=== PATIENT | female | born 1950 | race Caucasian/White ===

== ENCOUNTER 2016-12-25 18:24 | Inpatient (IN) | payer MEDICARE, OTHER ==
[2016-12-25 19:22] LABS: Basophils % (A) 0 %; Eosinophils # (A) 0.2 k/uL (0-0.7); Eosinophils % (A) 2 %; HCT 39.7 % (34.0-46.0); HGB 13.2 gm/dL (11.4-16.0); Luc # (Auto) 0.17; Luc % (Auto) 2; Lymphocytes # (A) 2.6 k/uL (1.0-4.8); Lymphocytes % (A) 25 %; MCH 29.5 pg (25.0-35.0); MCHC 33.2 g/dL (31.0-37.0); MCV 88.8 fL (80.0-100.0); Mean Platelet Volume 7.9; Monocytes # (A) 0.5 k/uL (0-1.0); Monocytes % (A) 5 %; Neutrophils # (A) 6.8 k/uL (1.3-7.7); Neutrophils % (A) 66 %; RBC 4.47 m/uL (3.80-5.40); RDW 15.4 % (11.5-15.5); WBC 10.4 k/uL (3.8-10.6); WBC (Perox) 10.04
--- NOTE | 2016-12-25 19:25 | ED ---
General Adult HPI - General Source: patient, EMS, RN notes reviewed Mode of arrival: EMS Limitations: no limitations <Chelo Mcmillan - Last Filed: 12/25/16 20:02> <Barry Galvan - Last Filed: 12/25/16 22:29> - General Chief complaint: Recheck/Abnormal Lab/Rx Stated complaint: Tremors Time Seen by Provider: 12/25/16 18:28 - History of Present Illness Initial comments: Patient is 66-year-old female presents to the emergency room for evaluation of tremors. Patient states she's been having tremors for the past 4 days. Patient states that today she began feeling very nauseous with headache with general malaise. Patient states she called EMS. Patient denies any recent changes in medications. Patient is on a number of psychiatric medications. Patient denies any changes in dosage of psychiatric medications. Patient denies chest pain or shortness of breath. Patient states he is having mild upper epigastric pain from nausea. Patient was given Zofran in EMS and states that that did help relieve her symptoms. Patient does state she ate today. Patient denies history of diabetes. Patient denies thyroid disorders. Patient denies recent changes in diet. Patient denies fevers or chills. Patient denies weakness or unilateral weakness. Patient denies alcohol use. Patient denies illicit drug use. (Chelo Mcmillan) - Related Data Home Medications Medication Instructions Recorded Confirmed Albuterol Inhaler [Ventolin Hfa 2 puff INHALATION RT-Q6H PRN 12/25/16 12/25/16 Inhaler] Ergocalciferol [Vitamin D2] 50,000 unit PO Q7D 12/25/16 12/25/16 FLUoxetine HCL [PROzac] 20 mg PO DAILY 12/25/16 12/25/16 Hydrochlorothiazide [Hydrodiuril] 25 mg PO DAILY 12/25/16 12/25/16 Ibuprofen [Motrin] 600 mg PO BID PRN 12/25/16 12/25/16 Lisinopril [Zestril] 10 mg PO DAILY 12/25/16 12/25/16 Loperamide [Imodium] 2 mg PO DAILY 12/25/16 12/25/16 Mirtazapine [Remeron] 30 mg PO HS 12/25/16 12/25/16 Pregabalin [Lyrica] 100 mg PO TID 12/25/16 12/25/16 Venlafaxine HCl [Effexor] 37.5 mg PO DAILY 12/25/16 12/25/16 glipiZIDE [Glucotrol] 5 mg PO AC-BID 12/25/16 12/25/16 traZODone HCL [Desyrel] 100 mg PO DAILY 12/25/16 12/25/16 Allergies Allergy/AdvReac Type Severity Reaction Status Date / Time ketorolac [From Toradol] Allergy Unknown Verified 12/25/16 18:46 Penicillins Allergy Unknown Verified 12/25/16 18:46 Review of Systems ROS Other: All systems not noted in ROS Statement are negative. <Chelo Mcmillan - Last Filed: 12/25/16 20:02> ROS Other: All systems not noted in ROS Statement are negative. <Barry Galvan - Last Filed: 12/25/16 22:29> ROS Statement: Those systems with pertinent positive or pertinent negative responses have been documented in the HPI. Past Medical History Past Medical History: No Reported History Additional Past Medical History / Comment(s): anxiety, migraine History of Any Multi-Drug Resistant Organisms: None Reported Past Surgical History: Appendectomy, Cholecystectomy, Hysterectomy Past Psychological History: Anxiety, Depression Smoking Status: Current every day smoker Past Alcohol Use History: None Reported Past Drug Use History: None Reported <Chelo Mcmillan - Last Filed: 12/25/16 20:02> General Exam Limitations: no limitations General appearance: alert, in no apparent distress Head exam: Present: atraumatic, normocephalic, normal inspection Eye exam: Present: normal appearance, PERRL, EOMI Pupils: Present: normal accommodation ENT exam: Present: normal exam Neck exam: Present: normal inspection Respiratory exam: Present: normal lung sounds bilaterally. Absent: respiratory distress Cardiovascular Exam: Present: regular rate, normal rhythm, normal heart sounds GI/Abdominal exam: Present: soft, tenderness (Upper midepigastric), normal bowel sounds. Absent: distended, guarding, rebound, rigid Extremities exam: Present: normal inspection Back exam: Present: normal inspection Neurological exam: Present: alert, oriented X3, CN II-XII intact Expanded Patient oriented to: Present: person, place, time Speech: Present: fluid speech Cranial nerves: EOM's Intact: Normal Sensory exam: Upper Extremity Light Touch: Normal, Lower Extremity Light Touch: Normal Motor strength exam: RUE: 5, LUE: 5, RLE: 5, LLE: 5 Eye Response: (4) open spontaneously Motor Response: (6) obeys commands Verbal Response: (5) oriented Psychiatric exam: Present: normal affect, normal mood Skin exam: Present: warm, dry, intact, normal color. Absent: rash <Chelo Mcmillan - Last Filed: 12/25/16 20:02> <Barry Galvan - Last Filed: 12/25/16 22:29> - General Exam Comments Initial Comments: Sitting in exam room, no acute distress. (Chelo Mcmillan) Medical Decision Making - Lab Data Result diagrams: 12/25/16 19:10 <Chelo Mcmillan - Last Filed: 12/25/16 20:02> - Lab Data Result diagrams: 12/25/16 19:10 12/25/16 19:10 <Barry Galvan - Last Filed: 12/25/16 22:29> - Medical Decision Making Case discussed and passed on to Dr. Galvan at 8 PM. (Chelo Mcmillan) Medical decision-making. The patient is here because she's having tremors. On emergency room started complaining of epigastric pain and vomited several times. Her amylase is mildly elevated at 146. Her lipase is normal. Other labs include a white count of 10 hemoglobin 13 hematocrit 39 with a potassium 3.5. Patient denies having had previous kidney problems but a BUN is 42 creatinine 2.2 with a GFR of only 22. Glucose is 70. TSH within normal limits. Alcohol less than 0.01 Patient has moved to the area only recently. No old history available. Urine shows 27 whites 1 red. Clumps of white cells. The patient denies having known any past history of chronic kidney disease. We did discuss mild pancreatitis. Also urinary tract infection. The patient's tremor seemed to have stopped. Not having tremors at this time. Patient be admitted to hospital treatment of urinary tract infection for reevaluation is needed for chronic kidney disease and mild pancreatitis. Case discussed with nurse practitioner Manuel. Patient be admitted to Dr. Leija (Barry Galvan) - Lab Data Lab Results 12/25/16 12/25/16 12/25/16 Range/Units 19:10 19:10 20:51 WBC 10.4 (3.8-10.6) k/uL RBC 4.47 (3.80-5.40) m/uL Hgb 13.2 (11.4-16.0) gm/dL Hct 39.7 (34.0-46.0) % MCV 88.8 (80.0-100.0) fL MCH 29.5 (25.0-35.0) pg MCHC 33.2 (31.0-37.0) g/dL RDW 15.4 (11.5-15.5) % Plt Count 247 (150-450) k/uL Neutrophils % 66 % Lymphocytes % 25 % Monocytes % 5 % Eosinophils % 2 % Basophils % 0 % Neutrophils # 6.8 (1.3-7.7) k/uL Lymphocytes # 2.6 (1.0-4.8) k/uL Monocytes # 0.5 (0-1.0) k/uL Eosinophils # 0.2 (0-0.7) k/uL Basophils # 0.0 (0-0.2) k/uL Sodium 139 (137-145) mmol/L Potassium 3.5 (3.5-5.1) mmol/L Chloride 98 (98-107) mmol/L Carbon Dioxide 26 (22-30) mmol/L Anion Gap 15 mmol/L BUN 42 H (7-17) mg/dL Creatinine 2.21 H (0.52-1.04) mg/dL Est GFR (MDRD) Af Amer 27 (>60 ml/min/1.73 sqM) Est GFR (MDRD) Non-Af 22 (>60 ml/min/1.73 sqM) Glucose 70 L (74-99) mg/dL POC Glucose (mg/dL) (75-99) mg/dL POC Glu Trophy Assembler ID Calcium 8.9 (8.4-10.2) mg/dL Total Bilirubin 0.3 (0.2-1.3) mg/dL AST 40 H (14-36) U/L ALT 34 (9-52) U/L Alkaline Phosphatase 65 (38-126) U/L Total Protein 7.9 (6.3-8.2) g/dL Albumin 4.2 (3.5-5.0) g/dL Amylase 146 H (30-110) U/L Lipase 165 (23-300) U/L TSH 0.908 (0.465-4.680) mIU/L Urine Color Yellow Urine Appearance Cloudy H (Clear) Urine pH 5.5 (5.0-8.0) Ur Specific Webster 1.011 (1.001-1.035) Urine Protein Trace H (Negative) Urine Glucose (UA) Negative (Negative) Urine Ketones Negative (Negative) Urine Blood Negative (Negative) Urine Nitrite Negative (Negative) Urine Bilirubin Negative (Negative) Urine Urobilinogen <2.0 (<2.0) mg/dL Ur Leukocyte Esterase Negative (Negative) Urine RBC 1 (0-5) /hpf Urine WBC 27 H (0-5) /hpf Urine WBC Clumps Few H (None) /hpf Ur Squamous Epith Cells 3 (0-4) /hpf Urine Bacteria Many H (None) /hpf Urine Mucus Occasional H (None) /hpf Urine Opiates Screen Not Detected (NotDetected) Ur Oxycodone Screen Not Detected (NotDetected) Urine Methadone Screen Not Detected (NotDetected) Ur Propoxyphene Screen Not Detected (NotDetected) Ur Barbiturates Screen Not Detected (NotDetected) U Tricyclic Antidepress Not Detected (NotDetected) Ur Phencyclidine Scrn Not Detected (NotDetected) Ur Amphetamines Screen Not Detected (NotDetected) U Methamphetamines Scrn Not Detected (NotDetected) U Benzodiazepines Scrn Not Detected (NotDetected) Urine Cocaine Screen Not Detected (NotDetected) U Marijuana (THC) Screen Not Detected (NotDetected) Serum Alcohol <10 mg/dL 12/25/16 Range/Units 20:55 WBC (3.8-10.6) k/uL RBC (3.80-5.40) m/uL Hgb (11.4-16.0) gm/dL Hct (34.0-46.0) % MCV (80.0-100.0) fL MCH (25.0-35.0) pg MCHC (31.0-37.0) g/dL RDW (11.5-15.5) % Plt Count (150-450) k/uL Neutrophils % % Lymphocytes % % Monocytes % % Eosinophils % % Basophils % % Neutrophils # (1.3-7.7) k/uL Lymphocytes # (1.0-4.8) k/uL Monocytes # (0-1.0) k/uL Eosinophils # (0-0.7) k/uL Basophils # (0-0.2) k/uL Sodium (137-145) mmol/L Potassium (3.5-5.1) mmol/L Chloride (98-107) mmol/L Carbon Dioxide (22-30) mmol/L Anion Gap mmol/L BUN (7-17) mg/dL Creatinine (0.52-1.04) mg/dL Est GFR (MDRD) Af Amer (>60 ml/min/1.73 sqM) Est GFR (MDRD) Non-Af (>60 ml/min/1.73 sqM) Glucose (74-99) mg/dL POC Glucose (mg/dL) 110 H (75-99) mg/dL POC Glu Trophy Assembler ID Jeaneth Perrin Calcium (8.4-10.2) mg/dL Total Bilirubin (0.2-1.3) mg/dL AST (14-36) U/L ALT (9-52) U/L Alkaline Phosphatase (38-126) U/L Total Protein (6.3-8.2) g/dL Albumin (3.5-5.0) g/dL Amylase (30-110) U/L Lipase (23-300) U/L TSH (0.465-4.680) mIU/L Urine Color Urine Appearance (Clear) Urine pH (5.0-8.0) Ur Specific Webster (1.001-1.035) Urine Protein (Negative) Urine Glucose (UA) (Negative) Urine Ketones (Negative) Urine Blood (Negative) Urine Nitrite (Negative) Urine Bilirubin (Negative) Urine Urobilinogen (<2.0) mg/dL Ur Leukocyte Esterase (Negative) Urine RBC (0-5) /hpf Urine WBC (0-5) /hpf Urine WBC Clumps (None) /hpf Ur Squamous Epith Cells (0-4) /hpf Urine Bacteria (None) /hpf Urine Mucus (None) /hpf Urine Opiates Screen (NotDetected) Ur Oxycodone Screen (NotDetected) Urine Methadone Screen (NotDetected) Ur Propoxyphene Screen (NotDetected) Ur Barbiturates Screen (NotDetected) U Tricyclic Antidepress (NotDetected) Ur Phencyclidine Scrn (NotDetected) Ur Amphetamines Screen (NotDetected) U Methamphetamines Scrn (NotDetected) U Benzodiazepines Scrn (NotDetected) Urine Cocaine Screen (NotDetected) U Marijuana (THC) Screen (NotDetected) Serum Alcohol mg/dL Disposition <Chelo Mcmillan - Last Filed: 12/25/16 20:02> <Barry Galvan - Last Filed: 12/25/16 22:29> Clinical Impression: Occasional tremors, Urinary tract infection, Subacute pancreatitis, Chronic kidney disease Disposition: ADMITTED IP TO THIS HOSP Condition: Fair Referrals: Nonstaff,Physician [Primary Care Provider] - 1-2 days
[2016-12-25 19:33] LABS: ALT 34 U/L (9-52); AST 40 U/L (14-36); Alcohol <10 mg/dL; Alkaline Phosphatase 65 U/L (38-126); Amylase 146 U/L (30-110); Anion Gap 15 mmol/L; Blood Urea Nitrogen 42 mg/dL (7-17); Calcium 8.9 mg/dL (8.4-10.2); Carbon Dioxide 26 mmol/L (22-30); Chloride 98 mmol/L (98-107); Glucose 70 mg/dL (74-99); Non-African American GFR(MDRD) 22 (>60 ml/min/1.73 sqM); Potassium 3.5 mmol/L (3.5-5.1); Sodium 139 mmol/L (137-145); Total Bilirubin 0.3 mg/dL (0.2-1.3); Total Protein 7.9 g/dL (6.3-8.2)
[2016-12-25 20:57] LABS: Glucose,Whole Blood 110 mg/dL (75-99)
[2016-12-25 21:08] LABS: Appearance,Urine Cloudy (Clear); Bacteria,Urine Many /hpf; Bilirubin,Urine Negative (Negative); Glucose,Urine (UA) Negative (Negative); Ketones,Urine Negative (Negative); Leukocyte Esterase,Urine Negative (Negative); Mucus,Urine Occasional /hpf; Nitrite,Urine Negative (Negative); PH, Urine 5.5 (5.0-8.0); Particle Count 5382; Protein,Urine Trace (Negative); RBC,Urine 1 /hpf (0-5); Specific Gravity,Urine 1.011 (1.001-1.035); Squamous Epithelial Cell,Urine 3 /hpf (0-4); UA Billing (MACRO vs. MICRO) MICRO; Urobilinogen,Urine <2.0 mg/dL (<2.0); WBC,Urine 27 /hpf (0-5)
[2016-12-25] MEDS ORDERED: ONDANSETRON 4 MG/2 ML VIAL IVP STA (21:26)
[2016-12-25] MEDS ORDERED: ONDANSETRON 4 MG/2 ML VIAL IVP PRN (22:29)
[2016-12-25] MEDS ORDERED: NALOXONE 0.4 MG/ML 1 ML VIAL IV PRN (22:29)
[2016-12-25] MEDS ORDERED: ALBUTEROL NEBULIZED 2.5 MG/3 ML INHALATION PRN (22:34)
[2016-12-25] MEDS ORDERED: PROMETHAZINE INJ 6.25 MG in SODIUM CHLORIDE 0.9% 50 ML IVPB PRN (22:38)
[2016-12-25] MEDS: HYDROmorphone 1 MG/ML 1 ML SYRINGE IV PRN (23:25)
[2016-12-25] MEDS: SODIUM CHLORIDE 0.9% 1,000 ML IV SCH (23:26)
[2016-12-25 23:58] VITALS: BMI 22.8
[2016-12-26] MEDS: HYDROmorphone 1 MG/ML 1 ML SYRINGE IV PRN ×4 (01:51→14:33)
[2016-12-26 07:16] LABS: Basophils % (A) 0 %; CH 29.7; CHCM 32.9; Eosinophils # (A) 0.2 k/uL (0-0.7); Eosinophils % (A) 2 %; HCT 44.1 % (34.0-46.0); HDW 2.67; Luc # (Auto) 0.14; Luc % (Auto) 2; Lymphocytes # (A) 3.2 k/uL (1.0-4.8); Lymphocytes % (A) 34 %; MCH 28.9 pg (25.0-35.0); MCHC 31.7 g/dL (31.0-37.0); Mean Platelet Volume 7.3; Monocytes # (A) 0.4 k/uL (0-1.0); Monocytes % (A) 4 %; Neutrophils # (A) 5.6 k/uL (1.3-7.7); Neutrophils % (A) 59 %; RBC 4.85 m/uL (3.80-5.40); RDW 15.4 % (11.5-15.5); WBC 9.5 k/uL (3.8-10.6); WBC (Perox) 9.24
[2016-12-26 07:35] LABS: Calcium 9.2 mg/dL (8.4-10.2); Potassium 3.9 mmol/L (3.5-5.1); Total Bilirubin 0.4 mg/dL (0.2-1.3); Total Protein 8.3 g/dL (6.3-8.2)
[2016-12-26] MEDS: FLUoxetine HCL 20 MG CAP PO SCH (07:56)
[2016-12-26] MEDS: PANTOPRAZOLE 40 MG/10 ML VIAL IV SCH (07:57)
[2016-12-26] MEDS: PREGABALIN 100 MG CAP PO SCH ×2 (08:06→15:10)
[2016-12-26] MEDS ORDERED: LISINOPRIL 10 MG TAB PO SCH (09:00)
[2016-12-26] MEDS ORDERED: VENLAFAXINE HCL 37.5 MG TAB PO SCH (09:00)
[2016-12-26] MEDS ORDERED: traZODone HCL 100 MG TAB PO SCH (09:00)
[2016-12-26] MEDS ORDERED: HYDROCHLOROTHIAZIDE 25 MG TAB PO SCH (09:00)
[2016-12-26] MEDS ORDERED: LEVOFLOXACIN 500MG-D5W PMX 500 MG in DEXTROSE/WATER 1 100ML.BAG IVPB SCH (09:00)
[2016-12-26] MEDS ORDERED: ERGOCALCIFEROL 50,000 UNIT CAP PO SCH (09:00)
[2016-12-26] MEDS: glipiZIDE 5 MG TAB PO SCH ×2 (12:34→15:25)
--- NOTE | 2016-12-26 18:08 | P.HPIM ---
History of Present Illness H&P Date: 12/26/16 Chief Complaint: Tremors This is a 66-year-old female comes in to the hospital with complaints of lower extremity tremors over the last few days. Patient states that she has not been able to walk with stability due to tremors. Patient states that her oral intake has been slightly diminished however states that she has been drinking as much water as possible. Initially patient was seen in the emergency room was noted to have a creatinine of 2.21. Patient was given IV fluids. At the time of my evaluation patient states that she does not take any of the medications that were noted in her home meds. Patient's only medication is Prozac and Remeron. I did discuss if patient continues to take it patient is unsure. Patient denies that she is a diabetic Patient was noted to have multiple blood pressures around low 90s systolic Patient's kidney function improved with IV fluids for creatinine 1.28 this morning Patient denies having any fevers chills headache chest pain difficulty breathing diarrhea urinary urgency or frequency Patient does complain of mild epigastric pain however denies any associated hematemesis. At this time patient denies having any nausea as well We'll also noted to have elevated lipase. Medications were reviewed and discontinued appropriately Previous 14 point review of systems was done nonpertinent then all as mentioned above Physical examPhysical exam Gen. appearance oriented 3 in no distress Neck is supple no JVD Lungs good air entry clear to auscultation no rhonchi or wheezing Heart S1-S2 heard regular rate and rhythm no murmurs appreciated Abdomen is soft nontender no organomegaly bowel sounds are intact Neurologically cranial nerves II-12 grossly intact no focal motor or sensory deficits noted Skin no abnormalities appreciated Assessment and plan #1 acute kidney injury likely prerenal #2 lower extremity movement disorder this is likely due to use of Remeron with kidney dysfunction patient's symptoms of artery improved #3 history of depression #4 abdominal pain unclear etiology patient does not have pancreatitis Plan Continue IV fluids Orthostatics to be done Repeat labs in a.m. Encourage ambulation If renal function improves patient can thereafter be considered for discharge after a safety evaluation Past Medical History Past Medical History: GERD/Reflux, Seizure Disorder, Syncope Additional Past Medical History / Comment(s): anxiety, migraine, last seizure 5 years ago History of Any Multi-Drug Resistant Organisms: None Reported Past Surgical History: Appendectomy, Cholecystectomy, Hysterectomy Additional Past Surgical History / Comment(s): Py. cyst removal Past Anesthesia/Blood Transfusion Reactions: No Reported Reaction Past Psychological History: Anxiety, Depression Smoking Status: Current every day smoker Past Alcohol Use History: None Reported Past Drug Use History: None Reported - Past Family History Mother Family Medical History: Cancer Medications and Allergies Home Medications Medication Instructions Recorded Confirmed Type Albuterol Inhaler [Ventolin Hfa 2 puff INHALATION RT-Q6H PRN 12/25/16 12/25/16 History Inhaler] Ergocalciferol [Vitamin D2] 50,000 unit PO Q7D 12/25/16 12/25/16 History FLUoxetine HCL [PROzac] 20 mg PO DAILY 12/25/16 12/25/16 History Ibuprofen [Motrin] 600 mg PO BID PRN 12/25/16 12/25/16 History Loperamide [Imodium] 2 mg PO DAILY 12/25/16 12/25/16 History Mirtazapine [Remeron] 30 mg PO HS 12/25/16 12/25/16 History Pregabalin [Lyrica] 100 mg PO TID 12/25/16 12/25/16 History Venlafaxine HCl [Effexor] 37.5 mg PO DAILY 12/25/16 12/25/16 History traZODone HCL [Desyrel] 100 mg PO DAILY 12/25/16 12/25/16 History Allergies Allergy/AdvReac Type Severity Reaction Status Date / Time ketorolac [From Toradol] Allergy Unknown Verified 12/25/16 18:46 Penicillins Allergy Unknown Verified 12/25/16 18:46 Physical Exam Vitals: Vital Signs Temp Pulse Pulse Resp BP BP BP 12/26/16 16:00 74 16 12/26/16 15:41 118/96 12/26/16 15:40 12/26/16 12:34 74 99/63 12/26/16 08:00 79 16 12/26/16 07:00 97.7 F 79 16 132/86 12/26/16 00:50 18 12/26/16 00:46 97.9 F 79 16 110/71 12/25/16 22:58 98.2 F 74 18 130/84 12/25/16 22:55 97.5 F L 73 18 129/76 12/25/16 22:11 80 18 115/72 12/25/16 20:51 79 18 120/79 12/25/16 18:27 98.4 F 91 20 132/71 BP BP BP Pulse Ox 12/26/16 16:00 12/26/16 15:41 118/69 146/78 12/26/16 15:40 117/72 12/26/16 12:34 12/26/16 08:00 12/26/16 07:00 95 12/26/16 00:50 12/26/16 00:46 95 12/25/16 22:58 96 12/25/16 22:55 94 L 12/25/16 22:11 93 L 12/25/16 20:51 94 L 12/25/16 18:27 99 Intake and Output 12/26/16 12/26/16 12/26/16 06:59 14:59 22:59 Intake Total 1075 Balance 1075 Intake: Intake, IV Titration 750 Amount Sodium Chloride 0.9% 1, 750 000 ml @ 100 mls/hr IV . Q10H [facility] Rx#:[id number] Oral 325 Other: Voiding Method Bedside Commode Bedside Commode # Voids 2 3 Weight 68.039 kg 68.039 kg Patient Weight 12/27/16 06:59 Weight 68.039 kg Results CBC & Chem 7: 12/26/16 06:50 12/26/16 06:50 Labs: Abnormal Lab Results - Last 24 Hours (Table) 12/25/16 12/25/16 12/25/16 Range/Units 19:10 20:51 20:55 BUN 42 H (7-17) mg/dL Creatinine 2.21 H (0.52-1.04) mg/dL Glucose 70 L (74-99) mg/dL POC Glucose (mg/dL) 110 H (75-99) mg/dL AST 40 H (14-36) U/L Total Protein (6.3-8.2) g/dL Amylase 146 H (30-110) U/L Lipase (23-300) U/L Urine Appearance Cloudy H (Clear) Urine Protein Trace H (Negative) Urine WBC 27 H (0-5) /hpf Urine WBC Clumps Few H (None) /hpf Urine Bacteria Many H (None) /hpf Urine Mucus Occasional H (None) /hpf 12/26/16 Range/Units 06:50 BUN 30 H (7-17) mg/dL Creatinine 1.28 H (0.52-1.04) mg/dL Glucose 106 H (74-99) mg/dL POC Glucose (mg/dL) (75-99) mg/dL AST (14-36) U/L Total Protein 8.3 H (6.3-8.2) g/dL Amylase 160 H (30-110) U/L Lipase 833 H (23-300) U/L Urine Appearance (Clear) Urine Protein (Negative) Urine WBC (0-5) /hpf Urine WBC Clumps (None) /hpf Urine Bacteria (None) /hpf Urine Mucus (None) /hpf Thrombosis Risk Factor Assmnt - Choose All That Apply Other Risk Factors: Yes Each Risk Factor Represents 2 Points: Age 61-74 years Thrombosis Risk Factor Assessment Total Risk Factor Score: 2 Thrombosis Risk Factor Assessment Level: Low Risk
[2016-12-26] MEDS: HYDROcodone/APAP 5-325MG 1 EACH TAB PO PRN (19:36)
[2016-12-26] MEDS: DIAZEPAM 5 MG TAB PO PRN (20:03)
[2016-12-26] MEDS: SODIUM CHLORIDE 0.9% 1,000 ML IV SCH ×2 (20:05→20:07)
[2016-12-26] MEDS ORDERED: MIRTAZAPINE 15 MG TAB PO SCH (21:00)
[2016-12-26] MEDS ORDERED: HYDROmorphone 1 MG/ML 1 ML SYRINGE IVP PRN (22:20)
[2016-12-26] MEDS: HYDROmorphone 1 MG/ML 1 ML SYRINGE IVP PRN (23:15)
[2016-12-27] MEDS: DIAZEPAM 5 MG TAB PO PRN ×2 (01:56→11:24)
[2016-12-27] MEDS: HYDROmorphone 1 MG/ML 1 ML SYRINGE IVP PRN ×3 (03:27→12:14)
[2016-12-27] MEDS: SODIUM CHLORIDE 0.9% 1,000 ML IV SCH ×2 (05:26→12:15)
[2016-12-27] MEDS: HYDROcodone/APAP 5-325MG 1 EACH TAB PO PRN ×2 (05:47→11:23)
[2016-12-27] MEDS ORDERED: ONDANSETRON 4 MG/2 ML VIAL IVP PRN (06:29)
[2016-12-27 06:31] LABS: Basophils # (A) 0.1 k/uL (0-0.2); Basophils % (A) 1 %; CH 29.5; Eosinophils # (A) 0.2 k/uL (0-0.7); Eosinophils % (A) 3 %; HCT 36.5 % (34.0-46.0); HGB 11.5 gm/dL (11.4-16.0); Luc % (Auto) 2; Lymphocytes # (A) 2.9 k/uL (1.0-4.8); Lymphocytes % (A) 43 %; MCH 29.3 pg (25.0-35.0); MCHC 31.5 g/dL (31.0-37.0); MCV 92.8 fL (80.0-100.0); Mean Platelet Volume 7.5; Monocytes # (A) 0.3 k/uL (0-1.0); Monocytes % (A) 4 %; Neutrophils # (A) 3.3 k/uL (1.3-7.7); Neutrophils % (A) 48 %; RBC 3.94 m/uL (3.80-5.40); RDW 15.1 % (11.5-15.5); WBC 6.8 k/uL (3.8-10.6)
[2016-12-27 06:45] LABS: ALT 25 U/L (9-52); AST 22 U/L (14-36); Alkaline Phosphatase 51 U/L (38-126); Anion Gap 7 mmol/L; Blood Urea Nitrogen 12 mg/dL (7-17); Calcium 8.5 mg/dL (8.4-10.2); Carbon Dioxide 28 mmol/L (22-30); Chloride 101 mmol/L (98-107); Glucose 102 mg/dL (74-99); Non-African American GFR(MDRD) >60 (>60 ml/min/1.73 sqM); Potassium 4.3 mmol/L (3.5-5.1); Sodium 136 mmol/L (137-145); Total Bilirubin 0.3 mg/dL (0.2-1.3); Total Protein 6.5 g/dL (6.3-8.2)
[2016-12-27 07:09] VITALS: BP 124/83; PULSE 66; RESP 16; TEMP 97.6
[2016-12-27] MEDS: PANTOPRAZOLE 40 MG/10 ML VIAL IV SCH (07:43)
[2016-12-27] MEDS: FLUoxetine HCL 20 MG CAP PO SCH (07:44)
[2016-12-27] MEDS ORDERED: LEVOFLOXACIN 250MG-D5W PMX 250 MG in DEXTROSE/WATER 1 50ML.BAG IVPB SCH (09:00)
[2016-12-27 09:07] LABS: Amylase 52 U/L (30-110)
--- NOTE | 2016-12-27 14:58 | P.DS ---
Providers Date of admission: 12/25/16 22:30 Attending physician: Phu Leija MD Primary care physician: Physician Nonstaff Hospital Course: patient came in with complaints of what she describes as tumors and upon her upon further history what appears like patient has some except for total side effects from trazodone which will be discontinued. Patient also had renal dysfunction which was believed secondary to prerenal azotemia improved kidney function to normal with IV fluids and patient will be discharged and ibuprofen will be discontinued trazodone will be discontinued and patient will followed primary care physician as an outpatient. Patient apparently doesn't takeRemeron at home. PHYSICAL EXAMINATION: GENERAL: The patient is alert and oriented x3, not in any acute distress. Well developed, well nourished. HEENT: Pupils are round and equally reacting to light. EOMI. No scleral icterus. No conjunctival pallor. Normocephalic, atraumatic. No pharyngeal erythema. No thyromegaly. CARDIOVASCULAR: S1 and S2 present. No murmurs, rubs, or gallops. PULMONARY: Chest is clear to auscultation, no wheezing or crackles. ABDOMEN: Soft, nontender, nondistended, normoactive bowel sounds. No palpable organomegaly. MUSCULOSKELETAL: No joint swelling or deformity. EXTREMITIES: No cyanosis, clubbing, or pedal edema. NEUROLOGICAL: Gross neurological examination did not reveal any focal deficits. SKIN: No rashes. #1 acute kidney injury likely prerenal #2 lower extremity movement disorder this is likely due to use of Remeron with kidney dysfunction patient's symptoms of artery improved #3 history of depression #4 asymptomatic bacteriuria which doesn't warrant any antibiotics. Patient Condition at Discharge: Fair Plan - Discharge Summary New Discharge Prescriptions: Discontinued traZODone HCL [Desyrel] 100 mg PO DAILY Mirtazapine [Remeron] 30 mg PO HS Ibuprofen [Motrin] 600 mg PO BID PRN PRN Reason: Pain No Action Loperamide [Imodium] 2 mg PO DAILY Pregabalin [Lyrica] 100 mg PO TID FLUoxetine HCL [PROzac] 20 mg PO DAILY Venlafaxine HCl [Effexor] 37.5 mg PO DAILY Ergocalciferol [Vitamin D2] 50,000 unit PO Q7D Albuterol Inhaler [Ventolin Hfa Inhaler] 2 puff INHALATION RT-Q6H PRN PRN Reason: Shortness Of Breath Discharge Medication List Albuterol Inhaler [Ventolin Hfa Inhaler] 2 puff INHALATION RT-Q6H PRN 12/25/16 [ History] Ergocalciferol [Vitamin D2] 50,000 unit PO Q7D 12/25/16 [History] FLUoxetine HCL [PROzac] 20 mg PO DAILY 12/25/16 [History] Loperamide [Imodium] 2 mg PO DAILY 12/25/16 [History] Pregabalin [Lyrica] 100 mg PO TID 12/25/16 [History] Venlafaxine HCl [Effexor] 37.5 mg PO DAILY 12/25/16 [History] Follow up Appointment(s)/Referral(s): Nonstaff,Physician [Primary Care Provider] - 1-2 days Patient Instructions/Handouts: Pancreatitis (DC), Acute Abdominal Pain (DC) Discharge Disposition: HOME SELF-CARE
[2016-12-28] MEDS ORDERED: PANTOPRAZOLE 40 MG TABLET PO SCH (07:30)
== END 2016-12-27 15:49 | disposition home or self-care (01) | DRG 683 ==
LOC: EC 18:24 → 3SUR 22:30
PROVIDERS: ADMIT Internal Medicine; ATTEND Internal Medicine
DX: N17.9 Acute kidney failure, unspecified (principal); N39.0 Urinary tract infection, site not specified; T43.025A Adverse effect of tetracyclic antidepressants, initial encounter; F32.9 Major depressive disorder, single episode, unspecified; R10.9 Unspecified abdominal pain; K21.9 Gastro-esophageal reflux disease without esophagitis; G40.909 Epilepsy, unspecified, not intractable, without status epilepticus; F41.9 Anxiety disorder, unspecified; G43.909 Migraine, unspecified, not intractable, without status migrainosus; G25.1 Drug-induced tremor; F17.200 Nicotine dependence, unspecified, uncomplicated; N18.9 Chronic kidney disease, unspecified; Z90.49 Acquired absence of other specified parts of digestive tract; Z90.89 Acquired absence of other organs; Z90.710 Acquired absence of both cervix and uterus; Z79.899 Other long term (current) drug therapy; Z80.9 Family history of malignant neoplasm, unspecified; Z79.1 Long term (current) use of non-steroidal anti-inflammatories (NSAID); Z79.51 Long term (current) use of inhaled steroids; Z88.0 Allergy status to penicillin; Z88.8 Allergy status to other drugs, medicaments and biological substances
CPT/HCPCS: 36415; 80053; 80306; 80320; 81001; 82150; 83690; 84443; 85025; 96374; 99285

== ENCOUNTER 2017-01-19 19:36 | Observation (INO) | payer MEDICARE ==
[2017-01-19] MEDS ORDERED: MORPHINE SULFATE 4 MG/ML SYRINGE IV STA (20:02)
[2017-01-19] MEDS ORDERED: KETOROLAC 30 MG/ML 1 ML VIAL IVP STA (20:02)
--- NOTE | 2017-01-19 20:11 | ED ---
General Adult HPI - General Chief complaint: Chest Pain Stated complaint: Chest pain Time Seen by Provider: 01/19/17 19:45 Source: patient, EMS, RN notes reviewed Mode of arrival: EMS Limitations: no limitations - History of Present Illness Initial comments: 66-year-old female with history of migraine headache presents for evaluation of chest pain and headache. Patient called EMS with left-sided chest pain radiating to the left shoulder. This began at rest. Patient states he was associated with some mild shortness of breath. No nausea. No diaphoresis. Patient was dull in nature. Patient states she had a stress test several years ago and believes this was normal. She has no known history of CAD. No history of hypertension or diabetes according to the patient. She is a smoker. No significant family history of coronary artery disease. Patient was given aspirin and nitroglycerin by EMS. Pain improved from 8 out of 10-2 out of 10 with nitroglycerin. At the time of my evaluation patient has minimal persistent chest pain. She is complaining of a headache which is typical of her normal headaches. - Related Data Home Medications Medication Instructions Recorded Confirmed Butalb/Acetaminophen/Caffeine 1 tab PO Q4H PRN 01/19/17 01/19/17 [Fioricet 50-325-40] Cholecalciferol [Vitamin D3] 1,000 unit PO DAILY 01/19/17 01/19/17 FLUoxetine HCL [PROzac] 40 mg PO DAILY 01/19/17 01/19/17 Gabapentin [Neurontin] 100 mg PO DAILY 01/19/17 01/19/17 Hydrocodone/Acetaminophen [[place] 1 tab PO BID PRN 01/19/17 01/19/17 10-325] Multivitamins, Thera [Multivitamin 1 tab PO DAILY 01/19/17 01/19/17 (formulary)] clonazePAM [KlonoPIN] 1 mg PO TID 01/19/17 01/19/17 traZODone HCL 150 mg PO HS 01/19/17 01/19/17 Allergies Allergy/AdvReac Type Severity Reaction Status Date / Time Penicillins Allergy Rash/Hives Verified 01/19/17 20:30 ketorolac [From Toradol] AdvReac Rapid Verified 01/19/17 20:30 Heart Rate Review of Systems ROS Statement: Those systems with pertinent positive or pertinent negative responses have been documented in the HPI. ROS Other: All systems not noted in ROS Statement are negative. Past Medical History Past Medical History: GERD/Reflux, Seizure Disorder, Syncope Additional Past Medical History / Comment(s): anxiety, migraine, last seizure 5 years ago History of Any Multi-Drug Resistant Organisms: None Reported Past Surgical History: Appendectomy, Cholecystectomy, Hysterectomy Additional Past Surgical History / Comment(s): Py. cyst removal Past Anesthesia/Blood Transfusion Reactions: No Reported Reaction Past Psychological History: Anxiety, Depression Smoking Status: Current every day smoker Past Alcohol Use History: Occasional Past Drug Use History: None Reported - Past Family History Mother Family Medical History: Cancer General Exam Limitations: no limitations General appearance: alert, in no apparent distress Head exam: Present: atraumatic, normocephalic Eye exam: Present: normal appearance, PERRL ENT exam: Present: normal exam Neck exam: Present: normal inspection. Absent: tenderness Respiratory exam: Present: normal lung sounds bilaterally, respiratory distress Cardiovascular Exam: Present: regular rate, normal rhythm GI/Abdominal exam: Present: soft. Absent: distended, tenderness Extremities exam: Present: normal inspection, full ROM, normal capillary refill. Absent: pedal edema Neurological exam: Present: alert, oriented X3 Psychiatric exam: Present: normal affect, normal mood Skin exam: Present: warm, dry. Absent: cyanosis, diaphoretic Course Vital Signs 01/19/17 01/19/17 01/19/17 19:53 20:23 21:04 Temperature 99.1 F Pulse Rate 81 68 72 Respiratory 18 18 18 Rate Blood Pressure 127/74 125/79 117/70 O2 Sat by Pulse 98 97 97 Oximetry 01/19/17 22:13 Temperature Pulse Rate 64 Respiratory 18 Rate Blood Pressure 116/73 O2 Sat by Pulse 97 Oximetry EKG Findings - EKG Comments: EKG Findings:: EKG shows normal sinus rhythm, ventricular rate 74, TX interval 170, QRS duration 90, there is RSR pattern suggestive of right ventricular conduction delay, T-wave inversion in V2, V3 and V4, no ST segment elevation or depression Medical Decision Making - Medical Decision Making 66 yo female with no known history of CAD presents with chest pain radiating to her left shoulder. Patient's pain began at rest. EKG does show ventricular conduction delay and T-wave inversion in the precordium. Patient's chest pain was relieved by nitroglycerin given by EMS. She had some intermittent chest pain while in the emergency department. She started on a heparin drip for unstable angina. Laboratory studies are negative including normal troponin. Chest x-ray shows no acute process. - Lab Data Result diagrams: 01/19/17 19:51 01/19/17 19:51 Lab Results 01/19/17 01/19/17 01/19/17 Range/Units 19:51 19:51 19:51 WBC 7.9 (3.8-10.6) k/uL RBC 3.91 (3.80-5.40) m/uL Hgb 11.8 (11.4-16.0) gm/dL Hct 35.9 (34.0-46.0) % MCV 91.8 (80.0-100.0) fL MCH 30.3 (25.0-35.0) pg MCHC 33.0 (31.0-37.0) g/dL RDW 14.9 (11.5-15.5) % Plt Count 176 (150-450) k/uL Neutrophils % 49 % Lymphocytes % 38 % Monocytes % 6 % Eosinophils % 4 % Basophils % 1 % Neutrophils # 3.9 (1.3-7.7) k/uL Lymphocytes # 3.0 (1.0-4.8) k/uL Monocytes # 0.5 (0-1.0) k/uL Eosinophils # 0.3 (0-0.7) k/uL Basophils # 0.0 (0-0.2) k/uL PT (9.0-12.0) sec INR (<1.2) APTT (22.0-30.0) sec Sodium 136 L (137-145) mmol/L Potassium 4.4 (3.5-5.1) mmol/L Chloride 98 (98-107) mmol/L Carbon Dioxide 27 (22-30) mmol/L Anion Gap 11 mmol/L BUN 15 (7-17) mg/dL Creatinine 0.70 (0.52-1.04) mg/dL Est GFR (MDRD) Af Amer >60 (>60 ml/min/1.73 sqM) Est GFR (MDRD) Non-Af >60 (>60 ml/min/1.73 sqM) Glucose 147 H (74-99) mg/dL Calcium 9.3 (8.4-10.2) mg/dL Magnesium 1.8 (1.6-2.3) mg/dL Total Bilirubin 0.5 (0.2-1.3) mg/dL AST 85 H (14-36) U/L ALT 68 H (9-52) U/L Alkaline Phosphatase 82 (38-126) U/L Total Creatine Kinase 30 (30-135) U/L CK-MB (CK-2) <0.2 (0.0-2.4) ng/mL CK-MB (CK-2) Rel Index Troponin I <0.012 (0.000-0.034) ng/mL NT-Pro-B Natriuret Pep pg/mL Total Protein 6.8 (6.3-8.2) g/dL Albumin 3.7 (3.5-5.0) g/dL Lipase 262 (23-300) U/L Stool Occult Blood (Negative) 01/19/17 01/19/17 01/19/17 Range/Units 19:51 19:51 21:57 WBC (3.8-10.6) k/uL RBC (3.80-5.40) m/uL Hgb (11.4-16.0) gm/dL Hct (34.0-46.0) % MCV (80.0-100.0) fL MCH (25.0-35.0) pg MCHC (31.0-37.0) g/dL RDW (11.5-15.5) % Plt Count (150-450) k/uL Neutrophils % % Lymphocytes % % Monocytes % % Eosinophils % % Basophils % % Neutrophils # (1.3-7.7) k/uL Lymphocytes # (1.0-4.8) k/uL Monocytes # (0-1.0) k/uL Eosinophils # (0-0.7) k/uL Basophils # (0-0.2) k/uL PT 9.9 (9.0-12.0) sec INR 1.0 (<1.2) APTT 24.0 (22.0-30.0) sec Sodium (137-145) mmol/L Potassium (3.5-5.1) mmol/L Chloride (98-107) mmol/L Carbon Dioxide (22-30) mmol/L Anion Gap mmol/L BUN (7-17) mg/dL Creatinine (0.52-1.04) mg/dL Est GFR (MDRD) Af Amer (>60 ml/min/1.73 sqM) Est GFR (MDRD) Non-Af (>60 ml/min/1.73 sqM) Glucose (74-99) mg/dL Calcium (8.4-10.2) mg/dL Magnesium (1.6-2.3) mg/dL Total Bilirubin (0.2-1.3) mg/dL AST (14-36) U/L ALT (9-52) U/L Alkaline Phosphatase (38-126) U/L Total Creatine Kinase (30-135) U/L CK-MB (CK-2) (0.0-2.4) ng/mL CK-MB (CK-2) Rel Index Troponin I (0.000-0.034) ng/mL NT-Pro-B Natriuret Pep 82 pg/mL Total Protein (6.3-8.2) g/dL Albumin (3.5-5.0) g/dL Lipase (23-300) U/L Stool Occult Blood Negative (Negative) Critical Care Time Critical Care Time: Yes Total Critical Care Time: 35 Disposition Clinical Impression: Unstable angina pectoris Disposition: ADMITTED IP TO THIS [facility] Condition: Good Referrals: Kasi Yoder MD [Primary Care Provider] - 1-2 days Decision to Admit Reason: Admit from EC Decision Date: 01/19/17 Decision Time: 22:42
[2017-01-19 20:32] LABS: Basophils % (A) 1 %; CH 29.2; Eosinophils # (A) 0.3 k/uL (0-0.7); Eosinophils % (A) 4 %; HCT 35.9 % (34.0-46.0); HDW 2.48; HGB 11.8 gm/dL (11.4-16.0); Luc # (Auto) 0.21; Luc % (Auto) 3; Lymphocytes % (A) 38 %; MCH 30.3 pg (25.0-35.0); MCV 91.8 fL (80.0-100.0); Mean Platelet Volume 8.1; Monocytes # (A) 0.5 k/uL (0-1.0); Monocytes % (A) 6 %; Neutrophils # (A) 3.9 k/uL (1.3-7.7); Neutrophils % (A) 49 %; RBC 3.91 m/uL (3.80-5.40); RDW 14.9 % (11.5-15.5); WBC 7.9 k/uL (3.8-10.6); WBC (Perox) 8.16
--- NOTE | 2017-01-19 20:37 | XR ---
EXAMINATION TYPE: XR chest 2V DATE OF EXAM: 01/19/2017 COMPARISON: 04/03/2012 HISTORY: Shortness of breath TECHNIQUE: Frontal and lateral views of the chest are obtained. FINDINGS: Scattered senescent parenchymal changes noted. Hyperinflation compatible with COPD. No evidence for infiltrate. No evidence for atelectasis. Heart size is stable. Mediastinal structures are stable and grossly unremarkable. No evidence for hilar prominence. Degenerative changes dorsal spine. IMPRESSION: 1. No evidence for acute pulmonary disease.
[2017-01-19 20:38] LABS: ALT 68 U/L (9-52); AST 85 U/L (14-36); Alkaline Phosphatase 82 U/L (38-126); Anion Gap 11 mmol/L; Blood Urea Nitrogen 15 mg/dL (7-17); Calcium 9.3 mg/dL (8.4-10.2); Carbon Dioxide 27 mmol/L (22-30); Chloride 98 mmol/L (98-107); Glucose 147 mg/dL (74-99); Magnesium 1.8 mg/dL (1.6-2.3); Non-African American GFR(MDRD) >60 (>60 ml/min/1.73 sqM); Prothrombin Time 9.9 sec (9.0-12.0); Sodium 136 mmol/L (137-145); Total Bilirubin 0.5 mg/dL (0.2-1.3); Total Protein 6.8 g/dL (6.3-8.2)
[2017-01-19 20:39] LABS: Potassium 4.4 mmol/L (3.5-5.1)
[2017-01-19 20:41] LABS: Creatine Kinase 30 U/L (30-135)
[2017-01-19 20:53] LABS: Creatine Kinase MB <0.2 ng/mL (0.0-2.4); Troponin I <0.012 ng/mL (0.000-0.034)
[2017-01-19] MEDS ORDERED: MORPHINE SULFATE 2 MG/ML SYRINGE IVP ONE (21:45)
[2017-01-19] MEDS ORDERED: ASPIRIN 81 MG PO STA (22:42)
[2017-01-19] MEDS ORDERED: NITROGLYCERIN SL TABS 0.4 MG TAB SUBLINGUAL PRN (22:42)
[2017-01-19] MEDS ORDERED: HEPARIN SODIUM,PORCINE 5,000 UNIT/ML 1 ML VIAL IV ONE (22:42)
[2017-01-19] MEDS ORDERED: HEPARIN SODIUM,PORCINE 5,000 UNIT/ML 1 ML VIAL IV PRN (22:42)
[2017-01-19] MEDS ORDERED: HEPARIN SODIUM,PORCINE/D5W PMX 25,000 UNIT in DEXTROSE/WATER 1 500ML.BAG IV SCH (22:45)
[2017-01-19] MEDS: SODIUM CHLORIDE 0.9% 1,000 ML IV SCH (22:56)
[2017-01-20 00:20] VITALS: RESP 16
[2017-01-20] MEDS: MORPHINE SULFATE 2 MG/ML SYRINGE IVP PRN ×3 (02:16→10:52)
[2017-01-20 02:56] LABS: Creatine Kinase 21 U/L (30-135)
[2017-01-20 03:05] LABS: Creatine Kinase MB <0.2 ng/mL (0.0-2.4); Troponin I <0.012 ng/mL (0.000-0.034)
[2017-01-20 08:42] LABS: Mean Platelet Volume 7.5
--- NOTE | 2017-01-20 08:50 | CONS ---
CONSULTATION Mrs. Freitas is a 66-year-old female with no prior documented history of coronary artery disease, history of chronic tobacco use, who presented with symptoms of chest discomfort. The discomfort occurred at rest, radiating to the left shoulder and arm, persisted for few hours, not associated with any other symptoms. She came into the emergency room and subsequently admitted. At the time of my evaluation, she is pain- free. She is usually active physically and denies any exertional chest discomfort. She has no dyspnea on exertion. No dizziness. No palpitation. No syncope. No PND, orthopnea, or peripheral edema. Her coronary risk factors are remarkable for a history of chronic tobacco use, about a half a pack a day. No hypertension. No diabetes. No hyperlipidemia. MEDICATION: Her medications at home include trazodone, [place], Fioricet, vitamin D, Klonopin, Neurontin, and Prozac. REVIEW OF SYSTEMS: RESPIRATORY SYSTEM: She has no recent wheezing. No cough. No history of documented obstructive lung disease. GI SYSTEM: No recent GI bleeding. She had a prior history of peptic ulcer disease, but no recent bleeding. SYSTEM: No dysuria or hematuria. NERVOUS SYSTEM: No stroke or seizure. SOCIAL HISTORY: She drinks alcohol on a rare basis. Drinks about 3 caffeinated beverages a day. PHYSICAL EXAMINATION: A 66-year-old female, alert, oriented, in no apparent distress. Blood pressure 115/50 with the heart rate in the 60s. HEAD: Normocephalic. EYES: Sclerae anicteric. NECK: Good upstroke. No bruit. No jugular venous distention. LUNGS: Clear to auscultation. HEART: Regular rate and rhythm. S1, S2. No S3, no S4. No murmur or rub. ABDOMEN: Soft, nontender. Positive bowel sounds. No organomegaly. EXTREMITIES: No edema. Intact distal pulses. LAB DATA: Lab data revealed BUN and creatinine 15 and 0.7. Potassium 4.4. Troponin less than 0.012. NT-proBNP of 82. Her AST and ALT are 85 and 68, which is higher than her last presentation. Hemoglobin of 11.8. Her lipase is 262. Her chest x-ray shows no evidence for acute infiltrate. Her EKG shows a sinus mechanism were RSR prime and minor nonspecific ST-T wave changes with no evolution. IMPRESSION: 1. Chest discomfort of unclear etiology. No evidence to suggest acute coronary syndrome. 2. Chronic tobacco use. 3. Abnormal liver function tests. RECOMMENDATION: From the cardiac standpoint, I will stop her heparin and increase her level of activity. I will proceed with stress echocardiogram to further assess her status and guide her treatment. I have encouraged her to stop smoking. Depending on her progress, further recommendation will be made. Thank you for this consult. We will follow with you. MMODL / IJN: [id number] /
[2017-01-20] MEDS ORDERED: ASPIRIN 325 MG TAB PO SCH (09:00)
[2017-01-20] MEDS ORDERED: HYDROcodone/APAP 10-325MG 1 EACH TAB PO PRN (09:02)
[2017-01-20] MEDS ORDERED: BUTALB/APAP/CAFF 50-325-40MG TAB PO PRN (09:02)
[2017-01-20 09:10] LABS: Cholesterol 156 mg/dL (<200); HDL Cholesterol 56 mg/dL (40-60)
[2017-01-20 09:13] LABS: Creatine Kinase <20 U/L (30-135)
[2017-01-20] MEDS ORDERED: GABAPENTIN 100 MG CAP PO SCH (09:15)
[2017-01-20] MEDS ORDERED: CHOLECALCIFEROL 1,000 UNIT TAB PO SCH (09:15)
[2017-01-20] MEDS ORDERED: FLUoxetine HCL 20 MG CAP PO SCH (09:15)
[2017-01-20] MEDS ORDERED: clonazePAM 1 MG TAB PO SCH (09:15)
[2017-01-20 09:25] LABS: Creatine Kinase MB <0.2 ng/mL (0.0-2.4); Troponin I <0.012 ng/mL (0.000-0.034)
[2017-01-20] MEDS ORDERED: DOBUTamine DRIP for NUC MED 500 MG in DEXTROSE/WATER 1 250ML.BAG IV ONE (09:43)
--- NOTE | 2017-01-20 10:43 | ECHOF ---
Referral Reason:cp MEASUREMENTS -------- HEIGHT: 172.7 cm WEIGHT: 72.6 kg BP: IVSd: 1.1 cm (0.6 - 1.1) LVIDd: 4.6 cm (3.9 - 5.3) LVPWd: 1.0 cm (0.6 - 1.1) IVSs: 1.9 cm LVIDs: 2.6 cm LVPWs: 2.1 cm Ao Diam: 3.8 cm (2.0 - 3.7) AV Cusp: 2.4 cm (1.5 - 2.6) LA Diam: 2.7 cm (2.7 - 3.8) MV EXCURSION: 14.056 mm (> 18.000) MV EF SLOPE: 72 mm/s (70 - 150) EPSS: 1.2 cm MV E Dung: 0.55 m/s MV DecT: 275 ms MV A Dung: 0.64 m/s MV E/A Ratio: 0.86 AR PHT: 242 ms RAP: 5.00 mmHg RVSP: 32.56 mmHg FINDINGS -------- Sinus rhythm. This was a technically difficult study with suboptimal views. The left ventricular size is normal. Left ventricular wall thickness is normal. Overall left ventricular systolic function is normal with, an EF between 55 - 60 %. The right ventricle is normal in size. The left atrium is normal in size. The right atrium is normal in size. 1.5mg of Definity was utilized for enhancement of images The aortic valve is trileaflet, and appears structurally normal. No aortic stenosis or regurgitation. The mitral valve leaflets are mildly thickened. Mild mitral regurgitation is present. Mild tricuspid regurgitation present. The right ventricular systolic pressure, as measured by Doppler, is 32.56mmHg. Pulmonic valve appears structurally normal. The aortic root is mildy dilated. The pericardium is normal. CONCLUSIONS -------- 1. Sinus rhythm. 2. The aortic valve is trileaflet, and appears structurally normal. No aortic stenosis or regurgitation. 3. The mitral valve leaflets are mildly thickened. 4. Mild mitral regurgitation is present. 5. Mild tricuspid regurgitation present. 6. The right ventricular systolic pressure, as measured by Doppler, is 32.56mmHg. 7. Pulmonic valve appears structurally normal. 8. The aortic root is mildy dilated. 9. The pericardium is normal. 10. This was a technically difficult study with suboptimal views. 11. The left ventricular size is normal. 12. Left ventricular wall thickness is normal. 13. Overall left ventricular systolic function is normal with, an EF between 55 - 60 %. 14. The right ventricle is normal in size. 15. The left atrium is normal in size. 16. The right atrium is normal in size. 17. 1.5mg of Definity was utilized for enhancement of images CELL LEAD: Alexus Olmedo RDCS
[2017-01-20] MEDS: SODIUM CHLORIDE 0.9% 1,000 ML IV SCH (10:47)
--- NOTE | 2017-01-20 11:26 | ECHOS ---
STRESS ECHOCARDIOGRAM DATE OF SERVICE: 01/20/2017. DOBUTAMINE STRESS ECHOCARDIOGRAM: INDICATIONS: Chest pain. MEDICATIONS:: BASELINE HEART RATE: 66 BASELINE BLOOD PRESSURE: 149/87 MAXIMUM HEART RATE: 145 MAXIMUM BLOOD PRESSURE: 196/87 85% MPHR: 131 100% MPHR: 154 METS: MAXIMUM STAGE REACHED: TOTAL EXERCISE TIME: Baseline EKG shows sinus rhythm, normal axis, normal intervals. The patient was given intravenous dobutamine over a period of 8 minutes as per protocol. Did not have chest pain. Attained 94% of predicted maximum heart rate without chest pain. PVCs and PACs are noted during dobutamine infusion. Baseline echo shows normal left ventricular size, wall motion and systolic function. Post dobutamine, there is normal hyperdynamic response of all segments of myocardium noted. CONCLUSIONS: 1. Negative stress test by EKG criteria. 2. Negative dobutamine echo. MMJOYCEL / IJN: [id number] /
[2017-01-20 11:33] VITALS: BP 112/59; PULSE 70; TEMP 97.2
--- NOTE | 2017-01-20 11:39 | US ---
EXAMINATION TYPE: US abdomen complete DATE OF EXAM: 01/20/2017 COMPARISON: CT 04/05/2012 CLINICAL HISTORY: lft elevation. Patient states no pain, no nausea. Difficult/limited exam due to pat ient body habitus and overlying bowel gas EXAM MEASUREMENTS: Liver Length: 19.3 cm Gallbladder Wall: Surgically absent CBD: 0.5 cm Spleen: 11.0 cm Right Kidney: 12.0 x 4.7 x 5.4 cm Left Kidney: 11.6 x 5.5 x 5.1 cm Pancreas: Obscured by bowel gas Liver: Limited visualization. Visualized portions are enlarged and heterogenous Gallbladder: Surgically absent Evidence for sonographic Delgado's sign: No CBD: wnl as visualized, distal portion is obscured by bowel gas Spleen: wnl Right Kidney: No hydronephrosis. Cystic area visualized lower pole measuring 2.5 x 1.6 x 2.7 cm Left Kidney: No hydronephrosis. Cystic area visualized upper pole measuring 0.7 x 0.7 x 0.8 cm Upper IVC: wnl Abd Aorta: wnl as visualized, limited visualization due to overlying bowel gas There is no ascites. Kidneys show normal cortical medullary differentiation. Probable simple cysts as sociated with the kidneys, consider follow-up. IMPRESSION: Findings may be due to hepatic steatosis, there is hepatomegaly. Exam is limited. Additio nal findings above. Follow-up suggested.
[2017-01-20] MEDS ORDERED: MULTIVITAMINS, THERA 1 EACH TAB PO SCH (12:00)
[2017-01-20] MEDS ORDERED: traZODone HCL 50 MG TAB PO SCH (21:00)
--- NOTE | 2017-02-09 19:17 | HP ---
HISTORY AND PHYSICAL CHIEF COMPLAINT: 66-year-old, with migraine headaches and chest pain, headaches. PRESENT ILLNESS: A 66-year-old, white female came in the hospital with left-sided chest pain with injury to left shoulder and some mild shortness of breath. Dull in nature. Negative history of heart disease or hypertension or diabetes. She is a smoker. She is obese. She is complaining of a headache. MEDICATIONS: Home medicines are: Fioricet, vitamin D, Prozac, Neurontin, [place], multivitamins, Klonopin and trazodone. ALLERGIES: PENICILLIN AND TORADOL. REVIEW OF SYSTEMS: Fourteen point review of systems negative except for mentioned in HPI. PAST MEDICAL HISTORY: GERD, seizures, syncope, anxiety, migraine, history if seizures. PAST SURGICAL HISTORY: Surgeries: Appendectomy, cholecystectomy, hysterectomy and cyst removal. PSYCH HISTORY: Anxiety and depression. SOCIAL HISTORY: Current everyday smoker. Occasional alcohol. No drugs. FAMILY HISTORY: Mother with cancer. PHYSICAL EXAM: Vital signs stable. Afebrile. No acute distress. CARDIOVASCULAR: S1, S2. LUNGS: Soft. Endocrine BMI is over 40. Psych: Fair mood and affect. NEUROLOGIC: Alert and oriented x3. SKIN: Warm, dry, intact. Temp 99.1, pulse is 70s to 80s. Respiratory rate 16 to 18, blood pressure is 117 to 127/70s, pulse 64, respiration 12-18, blood pressure 116/73, O2 97%. EKG sinus rhythm. ASSESSMENT AND PLAN: 1. Atypical chest pain radiating to the left shoulder. He is on heparin drip for unstable angina. Await for Cardiology consultation. Home medications will be continued. 2. Elevated liver enzymes secondary to probably fatty liver. 3. Unstable angina pectoris, await cardiology consultation to rule out myocardial infarction. Stress test will be done. 4. Abdominal ultrasound will be done for elevated liver enzymes. 5. Echo will be done. MMODL / IJN: [id number] /
== END 2017-01-20 17:01 | disposition home or self-care (01) ==
LOC: EC 19:36 → 6SEL 22:42
PROVIDERS: ADMIT Family Medicine; ATTEND Family Medicine
DX: R07.89 Other chest pain (principal); G43.909 Migraine, unspecified, not intractable, without status migrainosus; R06.02 Shortness of breath; F17.200 Nicotine dependence, unspecified, uncomplicated; K21.9 Gastro-esophageal reflux disease without esophagitis; F41.9 Anxiety disorder, unspecified; G40.909 Epilepsy, unspecified, not intractable, without status epilepticus; R94.5 Abnormal results of liver function studies; I20.0 Unstable angina; E66.9 Obesity, unspecified; Z87.11 Personal history of peptic ulcer disease; Z79.899 Other long term (current) drug therapy; Z88.5 Allergy status to narcotic agent; Z88.0 Allergy status to penicillin; Z68.29 Body mass index [BMI] 29.0-29.9, adult
CPT/HCPCS: 96376 ×2; 96366; 96365; 96375; 99291; 36415; 93005; 93017; 83880; 80061; 80053; 82550 ×2; 82553 ×2; 83690; 83735; 84484 ×2; 85025; 85049; 85610; 85730 ×2; 82272; 71020; 76700; G0378 ×2; C8928; C8929; J1250; J2270 ×3; J1644 ×3; Q9957; 93306; 93350

== ENCOUNTER 2017-01-21 12:13 | Emergency (ER) | payer MEDICARE ==
[2017-01-21 12:39] VITALS: RESP 18; TEMP 98.3
[2017-01-21] MEDS ORDERED: SODIUM CHLORIDE 0.9% 500 ML IV STA (12:46)
[2017-01-21] MEDS ORDERED: ACETAMINOPHEN TAB 500 MG TAB PO STA (12:47)
--- NOTE | 2017-01-21 12:50 | ED ---
General Adult HPI - General Chief complaint: Weakness Stated complaint: altered Time Seen by Provider: 01/21/17 12:20 Source: patient, RN notes reviewed Mode of arrival: EMS Limitations: altered mental status - History of Present Illness Initial comments: This is a 66-year-old female who comes into the emergency department because her guardian stated that she was weak and left the hospital AMA yesterday. Patient was in the emergency department stay admitted for dehydration and she left AMA from the floor even though she has a guardian was not supposed to leave. Guardian follows all today and sent to the emergency department. She initially had no complaints whatsoever but stated that her guardian wanted to be seen because she left AMA and she believed her to be weaker. Patient did state after lying in his bed for a while she has a little lower back pain. Patient doesn't recall falling recently or having any injury. Patient denies chest pain palpitations difficulty breathing or shortness of breath per patient denies headache patient denies numbness weakness. Patient denies any recent fever chills or cough. Patient denies abdominal pain patient denies nausea vomiting or diarrhea. Patient states she has a little bit of lower back pain if she moves she can feel it. Patient states she's not been taken anything for it is been ongoing for this long as she has been in his bed. - Related Data Home Medications Medication Instructions Recorded Confirmed Butalb/Acetaminophen/Caffeine 1 tab PO Q4H PRN 01/19/17 01/21/17 [Fioricet 50-325-40] Cholecalciferol [Vitamin D3] 1,000 unit PO DAILY 01/19/17 01/21/17 FLUoxetine HCL [PROzac] 40 mg PO DAILY 01/19/17 01/21/17 Gabapentin [Neurontin] 100 mg PO DAILY 01/19/17 01/21/17 Hydrocodone/Acetaminophen [[place] 1 tab PO BID PRN 01/19/17 01/21/17 10-325] Multivitamins, Thera [Multivitamin 1 tab PO DAILY 01/19/17 01/21/17 (formulary)] clonazePAM [KlonoPIN] 1 mg PO TID 01/19/17 01/21/17 traZODone HCL 150 mg PO HS 01/19/17 01/21/17 Allergies Allergy/AdvReac Type Severity Reaction Status Date / Time Penicillins Allergy Rash/Hives Verified 01/21/17 12:51 ketorolac [From Toradol] AdvReac Rapid Verified 01/21/17 12:51 Heart Rate Review of Systems ROS Statement: Those systems with pertinent positive or pertinent negative responses have been documented in the HPI. ROS Other: All systems not noted in ROS Statement are negative. Past Medical History Past Medical History: GERD/Reflux, Seizure Disorder, Syncope Additional Past Medical History / Comment(s): anxiety, migraine, last seizure 5 years ago History of Any Multi-Drug Resistant Organisms: None Reported Past Surgical History: Appendectomy, Cholecystectomy, Hysterectomy Additional Past Surgical History / Comment(s): Py. cyst removal Past Anesthesia/Blood Transfusion Reactions: Previous Problems w/ Anesthesia Additional Past Anesthesia/Blood Transfusion Reaction / Comment(s): Patient stated that she is unsure what it is called but that when she gets anesthesia she "feels like she is dying." Past Psychological History: Anxiety, Depression Past Alcohol Use History: None Reported - Past Family History Mother Family Medical History: Cancer General Exam - General Exam Comments Initial Comments: GENERAL: Patient is well-developed and well-nourished. Patient is nontoxic and well- hydrated and is in no acute distress. ENT: Neck is soft and supple. No significant lymphadenopathy is noted. Oropharynx is clear. Moist mucous membranes. Neck has full range of motion without eliciting any pain. EYES: The sclera were anicteric and conjunctiva were pink and moist. Extraocular movements were intact and pupils were equal round and reactive to light. Eyelids were unremarkable. PULMONARY: Unlabored respirations. Good breath sounds bilaterally. No audible rales rhonchi or wheezing was noted. CARDIOVASCULAR: There is a regular rate and rhythm without any murmurs gallops or rubs. ABDOMEN: Soft and nontender with normal bowel sounds. No palpable organomegaly was noted. There is no palpable pulsatile mass. SKIN: Skin is clear with no lesions or rashes and otherwise unremarkable. NEUROLOGIC: Patient is alert and oriented 2. Cranial nerves II through XII are grossly intact. Motor and sensory are also intact. Normal speech, volume and content. Symmetrical smile. MUSCULOSKELETAL: Normal extremities with adequate strength and full range of motion. No lower extremity swelling or edema. No calf tenderness. Very mild tenderness to the lower back on palpation LYMPHATICS: No significant lymphadenopathy is noted PSYCHIATRIC: Normal psychiatric evaluation. Limitations: altered mental status Course Vital Signs 01/21/17 01/21/17 01/21/17 12:18 14:01 15:00 Temperature 98.3 F Pulse Rate 87 70 87 Respiratory 18 18 18 Rate Blood Pressure 127/86 147/70 110/78 O2 Sat by Pulse 94 L 98 93 L Oximetry Medical Decision Making - Medical Decision Making Patient's EKG shows a normal sinus rhythm at 70 bpm IA interval 266 dresses 88 QT interval 420 QTC is 478. Patient's EKG shows T-wave inversions in V1 and V2 and V3 however when compared to an old EKG these are not new findings. X-ray of the chest shows no acute abnormality. Lumbar spine x-ray shows no acute abnormality. Patient was able to get out of bed and to the bathroom on 2 different occasions without problem. - Lab Data Result diagrams: 01/21/17 13:25 01/21/17 13:25 Lab Results 01/21/17 01/21/17 01/21/17 Range/Units 13:25 13:25 13:25 WBC 6.2 (3.8-10.6) k/uL RBC 4.18 (3.80-5.40) m/uL Hgb 12.2 (11.4-16.0) gm/dL Hct 38.0 (34.0-46.0) % MCV 91.0 (80.0-100.0) fL MCH 29.3 (25.0-35.0) pg MCHC 32.2 (31.0-37.0) g/dL RDW 15.1 (11.5-15.5) % Plt Count 189 (150-450) k/uL Neutrophils % 55 % Lymphocytes % 31 % Monocytes % 6 % Eosinophils % 5 % Basophils % 1 % Neutrophils # 3.4 (1.3-7.7) k/uL Lymphocytes # 1.9 (1.0-4.8) k/uL Monocytes # 0.4 (0-1.0) k/uL Eosinophils # 0.3 (0-0.7) k/uL Basophils # 0.0 (0-0.2) k/uL Sodium 139 (137-145) mmol/L Potassium 4.3 (3.5-5.1) mmol/L Chloride 102 (98-107) mmol/L Carbon Dioxide 26 (22-30) mmol/L Anion Gap 11 mmol/L BUN 11 (7-17) mg/dL Creatinine 0.60 (0.52-1.04) mg/dL Est GFR (MDRD) Af Amer >60 (>60 ml/min/1.73 sqM) Est GFR (MDRD) Non-Af >60 (>60 ml/min/1.73 sqM) Glucose 127 H (74-99) mg/dL Calcium 9.5 (8.4-10.2) mg/dL Total Bilirubin 0.5 (0.2-1.3) mg/dL AST 63 H (14-36) U/L ALT 76 H (9-52) U/L Alkaline Phosphatase 83 (38-126) U/L Total Creatine Kinase 24 L (30-135) U/L CK-MB (CK-2) <0.2 (0.0-2.4) ng/mL CK-MB (CK-2) Rel Index Troponin I <0.012 (0.000-0.034) ng/mL Total Protein 7.1 (6.3-8.2) g/dL Albumin 4.1 (3.5-5.0) g/dL Urine Color Urine Appearance (Clear) Urine pH (5.0-8.0) Ur Specific [place] (1.001-1.035) Urine Protein (Negative) Urine Glucose (UA) (Negative) Urine Ketones (Negative) Urine Blood (Negative) Urine Nitrite (Negative) Urine Bilirubin (Negative) Urine Urobilinogen (<2.0) mg/dL Ur Leukocyte Esterase (Negative) 01/21/17 Range/Units 13:58 WBC (3.8-10.6) k/uL RBC (3.80-5.40) m/uL Hgb (11.4-16.0) gm/dL Hct (34.0-46.0) % MCV (80.0-100.0) fL MCH (25.0-35.0) pg MCHC (31.0-37.0) g/dL RDW (11.5-15.5) % Plt Count (150-450) k/uL Neutrophils % % Lymphocytes % % Monocytes % % Eosinophils % % Basophils % % Neutrophils # (1.3-7.7) k/uL Lymphocytes # (1.0-4.8) k/uL Monocytes # (0-1.0) k/uL Eosinophils # (0-0.7) k/uL Basophils # (0-0.2) k/uL Sodium (137-145) mmol/L Potassium (3.5-5.1) mmol/L Chloride (98-107) mmol/L Carbon Dioxide (22-30) mmol/L Anion Gap mmol/L BUN (7-17) mg/dL Creatinine (0.52-1.04) mg/dL Est GFR (MDRD) Af Amer (>60 ml/min/1.73 sqM) Est GFR (MDRD) Non-Af (>60 ml/min/1.73 sqM) Glucose (74-99) mg/dL Calcium (8.4-10.2) mg/dL Total Bilirubin (0.2-1.3) mg/dL AST (14-36) U/L ALT (9-52) U/L Alkaline Phosphatase (38-126) U/L Total Creatine Kinase (30-135) U/L CK-MB (CK-2) (0.0-2.4) ng/mL CK-MB (CK-2) Rel Index Troponin I (0.000-0.034) ng/mL Total Protein (6.3-8.2) g/dL Albumin (3.5-5.0) g/dL Urine Color Yellow Urine Appearance Clear (Clear) Urine pH 5.5 (5.0-8.0) Ur Specific [place] 1.007 (1.001-1.035) Urine Protein Negative (Negative) Urine Glucose (UA) Negative (Negative) Urine Ketones Negative (Negative) Urine Blood Negative (Negative) Urine Nitrite Negative (Negative) Urine Bilirubin Negative (Negative) Urine Urobilinogen <2.0 (<2.0) mg/dL Ur Leukocyte Esterase Negative (Negative) Disposition Clinical Impression: Lower back pain Disposition: HOME SELF-CARE Condition: Good Instructions: Acute Low Back Pain (ED) Additional Instructions: Patient should take Tylenol for the back pain if she is unable take Motrin. Referrals: Kasi Yoder MD [Primary Care Provider] - 1-2 days Time of Disposition: 15:40
[2017-01-21 13:33] LABS: Basophils % (A) 1 %; CH 28.9; CHCM 31.9; Eosinophils # (A) 0.3 k/uL (0-0.7); Eosinophils % (A) 5 %; HDW 2.54; HGB 12.2 gm/dL (11.4-16.0); Luc % (Auto) 3; Lymphocytes # (A) 1.9 k/uL (1.0-4.8); Lymphocytes % (A) 31 %; MCH 29.3 pg (25.0-35.0); MCHC 32.2 g/dL (31.0-37.0); Mean Platelet Volume 7.1; Monocytes # (A) 0.4 k/uL (0-1.0); Monocytes % (A) 6 %; Neutrophils # (A) 3.4 k/uL (1.3-7.7); Neutrophils % (A) 55 %; RBC 4.18 m/uL (3.80-5.40); RDW 15.1 % (11.5-15.5); WBC 6.2 k/uL (3.8-10.6)
--- NOTE | 2017-01-21 13:51 | XR ---
EXAMINATION TYPE: XR chest 2V DATE OF EXAM: 01/21/2017 COMPARISON: January 19, 2017 HISTORY: Shortness of breath TECHNIQUE: Frontal and lateral views of the chest are obtained. FINDINGS: Scattered senescent parenchymal changes noted. Hyperinflation compatible with COPD. No evidence for infiltrate. No evidence for atelectasis. Heart size is stable. Mediastinal structures are stable and grossly unremarkable. No evidence for hilar prominence. Degenerative changes dorsal spine. IMPRESSION: 1. No evidence for acute pulmonary disease.
--- NOTE | 2017-01-21 13:53 | XR ---
EXAMINATION TYPE: XR lumbosacral spine min 4V DATE OF EXAM: 01/21/2017 CLINICAL HISTORY: pain COMPARISON: NONE TECHNIQUE: Frontal, lateral, and oblique images of the lumbar spine are obtained. FINDINGS: Moderate to severe multilevel degenerative disc disease greatest at L3-4. Ventral and dorsa l spondylosis at this level. Facet joint arthropathy. No evidence for compression fracture or spondyl olisthesis. Atheromatous and ectatic change of the abdominal aorta. No definitive aneurysm. IMPRESSION: No acute fracture or dislocation is seen in the lumbar spine.ICD 10 NO FRACTURE, INITIAL EVALUATION
[2017-01-21 13:54] LABS: Creatine Kinase 24 U/L (30-135)
[2017-01-21 14:04] LABS: Creatine Kinase MB <0.2 ng/mL (0.0-2.4)
[2017-01-21 14:13] LABS: Appearance,Urine Clear (Clear); Bilirubin,Urine Negative (Negative); Glucose,Urine (UA) Negative (Negative); Ketones,Urine Negative (Negative); Leukocyte Esterase,Urine Negative (Negative); Nitrite,Urine Negative (Negative); PH, Urine 5.5 (5.0-8.0); Protein,Urine Negative (Negative); Specific Gravity,Urine 1.007 (1.001-1.035); UA Billing (MACRO vs. MICRO) CHEM; Urobilinogen,Urine <2.0 mg/dL (<2.0)
[2017-01-21 14:47] LABS: Troponin I <0.012 ng/mL (0.000-0.034)
[2017-01-21 15:04] LABS: ALT 76 U/L (9-52); AST 63 U/L (14-36); Alkaline Phosphatase 83 U/L (38-126); Anion Gap 11 mmol/L; Blood Urea Nitrogen 11 mg/dL (7-17); Calcium 9.5 mg/dL (8.4-10.2); Carbon Dioxide 26 mmol/L (22-30); Chloride 102 mmol/L (98-107); Glucose 127 mg/dL (74-99); Non-African American GFR(MDRD) >60 (>60 ml/min/1.73 sqM); Potassium 4.3 mmol/L (3.5-5.1); Sodium 139 mmol/L (137-145); Total Bilirubin 0.5 mg/dL (0.2-1.3); Total Protein 7.1 g/dL (6.3-8.2)
[2017-01-21 15:17] VITALS: BP 110/78; PULSE 87
== END 2017-01-21 16:12 | disposition home or self-care (01) ==
LOC: EC 12:13 → EEVIPCON 12:13 → EC 16:12
DX: M54.5 Low back pain (principal); R53.1 Weakness; K21.9 Gastro-esophageal reflux disease without esophagitis; G40.909 Epilepsy, unspecified, not intractable, without status epilepticus; F41.9 Anxiety disorder, unspecified; F32.9 Major depressive disorder, single episode, unspecified; Z79.899 Other long term (current) drug therapy; Z88.0 Allergy status to penicillin; Z88.6 Allergy status to analgesic agent
CPT/HCPCS: 36415; 71020; 72110; 80053; 81003; 82550; 82553; 84484; 85025; 93005; 96360; 96361; 99285

== ENCOUNTER 2017-02-04 15:43 | Emergency (ER) | payer MEDICARE ==
[2017-02-04] MEDS ORDERED: MORPHINE SULFATE 10 MG/ML SYRINGE IV STA (16:12)
[2017-02-04] MEDS ORDERED: RX INFO: IV CONTRAST WAS GIVEN 1 EACH MISC MISCELLANE PRN (16:12)
[2017-02-04] MEDS ORDERED: PANTOPRAZOLE 40 MG/10 ML VIAL IVP STA (16:12)
[2017-02-04] MEDS ORDERED: ONDANSETRON 4 MG/2 ML VIAL IVP STA (16:12)
[2017-02-04] MEDS ORDERED: SODIUM CHLORIDE 0.9% 1,000 ML IV STA ×2 (16:12)
[2017-02-04 16:26] LABS: Basophils # (A) 0.1 k/uL (0-0.2); Basophils % (A) 0 %; CH 30.4; CHCM 33.8; Eosinophils # (A) 0.1 k/uL (0-0.7); Eosinophils % (A) 1 %; HCT 38.9 % (34.0-46.0); HDW 2.72; HGB 12.1 gm/dL (11.4-16.0); Luc # (Auto) 0.23; Luc % (Auto) 2; Lymphocytes # (A) 3.8 k/uL (1.0-4.8); Lymphocytes % (A) 31 %; MCH 28.2 pg (25.0-35.0); MCHC 31.1 g/dL (31.0-37.0); MCV 90.4 fL (80.0-100.0); Mean Platelet Volume 7.5; Monocytes # (A) 0.8 k/uL (0-1.0); Monocytes % (A) 7 %; Neutrophils # (A) 7.1 k/uL (1.3-7.7); Neutrophils % (A) 58 %; RDW 15.9 % (11.5-15.5); WBC 12.1 k/uL (3.8-10.6); WBC (Perox) 11.41
[2017-02-04 16:38] LABS: Calcium 9.6 mg/dL (8.4-10.2); INR 1.1 (<1.2); Magnesium 1.3 mg/dL (1.6-2.3); Partial Thromboplastin Time 22.8 sec (22.0-30.0); Phosphorous 3.4 mg/dL (2.5-4.5); Potassium 4.2 mmol/L (3.5-5.1); Prothrombin Time 11.2 sec (9.0-12.0); Total Bilirubin 0.6 mg/dL (0.2-1.3); Total Protein 7.5 g/dL (6.3-8.2)
--- NOTE | 2017-02-04 16:49 | ED ---
General Adult HPI - General Chief complaint: Nausea/Vomiting/Diarrhea Stated complaint: vomiting Time Seen by Provider: 02/04/17 16:07 Source: patient, EMS, RN notes reviewed, old records reviewed Mode of arrival: EMS - History of Present Illness Initial comments: This is a 66-year-old female to the ER for evaluation of nausea vomiting abdominal pain. Persistent nausea vomiting and diarrhea. Patient states she ate pizza tonight have been having problems ever since she has history of reflux , appendectomy, [place], hysterectomy. No modifying factors for symptoms at home. No fevers. - Related Data Home Medications Medication Instructions Recorded Confirmed Butalb/Acetaminophen/Caffeine 1 tab PO Q4H PRN 01/19/17 02/04/17 [Fioricet 50-325-40] Cholecalciferol [Vitamin D3] 1,000 unit PO DAILY 01/19/17 02/04/17 FLUoxetine HCL [PROzac] 40 mg PO DAILY 01/19/17 02/04/17 Gabapentin [Neurontin] 100 mg PO DAILY 01/19/17 02/04/17 Hydrocodone/Acetaminophen [[place] 1 tab PO BID PRN 01/19/17 02/04/17 10-325] Multivitamins, Thera [Multivitamin 1 tab PO DAILY 01/19/17 02/04/17 (formulary)] clonazePAM [KlonoPIN] 1 mg PO TID 01/19/17 02/04/17 traZODone HCL 150 mg PO HS 01/19/17 02/04/17 Allergies Allergy/AdvReac Type Severity Reaction Status Date / Time Penicillins Allergy Rash/Hives Verified 02/04/17 16:22 ketorolac [From Toradol] AdvReac Rapid Verified 02/04/17 16:22 Heart Rate Review of Systems ROS Statement: Those systems with pertinent positive or pertinent negative responses have been documented in the HPI. ROS Other: All systems not noted in ROS Statement are negative. Past Medical History Past Medical History: GERD/Reflux, Seizure Disorder, Syncope Additional Past Medical History / Comment(s): anxiety, migraine, last seizure 5 years ago History of Any Multi-Drug Resistant Organisms: None Reported Past Surgical History: Appendectomy, Cholecystectomy, Hysterectomy Additional Past Surgical History / Comment(s): Py. cyst removal Past Anesthesia/Blood Transfusion Reactions: Previous Problems w/ Anesthesia Additional Past Anesthesia/Blood Transfusion Reaction / Comment(s): Patient stated that she is unsure what it is called but that when she gets anesthesia she "feels like she is dying." Past Psychological History: Anxiety, Depression Smoking Status: Current every day smoker Past Alcohol Use History: Occasional Past Drug Use History: None Reported - Past Family History Mother Family Medical History: Cancer General Exam General appearance: alert, in no apparent distress Head exam: Present: atraumatic, normocephalic, normal inspection Eye exam: Present: normal appearance, PERRL, EOMI. Absent: scleral icterus, conjunctival injection, periorbital swelling ENT exam: Present: normal exam, mucous membranes moist Neck exam: Present: normal inspection. Absent: tenderness, meningismus, lymphadenopathy Respiratory exam: Present: normal lung sounds bilaterally. Absent: respiratory distress, wheezes, rales, rhonchi, stridor Cardiovascular Exam: Present: regular rate, normal rhythm, normal heart sounds. Absent: systolic murmur, diastolic murmur, rubs, gallop, clicks GI/Abdominal exam: Present: soft, normal bowel sounds. Absent: distended, tenderness, guarding, rebound, rigid Extremities exam: Present: normal inspection, full ROM, normal capillary refill. Absent: tenderness, pedal edema, joint swelling, calf tenderness Back exam: Present: normal inspection Neurological exam: Present: alert, oriented X3, CN II-XII intact Psychiatric exam: Present: normal affect, normal mood Skin exam: Present: warm, dry, intact, normal color. Absent: rash Course Vital Signs 02/04/17 02/04/17 02/04/17 15:52 16:29 18:05 Temperature 99.9 F H Pulse Rate 110 H 103 H 98 Respiratory 18 16 16 Rate Blood Pressure 133/72 106/67 93/59 O2 Sat by Pulse 95 95 95 Oximetry 02/04/17 18:25 Temperature Pulse Rate 92 Respiratory 18 Rate Blood Pressure 114/60 O2 Sat by Pulse 97 Oximetry - Reevaluation(s) Reevaluation #1: 02/04/17 18:19 At this point patient symptoms are much improved EKG Findings - EKG Comments: EKG Findings:: EKG shows sinus tachycardia rate of [place], [place] 158, QRS 80, QTC 484 Medical Decision Making - Medical Decision Making 66-year-old here for evaluation nausea vomiting. No other specific symptoms. This time symptoms are resolved level is normal CT is negative. Patient will be discharged home - Lab Data Result diagrams: 02/04/17 16:00 02/04/17 16:00 Lab Results 02/04/17 02/04/17 02/04/17 Range/Units 16:00 16:00 16:00 WBC 12.1 H (3.8-10.6) k/uL RBC 4.30 (3.80-5.40) m/uL Hgb 12.1 (11.4-16.0) gm/dL Hct 38.9 (34.0-46.0) % MCV 90.4 (80.0-100.0) fL MCH 28.2 (25.0-35.0) pg MCHC 31.1 (31.0-37.0) g/dL RDW 15.9 H (11.5-15.5) % Plt Count 272 (150-450) k/uL Neutrophils % 58 % Lymphocytes % 31 % Monocytes % 7 % Eosinophils % 1 % Basophils % 0 % Neutrophils # 7.1 (1.3-7.7) k/uL Lymphocytes # 3.8 (1.0-4.8) k/uL Monocytes # 0.8 (0-1.0) k/uL Eosinophils # 0.1 (0-0.7) k/uL Basophils # 0.1 (0-0.2) k/uL PT (9.0-12.0) sec INR (<1.2) APTT (22.0-30.0) sec Sodium 139 (137-145) mmol/L Potassium 4.2 (3.5-5.1) mmol/L Chloride 104 (98-107) mmol/L Carbon Dioxide 22 (22-30) mmol/L Anion Gap 13 mmol/L BUN 43 H (7-17) mg/dL Creatinine 1.28 H (0.52-1.04) mg/dL Est GFR (MDRD) Af Amer 51 (>60 ml/min/1.73 sqM) Est GFR (MDRD) Non-Af 42 (>60 ml/min/1.73 sqM) Glucose 136 H (74-99) mg/dL Plasma Lactic Acid Bal[place] (0.7-2.0) mmol/L Calcium 9.6 (8.4-10.2) mg/dL Phosphorus 3.4 (2.5-4.5) mg/dL Magnesium 1.3 L (1.6-2.3) mg/dL Total Bilirubin 0.6 (0.2-1.3) mg/dL AST 25 (14-36) U/L ALT 40 (9-52) U/L Alkaline Phosphatase 65 (38-126) U/L Total Creatine Kinase 27 L (30-135) U/L CK-MB (CK-2) <0.2 (0.0-2.4) ng/mL CK-MB (CK-2) Rel Index Troponin I <0.012 (0.000-0.034) ng/mL Total Protein 7.5 (6.3-8.2) g/dL Albumin 4.1 (3.5-5.0) g/dL Urine Color Urine Appearance (Clear) Urine pH (5.0-8.0) Ur Specific [place] (1.001-1.035) Urine Protein (Negative) Urine Glucose (UA) (Negative) Urine Ketones (Negative) Urine Blood (Negative) Urine Nitrite (Negative) Urine Bilirubin (Negative) Urine Urobilinogen (<2.0) mg/dL Ur Leukocyte Esterase (Negative) Urine WBC (0-5) /hpf Ur Squamous Epith Cells (0-4) /hpf Amorphous Sediment (None) /hpf Urine Bacteria (None) /hpf Hyaline Casts (0-2) /lpf WBC Casts (0) /lpf Urine Mucus (None) /hpf Blood Type Blood Type Recheck Antibody Screen Spec Expiration Date 02/04/17 02/04/17 02/04/17 Range/Units 16:00 16:00 16:00 WBC (3.8-10.6) k/uL RBC (3.80-5.40) m/uL Hgb (11.4-16.0) gm/dL Hct (34.0-46.0) % MCV (80.0-100.0) fL MCH (25.0-35.0) pg MCHC (31.0-37.0) g/dL RDW (11.5-15.5) % Plt Count (150-450) k/uL Neutrophils % % Lymphocytes % % Monocytes % % Eosinophils % % Basophils % % Neutrophils # (1.3-7.7) k/uL Lymphocytes # (1.0-4.8) k/uL Monocytes # (0-1.0) k/uL Eosinophils # (0-0.7) k/uL Basophils # (0-0.2) k/uL PT 11.2 (9.0-12.0) sec INR 1.1 (<1.2) APTT 22.8 (22.0-30.0) sec Sodium (137-145) mmol/L Potassium (3.5-5.1) mmol/L Chloride (98-107) mmol/L Carbon Dioxide (22-30) mmol/L Anion Gap mmol/L BUN (7-17) mg/dL Creatinine (0.52-1.04) mg/dL Est GFR (MDRD) Af Amer (>60 ml/min/1.73 sqM) Est GFR (MDRD) Non-Af (>60 ml/min/1.73 sqM) Glucose (74-99) mg/dL Plasma Lactic Acid [place] 1.7 (0.7-2.0) mmol/L Calcium (8.4-10.2) mg/dL Phosphorus (2.5-4.5) mg/dL Magnesium (1.6-2.3) mg/dL Total Bilirubin (0.2-1.3) mg/dL AST (14-36) U/L ALT (9-52) U/L Alkaline Phosphatase (38-126) U/L Total Creatine Kinase (30-135) U/L CK-MB (CK-2) (0.0-2.4) ng/mL CK-MB (CK-2) Rel Index Troponin I (0.000-0.034) ng/mL Total Protein (6.3-8.2) g/dL Albumin (3.5-5.0) g/dL Urine Color Urine Appearance (Clear) Urine pH (5.0-8.0) Ur Specific [place] (1.001-1.035) Urine Protein (Negative) Urine Glucose (UA) (Negative) Urine Ketones (Negative) Urine Blood (Negative) Urine Nitrite (Negative) Urine Bilirubin (Negative) Urine Urobilinogen (<2.0) mg/dL Ur Leukocyte Esterase (Negative) Urine WBC (0-5) /hpf Ur Squamous Epith Cells (0-4) /hpf Amorphous Sediment (None) /hpf Urine Bacteria (None) /hpf Hyaline Casts (0-2) /lpf WBC Casts (0) /lpf Urine Mucus (None) /hpf Blood Type A Positive Blood Type Recheck CABO Indicated Antibody Screen NEGATIVE Spec Expiration Date 02/07/2017 - 229902/04/17 Range/Units 17:06 WBC (3.8-10.6) k/uL RBC (3.80-5.40) m/uL Hgb (11.4-16.0) gm/dL Hct (34.0-46.0) % MCV (80.0-100.0) fL MCH (25.0-35.0) pg MCHC (31.0-37.0) g/dL RDW (11.5-15.5) % Plt Count (150-450) k/uL Neutrophils % % Lymphocytes % % Monocytes % % Eosinophils % % Basophils % % Neutrophils # (1.3-7.7) k/uL Lymphocytes # (1.0-4.8) k/uL Monocytes # (0-1.0) k/uL Eosinophils # (0-0.7) k/uL Basophils # (0-0.2) k/uL PT (9.0-12.0) sec INR (<1.2) APTT (22.0-30.0) sec Sodium (137-145) mmol/L Potassium (3.5-5.1) mmol/L Chloride (98-107) mmol/L Carbon Dioxide (22-30) mmol/L Anion Gap mmol/L BUN (7-17) mg/dL Creatinine (0.52-1.04) mg/dL Est GFR (MDRD) Af Amer (>60 ml/min/1.73 sqM) Est GFR (MDRD) Non-Af (>60 ml/min/1.73 sqM) Glucose (74-99) mg/dL Plasma Lactic Acid [place] (0.7-2.0) mmol/L Calcium (8.4-10.2) mg/dL Phosphorus (2.5-4.5) mg/dL Magnesium (1.6-2.3) mg/dL Total Bilirubin (0.2-1.3) mg/dL AST (14-36) U/L ALT (9-52) U/L Alkaline Phosphatase (38-126) U/L Total Creatine Kinase (30-135) U/L CK-MB (CK-2) (0.0-2.4) ng/mL CK-MB (CK-2) Rel Index Troponin I (0.000-0.034) ng/mL Total Protein (6.3-8.2) g/dL Albumin (3.5-5.0) g/dL Urine Color Yellow Urine Appearance Cloudy H (Clear) Urine pH 5.5 (5.0-8.0) Ur Specific [place] 1.013 (1.001-1.035) Urine Protein Trace H (Negative) Urine Glucose (UA) Negative (Negative) Urine Ketones Negative (Negative) Urine Blood Moderate H (Negative) Urine Nitrite Negative (Negative) Urine Bilirubin Negative (Negative) Urine Urobilinogen <2.0 (<2.0) mg/dL Ur Leukocyte Esterase Trace H (Negative) Urine WBC 17 H (0-5) /hpf Ur Squamous Epith Cells 10 H (0-4) /hpf Amorphous Sediment Occasional H (None) /hpf Urine Bacteria Few H (None) /hpf Hyaline Casts 19 H (0-2) /lpf WBC Casts 21 (0) /lpf Urine Mucus Rare H (None) /hpf Blood Type Blood Type Recheck Antibody Screen Spec Expiration Date - Radiology Data Radiology results: report reviewed (CT abdomen and pelvis is negative for acute disease), image reviewed Disposition Clinical Impression: Nausea & vomiting, Abdominal pain Disposition: HOME SELF-CARE Condition: Good Instructions: Acute Nausea and Vomiting (ED), Acute Diarrhea (ED) Referrals: Kasi Yoder MD [Primary Care Provider] - 1-2 days
[2017-02-04 16:52] LABS: Creatine Kinase 27 U/L (30-135)
[2017-02-04 17:03] LABS: Creatine Kinase MB <0.2 ng/mL (0.0-2.4); Troponin I <0.012 ng/mL (0.000-0.034)
[2017-02-04 17:25] LABS: Amorphous Sediment,Urine Occasional /hpf; Appearance,Urine Cloudy (Clear); Bacteria,Urine Few /hpf; Bilirubin,Urine Negative (Negative); Glucose,Urine (UA) Negative (Negative); Ketones,Urine Negative (Negative); Leukocyte Esterase,Urine Trace (Negative); Mucus,Urine Rare /hpf; Nitrite,Urine Negative (Negative); PH, Urine 5.5 (5.0-8.0); Particle Count 5404; Protein,Urine Trace (Negative); Specific Gravity,Urine 1.013 (1.001-1.035); Squamous Epithelial Cell,Urine 10 /hpf (0-4); UA Billing (MACRO vs. MICRO) MICRO; Urobilinogen,Urine <2.0 mg/dL (<2.0); WBC,Urine 17 /hpf (0-5)
--- NOTE | 2017-02-04 18:45 | CT ---
EXAMINATION TYPE: CT abdomen pelvis wo con DATE OF EXAM: 02/04/2017 COMPARISON: 04/05/2012 HISTORY: Abdominal pain with vomiting and blood in stool CT DLP: 1161 mGycm Automated exposure control for dose reduction was used. TECHNIQUE: Helical acquisition of images was performed from the lung bases through the pelvis. FINDINGS: Lung bases are clear. There is no pleural effusion. Heart size is normal. There is air in the anterior biliary tree. Cholecystectomy is noted. There is no focal liver defect. Spleen and pancreas appear normal. Bile ducts are not dilated. There is no adrenal mass. Kidneys have normal size and contour. There is no hydronephrosis. Ureters a re not dilated. There is no retroperitoneal adenopathy. Abdominal aorta is atheromatous. There are multiple diverticula in the sigmoid colon and descending colon. There are other diverticula in the remainder of the colon. I see no intestinal wall thickening. There is no sign of bowel obstruction. Bladder distends smoothly . Appendix appears normal. Abdominal aorta is atheromatous. IMPRESSION: NUMEROUS COLONIC DIVERTICULA. NO EVIDENCE OF DIVERTICULITIS. NORMAL APPENDIX. ATHEROSCLEROTIC VASCULA R DISEASE. THERE IS NEW AIR IN THE ANTERIOR BILIARY TREE COMPARED TO OLD EXAM AND CONSISTENT WITH INC OMPETENT BILE SPHINCTER.
[2017-02-04] MEDS ORDERED: HYDROmorphone 0.5 MG/0.5 ML SYRINGE IVP STA (19:13)
[2017-02-04 19:19] VITALS: BP 111/64; PULSE 78; RESP 16; TEMP 97
== END 2017-02-04 19:59 | disposition home or self-care (01) ==
LOC: EC 15:43
DX: R11.2 Nausea with vomiting, unspecified (principal); R10.9 Unspecified abdominal pain; R19.7 Diarrhea, unspecified; G40.909 Epilepsy, unspecified, not intractable, without status epilepticus; F32.9 Major depressive disorder, single episode, unspecified; F41.9 Anxiety disorder, unspecified; F17.200 Nicotine dependence, unspecified, uncomplicated; Z79.899 Other long term (current) drug therapy; Z88.0 Allergy status to penicillin; Z88.6 Allergy status to analgesic agent; Z90.49 Acquired absence of other specified parts of digestive tract
CPT/HCPCS: 99285 ×2; 96374 ×2; 96375 ×4; 96361 ×4; 36415; 93005; 86900; 86901; 80053; 82550; 82553; 83605; 83735; 84100; 84484; 85025; 85610; 85730; 86850; 81001; 87086; 74176; J2270; J2405; C9113; J1170

== ENCOUNTER 2017-02-05 21:31 | Emergency (ER) | payer MEDICARE ==
[2017-02-05 22:00] VITALS: RESP 18
[2017-02-05] MEDS ORDERED: SODIUM CHLORIDE 0.9% 1,000 ML IV STA (22:03)
[2017-02-05] MEDS ORDERED: DICYCLOMINE 10 MG/ML 2 ML AMP IM STA (22:06)
--- NOTE | 2017-02-05 22:13 | ED ---
Abdominal Pain HPI - General Chief Complaint: Abdominal Pain Stated Complaint: abd pain Time Seen by Provider: 02/05/17 21:50 Source: patient, EMS Mode of arrival: EMS Limitations: no limitations - History of Present Illness Initial Comments: This patient is a 66-year-old woman who presents with right sided abdominal pain and right lower back pain. She states that the pain started yesterday at around 4 AM, while she was trying sleep. The patient was seen here yesterday for this same pain, and states that she had testing, including computed tomography scan. The patient states that she was given some pain medication which did help, but then the pains recurred this evening. The patient states that she has also had about 3. Soft bowel movements that she is calling diarrhea. She has not seen any blood or tarry material. Denies fever or chills. No chest pain, dyspnea or cough. MD Complaint: abdominal pain Onset/Timin -: days(s) Location: RLQ, R flank Radiation: none Migration to: no migration Severity: moderate Quality: cramping Consistency: constant Improves With: nothing Worsens With: nothing Associated Symptoms: diarrhea - Related Data Home Medications Medication Instructions Recorded Confirmed [place]alb/Acetaminophen/Caffeine 1 tab PO Q4H PRN 01/19/17 02/04/17 [Fioricet 50-325-40] Cholecalciferol [Vitamin D3] 1,000 unit PO DAILY 01/19/17 02/04/17 FLUoxetine HCL [PROzac] 40 mg PO DAILY 01/19/17 02/04/17 Gabapentin [Neurontin] 100 mg PO DAILY 01/19/17 02/04/17 Hydrocodone/Acetaminophen [[place] 1 tab PO BID PRN 01/19/17 02/04/17 10-325] Multivitamins, Thera [Multivitamin 1 tab PO DAILY 01/19/17 02/04/17 (formulary)] clonazePAM [KlonoPIN] 1 mg PO TID 01/19/17 02/04/17 traZODone HCL 150 mg PO HS 01/19/17 02/04/17 Previous Rx's Medication Instructions Recorded HYDROcodone/APAP 5-325MG [[place] 1 tab PO Q6HR PRN #30 tab 02/04/17 5-325] Ondansetron Odt [Zofran ODT] 4 mg PO Q8HR PRN #30 tab 02/04/17 Allergies Allergy/AdvReac Type Severity Reaction Status Date / Time Penicillins Allergy Rash/Hives Verified 02/05/17 21:56 ketorolac [From Toradol] AdvReac Rapid Verified 02/05/17 21:56 Heart Rate Review of Systems ROS Statement: Those systems with pertinent positive or pertinent negative responses have been documented in the HPI. ROS Other: All systems not noted in ROS Statement are negative. Constitutional: Denies: fever, chills, weakness Respiratory: Denies: cough, dyspnea Cardiovascular: Denies: chest pain, palpitations Gastrointestinal: Reports: as per HPI, abdominal pain, diarrhea. Denies: nausea , vomiting, melena, hematochezia Genitourinary: Denies: dysuria, frequency, hematuria Musculoskeletal: Denies: back pain Skin: Denies: rash Neurological: Denies: headache Past Medical History Past Medical History: GERD/Reflux, Seizure Disorder, Syncope Additional Past Medical History / Comment(s): anxiety, migraine, last seizure 5 years ago History of Any Multi-Drug Resistant Organisms: None Reported Past Surgical History: Appendectomy, Cholecystectomy, Hysterectomy Additional Past Surgical History / Comment(s): Py. cyst removal Past Anesthesia/Blood Transfusion Reactions: Previous Problems w/ Anesthesia Additional Past Anesthesia/Blood Transfusion Reaction / Comment(s): Patient stated that she is unsure what it is called but that when she gets anesthesia she "feels like she is dying." Past Psychological History: Anxiety, Depression Smoking Status: Current every day smoker Past Alcohol Use History: Occasional Past Drug Use History: None Reported - Past Family History Mother Family Medical History: Cancer General Exam Limitations: no limitations General appearance: alert, in no apparent distress Head exam: Present: atraumatic, normocephalic Eye exam: Present: normal appearance. Absent: scleral icterus, conjunctival injection ENT exam: Present: normal oropharynx Neck exam: Present: normal inspection Respiratory exam: Present: normal lung sounds bilaterally. Absent: respiratory distress, wheezes, rales, rhonchi, stridor Cardiovascular Exam: Present: regular rate, normal rhythm, normal heart sounds. Absent: systolic murmur, diastolic murmur, rubs, gallop GI/Abdominal exam: Present: soft, tenderness (There is mild diffuse tenderness without rebound or guarding), normal bowel sounds. Absent: distended, guarding , rebound, rigid, mass, pulsatile mass, hernia Extremities exam: Present: normal inspection, normal capillary refill. Absent: pedal edema, calf tenderness Back exam: Present: normal inspection. Absent: CVA tenderness (R), CVA tenderness (L) Neurological exam: Present: alert Skin exam: Present: warm, dry, intact, normal color. Absent: rash Course Vital Signs 02/05/17 21:46 Temperature 98 F Pulse Rate 98 Respiratory 18 Rate Blood Pressure 114/62 O2 Sat by Pulse 96 Oximetry Medical Decision Making - Lab Data Result diagrams: 02/05/17 23:00 02/05/17 23:00 Lab Results 02/05/17 02/05/17 02/05/17 Range/Units 23:00 23:00 23:12 WBC 8.4 (3.8-10.6) k/uL RBC 3.51 L (3.80-5.40) m/uL Hgb 10.2 L (11.4-16.0) gm/dL Hct 31.2 L (34.0-46.0) % MCV 89.0 (80.0-100.0) fL MCH 29.1 (25.0-35.0) pg MCHC 32.7 (31.0-37.0) g/dL RDW 15.0 (11.5-15.5) % Plt Count 231 (150-450) k/uL Neutrophils % 39 % Lymphocytes % 49 % Monocytes % 5 % Eosinophils % 5 % Basophils % 1 % Neutrophils # 3.3 (1.3-7.7) k/uL Lymphocytes # 4.1 (1.0-4.8) k/uL Monocytes # 0.4 (0-1.0) k/uL Eosinophils # 0.4 (0-0.7) k/uL Basophils # 0.0 (0-0.2) k/uL Sodium 142 (137-145) mmol/L Potassium 4.2 (3.5-5.1) mmol/L Chloride 108 H (98-107) mmol/L Carbon Dioxide 23 (22-30) mmol/L Anion Gap 11 mmol/L BUN 60 H (7-17) mg/dL Creatinine 1.30 H (0.52-1.04) mg/dL Est GFR (MDRD) Af Amer 50 (>60 ml/min/1.73 sqM) Est GFR (MDRD) Non-Af 41 (>60 ml/min/1.73 sqM) Glucose 118 H (74-99) mg/dL Calcium 9.6 (8.4-10.2) mg/dL Total Bilirubin 0.6 (0.2-1.3) mg/dL AST 24 (14-36) U/L ALT 36 (9-52) U/L Alkaline Phosphatase 69 (38-126) U/L Total Protein 7.1 (6.3-8.2) g/dL Albumin 3.8 (3.5-5.0) g/dL Amylase 64 (30-110) U/L Lipase 153 (23-300) U/L Urine Color Light Yellow Urine Appearance Clear (Clear) Urine pH 5.0 (5.0-8.0) Ur Specific [place] 1.010 (1.001-1.035) Urine Protein Negative (Negative) Urine Glucose (UA) Negative (Negative) Urine Ketones Negative (Negative) Urine Blood Small H (Negative) Urine Nitrite Negative (Negative) Urine Bilirubin Negative (Negative) Urine Urobilinogen <2.0 (<2.0) mg/dL Ur Leukocyte Esterase Negative (Negative) Urine RBC <1 (0-5) /hpf Urine WBC 3 (0-5) /hpf Urine WBC Clumps Rare H (None) /hpf Ur Squamous Epith Cells 6 H (0-4) /hpf Amorphous Sediment Rare H (None) /hpf Urine Bacteria Occasional H (None) /hpf Hyaline Casts 3 H (0-2) /lpf Urine Mucus Rare H (None) /hpf Disposition Clinical Impression: Abdominal pain Disposition: HOME SELF-CARE Condition: Fair Instructions: Abdominal Pain (ED) Referrals: Kasi Yoder MD [Primary Care Provider] - 1-2 days
[2017-02-05 23:18] LABS: Basophils % (A) 1 %; CH 28.9; CHCM 32.6; Eosinophils # (A) 0.4 k/uL (0-0.7); Eosinophils % (A) 5 %; HCT 31.2 % (34.0-46.0); HDW 2.72; HGB 10.2 gm/dL (11.4-16.0); Luc # (Auto) 0.15; Luc % (Auto) 2; Lymphocytes # (A) 4.1 k/uL (1.0-4.8); Lymphocytes % (A) 49 %; MCH 29.1 pg (25.0-35.0); MCHC 32.7 g/dL (31.0-37.0); Monocytes # (A) 0.4 k/uL (0-1.0); Monocytes % (A) 5 %; Neutrophils # (A) 3.3 k/uL (1.3-7.7); Neutrophils % (A) 39 %; RBC 3.51 m/uL (3.80-5.40); WBC 8.4 k/uL (3.8-10.6); WBC (Perox) 8.14
[2017-02-05 23:24] LABS: Calcium 9.6 mg/dL (8.4-10.2); Potassium 4.2 mmol/L (3.5-5.1); Total Bilirubin 0.6 mg/dL (0.2-1.3); Total Protein 7.1 g/dL (6.3-8.2)
[2017-02-05] MEDS ORDERED: HYDROcodone/APAP 5-325MG 1 EACH TAB PO STA (23:26)
[2017-02-05 23:44] LABS: Amorphous Sediment,Urine Rare /hpf; Appearance,Urine Clear (Clear); Bacteria,Urine Occasional /hpf; Bilirubin,Urine Negative (Negative); Glucose,Urine (UA) Negative (Negative); Ketones,Urine Negative (Negative); Leukocyte Esterase,Urine Negative (Negative); Mucus,Urine Rare /hpf; Nitrite,Urine Negative (Negative); Particle Count 1618; Protein,Urine Negative (Negative); RBC,Urine <1 /hpf (0-5); Squamous Epithelial Cell,Urine 6 /hpf (0-4); UA Billing (MACRO vs. MICRO) MICRO; Urobilinogen,Urine <2.0 mg/dL (<2.0); WBC,Urine 3 /hpf (0-5)
[2017-02-06 01:56] VITALS: BP 104/55; PULSE 87; TEMP 97.4
== END 2017-02-06 01:59 | disposition home or self-care (01) ==
LOC: EC 21:31
DX: R10.31 Right lower quadrant pain (principal); M54.5 Low back pain; R19.7 Diarrhea, unspecified; G40.909 Epilepsy, unspecified, not intractable, without status epilepticus; G43.909 Migraine, unspecified, not intractable, without status migrainosus; F41.9 Anxiety disorder, unspecified; F32.9 Major depressive disorder, single episode, unspecified; F17.200 Nicotine dependence, unspecified, uncomplicated; Z90.89 Acquired absence of other organs; Z90.710 Acquired absence of both cervix and uterus; Z79.899 Other long term (current) drug therapy; Z88.0 Allergy status to penicillin; Z88.6 Allergy status to analgesic agent
CPT/HCPCS: 99284 ×2; 96360 ×2; 96361 ×3; 96372 ×2; 36415; 80053; 82150; 83690; 85025; 81001; J0500

== ENCOUNTER 2017-02-27 18:47 | Inpatient (IN) | payer MEDICARE ==
[2017-02-27] MEDS ORDERED: IPRATROPIUM-ALBUTEROL 3 ML NEB INHALATION STA (19:33)
[2017-02-27] MEDS ORDERED: HYDROcodone/APAP 10-325MG 1 EACH TAB PO ONE (19:33)
--- NOTE | 2017-02-27 19:33 | ED ---
SOB HPI - General Chief Complaint: Shortness of Breath Stated Complaint: Diff Breathing Time Seen by Provider: 02/27/17 19:05 Source: patient Mode of arrival: EMS Limitations: no limitations - History of Present Illness Initial Comments: 66-year-old female patient with past medical history significant for migraine headaches, COPD, and recent pneumonia presents to the emergency department today for evaluation of shortness of breath and fatigue for the last 2 days. Patient states that she was recently inpatient and treated for pneumonia. Patient states that her symptoms had improved and she was discharged home. Patient states that 2 days ago she developed increase in shortness of breath both at rest and with activity. She states that she has been very tired, sleeping more, and has had intermittent dizziness as well. She states that she does have an intermittent cough with green sputum production. She states she does have inhalers to use at home however has only had to use it 1 time today. She states that she is having generalized chest pain she describes as chest pressure. Patient is also complaining of some left shoulder pain however states that this is been present for one month and does increase with movement. She denies any nausea or vomiting with this. Denies any sweats. She states that she did have a temperature of 103 orally yesterday at home. She denies any fever today however states that she did take [place] at home for pain control. Patient denies any recent rash, abdominal pain, nausea, vomiting, diarrhea, constipation, back pain, numbness, tingling, weakness, hematuria, dysuria, urinary urgency, urinary frequency, headache, visual changes, or any other complaints. - Related Data Home Medications Medication Instructions Recorded Confirmed Cholecalciferol [Vitamin D3] 1,000 unit PO DAILY 01/19/17 02/27/17 Hydrocodone/Acetaminophen [[place] 1 tab PO BID PRN 01/19/17 02/27/17 10-325] Multivitamins, Thera [Multivitamin 1 tab PO DAILY 01/19/17 02/27/17 (formulary)] Albuterol Inhaler [Ventolin Hfa 1 - 2 puff INHALATION RT-Q6H PRN 02/27/17 Inhaler] Budesonide-Formot 160-4.5 Mcg 2 puff INHALATION RT-BID 02/27/17 02/27/17 [Symbicort 160-4.5 Mcg Inhaler] Tiotropium [place] [Spiriva] 1 cap INHALATION RT-DAILY 02/27/17 02/27/17 predniSONE See Taper PO DAILY 02/27/17 02/27/17 Previous Rx's Medication Instructions Recorded Cefuroxime Axetil [Ceftin] 500 mg PO BID #14 tab 02/20/17 FLUoxetine HCL [PROzac] 40 mg PO DAILY #20 capsule 02/20/17 Gabapentin [Neurontin] 100 mg PO DAILY #30 cap 02/20/17 Ondansetron Odt [Zofran ODT] 4 mg PO Q8HR PRN #30 tab 02/20/17 QUEtiapine [SEROquel] 25 mg PO HS #30 tab 02/20/17 clonazePAM [KlonoPIN] 0.5 mg PO TID PRN #20 tablet 02/20/17 Allergies Allergy/AdvReac Type Severity Reaction Status Date / Time Penicillins Allergy Rash/Hives Verified 02/27/17 19:00 ketorolac [From Toradol] AdvReac Rapid Verified 02/27/17 19:00 Heart Rate Review of Systems ROS Statement: Those systems with pertinent positive or pertinent negative responses have been documented in the HPI. ROS Other: All systems not noted in ROS Statement are negative. Past Medical History Past Medical History: COPD, GERD/Reflux, Seizure Disorder, Syncope Additional Past Medical History / Comment(s): Migraines, last seizure 5 years ago thought d/t ativan withdrawal, gastric ulcer, IBS, incontinent of urine/ stool. History of Any Multi-Drug Resistant Organisms: None Reported Past Surgical History: Appendectomy, Cholecystectomy, Hysterectomy, Tonsillectomy Additional Past Surgical History / Comment(s): Pilonidal cyst removal, EGD/ colonoscopy. Past Anesthesia/Blood Transfusion Reactions: Previous Problems w/ Anesthesia Additional Past Anesthesia/Blood Transfusion Reaction / Comment(s): Problem with past anesthesia with her muscles-last surgery anesthesia went good. Past Psychological History: Anxiety, Depression Smoking Status: Current every day smoker Past Alcohol Use History: None Reported Past Drug Use History: None Reported - Past Family History Mother Family Medical History: Cancer Additional Family Medical History / Comment(s): Mother of breast/ovarian cancer at the age of 71yrs. Father Family Medical History: Musculoskeletal Disorder, Neurologic Disorder Additional Family Medical History / Comment(s): Father of Kamla Gehrig's disease at the age of 53 yrs. General Exam Limitations: no limitations General appearance: alert, in no apparent distress, other (This is a well- developed, well-nourished adult female patient in no acute distress. Vital signs upon presentation were temperature 100.0 oral, pulse 107, respirations 16 , blood pressure 153/93, pulse ox 97% on room air.) Eye exam: Present: normal appearance, PERRL, EOMI. Absent: scleral icterus, conjunctival injection, periorbital swelling ENT exam: Present: normal exam, normal oropharynx, mucous membranes moist, TM's normal bilaterally Neck exam: Present: normal inspection. Absent: tenderness, meningismus, lymphadenopathy Respiratory exam: Present: normal lung sounds bilaterally, wheezes (Scattered expiratory wheezing), decreased breath sounds. Absent: respiratory distress, rales, rhonchi, stridor Cardiovascular Exam: Present: normal rhythm, tachycardia, normal heart sounds. Absent: systolic murmur, diastolic murmur, rubs, gallop, clicks GI/Abdominal exam: Present: soft, normal bowel sounds. Absent: distended, tenderness, guarding, rebound, rigid Extremities exam: Present: normal inspection, full ROM, normal capillary refill. Absent: tenderness, pedal edema, joint swelling, calf tenderness Back exam: Present: normal inspection Neurological exam: Present: alert, oriented X3, CN II-XII intact Psychiatric exam: Present: normal affect, normal mood Skin exam: Present: warm, dry, intact, normal color. Absent: rash Course Vital Signs 02/27/17 02/27/17 02/27/17 18:50 19:13 19:29 Temperature 99.3 F 100 F H Pulse Rate 107 H Respiratory 16 20 Rate Blood Pressure 153/93 O2 Sat by Pulse 97 Oximetry 02/27/17 02/27/17 02/27/17 19:31 20:00 20:11 Temperature Pulse Rate 104 H 96 94 Respiratory 20 Rate Blood Pressure 152/70 O2 Sat by Pulse 94 L Oximetry 02/27/17 21:12 Temperature Pulse Rate 98 Respiratory 17 Rate Blood Pressure 153/70 O2 Sat by Pulse 96 Oximetry Medical Decision Making - Medical Decision Making 66 year-old female patient presented to the emergency department today for complaints of chest pressure, redness of breath, cough, and fever for the last 2 days. Patient was recently admitted and treated for tracheal bronchitis. Physical examination did reveal scattered expiratory wheezing with decreased breath sounds bilaterally. Labs were reviewed and did show a hemoglobin of 10.1 which is improved from previous, d-dimer of 1.46, potassium 2.8, magnesium 1.5, and an elevated lactic acid of 2.4. CT of the chest showed no pulmonary embolism however did show some solid-appearing densities with differentials including neoplasm or infectious etiology. Chest x-ray showed minimal residual peripheral lung markings. My attending Dr. Thomas did see and evaluate the patient. He did speak to Dr. Kasi Yoder who accepts patient has an patient. We will place patient on breathing treatments, Solu-Medrol, and IV antibiotics for hospital-acquired pneumonia. We also replaced her potassium, magnesium, and administered IV fluids for elevated lactic acid. - Lab Data Result diagrams: 02/27/17 19:20 02/27/17 19:20 Lab Results 02/27/17 02/27/17 02/27/17 Range/Units 17:40 19:20 19:20 WBC 7.1 (3.8-10.6) k/uL RBC 3.57 L (3.80-5.40) m/uL Hgb 10.1 L (11.4-16.0) gm/dL Hct 32.3 L (34.0-46.0) % MCV 90.4 (80.0-100.0) fL MCH 28.2 (25.0-35.0) pg MCHC 31.3 (31.0-37.0) g/dL RDW 16.8 H (11.5-15.5) % Plt Count 300 (150-450) k/uL Neutrophils % 47 % Lymphocytes % 41 % Monocytes % 7 % Eosinophils % 2 % Basophils % 1 % Neutrophils # 3.3 (1.3-7.7) k/uL Lymphocytes # 2.9 (1.0-4.8) k/uL Monocytes # 0.5 (0-1.0) k/uL Eosinophils # 0.2 (0-0.7) k/uL Basophils # 0.0 (0-0.2) k/uL Hypochromasia Moderate Poikilocytosis Slight Anisocytosis Slight PT (9.0-12.0) sec INR (<1.2) APTT (22.0-30.0) sec D-Dimer (<0.60) mg/L FEU Sodium (137-145) mmol/L Potassium (3.5-5.1) mmol/L Chloride (98-107) mmol/L Carbon Dioxide (22-30) mmol/L Anion Gap mmol/L BUN (7-17) mg/dL Creatinine (0.52-1.04) mg/dL Est GFR (MDRD) Af Amer (>60 ml/min/1.73 sqM) Est GFR (MDRD) Non-Af (>60 ml/min/1.73 sqM) Glucose (74-99) mg/dL Plasma Lactic Acid [place] 2.4 H* (0.7-2.0) mmol/L Calcium (8.4-10.2) mg/dL Magnesium (1.6-2.3) mg/dL Total Bilirubin (0.2-1.3) mg/dL AST (14-36) U/L ALT (9-52) U/L Alkaline Phosphatase (38-126) U/L Total Creatine Kinase 24 L (30-135) U/L CK-MB (CK-2) <0.2 (0.0-2.4) ng/mL CK-MB (CK-2) Rel Index Troponin I <0.012 (0.000-0.034) ng/mL NT-Pro-B Natriuret Pep pg/mL Total Protein (6.3-8.2) g/dL Albumin (3.5-5.0) g/dL Urine Color Urine Appearance (Clear) Urine pH (5.0-8.0) Ur Specific [place] (1.001-1.035) Urine Protein (Negative) Urine Glucose (UA) (Negative) Urine Ketones (Negative) Urine Blood (Negative) Urine Nitrite (Negative) Urine Bilirubin (Negative) Urine Urobilinogen (<2.0) mg/dL Ur Leukocyte Esterase (Negative) 02/27/17 02/27/17 02/27/17 Range/Units 19:20 19:20 19:20 WBC (3.8-10.6) k/uL RBC (3.80-5.40) m/uL Hgb (11.4-16.0) gm/dL Hct (34.0-46.0) % MCV (80.0-100.0) fL MCH (25.0-35.0) pg MCHC (31.0-37.0) g/dL RDW (11.5-15.5) % Plt Count (150-450) k/uL Neutrophils % % Lymphocytes % % Monocytes % % Eosinophils % % Basophils % % Neutrophils # (1.3-7.7) k/uL Lymphocytes # (1.0-4.8) k/uL Monocytes # (0-1.0) k/uL Eosinophils # (0-0.7) k/uL Basophils # (0-0.2) k/uL Hypochromasia Poikilocytosis Anisocytosis PT 10.4 (9.0-12.0) sec INR 1.0 (<1.2) APTT 23.8 (22.0-30.0) sec D-Dimer 1.46 H (<0.60) mg/L FEU Sodium 139 (137-145) mmol/L Potassium 2.8 L* (3.5-5.1) mmol/L Chloride 95 L (98-107) mmol/L Carbon Dioxide 33 H (22-30) mmol/L Anion Gap 11 mmol/L BUN 22 H (7-17) mg/dL Creatinine 0.81 (0.52-1.04) mg/dL Est GFR (MDRD) Af Amer >60 (>60 ml/min/1.73 sqM) Est GFR (MDRD) Non-Af >60 (>60 ml/min/1.73 sqM) Glucose 235 H (74-99) mg/dL Plasma Lactic Acid [place] (0.7-2.0) mmol/L Calcium 9.8 (8.4-10.2) mg/dL Magnesium (1.6-2.3) mg/dL Total Bilirubin 0.3 (0.2-1.3) mg/dL AST 21 (14-36) U/L ALT 25 (9-52) U/L Alkaline Phosphatase 73 (38-126) U/L Total Creatine Kinase (30-135) U/L CK-MB (CK-2) (0.0-2.4) ng/mL CK-MB (CK-2) Rel Index Troponin I (0.000-0.034) ng/mL NT-Pro-B Natriuret Pep 163 pg/mL Total Protein 6.9 (6.3-8.2) g/dL Albumin 3.5 (3.5-5.0) g/dL Urine Color Urine Appearance (Clear) Urine pH (5.0-8.0) Ur Specific [place] (1.001-1.035) Urine Protein (Negative) Urine Glucose (UA) (Negative) Urine Ketones (Negative) Urine Blood (Negative) Urine Nitrite (Negative) Urine Bilirubin (Negative) Urine Urobilinogen (<2.0) mg/dL Ur Leukocyte Esterase (Negative) 02/27/17 02/27/17 Range/Units 19:20 21:48 WBC (3.8-10.6) k/uL RBC (3.80-5.40) m/uL Hgb (11.4-16.0) gm/dL Hct (34.0-46.0) % MCV (80.0-100.0) fL MCH (25.0-35.0) pg MCHC (31.0-37.0) g/dL RDW (11.5-15.5) % Plt Count (150-450) k/uL Neutrophils % % Lymphocytes % % Monocytes % % Eosinophils % % Basophils % % Neutrophils # (1.3-7.7) k/uL Lymphocytes # (1.0-4.8) k/uL Monocytes # (0-1.0) k/uL Eosinophils # (0-0.7) k/uL Basophils # (0-0.2) k/uL Hypochromasia Poikilocytosis Anisocytosis PT (9.0-12.0) sec INR (<1.2) APTT (22.0-30.0) sec D-Dimer (<0.60) mg/L FEU Sodium (137-145) mmol/L Potassium (3.5-5.1) mmol/L Chloride (98-107) mmol/L Carbon Dioxide (22-30) mmol/L Anion Gap mmol/L BUN (7-17) mg/dL Creatinine (0.52-1.04) mg/dL Est GFR (MDRD) Af Amer (>60 ml/min/1.73 sqM) Est GFR (MDRD) Non-Af (>60 ml/min/1.73 sqM) Glucose (74-99) mg/dL Plasma Lactic Acid [place] (0.7-2.0) mmol/L Calcium (8.4-10.2) mg/dL Magnesium 1.5 L (1.6-2.3) mg/dL Total Bilirubin (0.2-1.3) mg/dL AST (14-36) U/L ALT (9-52) U/L Alkaline Phosphatase (38-126) U/L Total Creatine Kinase (30-135) U/L CK-MB (CK-2) (0.0-2.4) ng/mL CK-MB (CK-2) Rel Index Troponin I (0.000-0.034) ng/mL NT-Pro-B Natriuret Pep pg/mL Total Protein (6.3-8.2) g/dL Albumin (3.5-5.0) g/dL Urine Color Yellow Urine Appearance Clear (Clear) Urine pH 6.0 (5.0-8.0) Ur Specific [place] 1.025 (1.001-1.035) Urine Protein Trace H (Negative) Urine Glucose (UA) Negative (Negative) Urine Ketones Negative (Negative) Urine Blood Negative (Negative) Urine Nitrite Negative (Negative) Urine Bilirubin Negative (Negative) Urine Urobilinogen <2.0 (<2.0) mg/dL Ur Leukocyte Esterase Negative (Negative) 02/27/17 22:18 EKG obtained at 1857 shows sinus tachycardia with nonspecific ST and T-wave abnormalities, as well as a prolonged QT interval. Ventricular rate is 103, IA interval 170, QRS duration 90, QT 400, QTc 524. Compared to EKG from 2016 changes appear stable. - Radiology Data Radiology results: report reviewed, image reviewed Review x-ray of the chest shows a heart size is normal, pulmonary vasculature is normal, there appears to be some faint persistent peripheral infiltrate-type appearance of the right lung. Some chronic lung markings could be considered. Additional chronic lung markings are likely present. Previous right lower lobe infiltrate is resolved. Impression by Dr. Jordan shows minimal residual peripheral lung markings versus chronic lung markings right midlung. CTA of the chest was obtained, report reviewed in its entirety, impression by Dr. Jordan shows couple of intraparenchymal solid-appearing densities as discussed above. Additional peripheral areas of pneumonitis and increased density are present which are nonspecific. Clinical consideration for neoplasm , infectious etiology should be performed. Recommend follow-up is recommended. , No acute pulmonary embolism. Disposition Clinical Impression: Hospital-acquired pneumonia, Acute exacerbation of chronic obstructive pulmonary disease (COPD) Disposition: ADMITTED IP TO THIS [facility] Condition: Serious Referrals: Kasi Yoder MD [Primary Care Provider] - 1-2 days Decision to Admit Reason: Admit from EC Decision Date: 02/27/17 Decision Time: 22:17
[2017-02-27 19:41] LABS: Anisocytosis Slight; Basophils % (A) 1 %; CH 28.5; CHCM 31.8; Eosinophils # (A) 0.2 k/uL (0-0.7); Eosinophils % (A) 2 %; HCT 32.3 % (34.0-46.0); HDW 3.41; HGB 10.1 gm/dL (11.4-16.0); Hypochromasia Moderate; Luc # (Auto) 0.15; Luc % (Auto) 2; Lymphocytes # (A) 2.9 k/uL (1.0-4.8); Lymphocytes % (A) 41 %; MCH 28.2 pg (25.0-35.0); MCHC 31.3 g/dL (31.0-37.0); MCV 90.4 fL (80.0-100.0); Mean Platelet Volume 7.6; Monocytes # (A) 0.5 k/uL (0-1.0); Monocytes % (A) 7 %; Neutrophils # (A) 3.3 k/uL (1.3-7.7); Neutrophils % (A) 47 %; Poikilocytosis Slight; RBC 3.57 m/uL (3.80-5.40); RDW 16.8 % (11.5-15.5); WBC 7.1 k/uL (3.8-10.6)
[2017-02-27 19:53] LABS: ALT 25 U/L (9-52); AST 21 U/L (14-36); Alkaline Phosphatase 73 U/L (38-126); Anion Gap 11 mmol/L; Blood Urea Nitrogen 22 mg/dL (7-17); Calcium 9.8 mg/dL (8.4-10.2); Carbon Dioxide 33 mmol/L (22-30); Chloride 95 mmol/L (98-107); Glucose 235 mg/dL (74-99); Non-African American GFR(MDRD) >60 (>60 ml/min/1.73 sqM); Sodium 139 mmol/L (137-145); Total Bilirubin 0.3 mg/dL (0.2-1.3); Total Protein 6.9 g/dL (6.3-8.2)
[2017-02-27 19:59] LABS: Potassium 2.8 mmol/L (3.5-5.1)
[2017-02-27 20:05] LABS: Creatine Kinase 24 U/L (30-135)
[2017-02-27 20:08] LABS: Partial Thromboplastin Time 23.8 sec (22.0-30.0); Prothrombin Time 10.4 sec (9.0-12.0)
[2017-02-27 20:17] LABS: Creatine Kinase MB <0.2 ng/mL (0.0-2.4); Troponin I <0.012 ng/mL (0.000-0.034)
[2017-02-27] MEDS ORDERED: RX INFO: IV CONTRAST WAS GIVEN 1 EACH MISC MISCELLANE PRN (20:20)
[2017-02-27] MEDS ORDERED: POTASSIUM CHLORIDE ER 20 MEQ TAB.ER PO STA (20:45)
[2017-02-27] MEDS ORDERED: SODIUM CHLORIDE 0.9% 1,000 ML IV STA (20:46)
--- NOTE | 2017-02-27 20:53 | XR ---
EXAMINATION TYPE: XR chest 2V DATE OF EXAM: 02/27/2017 COMPARISON: 02/18/2017 INDICATION: Difficulty breathing TECHNIQUE: Frontal and lateral views of the chest are obtained. FINDINGS: The heart size is normal. The pulmonary vasculature is normal. There appears to be some faint persistent peripheral infiltrate type appearance to the right lung. So me chronic lung markings could be considered. Additional chronic lung markings are likely present. Pr evious right lower lobe infiltrate is resolved. IMPRESSION: 1. Minimal residual peripheral lung markings versus chronic lung markings right midlung
--- NOTE | 2017-02-27 21:27 | CT ---
CT CHEST FOR PULMONARY EMBOLISM. EXAMINATION TYPE: CT angio chest DATE OF EXAM: 02/27/2017 INDICATION: Left sided chest and shoulder pain with shortness of breath. CT DLP: 450.9 mGycm, Automated exposure control for dose reduction was used. CONTRAST: Patient injected with 100 mL of Omnipaque 350. COMPARISON: NONE TECHNIQUE: CT of the chest is performed on a spiral scan at 2 mm thick sections. Study is performed with intravenous contrast timed for evaluation for pulmonary embolism. This will limit additional po rtions of the evaluation. 3-D MIP images reconstructed by the technologist are reviewed on the compu ter in the coronal and sagittal planes. FINDINGS: No persistent filling defects are evident to suggest an acute pulmonary embolism. No mediastinal or hilar adenopathy enlarged by CT criteria is evident. Few scattered small shotty ly mph nodes are present. The ascending aorta diameter at the level of the main pulmonary artery is 3.6 cm. The main pulmonary artery diameter at the bifurcation is 2.8 cm. There is a 1.6 cm irregular densities just superior to the aortic arch. Neoplasm is not excluded. Ser ies 4 image 28. Has a 1.4 x 0.5 cm density in the posterior right upper lobe. This appears more linea r on the lung windows. Series 4 image 46. There are small peripheral pleural-based densities along th e right midlung. Series 4 image 59. Some additional areas within the right middle lobe periphery slig htly more inferior. A larger area of thickening is along the right middle lobe lateral periphery with a depth of 0.9 cm. Image 94 sequence 4. On lung windows are additional areas of pneumonitis identified example images include series 5 image 76 medial superior segment right lower lobe and posterior left lower lobe. Neoplasm is not excluded. Limited CT sections are obtained through the upper abdomen. Air is within the left biliary tree. Uppe r abdomen is otherwise unremarkable. IMPRESSIONS: 1. Couple of intraparenchymal solid appearing densities discussed above. Additional peripheral areas of pneumonitis and increased density are present which are nonspecific. Clinical consideration for ne oplasm, infectious etiologies should be performed. Workup and follow-up is recommended. 2. No acute pulmonary embolism.
[2017-02-27 21:58] LABS: Appearance,Urine Clear (Clear); Bilirubin,Urine Negative (Negative); Glucose,Urine (UA) Negative (Negative); Ketones,Urine Negative (Negative); Leukocyte Esterase,Urine Negative (Negative); Nitrite,Urine Negative (Negative); Protein,Urine Trace (Negative); Specific Gravity,Urine 1.025 (1.001-1.035); UA Billing (MACRO vs. MICRO) CHEM; Urobilinogen,Urine <2.0 mg/dL (<2.0)
[2017-02-27] MEDS: POTASSIUM CHLORIDE 10 MEQ, LIDOCAINE 2% INJ 10 MG in SODIUM CHLORIDE 0.9% 100 ML IVPB SCH ×2 (22:05→23:07)
[2017-02-27] MEDS ORDERED: NALOXONE 0.4 MG/ML 1 ML VIAL IV PRN (22:05)
[2017-02-27] MEDS ORDERED: IPRATROPIUM-ALBUTEROL 3 ML NEB INHALATION PRN (22:06)
[2017-02-27] MEDS ORDERED: VANCOMYCIN IV PER PHARMACY 1 EACH MISC MISCELLANE PRN (22:07)
[2017-02-27] MEDS ORDERED: methylPREDNISolone SOD SUCCI 125 MG/2 ML VIAL IV STA (22:07)
[2017-02-27] MEDS ORDERED: SODIUM CHLORIDE 0.9% 1,000 ML IV SCH (22:15)
[2017-02-27] MEDS ORDERED: LEVOFLOXACIN 500MG-D5W PMX 500 MG in DEXTROSE/WATER 1 100ML.BAG IVPB STA (22:16)
[2017-02-27] MEDS ORDERED: MAGNESIUM SULFATE-D5W PMX 1 GM in DEXTROSE/WATER 1 100ML.BAG IVPB STA (22:25)
[2017-02-27] MEDS: HYDROmorphone 1 MG/ML 1 ML SYRINGE IVP PRN (22:59)
[2017-02-27] MEDS: IPRATROPIUM-ALBUTEROL 3 ML NEB INHALATION SCH (23:39)
[2017-02-28] MEDS: VANCOMYCIN 1,250 MG in SODIUM CHLORIDE 0.9% 250 ML IVPB SCH ×2 (00:56→11:04)
[2017-02-28] MEDS ORDERED: HYDROcodone/APAP 10-325MG 1 EACH TAB PO PRN (01:05)
[2017-02-28] MEDS ORDERED: ONDANSETRON ODT 4 MG TAB PO PRN (01:05)
[2017-02-28] MEDS ORDERED: QUEtiapine 25 MG TAB PO SCH (01:24)
[2017-02-28] MEDS: clonazePAM 1 MG TAB PO PRN ×2 (02:01→06:34)
[2017-02-28] MEDS: HYDROmorphone 1 MG/ML 1 ML SYRINGE IVP PRN ×3 (02:02→10:47)
[2017-02-28] MEDS: methylPREDNISolone SOD SUCCI 125 MG/2 ML VIAL IV SCH ×2 (02:34→06:36)
[2017-02-28] MEDS: POTASSIUM CHLORIDE 10 MEQ, LIDOCAINE 2% INJ 10 MG in SODIUM CHLORIDE 0.9% 100 ML IVPB SCH ×2 (03:03→04:40)
[2017-02-28] MEDS: IPRATROPIUM-ALBUTEROL 3 ML NEB INHALATION SCH ×3 (03:43→11:22)
[2017-02-28 07:16] LABS: Glucose,Whole Blood 449 mg/dL (75-99)
[2017-02-28] MEDS: INSULIN ASPART 100 UNIT/ML 1 ML 10 ML VIAL SQ SCH ×2 (07:49→12:36)
[2017-02-28] MEDS ORDERED: NON-FORMULARY DRUG (Tiotropium Bromide [Spiriva] 1 CAP) INHALATION SCH (08:00)
[2017-02-28 08:21] LABS: Anisocytosis Slight; Basophils % (A) 0 %; CH 27.5; CHCM 29.2; Eosinophils % (A) 0 %; HCT 33.8 % (34.0-46.0); HDW 3.36; HGB 10.2 gm/dL (11.4-16.0); Hypochromasia Marked; Luc # (Auto) 0.04; Luc % (Auto) 1; Lymphocytes # (A) 0.6 k/uL (1.0-4.8); Lymphocytes % (A) 12 %; MCH 28.8 pg (25.0-35.0); MCHC 30.3 g/dL (31.0-37.0); Mean Platelet Volume 7.9; Monocytes # (A) 0.1 k/uL (0-1.0); Monocytes % (A) 2 %; Neutrophils # (A) 4.7 k/uL (1.3-7.7); Neutrophils % (A) 86 %; RBC 3.56 m/uL (3.80-5.40); RDW 17.2 % (11.5-15.5); WBC 5.5 k/uL (3.8-10.6); WBC (Perox) 5.79
[2017-02-28 08:25] LABS: Anion Gap 18 mmol/L; Blood Urea Nitrogen 17 mg/dL (7-17); Calcium 9.1 mg/dL (8.4-10.2); Carbon Dioxide 22 mmol/L (22-30); Chloride 100 mmol/L (98-107); Magnesium 1.6 mg/dL (1.6-2.3); Non-African American GFR(MDRD) >60 (>60 ml/min/1.73 sqM); Potassium 3.9 mmol/L (3.5-5.1); Sodium 140 mmol/L (137-145)
[2017-02-28 08:36] LABS: Glucose 518 mg/dL (74-99)
[2017-02-28] MEDS ORDERED: FLUoxetine HCL 20 MG CAP PO SCH (09:00)
[2017-02-28] MEDS ORDERED: MULTIVITAMINS, THERA 1 EACH TAB PO SCH (09:00)
[2017-02-28] MEDS ORDERED: CHOLECALCIFEROL 1,000 UNIT TAB PO SCH (09:00)
[2017-02-28] MEDS ORDERED: GABAPENTIN 100 MG CAP PO SCH (09:00)
[2017-02-28] MEDS ORDERED: methylPREDNISolone SOD SUCCI 125 MG/2 ML VIAL IV SCH (12:00)
[2017-02-28 12:22] LABS: Glucose,Whole Blood 406 mg/dL (75-99)
--- NOTE | 2017-02-28 12:54 | P.CNPUL ---
History of Present Illness Consult date: 02/28/17 Reason for consult: dyspnea, cough, COPD, hypoxemia, pneumonia, lung mass, abnormal CXR/CT Chief complaint: Shortness of breath and cough doing on off and on for a week to 10 days History of present illness: 66-year-old female patient with past medical history significant for migraine headaches, COPD, and recent pneumonia presents to the emergency department for evaluation of shortness of breath and fatigue for the last 1 week to 10 days. Patient states that she was recently inpatient and treated for pneumonia. Patient states that her symptoms had improved and she was discharged home. Patient did not fill her home medications and start developing, progressive increase Patient states that 2 days ago she developed increase in shortness of breath both at rest and with activity. She states that she has been very tired , sleeping more, and has had intermittent dizziness as well. She states that she does have an intermittent cough with green sputum production. She states she does have inhalers to use at home. She states that she is having generalized chest pain she describes as chest pressure. Patient is also complaining of some left shoulder pain however states that this is been present for one month and does increase with movement. She denies any nausea or vomiting with this. Denies any sweats. She states that she did have a temperature of 103 orally at home. She denies any fever today however states that she did take Lucan at home for pain control. Patient denies any recent rash , abdominal pain, nausea, vomiting, diarrhea, constipation, back pain, numbness , tingling, weakness, hematuria, dysuria, urinary urgency, urinary frequency, headache, visual changes, or any other complaints. She underwent a CAT scan of the chest noted to have densities with a differential diagnoses of nodular lesion versus neoplastic process versus pneumonia was asked to evaluate this patient further, patient expresses that she has significantly improved in terms of respirator standpoint would like to go home Review of Systems All systems: negative Past Medical History Past Medical History: COPD, GERD/Reflux, Seizure Disorder, Syncope Additional Past Medical History / Comment(s): Migraines, last seizure 5 years ago thought d/t ativan withdrawal, gastric ulcer, IBS, incontinent of urine/ stool. History of Any Multi-Drug Resistant Organisms: None Reported Past Surgical History: Appendectomy, Cholecystectomy, Hysterectomy, Tonsillectomy Additional Past Surgical History / Comment(s): Pilonidal cyst removal, EGD/ colonoscopy. Past Anesthesia/Blood Transfusion Reactions: Previous Problems w/ Anesthesia Additional Past Anesthesia/Blood Transfusion Reaction / Comment(s): Problem with past anesthesia with her muscles-last surgery anesthesia went good. Past Psychological History: Anxiety, Depression Additional Psychological History / Comment(s): Pt states her anxiety and depression are stable at this time. Pt states she has had a legal guardian in the past but is her own guardian at this time. Her son, Yeison is helpful to her. Smoking Status: Current every day smoker Past Alcohol Use History: None Reported Additional Past Alcohol Use History / Comment(s): Pt states she started smoking in 1965. Past Drug Use History: None Reported - Past Family History Mother Family Medical History: Cancer Additional Family Medical History / Comment(s): Mother of breast/ovarian cancer at the age of 71yrs. Father Family Medical History: Musculoskeletal Disorder, Neurologic Disorder Additional Family Medical History / Comment(s): Father of Kamla Gehrig's disease at the age of 53 yrs. Medications and Allergies Home Medications Medication Instructions Recorded Confirmed Type Cholecalciferol [Vitamin D3] 1,000 unit PO DAILY 01/19/17 02/27/17 History Hydrocodone/Acetaminophen [Lucan 1 tab PO BID PRN 01/19/17 02/27/17 History 10-325] Multivitamins, Thera [Multivitamin 1 tab PO DAILY 01/19/17 02/27/17 History (formulary)] Cefuroxime Axetil [Ceftin] 500 mg PO BID #14 tab 02/20/17 02/27/17 Rx FLUoxetine HCL [PROzac] 40 mg PO DAILY #20 capsule 02/20/17 02/27/17 Rx Gabapentin [Neurontin] 100 mg PO DAILY #30 cap 02/20/17 02/27/17 Rx Ondansetron Odt [Zofran ODT] 4 mg PO Q8HR PRN #30 tab 02/20/17 02/27/17 Rx QUEtiapine [SEROquel] 25 mg PO HS #30 tab 02/20/17 02/27/17 Rx clonazePAM [KlonoPIN] 0.5 mg PO TID PRN #20 tablet 02/20/17 02/27/17 Rx Albuterol Inhaler [Ventolin Hfa 1 - 2 puff INHALATION RT-Q6H PRN 02/27/17 History Inhaler] Budesonide-Formot 160-4.5 Mcg 2 puff INHALATION RT-BID 02/27/17 02/27/17 History [Symbicort 160-4.5 Mcg Inhaler] Tiotropium [place] [Spiriva] 1 cap INHALATION RT-DAILY 02/27/17 02/27/17 History predniSONE See Taper PO DAILY 02/27/17 02/27/17 History Allergies Allergy/AdvReac Type Severity Reaction Status Date / Time Penicillins Allergy Rash/Hives Verified 02/27/17 19:00 ketorolac [From Toradol] AdvReac Rapid Verified 02/27/17 19:00 Heart Rate Physical Exam Vitals: Vital Signs Temp Pulse Pulse Resp BP BP Pulse Ox 02/28/17 07:55 94 L 02/28/17 07:00 94 L 02/28/17 06:50 97.4 F L 99 20 126/78 90 L 02/28/17 03:53 88 02/28/17 03:43 80 02/27/17 23:50 84 02/27/17 23:39 82 97 02/27/17 23:30 98.1 F 89 18 145/86 92 L 02/27/17 22:53 97.6 F 85 16 153/96 96 02/27/17 21:12 98 17 153/70 96 02/27/17 20:11 94 02/27/17 20:00 96 02/27/17 19:31 104 H 20 152/70 94 L 02/27/17 19:29 20 02/27/17 19:13 100 F H 02/27/17 18:50 99.3 F 107 H 16 153/93 97 Intake and Output 02/27/17 02/28/17 02/28/17 22:59 06:59 14:59 Other: Voiding Method Toilet # Voids 3 3 # Bowel Movements 0 Weight 71.668 kg 91 kg - Constitutional General appearance: average body habitus, disheveled, no acute distress, obese - EENT Eyes: EOMI, PERRLA, normal appearance ENT: hearing grossly normal, normal oropharynx Ears: bilateral: normal - Neck Neck: normal ROM Carotids: bilateral: upstroke normal, bruit absent, negative: upstroke delayed, upstroke diminished, upstroke bounding Thyroid: bilateral: normal size - Respiratory Respiratory: bilateral: diminished, negative: dullness, rales, rhonchi, wheezing , prolonged expiration, prolonged inspiration - Cardiovascular Rhythm: regular Heart sounds: normal: S1, S2 - Gastrointestinal General gastrointestinal: normal bowel sounds - Neurologic Neurologic: CNII-XII intact - Musculoskeletal Musculoskeletal: gait normal, strength equal bilaterally - Psychiatric Psychiatric: A&O x's 3, appropriate affect, intact judgment & insight Results - Laboratory Findings CBC and BMP: 02/28/17 07:45 02/28/17 07:45 PT/INR, D-dimer PT 10.4 sec (9.0-12.0) 02/27/17 19:20 INR 1.0 (<1.2) 02/27/17 19:20 D-Dimer 1.46 mg/L FEU (<0.60) H 02/27/17 19:20 Abnormal lab findings: Abnormal Labs 02/27/17 02/27/17 02/27/17 17:40 19:20 19:20 RBC 3.57 L Hgb 10.1 L Hct 32.3 L MCHC RDW 16.8 H Lymphocytes # D-Dimer Potassium Chloride Carbon Dioxide BUN Glucose POC Glucose (mg/dL) Plasma Lactic Acid Baldo 2.4 H* Magnesium Total Creatine Kinase 24 L Urine Protein 02/27/17 02/27/17 02/27/17 19:20 19:20 19:20 RBC Hgb Hct MCHC RDW Lymphocytes # D-Dimer 1.46 H Potassium 2.8 L* Chloride 95 L Carbon Dioxide 33 H BUN 22 H Glucose 235 H POC Glucose (mg/dL) Plasma Lactic Acid Baldo Magnesium 1.5 L Total Creatine Kinase Urine Protein 02/27/17 02/28/17 02/28/17 21:48 06:44 07:45 RBC 3.56 L Hgb 10.2 L Hct 33.8 L MCHC 30.3 L RDW 17.2 H Lymphocytes # 0.6 L D-Dimer Potassium Chloride Carbon Dioxide BUN Glucose POC Glucose (mg/dL) 449 H Plasma Lactic Acid Baldo Magnesium Total Creatine Kinase Urine Protein Trace H 02/28/17 02/28/17 07:45 12:16 RBC Hgb Hct MCHC RDW Lymphocytes # D-Dimer Potassium Chloride Carbon Dioxide BUN Glucose 518 H* POC Glucose (mg/dL) 406 H Plasma Lactic Acid Baldo Magnesium Total Creatine Kinase Urine Protein - Diagnostic Findings Chest x-ray: report reviewed, image reviewed CT scan - chest: report reviewed, image reviewed (1.6 cm irregular density superior to the aortic arch, her 1.4 by half centimeter density right upper lobe posteriorly, pleural-based density in right midlung field lower lobe infiltrates were seen along with left lower lobe) Assessment and Plan Assessment: Bilateral basal pneumonia suspect mixed bacterial and/or or gram-negative Acute COPD exacerbation Bilateral lung nodules Severe degree of baseline COPD emphysema Urine chronic hypoxic respirator failure related to above Would recommend continuation of antibiotics breathing treatment and steroids patient does have a updraft machine along with breathing medicine would recommend oral antibiotics and oral prednisone as a tapering Petrin as prescribed previously would recommend follow-up in outpatient setting will repeat the CAT scan in May consider PET scan continued to manifest abnormalities as noted above. As always be appreciated involving us in care of patient follow this patient with you Time with Patient: Greater than 30
[2017-02-28 14:45] VITALS: BP 142/85; PULSE 93; RESP 18; TEMP 97.9
[2017-02-28] MEDS ORDERED: LEVOFLOXACIN 500MG-D5W PMX 500 MG in DEXTROSE/WATER 1 100ML.BAG IVPB SCH (22:00)
--- NOTE | 2017-02-28 22:21 | HP ---
HISTORY AND PHYSICAL CHIEF COMPLAINT: A 66-year-old white female with past medical history, history of migraines, COPD, recent pneumonia, came to the ER for shortness of breath and fatigue. She was recently inpatient and treated for pneumonia. She was discharged home. Two days later she got extremely short of breath. She came back to increased lethargy, chest pressure, and admitted for recurrent pneumonia. HOME MEDICINES: Is vitamin D3, [place], multivitamin, Symbicort, Spiriva, prednisone. ALLERGIES: Negative. REVIEW OF SYMPTOMS: 14-point review of systems negative except for mentioned in HPI. PAST MEDICAL HISTORY: She has IBS, gastric ulcer, seizure disorder, migraine, COPD, GERD, syncope, anxiety, depression, pilonidal cyst removal, hysterectomy, tonsillectomy, cholecystectomy, appendectomy. FAMILY HISTORY: Mother with breast, ovarian cancer. Father Kamla Gehrig's disease. PHYSICAL EXAM: Blood pressure 150s over 90s, respiratory 16-20, pulse is 100 to 110, temp 100 degrees Fahrenheit. CARDIOVASCULAR: S1, S2. LUNGS: Scattered wheeze x4. Hematology negative Homans. Psych fair mood and affect. Ophthalmological pupils equal, round, react to light and accommodation. NEUROLOGIC: Alert, orient x3. LABORATORY DATA: Hemoglobin is 10.1. ASSESSMENT: 1. Hospital acquired pneumonia. IV antibiotics will be started, IV Solu-Medrol and updraft treatments. 2. Hypomagnesemia will be treated with magnesium replacement. 3. Acute on chronic anemia. 4. Hypokalemia. Replace with IV potassium replacement. 5. CT of the chest shows some solid-appearing densities. Await for Pulmonary to see the patient and go over the CT scan prior to being discharged. MMODL / IJN: [id number] /
== END 2017-02-28 15:22 | disposition home or self-care (01) | DRG 194 ==
LOC: EC 18:47 → 4MS4W 22:04
PROVIDERS: ADMIT Family Medicine; ATTEND Family Medicine
DX: J18.9 Pneumonia, unspecified organism (principal); J44.0 Chronic obstructive pulmonary disease with (acute) lower respiratory infection; J96.11 Chronic respiratory failure with hypoxia; E83.42 Hypomagnesemia; J44.1 Chronic obstructive pulmonary disease with (acute) exacerbation; G40.909 Epilepsy, unspecified, not intractable, without status epilepticus; F17.200 Nicotine dependence, unspecified, uncomplicated; E87.6 Hypokalemia; D64.9 Anemia, unspecified; K21.9 Gastro-esophageal reflux disease without esophagitis; K58.9 Irritable bowel syndrome, unspecified; Y95 Nosocomial condition; Z79.51 Long term (current) use of inhaled steroids; Z79.899 Other long term (current) drug therapy; Z80.41 Family history of malignant neoplasm of ovary; Z87.01 Personal history of pneumonia (recurrent); Z87.11 Personal history of peptic ulcer disease; Z88.0 Allergy status to penicillin
CPT/HCPCS: 36415; 71020; 71275; 80048; 80053; 81003; 82550; 82553; 83036; 83605; 83735; 83880; 84484; 85025; 85379; 85610; 85730; 87040; 87077; 87086; 87186; 93005; 94640; 94760; 96361; 96365; 96368; 96375; 99285

== ENCOUNTER 2017-03-05 15:38 | Emergency (ER) | payer MEDICARE ==
[2017-03-05 15:49] VITALS: TEMP 98.4
--- NOTE | 2017-03-05 16:07 | ED ---
General Adult HPI - General Chief complaint: Back Pain/Injury Stated complaint: Pneumonia Symptoms Time Seen by Provider: 03/05/17 15:47 Source: patient, EMS, RN notes reviewed Mode of arrival: EMS Limitations: no limitations - History of Present Illness Initial comments: 66-year-old female presents emergency Department with chief complaint of shortness of breath, back pain. Patient states that she has a history of COPD, migraine headaches and recent admissions for pneumonia. Patient states that she does normally use inhalers at home. Patient states that she was discharged on antibiotics for recent admission for pneumonia states that she feels that she 's getting worse again. Patient states that she is a daily smoker but states that she was recently stopped. Patient denies any fever states that she's had chills. Patient denies any anterior chest pain. She states she has some pain around her rib regions. Patient had recent CTA of her chest which showed no evidence of pulmonary embolism. Patient states that she was diagnosed with bilateral pneumonia. Patient also states that she has some low back pain. Patient states the pain is worse with movement and better at rest. Patient additionally does have some back pain which she takes Elizabeth for. Patient denies any nausea, vomiting diarrhea constipation. - Related Data Home Medications Medication Instructions Recorded Confirmed Cholecalciferol [Vitamin D3] 1,000 unit PO DAILY 01/19/17 03/05/17 Multivitamins, Thera [Multivitamin 1 tab PO DAILY 01/19/17 03/05/17 (formulary)] Albuterol Inhaler [Ventolin Hfa 1 - 2 puff INHALATION RT-Q6H PRN 02/27/17 Inhaler] Budesonide-Formot 160-4.5 Mcg 2 puff INHALATION RT-BID 02/27/17 03/05/17 [Symbicort 160-4.5 Mcg Inhaler] Tiotropium [place] [Spiriva] 1 cap INHALATION RT-DAILY 02/27/17 03/05/17 Previous Rx's Medication Instructions Recorded FLUoxetine HCL [PROzac] 40 mg PO DAILY #20 capsule 02/20/17 Gabapentin [Neurontin] 100 mg PO DAILY #30 cap 02/20/17 Ondansetron Odt [Zofran ODT] 4 mg PO Q8HR PRN #30 tab 02/20/17 QUEtiapine [SEROquel] 25 mg PO HS #30 tab 02/20/17 clonazePAM [KlonoPIN] 0.5 mg PO TID PRN #20 tablet 02/20/17 Cefuroxime Axetil [Ceftin] 500 mg PO BID #6 tab 02/28/17 predniSONE 50 mg PO DAILY #5 tab 03/05/17 Allergies Allergy/AdvReac Type Severity Reaction Status Date / Time Penicillins Allergy Rash/Hives Verified 03/05/17 16:00 ketorolac [From Toradol] AdvReac Rapid Verified 03/05/17 16:00 Heart Rate Review of Systems ROS Statement: Those systems with pertinent positive or pertinent negative responses have been documented in the HPI. ROS Other: All systems not noted in ROS Statement are negative. Past Medical History Past Medical History: COPD, GERD/Reflux, Seizure Disorder, Syncope Additional Past Medical History / Comment(s): Migraines, last seizure 5 years ago thought d/t ativan withdrawal, gastric ulcer, IBS, incontinent of urine/ stool. History of Any Multi-Drug Resistant Organisms: VRE Date of last positivie culture/infection: 02/27/17 MDRO Source:: URINE Past Surgical History: Appendectomy, Cholecystectomy, Hysterectomy, Tonsillectomy Additional Past Surgical History / Comment(s): Pilonidal cyst removal, EGD/ colonoscopy. Past Anesthesia/Blood Transfusion Reactions: Previous Problems w/ Anesthesia Additional Past Anesthesia/Blood Transfusion Reaction / Comment(s): Problem with past anesthesia with her muscles-last surgery anesthesia went good. Past Psychological History: Anxiety, Depression Smoking Status: Current every day smoker Past Alcohol Use History: None Reported Past Drug Use History: None Reported - Past Family History Mother Family Medical History: Cancer Additional Family Medical History / Comment(s): Mother of breast/ovarian cancer at the age of 71yrs. Father Family Medical History: Musculoskeletal Disorder, Neurologic Disorder Additional Family Medical History / Comment(s): Father of Kamla Gehrig's disease at the age of 53 yrs. General Exam Limitations: no limitations General appearance: alert, in no apparent distress Head exam: Present: atraumatic, normocephalic, normal inspection Eye exam: Present: normal appearance, PERRL, EOMI. Absent: scleral icterus, conjunctival injection, periorbital swelling ENT exam: Present: normal exam, normal oropharynx, mucous membranes moist, TM's normal bilaterally, normal external ear exam Neck exam: Present: normal inspection. Absent: tenderness, meningismus, lymphadenopathy Respiratory exam: Present: wheezes (faint). Absent: normal lung sounds bilaterally, respiratory distress, rales, rhonchi, stridor Cardiovascular Exam: Present: regular rate, normal rhythm, normal heart sounds. Absent: systolic murmur, diastolic murmur, rubs, gallop, clicks Back exam: Present: full ROM, tenderness (Lumbar region), paraspinal tenderness. Absent: CVA tenderness (R), CVA tenderness (L), vertebral tenderness Neurological exam: Present: alert, oriented X3, CN II-XII intact Skin exam: Present: warm, dry, intact, normal color. Absent: rash Course Vital Signs 03/05/17 15:40 Temperature 98.4 F Pulse Rate 72 Respiratory 20 Rate Blood Pressure 145/75 EKG Findings - EKG Comments: EKG Findings:: EKG performed at 16:01 sinus rhythm with occasional PVC rate of 93 IN interval 158 QRS 90 QT/QTC 376/467 Medical Decision Making - Medical Decision Making 66-year-old female presented for recheck of pneumonia. Patient's lab work does not reveal any evidence of leukocytosis. Patient is mild hyperglycemia. Patient potassium is mildly elevated this most likely related to her decreased oral intake. Patient has no signs of infection at this time. Patient vitals have been stable with a mild low pulse ox with this is standard for patient. She states that she occasionally does need some oxygen. Patient denies any current chest pain. EKG is unchanged from prior. Patient has reproducible low back pain consistent with muscular injury. Case discussed with Dr. Thomas - Lab Data Result diagrams: 03/05/17 16:00 03/05/17 16:00 Lab Results 03/05/17 03/05/17 03/05/17 Range/Units 16:00 16:00 16:00 WBC 7.5 (3.8-10.6) k/uL RBC 3.82 (3.80-5.40) m/uL Hgb 11.0 L (11.4-16.0) gm/dL Hct 34.1 (34.0-46.0) % MCV 89.4 D (80.0-100.0) fL MCH 28.8 (25.0-35.0) pg MCHC 32.2 (31.0-37.0) g/dL RDW 17.3 H (11.5-15.5) % Plt Count 307 (150-450) k/uL Neutrophils % 61 % Lymphocytes % 31 % Monocytes % 4 % Eosinophils % 3 % Basophils % 0 % Neutrophils # 4.5 (1.3-7.7) k/uL Lymphocytes # 2.3 (1.0-4.8) k/uL Monocytes # 0.3 (0-1.0) k/uL Eosinophils # 0.2 (0-0.7) k/uL Basophils # 0.0 (0-0.2) k/uL Hypochromasia Slight Poikilocytosis Slight Anisocytosis Slight PT (9.0-12.0) sec INR (<1.2) APTT (22.0-30.0) sec VBG pH (7.31-7.41) VBG pCO2 (37-51) mmHg VBG HCO3 (24-28) mmol/L Sodium 135 L (137-145) mmol/L Potassium 3.4 L (3.5-5.1) mmol/L Chloride 94 L (98-107) mmol/L Carbon Dioxide 30 (22-30) mmol/L Anion Gap 11 mmol/L BUN 17 (7-17) mg/dL Creatinine 0.70 (0.52-1.04) mg/dL Est GFR (MDRD) Af Amer >60 (>60 ml/min/1.73 sqM) Est GFR (MDRD) Non-Af >60 (>60 ml/min/1.73 sqM) Glucose 244 H (74-99) mg/dL Plasma Lactic Acid Baldo (0.7-2.0) mmol/L Calcium 9.3 (8.4-10.2) mg/dL Magnesium 1.6 (1.6-2.3) mg/dL Total Bilirubin 0.6 (0.2-1.3) mg/dL AST 40 H (14-36) U/L ALT 42 (9-52) U/L Alkaline Phosphatase 67 (38-126) U/L Total Creatine Kinase 20 L (30-135) U/L CK-MB (CK-2) <0.2 (0.0-2.4) ng/mL CK-MB (CK-2) Rel Index Troponin I <0.012 (0.000-0.034) ng/mL NT-Pro-B Natriuret Pep pg/mL Total Protein 6.9 (6.3-8.2) g/dL Albumin 3.7 (3.5-5.0) g/dL Urine Color Urine Appearance (Clear) Urine pH (5.0-8.0) Ur Specific [place] (1.001-1.035) Urine Protein (Negative) Urine Glucose (UA) (Negative) Urine Ketones (Negative) Urine Blood (Negative) Urine Nitrite (Negative) Urine Bilirubin (Negative) Urine Urobilinogen (<2.0) mg/dL Ur Leukocyte Esterase (Negative) Urine RBC (0-5) /hpf Urine WBC (0-5) /hpf Ur Squamous Epith Cells (0-4) /hpf Amorphous Sediment (None) /hpf Urine Bacteria (None) /hpf Urine Mucus (None) /hpf 03/05/17 03/05/17 03/05/17 Range/Units 16:00 16:00 16:00 WBC (3.8-10.6) k/uL RBC (3.80-5.40) m/uL Hgb (11.4-16.0) gm/dL Hct (34.0-46.0) % MCV (80.0-100.0) fL MCH (25.0-35.0) pg MCHC (31.0-37.0) g/dL RDW (11.5-15.5) % Plt Count (150-450) k/uL Neutrophils % % Lymphocytes % % Monocytes % % Eosinophils % % Basophils % % Neutrophils # (1.3-7.7) k/uL Lymphocytes # (1.0-4.8) k/uL Monocytes # (0-1.0) k/uL Eosinophils # (0-0.7) k/uL Basophils # (0-0.2) k/uL Hypochromasia Poikilocytosis Anisocytosis PT 10.5 (9.0-12.0) sec INR 1.0 (<1.2) APTT 22.2 (22.0-30.0) sec VBG pH (7.31-7.41) VBG pCO2 (37-51) mmHg VBG HCO3 (24-28) mmol/L Sodium (137-145) mmol/L Potassium (3.5-5.1) mmol/L Chloride (98-107) mmol/L Carbon Dioxide (22-30) mmol/L Anion Gap mmol/L BUN (7-17) mg/dL Creatinine (0.52-1.04) mg/dL Est GFR (MDRD) Af Amer (>60 ml/min/1.73 sqM) Est GFR (MDRD) Non-Af (>60 ml/min/1.73 sqM) Glucose (74-99) mg/dL Plasma Lactic Acid Baldo 2.5 H* (0.7-2.0) mmol/L Calcium (8.4-10.2) mg/dL Magnesium (1.6-2.3) mg/dL Total Bilirubin (0.2-1.3) mg/dL AST (14-36) U/L ALT (9-52) U/L Alkaline Phosphatase (38-126) U/L Total Creatine Kinase (30-135) U/L CK-MB (CK-2) (0.0-2.4) ng/mL CK-MB (CK-2) Rel Index Troponin I (0.000-0.034) ng/mL NT-Pro-B Natriuret Pep 290 pg/mL Total Protein (6.3-8.2) g/dL Albumin (3.5-5.0) g/dL Urine Color Urine Appearance (Clear) Urine pH (5.0-8.0) Ur Specific [place] (1.001-1.035) Urine Protein (Negative) Urine Glucose (UA) (Negative) Urine Ketones (Negative) Urine Blood (Negative) Urine Nitrite (Negative) Urine Bilirubin (Negative) Urine Urobilinogen (<2.0) mg/dL Ur Leukocyte Esterase (Negative) Urine RBC (0-5) /hpf Urine WBC (0-5) /hpf Ur Squamous Epith Cells (0-4) /hpf Amorphous Sediment (None) /hpf Urine Bacteria (None) /hpf Urine Mucus (None) /hpf 03/05/17 03/05/17 Range/Units 16:00 16:50 WBC (3.8-10.6) k/uL RBC (3.80-5.40) m/uL Hgb (11.4-16.0) gm/dL Hct (34.0-46.0) % MCV (80.0-100.0) fL MCH (25.0-35.0) pg MCHC (31.0-37.0) g/dL RDW (11.5-15.5) % Plt Count (150-450) k/uL Neutrophils % % Lymphocytes % % Monocytes % % Eosinophils % % Basophils % % Neutrophils # (1.3-7.7) k/uL Lymphocytes # (1.0-4.8) k/uL Monocytes # (0-1.0) k/uL Eosinophils # (0-0.7) k/uL Basophils # (0-0.2) k/uL Hypochromasia Poikilocytosis Anisocytosis PT (9.0-12.0) sec INR (<1.2) APTT (22.0-30.0) sec VBG pH 7.52 H (7.31-7.41) VBG pCO2 39 (37-51) mmHg VBG HCO3 32 H (24-28) mmol/L Sodium (137-145) mmol/L Potassium (3.5-5.1) mmol/L Chloride (98-107) mmol/L Carbon Dioxide (22-30) mmol/L Anion Gap mmol/L BUN (7-17) mg/dL Creatinine (0.52-1.04) mg/dL Est GFR (MDRD) Af Amer (>60 ml/min/1.73 sqM) Est GFR (MDRD) Non-Af (>60 ml/min/1.73 sqM) Glucose (74-99) mg/dL Plasma Lactic Acid [place] (0.7-2.0) mmol/L Calcium (8.4-10.2) mg/dL Magnesium (1.6-2.3) mg/dL Total Bilirubin (0.2-1.3) mg/dL AST (14-36) U/L ALT (9-52) U/L Alkaline Phosphatase (38-126) U/L Total Creatine Kinase (30-135) U/L CK-MB (CK-2) (0.0-2.4) ng/mL CK-MB (CK-2) Rel Index Troponin I (0.000-0.034) ng/mL NT-Pro-B Natriuret Pep pg/mL Total Protein (6.3-8.2) g/dL Albumin (3.5-5.0) g/dL Urine Color Yellow Urine Appearance Cloudy H (Clear) Urine pH 7.5 (5.0-8.0) Ur Specific [place] 1.010 (1.001-1.035) Urine Protein Negative (Negative) Urine Glucose (UA) Negative (Negative) Urine Ketones Negative (Negative) Urine Blood Negative (Negative) Urine Nitrite Negative (Negative) Urine Bilirubin Negative (Negative) Urine Urobilinogen <2.0 (<2.0) mg/dL Ur Leukocyte Esterase Negative (Negative) Urine RBC 2 (0-5) /hpf Urine WBC 3 (0-5) /hpf Ur Squamous Epith Cells 3 (0-4) /hpf Amorphous Sediment Rare H (None) /hpf Urine Bacteria Occasional H (None) /hpf Urine Mucus Rare H (None) /hpf Disposition Clinical Impression: COPD (chronic obstructive pulmonary disease), Mechanical back pain, Mild dehydration Disposition: HOME SELF-CARE Condition: Stable Instructions: COPD (Chronic Obstructive Pulmonary Disease) (ED) Additional Instructions: Please return to the Emergency Department if symptoms worsen or any other concerns. Prescriptions: predniSONE 50 mg PO DAILY #5 tab Referrals: Kasi Yoder MD [Primary Care Provider] - 1-2 days Time of Disposition: 17:30
[2017-03-05 16:17] LABS: Anisocytosis Slight; Basophils % (A) 0 %; CH 29.4; CHCM 33.1; Eosinophils # (A) 0.2 k/uL (0-0.7); Eosinophils % (A) 3 %; HCT 34.1 % (34.0-46.0); HDW 3.45; Hypochromasia Slight; Luc # (Auto) 0.11; Luc % (Auto) 1; Lymphocytes # (A) 2.3 k/uL (1.0-4.8); Lymphocytes % (A) 31 %; MCH 28.8 pg (25.0-35.0); MCHC 32.2 g/dL (31.0-37.0); Mean Platelet Volume 6.8; Monocytes # (A) 0.3 k/uL (0-1.0); Monocytes % (A) 4 %; Neutrophils # (A) 4.5 k/uL (1.3-7.7); Neutrophils % (A) 61 %; Poikilocytosis Slight; RBC 3.82 m/uL (3.80-5.40); RDW 17.3 % (11.5-15.5); VBG PH 7.52 (7.31-7.41); WBC 7.5 k/uL (3.8-10.6); WBC (Perox) 7.85
[2017-03-05 16:22] LABS: MCV 89.4 fL (80.0-100.0)
[2017-03-05 16:29] LABS: ALT 42 U/L (9-52); AST 40 U/L (14-36); Alkaline Phosphatase 67 U/L (38-126); Anion Gap 11 mmol/L; Blood Urea Nitrogen 17 mg/dL (7-17); Calcium 9.3 mg/dL (8.4-10.2); Carbon Dioxide 30 mmol/L (22-30); Chloride 94 mmol/L (98-107); Glucose 244 mg/dL (74-99); Magnesium 1.6 mg/dL (1.6-2.3); Non-African American GFR(MDRD) >60 (>60 ml/min/1.73 sqM); Potassium 3.4 mmol/L (3.5-5.1); Sodium 135 mmol/L (137-145); Total Bilirubin 0.6 mg/dL (0.2-1.3); Total Protein 6.9 g/dL (6.3-8.2)
[2017-03-05 16:37] LABS: Creatine Kinase 20 U/L (30-135)
--- NOTE | 2017-03-05 16:39 | XR ---
EXAMINATION TYPE: XR chest 2V DATE OF EXAM: 03/05/2017 COMPARISON: 02/27/2017 HISTORY: Difficulty breathing, recent pneumonia, cough and congestion. TECHNIQUE: Frontal and lateral views of the chest are obtained. FINDINGS: There is no focal air space opacity, pleural effusion, or pneumothorax seen. Chronic inte rstitial prominence is unchanged from the prior exam of 02/27/2017. The cardiac silhouette size is wi thin normal limits. The osseous structures are intact. IMPRESSION: Chronic interstitial changes with no focal consolidation to suggest pneumonia. No acute cardiopulmonary process.
[2017-03-05 16:50] LABS: Creatine Kinase MB <0.2 ng/mL (0.0-2.4); Troponin I <0.012 ng/mL (0.000-0.034)
[2017-03-05 17:04] LABS: Amorphous Sediment,Urine Rare /hpf; Appearance,Urine Cloudy (Clear); Bacteria,Urine Occasional /hpf; Bilirubin,Urine Negative (Negative); Glucose,Urine (UA) Negative (Negative); Ketones,Urine Negative (Negative); Leukocyte Esterase,Urine Negative (Negative); Mucus,Urine Rare /hpf; Nitrite,Urine Negative (Negative); PH, Urine 7.5 (5.0-8.0); Particle Count 15480; Protein,Urine Negative (Negative); RBC,Urine 2 /hpf (0-5); Squamous Epithelial Cell,Urine 3 /hpf (0-4); UA Billing (MACRO vs. MICRO) MICRO; Urobilinogen,Urine <2.0 mg/dL (<2.0); WBC,Urine 3 /hpf (0-5)
[2017-03-05 17:10] LABS: Partial Thromboplastin Time 22.2 sec (22.0-30.0); Prothrombin Time 10.5 sec (9.0-12.0)
[2017-03-05] MEDS ORDERED: ONDANSETRON 4 MG/2 ML VIAL IVP STA (17:25)
[2017-03-05] MEDS ORDERED: MORPHINE SULFATE 2 MG/ML SYRINGE IVP ONE (17:25)
[2017-03-05] MEDS ORDERED: SODIUM CHLORIDE 0.9% 1,000 ML IV ONE (17:28)
[2017-03-05 17:41] VITALS: RESP 16
[2017-03-05 18:42] VITALS: BP 150/87; PULSE 85
== END 2017-03-05 19:05 | disposition home or self-care (01) ==
LOC: EC 15:38
DX: J44.9 Chronic obstructive pulmonary disease, unspecified (principal); E86.0 Dehydration; M54.5 Low back pain; R73.9 Hyperglycemia, unspecified; E87.5 Hyperkalemia; R68.83 Chills (without fever); F17.200 Nicotine dependence, unspecified, uncomplicated; Z79.899 Other long term (current) drug therapy; Z79.51 Long term (current) use of inhaled steroids; Z88.0 Allergy status to penicillin; Z88.6 Allergy status to analgesic agent
CPT/HCPCS: 36415; 93005; 83880; 80053; 82550; 82553; 82803; 83605; 83735; 84484; 85025; 85610; 85730; 81001; 71020; 99284; 96374; 96375; 96361; J2405; J2270

== ENCOUNTER 2017-03-11 15:06 | Emergency (ER) | payer MEDICARE ==
[2017-03-11 15:43] VITALS: RESP 18
[2017-03-11] MEDS ORDERED: LORazepam 1 MG TAB PO STA (15:49)
--- NOTE | 2017-03-11 15:55 | ED ---
General Adult HPI - General Chief complaint: Anxiety Stated complaint: Anxiety Time Seen by Provider: 03/11/17 15:44 Source: patient, EMS, RN notes reviewed, old records reviewed Mode of arrival: EMS Limitations: no limitations - History of Present Illness Initial comments: This is a 66-year-old female to the ER for evaluation. Patient essentially for evaluation regarding anxiety history of anxiety. Patient states that she had argument with attendant earlier today and she called EMS. This joint, control. Patient was rigid whenever conversation with the person and then he started trying to convince her that he wasn't incontinent. THe patient had a an anxiety attack after telling the patent he could not no longer stay on her property and the argument escalated from there and patient became severely anxious and currently having anxiety attack. Patient states she is shaking and very anxious - Related Data Home Medications Medication Instructions Recorded Confirmed Cholecalciferol [Vitamin D3] 1,000 unit PO DAILY 01/19/17 03/05/17 Multivitamins, Thera [Multivitamin 1 tab PO DAILY 01/19/17 03/05/17 (formulary)] Albuterol Inhaler [Ventolin Hfa 1 - 2 puff INHALATION RT-Q6H PRN 02/27/17 Inhaler] Budesonide-Formot 160-4.5 Mcg 2 puff INHALATION RT-BID 02/27/17 03/05/17 [Symbicort 160-4.5 Mcg Inhaler] Tiotropium [place] [Spiriva] 1 cap INHALATION RT-DAILY 02/27/17 03/05/17 Previous Rx's Medication Instructions Recorded FLUoxetine HCL [PROzac] 40 mg PO DAILY #20 capsule 02/20/17 Gabapentin [Neurontin] 100 mg PO DAILY #30 cap 02/20/17 Ondansetron Odt [Zofran ODT] 4 mg PO Q8HR PRN #30 tab 02/20/17 QUEtiapine [SEROquel] 25 mg PO HS #30 tab 02/20/17 clonazePAM [KlonoPIN] 0.5 mg PO TID PRN #20 tablet 02/20/17 Cefuroxime Axetil [Ceftin] 500 mg PO BID #6 tab 02/28/17 predniSONE 50 mg PO DAILY #5 tab 03/05/17 Allergies Allergy/AdvReac Type Severity Reaction Status Date / Time Penicillins Allergy Rash/Hives Verified 03/11/17 15:51 ketorolac [From Toradol] AdvReac Rapid Verified 03/11/17 15:51 Heart Rate Review of Systems ROS Statement: Those systems with pertinent positive or pertinent negative responses have been documented in the HPI. ROS Other: All systems not noted in ROS Statement are negative. Past Medical History Past Medical History: COPD, GERD/Reflux, Seizure Disorder, Syncope Additional Past Medical History / Comment(s): Migraines, last seizure 5 years ago thought d/t ativan withdrawal, gastric ulcer, IBS, incontinent of urine/ stool. History of Any Multi-Drug Resistant Organisms: VRE Date of last positivie culture/infection: 02/27/17 MDRO Source:: URINE Past Surgical History: Appendectomy, Cholecystectomy, Hysterectomy, Tonsillectomy Additional Past Surgical History / Comment(s): Pilonidal cyst removal, EGD/ colonoscopy. Past Anesthesia/Blood Transfusion Reactions: Previous Problems w/ Anesthesia Additional Past Anesthesia/Blood Transfusion Reaction / Comment(s): Problem with past anesthesia with her muscles-last surgery anesthesia went good. Past Psychological History: Anxiety, Depression Smoking Status: Current every day smoker Past Alcohol Use History: None Reported Past Drug Use History: None Reported - Past Family History Mother Family Medical History: Cancer Additional Family Medical History / Comment(s): Mother of breast/ovarian cancer at the age of 71yrs. Father Family Medical History: Musculoskeletal Disorder, Neurologic Disorder Additional Family Medical History / Comment(s): Father of Kamal Gehrig's disease at the age of 53 yrs. General Exam Limitations: no limitations General appearance: alert, in no apparent distress, anxious Head exam: Present: atraumatic, normocephalic, normal inspection Eye exam: Present: normal appearance, PERRL, EOMI. Absent: scleral icterus, conjunctival injection, periorbital swelling ENT exam: Present: normal exam, mucous membranes moist Neck exam: Present: normal inspection. Absent: tenderness, meningismus, lymphadenopathy Respiratory exam: Present: normal lung sounds bilaterally. Absent: respiratory distress, wheezes, rales, rhonchi, stridor Cardiovascular Exam: Present: regular rate, normal rhythm, normal heart sounds. Absent: systolic murmur, diastolic murmur, rubs, gallop, clicks GI/Abdominal exam: Present: soft, normal bowel sounds. Absent: distended, tenderness, guarding, rebound, rigid Extremities exam: Present: normal inspection, full ROM, normal capillary refill. Absent: tenderness, pedal edema, joint swelling, calf tenderness Back exam: Present: normal inspection Neurological exam: Present: alert, oriented X3, CN II-XII intact Psychiatric exam: Present: normal affect, normal mood Skin exam: Present: warm, dry, intact, normal color. Absent: rash Course Vital Signs 03/11/17 03/11/17 15:08 15:41 Temperature 98.0 F Pulse Rate 110 H 105 H Respiratory 20 18 Rate Blood Pressure 127/67 108/66 O2 Sat by Pulse 96 94 L Oximetry - Reevaluation(s) Reevaluation #1: 03/11/17 15:53 Patient's symptoms are much improved after anxiolysis Medical Decision Making - Medical Decision Making 66-year-old ER for evaluation regarding anxiety attack. Patient stressful event today with a current tenant of her property. Patient did of altercation was required to be severely anxious, patient's anxiety this I was improved she has no chest pain she can be discharged home Disposition Clinical Impression: Acute anxiety, Panic attack Disposition: HOME SELF-CARE Condition: Good Instructions: Generalized Anxiety Disorder (ED) Referrals: Kasi Yoder MD [Primary Care Provider] - 1-2 days
[2017-03-11 16:39] VITALS: BP 120/70; PULSE 96; TEMP 97.9
== END 2017-03-11 16:39 | disposition home or self-care (01) ==
LOC: EC 15:06
DX: F41.0 Panic disorder [episodic paroxysmal anxiety] (principal); J44.9 Chronic obstructive pulmonary disease, unspecified; F17.200 Nicotine dependence, unspecified, uncomplicated; Z79.51 Long term (current) use of inhaled steroids; Z79.899 Other long term (current) drug therapy; Z88.0 Allergy status to penicillin; Z88.6 Allergy status to analgesic agent
CPT/HCPCS: 99284

== ENCOUNTER 2017-04-13 20:24 | Emergency (ER) | payer MEDICARE ==
[2017-04-13] MEDS ORDERED: SODIUM CHLORIDE 0.9% 2,000 ML IV ONE (22:42)
[2017-04-13] MEDS ORDERED: ACETAMINOPHEN TAB 325 MG TAB PO STA (22:43)
[2017-04-13] MEDS ORDERED: IBUPROFEN 800 MG TAB PO STA (22:43)
[2017-04-13 23:13] LABS: Basophils % (A) 0 %; CH 29.7; CHCM 33.5; Eosinophils # (A) 0.2 k/uL (0-0.7); Eosinophils % (A) 2 %; HCT 36.6 % (34.0-46.0); HGB 12.1 gm/dL (11.4-16.0); Luc # (Auto) 0.12; Luc % (Auto) 1; Lymphocytes # (A) 1.8 k/uL (1.0-4.8); Lymphocytes % (A) 17 %; MCH 29.4 pg (25.0-35.0); MCV 89.1 fL (80.0-100.0); Monocytes # (A) 0.4 k/uL (0-1.0); Monocytes % (A) 4 %; Neutrophils # (A) 7.7 k/uL (1.3-7.7); Neutrophils % (A) 75 %; RDW 15.1 % (11.5-15.5); WBC 10.2 k/uL (3.8-10.6); WBC (Perox) 9.62
[2017-04-13 23:24] LABS: Anion Gap 12 mmol/L; Blood Urea Nitrogen 19 mg/dL (7-17); Calcium 10.4 mg/dL (8.4-10.2); Chloride 93 mmol/L (98-107); Glucose 182 mg/dL (74-99); Non-African American GFR(MDRD) >60 (>60 ml/min/1.73 sqM); Sodium 136 mmol/L (137-145)
[2017-04-13 23:45] LABS: Carbon Dioxide 31 mmol/L (22-30); Potassium 3.2 mmol/L (3.5-5.1)
--- NOTE | 2017-04-13 23:52 | XR ---
EXAM: XR Chest, 2 Views CLINICAL HISTORY: Reason: Pain TECHNIQUE: Frontal and lateral views of the chest. COMPARISON: 03/18/17 FINDINGS: Lungs: Unremarkable. No consolidation. Pleural space: Unremarkable. No pneumothorax. Heart: Unremarkable. No cardiomegaly. Mediastinum: Unremarkable. Bones/joints: Mild S-shaped curvature to the thoracic spine. Vasculature: Atherosclerosis of the aortic arch. Mild uncoiled configuration of the thoracic aorta. IMPRESSION: No acute radiographic findings.
[2017-04-13 23:57] VITALS: RESP 18
--- NOTE | 2017-04-14 00:18 | ED ---
Fever HPI - General Chief Complaint: Fever Stated Complaint: fever Time Seen by Provider: 04/13/17 22:20 Source: patient Mode of arrival: ambulatory Limitations: no limitations - History of Present Illness Initial Comments: Patient is a 66-year-old female who presents with a chief complaint of fever and body aches. This has been going on for 3 days however the fever started today. The patient says she has been taking [place] and Tylenol for body aches. She cannot identify any inciting incidences, she further denies any known sick contacts. There are no aggravating or alleviating factors. Timing is constant. On initial evaluation, patient is in no acute distress and appears well. - Related Data Home Medications Medication Instructions Recorded Confirmed Multivitamins, Thera [Multivitamin 1 tab PO DAILY 01/19/17 04/13/17 (formulary)] Albuterol Inhaler [Ventolin Hfa 1 - 2 puff INHALATION RT-Q6H PRN 02/27/17 Inhaler] Budesonide-Formot 160-4.5 Mcg 2 puff INHALATION RT-BID 02/27/17 04/13/17 [Symbicort 160-4.5 Mcg Inhaler] Tiotropium [place] [Spiriva] 1 cap INHALATION RT-DAILY 02/27/17 04/13/17 HYDROcodone/APAP 10-325MG [[place] 1 tab PO BID PRN 03/18/17 04/13/17 10-325] Furosemide [Lasix] 40 mg PO DAILY 03/24/17 04/13/17 Budesonide [Pulmicort] 0.5 mg INHALATION RT-BID 04/13/17 04/13/17 Ipratropium-Albuterol Nebulize 3 ml INHALATION RT-QID 04/13/17 04/13/17 [Duoneb 0.5 mg-3 mg/3 ml Soln] Previous Rx's Medication Instructions Recorded FLUoxetine HCL [PROzac] 40 mg PO DAILY #20 capsule 02/20/17 Gabapentin [Neurontin] 100 mg PO DAILY #30 cap 02/20/17 clonazePAM [KlonoPIN] 0.5 mg PO TID PRN #20 tablet 02/20/17 Azithromycin 250 mg PO DAILY #4 tab 04/14/17 Allergies Allergy/AdvReac Type Severity Reaction Status Date / Time Penicillins Allergy Rash/Hives Verified 04/13/17 22:39 ketorolac [From Toradol] AdvReac Rapid Verified 04/13/17 22:39 Heart Rate Review of Systems ROS Statement: Those systems with pertinent positive or pertinent negative responses have been documented in the HPI. ROS Other: All systems not noted in ROS Statement are negative. Constitutional: Reports: fever Eyes: Denies: vision change ENT: Reports: throat pain. Denies: ear pain Respiratory: Reports: cough. Denies: dyspnea Cardiovascular: Denies: chest pain Gastrointestinal: Denies: abdominal pain, nausea, vomiting Genitourinary: Denies: dysuria Musculoskeletal: Denies: back pain Skin: Denies: rash Neurological: Denies: headache Past Medical History Past Medical History: COPD, GERD/Reflux, Seizure Disorder, Syncope Additional Past Medical History / Comment(s): Migraines, last seizure 5 years ago thought d/t ativan withdrawal, gastric ulcer, IBS, incontinent of urine/ stool. History of Any Multi-Drug Resistant Organisms: VRE Date of last positivie culture/infection: 02/27/17 MDRO Source:: URINE Past Surgical History: Appendectomy, Cholecystectomy, Hysterectomy, Tonsillectomy Additional Past Surgical History / Comment(s): Pilonidal cyst removal, EGD/ colonoscopy. Past Anesthesia/Blood Transfusion Reactions: Previous Problems w/ Anesthesia Additional Past Anesthesia/Blood Transfusion Reaction / Comment(s): Problem with past anesthesia with her muscles-last surgery anesthesia went good. Past Psychological History: Anxiety, Depression Smoking Status: Current every day smoker Past Alcohol Use History: None Reported Past Drug Use History: None Reported - Past Family History Mother Family Medical History: Cancer Additional Family Medical History / Comment(s): Mother of breast/ovarian cancer at the age of 71yrs. Father Family Medical History: Musculoskeletal Disorder, Neurologic Disorder Additional Family Medical History / Comment(s): Father of Kamla Gehrig's disease at the age of 53 yrs. General Exam Limitations: no limitations General appearance: alert, in no apparent distress Head exam: Present: atraumatic, normocephalic Eye exam: Present: normal appearance ENT exam: Absent: TM's normal bilaterally (Patient has a middle ear effusion of the left year. Tympanic membrane is erythematous and slightly bulging) Respiratory exam: Present: normal lung sounds bilaterally Cardiovascular Exam: Present: regular rate, normal rhythm GI/Abdominal exam: Present: soft. Absent: distended, tenderness Rectal exam: Present: deferred Neurological exam: Present: alert, oriented X3 Psychiatric exam: Present: normal affect, normal mood Skin exam: Present: warm, dry, intact Course Vital Signs 04/13/17 04/13/17 20:44 23:56 Temperature 103.3 F H 99.4 F Pulse Rate 118 H 87 Respiratory 20 18 Rate Blood Pressure 129/78 111/62 O2 Sat by Pulse 92 L 93 L Oximetry Medical Decision Making - Medical Decision Making Patient presents with a chief complaint of fever and body aches. At this time she also complains of headache, and left earache and sore throat. On initial evaluation, patient is febrile and tachycardic. There is concern for sepsis at this time, patient was given 30 mL per KG fluid bolus, lactic acid and blood cultures were drawn. Vital sign abnormalities may be secondary to fever, patient was given Motrin and Tylenol. Initial examination is consistent with sinusitis and left otitis media. He will be reevaluated 12:15 AM Lab evaluation of this patient is unremarkable except for a mildly elevated lactic acid at 2.1. This will resolve with fluid bolus. On reevaluation, patient's vital signs have normalized, her heart rate is normal, she is afebrile. Patient states she is feeling better. At this time, patient is not likely in septic shock. Chest x-ray does not show any acute process. Influenza swabs are negative. I discussed these results with the patient, should decision making was used to determine that the patient will be discharged home with treatment for sinusitis and otitis media. She was instructed to follow-up with her primary care physician and to return to the emergency department if her symptoms worsen or change, further the patient was given explicit signs and symptoms that should prompt return visit to the emergency department. - Lab Data Result diagrams: 04/13/17 22:55 04/13/17 22:55 Lab Results 04/13/17 04/13/17 04/13/17 Range/Units 21:25 22:55 22:55 WBC 10.2 (3.8-10.6) k/uL RBC 4.10 (3.80-5.40) m/uL Hgb 12.1 (11.4-16.0) gm/dL Hct 36.6 (34.0-46.0) % MCV 89.1 (80.0-100.0) fL MCH 29.4 (25.0-35.0) pg MCHC 33.0 (31.0-37.0) g/dL RDW 15.1 (11.5-15.5) % Plt Count 248 (150-450) k/uL Neutrophils % 75 % Lymphocytes % 17 % Monocytes % 4 % Eosinophils % 2 % Basophils % 0 % Neutrophils # 7.7 (1.3-7.7) k/uL Lymphocytes # 1.8 (1.0-4.8) k/uL Monocytes # 0.4 (0-1.0) k/uL Eosinophils # 0.2 (0-0.7) k/uL Basophils # 0.0 (0-0.2) k/uL Sodium 136 L (137-145) mmol/L Potassium 3.2 L (3.5-5.1) mmol/L Chloride 93 L (98-107) mmol/L Carbon Dioxide 31 H (22-30) mmol/L Anion Gap 12 mmol/L BUN 19 H (7-17) mg/dL Creatinine 0.60 (0.52-1.04) mg/dL Est GFR (MDRD) Af Amer >60 (>60 ml/min/1.73 sqM) Est GFR (MDRD) Non-Af >60 (>60 ml/min/1.73 sqM) Glucose 182 H (74-99) mg/dL Plasma Lactic Acid Baldo (0.7-2.0) mmol/L Calcium 10.4 H (8.4-10.2) mg/dL Influenza Type A RNA Not Detected (Not Detectd) Influenza Type B (PCR) Not Detected (Not Detectd) 04/13/17 Range/Units 22:55 WBC (3.8-10.6) k/uL RBC (3.80-5.40) m/uL Hgb (11.4-16.0) gm/dL Hct (34.0-46.0) % MCV (80.0-100.0) fL MCH (25.0-35.0) pg MCHC (31.0-37.0) g/dL RDW (11.5-15.5) % Plt Count (150-450) k/uL Neutrophils % % Lymphocytes % % Monocytes % % Eosinophils % % Basophils % % Neutrophils # (1.3-7.7) k/uL Lymphocytes # (1.0-4.8) k/uL Monocytes # (0-1.0) k/uL Eosinophils # (0-0.7) k/uL Basophils # (0-0.2) k/uL Sodium (137-145) mmol/L Potassium (3.5-5.1) mmol/L Chloride (98-107) mmol/L Carbon Dioxide (22-30) mmol/L Anion Gap mmol/L BUN (7-17) mg/dL Creatinine (0.52-1.04) mg/dL Est GFR (MDRD) Af Amer (>60 ml/min/1.73 sqM) Est GFR (MDRD) Non-Af (>60 ml/min/1.73 sqM) Glucose (74-99) mg/dL Plasma Lactic Acid Baldo 2.1 H* (0.7-2.0) mmol/L Calcium (8.4-10.2) mg/dL Influenza Type A RNA (Not Detectd) Influenza Type B (PCR) (Not Detectd) Disposition Clinical Impression: Fever, Systemic inflammatory response syndrome (SIRS), Otitis media, Sinusitis Disposition: HOME SELF-CARE Condition: Good Instructions: Fever in Adults (ED) Prescriptions: Azithromycin 250 mg PO DAILY #4 tab Referrals: Kasi Yoder MD [Primary Care Provider] - 1-2 days
[2017-04-14] MEDS ORDERED: AZITHROMYCIN 500 MG TAB PO STA (00:27)
[2017-04-14 02:11] VITALS: BP 104/57; PULSE 86; TEMP 98.2
== END 2017-04-14 02:12 | disposition home or self-care (01) ==
LOC: EC 20:24
DX: R65.10 Systemic inflammatory response syndrome (SIRS) of non-infectious origin without acute organ dysfunction (principal); H66.92 Otitis media, unspecified, left ear; J32.9 Chronic sinusitis, unspecified; R74.0 Nonspecific elevation of levels of transaminase and lactic acid dehydrogenase [LDH]; J44.9 Chronic obstructive pulmonary disease, unspecified; F17.200 Nicotine dependence, unspecified, uncomplicated; Z88.0 Allergy status to penicillin; Z88.6 Allergy status to analgesic agent; Z79.51 Long term (current) use of inhaled steroids; Z79.899 Other long term (current) drug therapy
CPT/HCPCS: 36415; 71020; 80048; 83605; 85025; 87502; 96360; 96361; 99283

== ENCOUNTER 2017-04-14 12:45 | Inpatient (IN) | payer MEDICARE ==
[2017-04-14] MEDS ORDERED: IBUPROFEN 400 MG TAB PO STA (13:07)
[2017-04-14] MEDS ORDERED: ACETAMINOPHEN TAB 500 MG TAB PO STA (13:07)
--- NOTE | 2017-04-14 13:10 | ED ---
General Adult HPI - General Chief complaint: Fever Stated complaint: Cough Time Seen by Provider: 04/14/17 12:58 Source: patient, RN notes reviewed Mode of arrival: wheelchair Limitations: no limitations - History of Present Illness Initial comments: Patient is a pleasant 66-year-old female presenting to the emergency department with cough and fever and difficulty breathing. Patient has had upper respiratory symptoms for the past couple of days. Patient states fever and difficulty breathing started yesterday. Patient was seen emergency Department and diagnosed with ear infection and started on antibiotics. Patient did have influenza testing done yesterday. Patient does complain of fatigue and myalgias and drowsiness. - Related Data Home Medications Medication Instructions Recorded Confirmed Multivitamins, Thera [Multivitamin 1 tab PO DAILY 01/19/17 04/14/17 (formulary)] Albuterol Inhaler [Ventolin Hfa 1 - 2 puff INHALATION RT-Q6H PRN 02/27/17 Inhaler] Budesonide-Formot 160-4.5 Mcg 2 puff INHALATION RT-BID 02/27/17 04/14/17 [Symbicort 160-4.5 Mcg Inhaler] Tiotropium [place] [Spiriva] 1 cap INHALATION RT-DAILY 02/27/17 04/14/17 HYDROcodone/APAP 10-325MG [[place] 1 tab PO BID PRN 03/18/17 04/14/17 10-325] Furosemide [Lasix] 40 mg PO DAILY 03/24/17 04/14/17 Budesonide [Pulmicort] 0.5 mg INHALATION RT-BID 04/13/17 04/14/17 Ipratropium-Albuterol Nebulize 3 ml INHALATION RT-QID 04/13/17 04/14/17 [Duoneb 0.5 mg-3 mg/3 ml Soln] Previous Rx's Medication Instructions Recorded FLUoxetine HCL [PROzac] 40 mg PO DAILY #20 capsule 02/20/17 Gabapentin [Neurontin] 100 mg PO DAILY #30 cap 02/20/17 clonazePAM [KlonoPIN] 0.5 mg PO TID PRN #20 tablet 02/20/17 Azithromycin 250 mg PO DAILY #4 tab 04/14/17 Allergies Allergy/AdvReac Type Severity Reaction Status Date / Time Penicillins Allergy Rash/Hives Verified 04/14/17 13:39 ketorolac [From Toradol] AdvReac Rapid Verified 04/14/17 13:39 Heart Rate Review of Systems ROS Statement: Those systems with pertinent positive or pertinent negative responses have been documented in the HPI. ROS Other: All systems not noted in ROS Statement are negative. Constitutional: Reports: fever, chills, weakness Eyes: Denies: eye pain ENT: Denies: ear pain Respiratory: Reports: cough, dyspnea Cardiovascular: Denies: palpitations Endocrine: Reports: fatigue Gastrointestinal: Denies: abdominal pain Genitourinary: Denies: dysuria Musculoskeletal: Denies: back pain Skin: Denies: rash Neurological: Denies: confusion Past Medical History Past Medical History: COPD, GERD/Reflux, Seizure Disorder, Syncope Additional Past Medical History / Comment(s): Migraines, last seizure 5 years ago thought d/t ativan withdrawal, gastric ulcer, IBS, incontinent of urine/ stool. History of Any Multi-Drug Resistant Organisms: VRE Date of last positivie culture/infection: 02/27/17 MDRO Source:: URINE Past Surgical History: Appendectomy, Cholecystectomy, Hysterectomy, Tonsillectomy Additional Past Surgical History / Comment(s): Pilonidal cyst removal, EGD/ colonoscopy. Past Anesthesia/Blood Transfusion Reactions: Previous Problems w/ Anesthesia Additional Past Anesthesia/Blood Transfusion Reaction / Comment(s): Problem with past anesthesia with her muscles-last surgery anesthesia went good. Past Psychological History: Anxiety, Depression Smoking Status: Current every day smoker Past Alcohol Use History: None Reported Past Drug Use History: None Reported - Past Family History Mother Family Medical History: Cancer Additional Family Medical History / Comment(s): Mother of breast/ovarian cancer at the age of 71yrs. Father Family Medical History: Musculoskeletal Disorder, Neurologic Disorder Additional Family Medical History / Comment(s): Father of Kamla Gehrig's disease at the age of 53 yrs. General Exam Limitations: no limitations General appearance: alert, in no apparent distress Head exam: Present: atraumatic Eye exam: Present: normal appearance, PERRL ENT exam: Present: normal oropharynx, TM's normal bilaterally Neck exam: Present: normal inspection Respiratory exam: Present: wheezes, decreased breath sounds Cardiovascular Exam: Present: tachycardia GI/Abdominal exam: Present: soft. Absent: tenderness Extremities exam: Present: normal inspection. Absent: pedal edema, calf tenderness Neurological exam: Present: alert Psychiatric exam: Present: normal affect, normal mood Skin exam: Present: normal color Course Vital Signs 04/14/17 04/14/17 12:51 15:00 Temperature 103.3 F H Pulse Rate 118 H 93 Respiratory 22 16 Rate Blood Pressure 128/72 107/58 O2 Sat by Pulse 94 L 96 Oximetry - Reevaluation(s) Reevaluation #1: 04/14/17 15:36 Patient does meet severe sepsis criteria diagnosed at 1536 suspicion for pneumonia on chest x-ray and abnormal vital signs and white blood cell count of 10.8. Blood culture and lactic acid and antibiotics ordered. EKG Findings - EKG Comments: EKG Findings:: Sinus tachycardia 114. MN 164. QRS 90. QT 456. QTc 628. Normal axis. Normal QRS. Nonspecific ST-T/T. Motion artifact is present. Medical Decision Making - Medical Decision Making Patient reevaluated and resting comfortably in bed. Patient does appear improved. Patient updated on results and plan. Case was discussed in detail with Dr. Montes De Oca, who will admit for Dr. Yoder. - Lab Data Result diagrams: 04/14/17 13:25 04/14/17 13:25 Lab Results 04/14/17 04/14/17 04/14/17 Range/Units 13:25 13:25 13:25 WBC 10.8 H (3.8-10.6) k/uL RBC 3.92 (3.80-5.40) m/uL Hgb 11.2 L (11.4-16.0) gm/dL Hct 34.8 (34.0-46.0) % MCV 88.9 (80.0-100.0) fL MCH 28.6 (25.0-35.0) pg MCHC 32.2 (31.0-37.0) g/dL RDW 15.2 (11.5-15.5) % Plt Count 239 (150-450) k/uL Neutrophils % 83 % Lymphocytes % 10 % Monocytes % 6 % Eosinophils % 0 % Basophils % 0 % Neutrophils # 9.0 H (1.3-7.7) k/uL Lymphocytes # 1.1 (1.0-4.8) k/uL Monocytes # 0.6 (0-1.0) k/uL Eosinophils # 0.0 (0-0.7) k/uL Basophils # 0.0 (0-0.2) k/uL PT (9.0-12.0) sec INR (<1.2) APTT (22.0-30.0) sec Sodium 136 L (137-145) mmol/L Potassium 2.9 L* (3.5-5.1) mmol/L Chloride 96 L (98-107) mmol/L Carbon Dioxide 28 (22-30) mmol/L Anion Gap 12 mmol/L BUN 12 (7-17) mg/dL Creatinine 0.63 (0.52-1.04) mg/dL Est GFR (MDRD) Af Amer >60 (>60 ml/min/1.73 sqM) Est GFR (MDRD) Non-Af >60 (>60 ml/min/1.73 sqM) Glucose 182 H (74-99) mg/dL Plasma Lactic Acid Baldo 3.7 H* (0.7-2.0) mmol/L Calcium 9.6 (8.4-10.2) mg/dL Total Bilirubin 1.1 (0.2-1.3) mg/dL AST 25 (14-36) U/L ALT 29 (9-52) U/L Alkaline Phosphatase 52 (38-126) U/L Total Protein 6.7 (6.3-8.2) g/dL Albumin 3.7 (3.5-5.0) g/dL 04/14/ Range/Units 13:25 WBC (3.8-10.6) k/uL RBC (3.80-5.40) m/uL Hgb (11.4-16.0) gm/dL Hct (34.0-46.0) % MCV (80.0-100.0) fL MCH (25.0-35.0) pg MCHC (31.0-37.0) g/dL RDW (11.5-15.5) % Plt Count (150-450) k/uL Neutrophils % % Lymphocytes % % Monocytes % % Eosinophils % % Basophils % % Neutrophils # (1.3-7.7) k/uL Lymphocytes # (1.0-4.8) k/uL Monocytes # (0-1.0) k/uL Eosinophils # (0-0.7) k/uL Basophils # (0-0.2) k/uL PT 11.5 (9.0-12.0) sec INR 1.2 H (<1.2) APTT 23.4 (22.0-30.0) sec Sodium (137-145) mmol/L Potassium (3.5-5.1) mmol/L Chloride (98-107) mmol/L Carbon Dioxide (22-30) mmol/L Anion Gap mmol/L BUN (7-17) mg/dL Creatinine (0.52-1.04) mg/dL Est GFR (MDRD) Af Amer (>60 ml/min/1.73 sqM) Est GFR (MDRD) Non-Af (>60 ml/min/1.73 sqM) Glucose (74-99) mg/dL Plasma Lactic Acid Baldo (0.7-2.0) mmol/L Calcium (8.4-10.2) mg/dL Total Bilirubin (0.2-1.3) mg/dL AST (14-36) U/L ALT (9-52) U/L Alkaline Phosphatase (38-126) U/L Total Protein (6.3-8.2) g/dL Albumin (3.5-5.0) g/dL - Radiology Data Radiology results: image reviewed (Chest x-ray shows left apical infiltrate) Critical Care Time Critical Care Time: Yes Total Critical Care Time: 33 Disposition Clinical Impression: Severe sepsis, Pneumonia Disposition: ADMITTED IP TO THIS [facility] Condition: Serious Referrals: Kasi Yoder MD [Primary Care Provider] - 1-2 days Decision Time: 15:38
--- NOTE | 2017-04-14 13:44 | XR ---
EXAMINATION TYPE: XR chest 2V DATE OF EXAM: 04/14/2017 COMPARISON: 04/13/2017 HISTORY: 66-year-old female with fever and abdominal pain TECHNIQUE: PA and lateral views FINDINGS: Heart is normal size. Mild elongation/ectasia of the aortic knob. Atherosclerotic arch calcifications . Summary vasculature within normal limits. There is focal increased density at the medial left apex. No other consolidation or pleural effusion. IMPRESSION: Some new medial left apical density could represent focal infiltrate/pneumonia. Correlate with patien t's symptoms.
[2017-04-14 13:49] LABS: Basophils % (A) 0 %; Eosinophils % (A) 0 %; HCT 34.8 % (34.0-46.0); HGB 11.2 gm/dL (11.4-16.0); Lymphocytes # (A) 1.1 k/uL (1.0-4.8); Lymphocytes % (A) 10 %; MCH 28.6 pg (25.0-35.0); MCHC 32.2 g/dL (31.0-37.0); MCV 88.9 fL (80.0-100.0); Mean Platelet Volume 6.9; Monocytes # (A) 0.6 k/uL (0-1.0); Monocytes % (A) 6 %; Neutrophils % (A) 83 %; Platelet Count 239 k/uL (150-450); RBC 3.92 m/uL (3.80-5.40); RDW 15.2 % (11.5-15.5); WBC 10.8 k/uL (3.8-10.6)
[2017-04-14 13:57] LABS: INR 1.2 (<1.2); Partial Thromboplastin Time 23.4 sec (22.0-30.0); Prothrombin Time 11.5 sec (9.0-12.0)
[2017-04-14 14:22] LABS: ALT 29 U/L (9-52); AST 25 U/L (14-36); Albumin 3.7 g/dL (3.5-5.0); Alkaline Phosphatase 52 U/L (38-126); Anion Gap 12 mmol/L; Blood Urea Nitrogen 12 mg/dL (7-17); Calcium 9.6 mg/dL (8.4-10.2); Carbon Dioxide 28 mmol/L (22-30); Chloride 96 mmol/L (98-107); Glucose 182 mg/dL (74-99); Sodium 136 mmol/L (137-145); Total Bilirubin 1.1 mg/dL (0.2-1.3); Total Protein 6.7 g/dL (6.3-8.2)
[2017-04-14 14:27] LABS: Potassium 2.9 mmol/L (3.5-5.1)
[2017-04-14] MEDS ORDERED: POTASSIUM CHLORIDE ER 20 MEQ TAB.ER PO STA (14:27)
[2017-04-14] MEDS: POTASSIUM CHLORIDE 10 MEQ, LIDOCAINE 2% INJ 10 MG in SODIUM CHLORIDE 0.9% 100 ML IVPB SCH ×2 (15:04→16:16)
[2017-04-14] MEDS ORDERED: IPRATROPIUM-ALBUTEROL 3 ML NEB INHALATION PRN (15:38)
[2017-04-14] MEDS ORDERED: PNEUMONIA PROTOCOL UTILIZED 1 EACH MISC PO PRN (15:38)
[2017-04-14] MEDS ORDERED: LEVOFLOXACIN 750MG-D5W PMX 750 MG in DEXTROSE/WATER 1 150ML.BAG IVPB STA (15:38)
[2017-04-14] MEDS ORDERED: AZTREONAM 2 GM in SODIUM CHLORIDE 0.9% 100 ML IVPB STA (15:38)
[2017-04-14] MEDS: IPRATROPIUM-ALBUTEROL 3 ML NEB INHALATION SCH ×2 (16:32→19:57)
--- NOTE | 2017-04-14 17:15 | P.HPIM ---
History of Present Illness H&P Date: 04/14/17 Chief Complaint: Pain, shortness of breath This is a 66-year-old female who presented emergency department complaining of pain all over and shortness of breath. The patient was in the emergency department yesterday with similar complaints. She was discharged home. The patient came back to the emergency room and states her shortness of breath is worse. She had a fever of 103.3 in the ER. She is having a cough which is productive of sputum. She does not know what color her sputum is. She lives in a [facility]. Influenza testing was done on 04/13/2017 and is negative. The patient was found to have sepsis with elevated lactic acid. The patient states she is smoking half a pack per day. She states that she is ready to quit smoking. Her chest x-ray shows new medial left apical infiltrate. Review of Systems All systems: negative Past Medical History Past Medical History: COPD, GERD/Reflux, Seizure Disorder, Syncope Additional Past Medical History / Comment(s): Migraines, last seizure 5 years ago thought d/t ativan withdrawal, gastric ulcer, IBS, incontinent of urine/ stool. History of Any Multi-Drug Resistant Organisms: VRE Date of last positivie culture/infection: 02/27/17 MDRO Source:: URINE Past Surgical History: Appendectomy, Cholecystectomy, Hysterectomy, Tonsillectomy Additional Past Surgical History / Comment(s): Pilonidal cyst removal, EGD/ colonoscopy. Past Anesthesia/Blood Transfusion Reactions: Previous Problems w/ Anesthesia Additional Past Anesthesia/Blood Transfusion Reaction / Comment(s): Problem with past anesthesia with her muscles-last surgery anesthesia went good. Past Psychological History: Anxiety, Depression Smoking Status: Current every day smoker Past Alcohol Use History: None Reported Past Drug Use History: None Reported - Past Family History Mother Family Medical History: Cancer Additional Family Medical History / Comment(s): Mother of breast/ovarian cancer at the age of 71yrs. Father Family Medical History: Musculoskeletal Disorder, Neurologic Disorder Additional Family Medical History / Comment(s): Father of Kamla Gehrig's disease at the age of 53 yrs. Medications and Allergies Home Medications Medication Instructions Recorded Confirmed Type Multivitamins, Thera [Multivitamin 1 tab PO DAILY 01/19/17 04/14/17 History (formulary)] FLUoxetine HCL [PROzac] 40 mg PO DAILY #20 capsule 02/20/17 04/14/17 Rx Gabapentin [Neurontin] 100 mg PO DAILY #30 cap 02/20/17 04/14/17 Rx clonazePAM [KlonoPIN] 0.5 mg PO TID PRN #20 tablet 02/20/17 04/14/17 Rx Albuterol Inhaler [Ventolin Hfa 1 - 2 puff INHALATION RT-Q6H PRN 02/27/17 History Inhaler] Budesonide-Formot 160-4.5 Mcg 2 puff INHALATION RT-BID 02/27/17 04/14/17 History [Symbicort 160-4.5 Mcg Inhaler] Tiotropium [place] [Spiriva] 1 cap INHALATION RT-DAILY 02/27/17 04/14/17 History HYDROcodone/APAP 10-325MG [[place] 1 tab PO BID PRN 03/18/17 04/14/17 History 10-325] Furosemide [Lasix] 40 mg PO DAILY 03/24/17 04/14/17 History Budesonide [Pulmicort] 0.5 mg INHALATION RT-BID 04/13/17 04/14/17 History Ipratropium-Albuterol Nebulize 3 ml INHALATION RT-QID 04/13/17 04/14/17 History [Duoneb 0.5 mg-3 mg/3 ml Soln] Azithromycin 250 mg PO DAILY #4 tab 04/14/17 04/14/17 Rx Allergies Allergy/AdvReac Type Severity Reaction Status Date / Time Penicillins Allergy Rash/Hives Verified 04/14/17 13:39 ketorolac [From Toradol] AdvReac Rapid Verified 04/14/17 13:39 Heart Rate Physical Exam Osteopathic Statement: *. No significant issues noted on an osteopathic structural exam other than those noted in the History and Physical/Consult. Vitals: Vital Signs Temp Pulse Resp BP Pulse Ox 04/14/17 16:22 98.8 F 91 20 100/61 93 L 04/14/17 15:00 93 16 107/58 96 04/14/17 12:51 103.3 F H 118 H 22 128/72 94 L Intake and Output 04/14/17 04/14/17 04/14/17 06:59 14:59 22:59 Other: Weight 68.039 kg Patient Weight 04/15/17 06:59 Weight 68.039 kg Gen.: Patient is alert and oriented 3, no acute distress Cardiovascular: Regular rate and rhythm, S1/S2 Lungs: Diminished breath sounds bilaterally with scattered expiratory wheezing Abdomen: Soft nontender nondistended positive bowel sounds Extremities: No edema Results CBC & Chem 7: 04/14/17 13:25 04/14/17 13:25 Labs: Abnormal Lab Results - Last 24 Hours (Table) 04/14/17 04/14/17 04/14/17 Range/Units 13:25 13:25 13:25 WBC 10.8 H (3.8-10.6) k/uL Hgb 11.2 L (11.4-16.0) gm/dL Neutrophils # 9.0 H (1.3-7.7) k/uL INR (<1.2) Sodium 136 L (137-145) mmol/L Potassium 2.9 L* (3.5-5.1) mmol/L Chloride 96 L (98-107) mmol/L Glucose 182 H (74-99) mg/dL Plasma Lactic Acid Baldo 3.7 H* (0.7-2.0) mmol/L 04/14/17 Range/Units 13:25 WBC (3.8-10.6) k/uL Hgb (11.4-16.0) gm/dL Neutrophils # (1.3-7.7) k/uL INR 1.2 H (<1.2) Sodium (137-145) mmol/L Potassium (3.5-5.1) mmol/L Chloride (98-107) mmol/L Glucose (74-99) mg/dL Plasma Lactic Acid Baldo (0.7-2.0) mmol/L Chest x-ray: report reviewed, image reviewed Thrombosis Risk Factor Assmnt - DVT/VTE Prophylaxis DVT/VTE Prophylaxis: Pharmacologic Prophylaxis ordered, Mechanical Prophylaxis ordered - Choose All That Apply Each Factor Represents 1 point: Abnormal pulmonary function (COPD), Sepsis (< 1month), Serious lung disease incl. pneumonia (< 1month) Each Risk Factor Represents 2 Points: Age 61-74 years Thrombosis Risk Factor Assessment Total Risk Factor Score: 5 Thrombosis Risk Factor Assessment Level: High Risk Assessment and Plan Assessment: Acute hypoxic respiratory failure Health care acquired pneumonia Severe Sepsis Acute exacerbation of COPD and asthma, unknown type Hypokalemia Dehydration Obesity, possible YAHAIRA Myalgias Chronic pain Active tobacco abuse GERD Seizure disorder Migraines History of VRE Hyperglycemia Anemia, normocytic O2 to maintain saturation greater than or equal to 90% Antibiotics: Levaquin and Aztreonam Consult ID Bronchodilators Pulmicort and Perforomist Singulair Continue patient's home medications - hold Lasix for now Blood sugar control Incentive spirometry and pulmonary hygiene Replace potassium Blood, sputum, urine cultures Influenza Rapid negative on 04/13/17 IVF hydration Tylenol PRN fever Smoking cessation Patient seen and examined covering for Dr. Tenisha Yoder.
[2017-04-14] MEDS: INSULIN ASPART 100 UNIT/ML 1 ML 10 ML VIAL SQ SCH ×2 (17:22→22:06)
[2017-04-14] MEDS: HYDROcodone/APAP 10-325MG 1 EACH TAB PO PRN (17:25)
[2017-04-14] MEDS: SODIUM CHLORIDE 0.9% 1,000 ML IV SCH (17:27)
[2017-04-14] MEDS: HYDROmorphone 1 MG/ML 1 ML SYRINGE IVP PRN (19:51)
[2017-04-14] MEDS: FORMOTEROL FUMARATE 20 MCG/2 ML NEBU INHALATION SCH (19:57)
[2017-04-14] MEDS: BUDESONIDE 0.5 MG/2 ML NEBU INHALATION SCH (19:57)
[2017-04-14 20:42] LABS: Glucose,Whole Blood 202 mg/dL (75-99)
[2017-04-14] MEDS: MONTELUKAST 10 MG TAB PO SCH (22:00)
[2017-04-14] MEDS: clonazePAM 0.5 MG TAB PO PRN (22:06)
[2017-04-15] MEDS: AZTREONAM 2 GM in SODIUM CHLORIDE 0.9% 100 ML IVPB SCH ×4 (00:01→23:47)
[2017-04-15] MEDS: HYDROmorphone 1 MG/ML 1 ML SYRINGE IVP PRN ×7 (00:01→23:47)
[2017-04-15] MEDS: HYDROcodone/APAP 10-325MG 1 EACH TAB PO PRN ×3 (01:02→21:39)
[2017-04-15 02:21] LABS: Hemoglobin A1C 8.2 % (4.0-6.0)
[2017-04-15 06:24] LABS: Glucose,Whole Blood 174 mg/dL (75-99)
[2017-04-15] MEDS: INSULIN ASPART 100 UNIT/ML 1 ML 10 ML VIAL SQ SCH ×4 (06:37→21:39)
[2017-04-15] MEDS: SODIUM CHLORIDE 0.9% 1,000 ML IV SCH ×2 (06:39→19:59)
[2017-04-15] MEDS ORDERED: Potassium Replacement Protocol 1 EACH MISC MISCELLANE PRN (06:47)
[2017-04-15] MEDS ORDERED: Magnesium Replacement Protocol 1 EACH MISC MISCELLANE PRN (06:47)
[2017-04-15] MEDS: GABAPENTIN 100 MG CAP PO SCH (07:58)
[2017-04-15] MEDS: MULTIVITAMINS, THERA 1 EACH TAB PO SCH (07:58)
[2017-04-15] MEDS: FLUoxetine HCL 20 MG CAP PO SCH (07:58)
[2017-04-15] MEDS: MAGNESIUM SULFATE-D5W PMX 1 GM in DEXTROSE/WATER 1 100ML.BAG IVPB SCH ×3 (08:02→11:22)
[2017-04-15] MEDS: POTASSIUM CHLORIDE ER 20 MEQ TAB.ER PO SCH ×4 (08:03→22:53)
--- NOTE | 2017-04-15 08:27 | XR ---
EXAMINATION TYPE: XR chest 2V DATE OF EXAM: 04/15/2017 COMPARISON: Prior chest x-ray 04/14/2017 HISTORY: Pneumonia TECHNIQUE: Frontal and lateral views of the chest are obtained. FINDINGS: There is an underlying scoliosis. Apical increased density persists on the left. No eviden t pneumothorax or pleural effusion. Heart may be enlarged. IMPRESSION: Abnormal apical density on the left could represent airspace disease, follow-up is recom mended to resolution
[2017-04-15] MEDS: IPRATROPIUM-ALBUTEROL 3 ML NEB INHALATION SCH ×4 (08:39→19:56)
[2017-04-15] MEDS: BUDESONIDE 0.5 MG/2 ML NEBU INHALATION SCH ×2 (08:40→19:56)
[2017-04-15] MEDS: FORMOTEROL FUMARATE 20 MCG/2 ML NEBU INHALATION SCH ×2 (08:40→19:56)
[2017-04-15] MEDS: PANTOPRAZOLE 40 MG TABLET PO SCH (10:02)
--- NOTE | 2017-04-15 10:36 | PN ---
PROGRESS NOTE We are covering for Dr. Kasi Yoder. The patient is a 66-year-old female who is seen lying in bed, is awake, alert, feeling about the same as when she came in. Continues to have some shortness of breath. She is no longer febrile. Potassium and magnesium are low this morning and are being replaced. Patient is again afebrile, hemodynamically stable, in no acute distress. ON PHYSICAL EXAM: VITAL SIGNS: Temp is 98.3, heart rate is 86, respiratory rate 18, blood pressure is 107/86, O2 sats 95% on room air. HEENT: Head is normocephalic, atraumatic. NECK: Supple. Trachea is midline. Lung sounds are decreased, more so on the right than the left. HEART: S1, S2 are heard. Not tachycardic. ABDOMEN: Soft. Bowel sounds are heard. EXTREMITIES: With no edema. NEUROLOGIC: Patient is awake and alert. LABS: Potassium is 3.0. Glucose is 174. Magnesium is 1.2. IMAGING: A chest x-ray done this a.m. shows abnormal apical density on the left, could represent airspace disease. Followup is recommended to resolution. IMPRESSION: 1. Acute hypoxic respiratory failure. 2. Healthcare acquired pneumonia. 3. Severe sepsis. 4. Acute exacerbation of chronic obstructive pulmonary disease and asthma. 5. Hypokalemia. 6. Hypomagnesemia. 7. Dehydration. 8. Obesity, possible obstructive sleep apnea. 9. Myalgias. 10.Chronic pain. 11.Active tobacco abuse. 12.Gastroesophageal reflux disease. 13.Seizure disorder. 14.Migraines. 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 16.Hyperglycemia. 17.Anemia, normocytic. PLAN: Continue current medications which have been reviewed. Continue oxygen to maintain sats greater than or equal to 90%. Add GI and DVT prophylaxis. Continue antibiotics per Infectious Disease. Continue bronchodilators and aerosolized steroids. Continue incentive spirometry and pulmonary hygiene. Potassium and magnesium are being replaced. We will continue to follow patient closely making further changes as necessary. MMODL / IJN: [id number] /
[2017-04-15 11:44] LABS: Glucose,Whole Blood 170 mg/dL (75-99)
[2017-04-15] MEDS: LEVOFLOXACIN 750 MG TAB PO SCH (15:28)
[2017-04-15] MEDS: HEPARIN SODIUM,PORCINE 5,000 UNIT/ML 1 ML VIAL SQ SCH ×2 (15:28→23:47)
[2017-04-15] MEDS ORDERED: LEVOFLOXACIN 750MG-D5W PMX 750 MG in DEXTROSE/WATER 1 150ML.BAG IVPB SCH (16:00)
[2017-04-15 17:07] LABS: Glucose,Whole Blood 116 mg/dL (75-99)
[2017-04-15 21:23] LABS: Glucose,Whole Blood 143 mg/dL (75-99)
[2017-04-15] MEDS: MONTELUKAST 10 MG TAB PO SCH (21:39)
[2017-04-15 22:02] LABS: Appearance,Urine Clear (Clear); Bilirubin,Urine Negative (Negative); Blood,Urine Negative (Negative); Color,Urine Yellow; Glucose,Urine (UA) Negative (Negative); Ketones,Urine Negative (Negative); Leukocyte Esterase,Urine Negative (Negative); Nitrite,Urine Negative (Negative); PH, Urine 5.5 (5.0-8.0); Protein,Urine Trace (Negative); Specific Gravity,Urine 1.012 (1.001-1.035); Urobilinogen,Urine <2.0 mg/dL (<2.0)
--- NOTE | 2017-04-15 22:03 | CONS ---
CONSULTATION DATE OF SERVICE: 04/15/2017 REASON FOR CONSULTATION: Sepsis and pneumonia. HISTORY OF PRESENT ILLNESS: The patient is a 66-year-old female who presented to the ER at [facility] on the with chief complaints of increasing shortness of breath and cough. Apparently her symptoms have been going on for a few days prior to presentation to the hospital. Followed the patient previously, presented to the ER at this facility on the . The patient was diagnosed with possible bronchitis and was discharged to home on azithromycin. However, the patient returned, presenting the same day with persistent symptoms. The patient did have a chest x-ray which shows some new medial left apical density, could represent focal infiltrate or pneumonia. Because of her PENICILLIN ALLERGY, the patient will be started on aztreonam and levofloxacin. She has been admitted hospital. ID was consulted for further recommendation of antibiotic therapy. The patient has been complaining of cough for the last few days moderate in intensity and bringing up some yellowish to green sputum, but no hemoptysis. No associated chest pain The patient denies having any nausea. No vomiting, no abdominal pain and no diarrhea. REVIEW OF SYSTEMS: CONSTITUTIONALLY: Positive for weakness along with the fever. EYES: No complaint. ENT: No complaint. RESPIRATORY: As per HPI. CARDIOVASCULAR: No complaint. GENITOURINARY: No complaint. GASTROINTESTINAL: No complaint. MUSCULOSKELETAL: No complaint. INTEGUMENTARY: No complaint. PSYCHOLOGICAL: No complaint. ENDOCRINE: No complaint. NEUROLOGIC: No complaint. PAST MEDICAL HISTORY: Significant for COPD, syncope, seizure disorder, gastroesophageal reflux disease , migraine headaches, irritable bowel syndrome, peptic ulcer disease. PAST SURGICAL HISTORY: Appendectomy, cholecystectomy, hysterectomy, tonsillectomy, pilonidal cyst removed, EGD, colonoscopy. SOCIAL HISTORY: The patient is currently a smoker. No drinking or any drug use. FAMILY HISTORY: Mother with history of breast and ovarian cancer. Father with history of Kamla Gehrig's disease. ALLERGIES: Include to PENICILLIN with a rash. No history of anaphylaxis. MEDICATIONS: Include the patient currently on: 1. Protonix. 2. Theragran. 3. Singulair. 4. Levofloxacin. 5. NovoLog. 6. Dilaudid. 7. Heparin. 8. Neurontin. 9. Prozac. 10.Klonopin. 11.Pulmicort. 12.Azactam. 13.[place]. 14.Tylenol. EXAMINATION: Blood pressure 114/72 with a pulse of 89, temperature of 98.8, T-max is 103.3. She is 94% on room air. General description is an elderly female up in the bed in no distress. No tachypnea or accessory muscle of respiration use. HEENT: Slight pallor. No scleral icterus. Oral mucous membranes are dry. No pharyngeal erythema or thrush NECK: Trachea central. No thyromegaly. LUNGS: Unlabored breathing. Coarse breath sounds on the left side. No wheeze. HEART: S1, S2. Regular rate and rhythm. No loud murmur ABDOMEN: Soft. No tenderness. No organomegaly EXTREMITIES: No edema of feet. SKIN: No rash or masses palpable. NEUROLOGICAL: Patient is awake, alert, oriented x3. Mood and affect normal. LABS: Hemoglobin is 11.2 with a white count 10.8. BUN of 12, creatinine 0.6, potassium 2.9. Lactic acid of 33.7 and has improved. Blood cultures obtained currently pending. Sputum has been requested and currently pending. DIAGNOSTIC IMPRESSION AND PLAN: 1-Patient admitted to the hospital with increasing shortness of breath. She did have a fever of 103 degrees Fahrenheit, mildly elevated white count, tachycardia meeting criteria for systemic inflammatory response syndrome with a left upper lobe infiltrate, likely representing pneumonia. The patient has been admitted to the hospital with question of possible community-acquired versus a resistant gram-negative pathogen not entirely excluded. 2-patient did have a history of penicillin ALLERGY that will limit the number of antibiotic that could be safely used PLAN: 1. Azactam 2 g q.8; however with Levaquin will provide adequate coverage for both community-acquired as well as the gram-negative pathogen. 2. Gentle IV fluid. 3. Will obtain sputum for Gram stain and culture sensitivity 4- Depending on her clinical response as well as the cultures, will adjust her medications further if needed. Thank you for this consultation. Will follow this patient along with you. MMODL / IJN: [id number] / TARA
[2017-04-15] MEDS: clonazePAM 0.5 MG TAB PO PRN (22:53)
[2017-04-16] MEDS: HYDROmorphone 1 MG/ML 1 ML SYRINGE IVP PRN ×5 (04:17→20:27)
[2017-04-16] MEDS: HYDROcodone/APAP 10-325MG 1 EACH TAB PO PRN ×3 (06:11→22:03)
[2017-04-16] MEDS: PANTOPRAZOLE 40 MG TABLET PO SCH (06:11)
[2017-04-16 06:27] LABS: Anisocytosis Slight; Basophils % (A) 0 %; Eosinophils # (A) 0.3 k/uL (0-0.7); Eosinophils % (A) 3 %; HCT 33.3 % (34.0-46.0); HGB 10.3 gm/dL (11.4-16.0); Hypochromasia Slight; Lymphocytes % (A) 20 %; MCH 28.3 pg (25.0-35.0); MCHC 30.8 g/dL (31.0-37.0); MCV 92.1 fL (80.0-100.0); Mean Platelet Volume 7.6; Monocytes # (A) 0.3 k/uL (0-1.0); Monocytes % (A) 3 %; Neutrophils # (A) 7.4 k/uL (1.3-7.7); Neutrophils % (A) 73 %; Platelet Count 218 k/uL (150-450); RBC 3.62 m/uL (3.80-5.40); RDW 16.4 % (11.5-15.5); WBC 10.1 k/uL (3.8-10.6)
[2017-04-16 06:32] LABS: Glucose,Whole Blood 185 mg/dL (75-99)
[2017-04-16 06:53] LABS: Anion Gap 7 mmol/L; Blood Urea Nitrogen 12 mg/dL (7-17); Carbon Dioxide 30 mmol/L (22-30); Chloride 99 mmol/L (98-107); Glucose 160 mg/dL (74-99); Magnesium 1.7 mg/dL (1.6-2.3); Phosphorus 2.3 mg/dL (2.5-4.5); Potassium 3.4 mmol/L (3.5-5.1); Sodium 136 mmol/L (137-145)
[2017-04-16] MEDS: INSULIN ASPART 100 UNIT/ML 1 ML 10 ML VIAL SQ SCH ×4 (07:04→21:15)
[2017-04-16] MEDS: IPRATROPIUM-ALBUTEROL 3 ML NEB INHALATION SCH ×3 (08:12→20:08)
[2017-04-16] MEDS: FORMOTEROL FUMARATE 20 MCG/2 ML NEBU INHALATION SCH ×2 (08:12→20:08)
[2017-04-16] MEDS: BUDESONIDE 0.5 MG/2 ML NEBU INHALATION SCH ×2 (08:12→20:08)
[2017-04-16] MEDS: SODIUM CHLORIDE 0.9% 1,000 ML IV SCH (09:05)
[2017-04-16] MEDS: HEPARIN SODIUM,PORCINE 5,000 UNIT/ML 1 ML VIAL SQ SCH ×2 (09:06→15:52)
[2017-04-16] MEDS: FLUoxetine HCL 20 MG CAP PO SCH (09:07)
[2017-04-16] MEDS: GABAPENTIN 100 MG CAP PO SCH (09:07)
[2017-04-16] MEDS: MULTIVITAMINS, THERA 1 EACH TAB PO SCH (09:08)
[2017-04-16] MEDS: AZTREONAM 2 GM in SODIUM CHLORIDE 0.9% 100 ML IVPB SCH ×2 (11:27→15:52)
[2017-04-16 11:41] LABS: Glucose,Whole Blood 110 mg/dL (75-99)
--- NOTE | 2017-04-16 15:52 | PN ---
PROGRESS NOTE SUBJECTIVE: This is a 66-year-old white female with severe sepsis, pneumonia. She still has left- sided chest pain radiating to her back. Suspect this is due to pneumonia. Cardiology is evaluating her. CARDIOVASCULAR: S1, S2. LUNGS: Transmitted upper sounds, scattered rhonchi. HEMATOLOGY: Negative Homans. VASCULAR: Normal dorsalis pedis and posterior tibial and radial pulse. OPHTHALMOLOGIC: Pupils equal, round, react to light and accommodation. ASSESSMENT: 1. Severe sepsis. 2. Pneumonia. 3. Acute respiratory insufficiency. 4. Atypical chest pain. Cardiology and Pulmonary consult. Continue with steroids and IV antibiotics and IV steroids. MMODL / IJN: [id number] /
[2017-04-16 16:39] LABS: Glucose,Whole Blood 126 mg/dL (75-99)
[2017-04-16] MEDS: LEVOFLOXACIN 750 MG TAB PO SCH (17:36)
[2017-04-16] MEDS: MONTELUKAST 10 MG TAB PO SCH (20:27)
[2017-04-16 21:00] LABS: Glucose,Whole Blood 158 mg/dL (75-99)
[2017-04-16] MEDS: clonazePAM 0.5 MG TAB PO PRN (22:02)
[2017-04-17] MEDS: HEPARIN SODIUM,PORCINE 5,000 UNIT/ML 1 ML VIAL SQ SCH ×4 (00:22→23:38)
[2017-04-17] MEDS: AZTREONAM 2 GM in SODIUM CHLORIDE 0.9% 100 ML IVPB SCH ×3 (00:22→17:15)
[2017-04-17] MEDS: HYDROmorphone 1 MG/ML 1 ML SYRINGE IVP PRN ×6 (00:22→21:10)
[2017-04-17] MEDS: SODIUM CHLORIDE 0.9% 1,000 ML IV SCH ×2 (02:37→12:26)
[2017-04-17] MEDS: HYDROcodone/APAP 10-325MG 1 EACH TAB PO PRN ×3 (06:10→22:38)
[2017-04-17] MEDS: PANTOPRAZOLE 40 MG TABLET PO SCH (06:10)
[2017-04-17] MEDS: INSULIN ASPART 100 UNIT/ML 1 ML 10 ML VIAL SQ SCH ×4 (06:23→21:18)
[2017-04-17 06:26] LABS: Glucose,Whole Blood 112 mg/dL (75-99)
[2017-04-17] MEDS: FORMOTEROL FUMARATE 20 MCG/2 ML NEBU INHALATION SCH ×2 (06:33→19:41)
[2017-04-17] MEDS: IPRATROPIUM-ALBUTEROL 3 ML NEB INHALATION SCH ×4 (06:33→19:41)
[2017-04-17] MEDS: BUDESONIDE 0.5 MG/2 ML NEBU INHALATION SCH ×2 (06:33→19:41)
[2017-04-17] MEDS: clonazePAM 0.5 MG TAB PO PRN ×3 (09:04→23:37)
[2017-04-17] MEDS: GABAPENTIN 100 MG CAP PO SCH (09:05)
[2017-04-17] MEDS: FLUoxetine HCL 20 MG CAP PO SCH (09:05)
[2017-04-17 11:23] LABS: Glucose,Whole Blood 99 mg/dL (75-99)
[2017-04-17] MEDS: MULTIVITAMINS, THERA 1 EACH TAB PO SCH (12:25)
[2017-04-17 16:08] LABS: Anion Gap 10 mmol/L; Blood Urea Nitrogen 6 mg/dL (7-17); Calcium 8.9 mg/dL (8.4-10.2); Carbon Dioxide 27 mmol/L (22-30); Chloride 102 mmol/L (98-107); Glucose 145 mg/dL (74-99); Magnesium 1.6 mg/dL (1.6-2.3); Potassium 3.3 mmol/L (3.5-5.1); Sodium 139 mmol/L (137-145)
[2017-04-17 16:31] LABS: Glucose,Whole Blood 118 mg/dL (75-99)
[2017-04-17] MEDS: LEVOFLOXACIN 750 MG TAB PO SCH (17:16)
[2017-04-17] MEDS: MONTELUKAST 10 MG TAB PO SCH (21:10)
[2017-04-17 21:14] LABS: Glucose,Whole Blood 172 mg/dL (75-99)
[2017-04-17] MEDS: MAGNESIUM SULFATE-D5W PMX 1 GM in DEXTROSE/WATER 1 100ML.BAG IVPB SCH ×2 (22:38→23:38)
[2017-04-17] MEDS: POTASSIUM CHLORIDE ER 20 MEQ TAB.ER PO SCH ×2 (22:38→23:37)
[2017-04-18] MEDS: AZTREONAM 2 GM in SODIUM CHLORIDE 0.9% 100 ML IVPB SCH ×4 (00:52→23:11)
[2017-04-18] MEDS: HYDROmorphone 1 MG/ML 1 ML SYRINGE IVP PRN ×6 (01:30→22:16)
[2017-04-18] MEDS: ACETAMINOPHEN TAB 325 MG TAB PO PRN (04:28)
[2017-04-18 06:18] LABS: Glucose,Whole Blood 163 mg/dL (75-99)
[2017-04-18 06:36] LABS: Anion Gap 7 mmol/L; Blood Urea Nitrogen 6 mg/dL (7-17); Calcium 8.4 mg/dL (8.4-10.2); Carbon Dioxide 29 mmol/L (22-30); Chloride 102 mmol/L (98-107); Glucose 174 mg/dL (74-99); Magnesium 1.9 mg/dL (1.6-2.3); Potassium 3.6 mmol/L (3.5-5.1); Sodium 138 mmol/L (137-145)
[2017-04-18] MEDS: HYDROcodone/APAP 10-325MG 1 EACH TAB PO PRN ×3 (06:40→23:10)
[2017-04-18] MEDS: INSULIN ASPART 100 UNIT/ML 1 ML 10 ML VIAL SQ SCH ×4 (06:40→22:23)
[2017-04-18] MEDS: PANTOPRAZOLE 40 MG TABLET PO SCH (06:41)
[2017-04-18] MEDS: BUDESONIDE 0.5 MG/2 ML NEBU INHALATION SCH ×2 (08:27→18:59)
[2017-04-18] MEDS: IPRATROPIUM-ALBUTEROL 3 ML NEB INHALATION SCH ×4 (08:27→18:59)
[2017-04-18] MEDS: FORMOTEROL FUMARATE 20 MCG/2 ML NEBU INHALATION SCH ×2 (08:27→18:59)
[2017-04-18] MEDS: SODIUM CHLORIDE 0.9% 1,000 ML IV SCH ×3 (08:55→16:56)
[2017-04-18] MEDS: GABAPENTIN 100 MG CAP PO SCH (09:01)
[2017-04-18] MEDS: HEPARIN SODIUM,PORCINE 5,000 UNIT/ML 1 ML VIAL SQ SCH ×3 (09:01→23:11)
[2017-04-18] MEDS: FLUoxetine HCL 20 MG CAP PO SCH (09:01)
--- NOTE | 2017-04-18 09:54 | PN ---
PROGRESS NOTE DATE OF SERVICE: 04/17/2017. REASON FOR FOLLOWUP VISIT: Pneumonia. INTERVAL HISTORY: The patient is afebrile. Overall breathing has improved. The cough has decreased in intensity. No chest pain. No nausea, vomiting. No abdominal pain, no diarrhea. EXAMINATION: Blood pressure 141/83 with a pulse of 83, temperature of 98.4. She is 96% on room air. General description revealed an elderly female up in the bed, in no distress. Respiratory system: Unlabored breathing, decreased intensity of breath sounds, no wheeze. Heart S1, S2 regular rate and rhythm. Abdomen soft, no tenderness. LABS: BUN of 6, creatinine 0.50. Blood and sputum culture currently pending. DIAGNOSTIC IMPRESSION AND PLAN: Patient with left lobe pneumonia with concern for possible gram-negative as the patient has been in the hospital. The patient currently covered with Zosyn, Azactam and Levaquin will be continued, adjusting it further based on the culture report. Continue supportive care. MMODL / IJN: [id number] /
--- NOTE | 2017-04-18 11:26 | PN ---
PROGRESS NOTE DATE OF SERVICE: 04/17/2017. This is a white female, admitted with atypical chest pain, pneumonia. His sodium is 139, potassium 3.3, BUN 6, creatinine 0.5. Dr. Herrera's consultations was reviewed with the patient. She has been started on aztreonam and levofloxacin. Cardiovascular S1-S2. Lungs scattered wheeze. GI soft. ASSESSMENT AND PLAN: 1. Systemic inflammatory response syndrome. 2. Left upper lobe infiltrate for pneumonia, community-acquired pneumonia. 3. Resistant gram-negative pathogen. She is on Azactam, antibiotics, and Levaquin which will cover gram-negative and community-acquired pneumonia, antibiotics. 4. IV fluid rehydration. 5. Will consult pulmonology. MMODL / IJN: [id number] /
[2017-04-18 11:41] LABS: Glucose,Whole Blood 104 mg/dL (75-99)
[2017-04-18] MEDS: MULTIVITAMINS, THERA 1 EACH TAB PO SCH (12:01)
--- NOTE | 2017-04-18 12:16 | P.CNPUL ---
History of Present Illness Consult date: 04/18/17 Reason for consult: dyspnea, cough Chief complaint: Cough History of present illness: This is a 66-year-old female who presented to the emergency department on 2016 complaining of shortness of breath and cough. The patient had been seen in the ER the day prior. She was discharged with azithromycin for bronchitis. The patient was seen again and subsequently admitted with a left upper lobe pneumonia. She did have a T-max of 103.3. The patient states her cough is improving. She is coughing up phlegm which is weight/yellow. She lives in a [facility]ci. She states that her shortness of breath is improving. She does continue to smoke a half pack per day. She states she is ready to quit smoking. She is currently on room air with an O2 saturation of 95%. Review of Systems All systems: negative Past Medical History Past Medical History: COPD, GERD/Reflux, Pneumonia, Seizure Disorder, Syncope Additional Past Medical History / Comment(s): Migraines, last seizure 5 years ago thought d/t ativan withdrawal, gastric ulcer, IBS, incontinent of urine/ stool. History of Any Multi-Drug Resistant Organisms: VRE Date of last positivie culture/infection: 02/27/17 MDRO Source:: URINE Past Surgical History: Adenoidectomy, Appendectomy, Cholecystectomy, Hysterectomy, Tonsillectomy Additional Past Surgical History / Comment(s): Pilonidal cyst removal, EGD/ colonoscopy. Past Anesthesia/Blood Transfusion Reactions: Previous Problems w/ Anesthesia Additional Past Anesthesia/Blood Transfusion Reaction / Comment(s): Problem with past anesthesia with her muscles-last surgery anesthesia went good. Smoking Status: Current every day smoker - Past Family History Mother Family Medical History: Cancer Additional Family Medical History / Comment(s): Mother of breast/ovarian cancer at the age of 71yrs. Father Family Medical History: Musculoskeletal Disorder, Neurologic Disorder Additional Family Medical History / Comment(s): Father of Kamla Gehrig's disease at the age of 53 yrs. Medications and Allergies Home Medications Medication Instructions Recorded Confirmed Type Multivitamins, Thera [Multivitamin 1 tab PO DAILY 01/19/17 04/14/17 History (formulary)] FLUoxetine HCL [PROzac] 40 mg PO DAILY #20 capsule 02/20/17 04/14/17 Rx Gabapentin [Neurontin] 100 mg PO DAILY #30 cap 02/20/17 04/14/17 Rx clonazePAM [KlonoPIN] 0.5 mg PO TID PRN #20 tablet 02/20/17 04/14/17 Rx Albuterol Inhaler [Ventolin Hfa 1 - 2 puff INHALATION RT-Q6H PRN 02/27/17 History Inhaler] Budesonide-Formot 160-4.5 Mcg 2 puff INHALATION RT-BID 02/27/17 04/14/17 History [Symbicort 160-4.5 Mcg Inhaler] Tiotropium [place] [Spiriva] 1 cap INHALATION RT-DAILY 02/27/17 04/14/17 History HYDROcodone/APAP 10-325MG [[place] 1 tab PO BID PRN 03/18/17 04/14/17 History 10-325] Furosemide [Lasix] 40 mg PO DAILY 03/24/17 04/14/17 History Budesonide [Pulmicort] 0.5 mg INHALATION RT-BID 04/13/17 04/14/17 History Ipratropium-Albuterol Nebulize 3 ml INHALATION RT-QID 04/13/17 04/14/17 History [Duoneb 0.5 mg-3 mg/3 ml Soln] Azithromycin 250 mg PO DAILY #4 tab 04/14/17 04/14/17 Rx Allergies Allergy/AdvReac Type Severity Reaction Status Date / Time Penicillins Allergy Rash/Hives Verified 04/14/17 13:39 ketorolac [From Toradol] AdvReac Rapid Verified 04/14/17 13:39 Heart Rate Physical Exam Osteopathic Statement: *. No significant issues noted on an osteopathic structural exam other than those noted in the History and Physical/Consult. Vitals: Vital Signs Temp Pulse Resp BP Pulse Ox 04/18/17 08:00 97.8 F 80 16 130/89 95 04/18/17 04:00 98.1 F 81 18 143/88 96 04/18/17 00:00 98.3 F 86 18 129/89 94 L 04/17/17 20:00 98.5 F 83 18 141/83 96 04/17/17 16:00 78 136/86 93 L Intake and Output 04/17/17 04/18/17 04/18/17 22:59 06:59 14:59 Intake Total 222 360 Output Total 1000 300 Balance -778 60 Intake: Oral 222 360 Output: Urine 1000 300 Other: Voiding Method Toilet Toilet Toilet # Voids 1 Weight 89.4 kg Gen.: Patient is alert and oriented 3, no acute distress Cardiovascular: Regular rate and rhythm, S1/S2 Lungs: Diminished breath sounds bilaterally with scattered expiratory wheezing Abdomen: Soft nontender nondistended positive bowel sounds Extremities: No edema Results - Laboratory Findings CBC and BMP: 04/16/17 05:47 04/18/17 05:38 PT/INR, D-dimer PT 11.5 sec (9.0-12.0) 04/14/17 13:25 INR 1.2 (<1.2) H 04/14/17 13:25 Abnormal lab findings: Abnormal Labs 04/14/17 04/14/17 04/14/17 13:25 13:25 13:25 WBC 10.8 H RBC Hgb 11.2 L Hct MCHC RDW Neutrophils # 9.0 H INR Sodium 136 L Potassium 2.9 L* Chloride 96 L BUN Creatinine Glucose 182 H POC Glucose (mg/dL) Hemoglobin A1c Plasma Lactic Acid Baldo 3.7 H* Phosphorus Magnesium Urine Protein 04/14/17 04/14/17 04/14/17 13:25 13:25 18:33 WBC RBC Hgb Hct MCHC RDW Neutrophils # INR 1.2 H Sodium Potassium Chloride BUN Creatinine Glucose POC Glucose (mg/dL) Hemoglobin A1c 8.2 H Plasma Lactic Acid Baldo 3.3 H* Phosphorus Magnesium Urine Protein 04/14/17 04/15/17 04/15/17 20:39 03:29 03:29 WBC RBC Hgb Hct MCHC RDW Neutrophils # INR Sodium Potassium 3.0 L* Chloride BUN Creatinine Glucose POC Glucose (mg/dL) 202 H Hemoglobin A1c Plasma Lactic Acid Baldo Phosphorus Magnesium 1.2 L Urine Protein 04/15/17 04/15/17 04/15/17 06:14 11:09 16:54 WBC RBC Hgb Hct MCHC RDW Neutrophils # INR Sodium Potassium Chloride BUN Creatinine Glucose POC Glucose (mg/dL) 174 H 170 H 116 H Hemoglobin A1c Plasma Lactic Acid Baldo Phosphorus Magnesium Urine Protein 04/15/17 04/15/17 04/15/17 18:00 18:59 21:18 WBC RBC Hgb Hct MCHC RDW Neutrophils # INR Sodium Potassium 3.4 L Chloride BUN Creatinine Glucose POC Glucose (mg/dL) 143 H Hemoglobin A1c Plasma Lactic Acid Baldo Phosphorus Magnesium Urine Protein Trace H 04/16/17 04/16/17 04/16/17 05:47 05:47 06:28 WBC RBC 3.62 L Hgb 10.3 L Hct 33.3 L MCHC 30.8 L RDW 16.4 H Neutrophils # INR Sodium 136 L Potassium 3.4 L Chloride BUN Creatinine Glucose 160 H POC Glucose (mg/dL) 185 H Hemoglobin A1c Plasma Lactic Acid Baldo Phosphorus 2.3 L Magnesium Urine Protein 04/16/17 04/16/17 04/16/17 11:36 16:38 20:59 WBC RBC Hgb Hct MCHC RDW Neutrophils # INR Sodium Potassium Chloride BUN Creatinine Glucose POC Glucose (mg/dL) 110 H 126 H 158 H Hemoglobin A1c Plasma Lactic Acid Baldo Phosphorus Magnesium Urine Protein 04/17/17 04/17/17 04/17/17 06:23 15:31 16:27 WBC RBC Hgb Hct MCHC RDW Neutrophils # INR Sodium Potassium 3.3 L Chloride BUN 6 L Creatinine 0.50 L Glucose 145 H POC Glucose (mg/dL) 112 H 118 H Hemoglobin A1c Plasma Lactic Acid Baldo Phosphorus Magnesium Urine Protein 04/17/17 04/18/17 04/18/17 21:12 05:38 06:16 WBC RBC Hgb Hct MCHC RDW Neutrophils # INR Sodium Potassium Chloride BUN 6 L Creatinine 0.50 L Glucose 174 H POC Glucose (mg/dL) 172 H 163 H Hemoglobin A1c Plasma Lactic Acid Baldo Phosphorus Magnesium Urine Protein 04/18/17 11:39 WBC RBC Hgb Hct MCHC RDW Neutrophils # INR Sodium Potassium Chloride BUN Creatinine Glucose POC Glucose (mg/dL) 104 H Hemoglobin A1c Plasma Lactic Acid Baldo Phosphorus Magnesium Urine Protein - Diagnostic Findings Chest x-ray: report reviewed, image reviewed CT scan - chest: report reviewed, image reviewed Assessment and Plan Assessment: Acute hypoxic respiratory failure - now resolved Health care acquired pneumonia - FAHEEM Severe Sepsis - resolved Acute exacerbation of COPD and asthma, unknown type Hypokalemia - resolved Dehydration - resolved Obesity, possible YAHAIRA Myalgias Chronic pain Active tobacco abuse GERD Seizure disorder Migraines History of VRE Hyperglycemia Anemia, normocytic O2 to maintain saturation greater than or equal to 90% Antibiotics: Levaquin and Aztreonam, Zosyn - per ID Sputum culture: normal maxi Duonebs Pulmicort and Perforomist Singulair Blood sugar control Incentive spirometry and pulmonary hygiene Replace potassium Influenza Rapid negative on 04/13/17 KVO IVF Tylenol PRN fever Smoking cessation highly recommended Outpatient PFT and PSG. Pulmonary follow up. Thank you for this consultation. We will continue to follow along.
[2017-04-18] MEDS: LEVOFLOXACIN 750 MG TAB PO SCH (16:07)
--- NOTE | 2017-04-18 16:45 | PN ---
PROGRESS NOTE DATE OF SERVICE: 04/18/2017 SUBJECTIVE: 66-year-old white female with severe sepsis, pneumonia, complaining of left-sided chest pressure radiating to her back. Cardiology has seen her and cleared her from cardiac standpoint. Pulmonary is evaluating her also. Lab showed sodium 138, potassium 3.6, creatinine 0.5. Sugars are in mid 100s. Pulse is 70s to 80s, temp 97 to 98, blood pressure 130s over 80s, O2 93 to 95% on room air. CARDIOVASCULAR: S1, S2. LUNGS: Transmitted upper sounds. GI: Soft, nontender. HEMATOLOGIC: Negative Homans. ASSESSMENT: 1. Acute on chronic respiratory failure. 2. Chronic obstructive pulmonary disease exacerbation. 3. Acute on chronic anemia. 4. Obesity. 5. Obstructive sleep apnea likely. 6. Nicotine addiction. 7. Seizure disorder. 8. Migraines. 9. History of VRE. Continues on Levaquin and aztreonam through the IV and Zosyn per Infectious Disease. Pulmicort and Perforomist, Eneida mena, Singular, potassium replacement. Continue current treatment. Await for Pulmonary and Infectious Disease recommendations. MMODL / IJN: [id number] /
[2017-04-18 16:48] LABS: Glucose,Whole Blood 112 mg/dL (75-99)
[2017-04-18] MEDS: clonazePAM 0.5 MG TAB PO PRN (20:46)
[2017-04-18] MEDS: MONTELUKAST 10 MG TAB PO SCH (20:46)
[2017-04-18 21:17] LABS: Glucose,Whole Blood 87 mg/dL (75-99)
[2017-04-19] MEDS: ACETAMINOPHEN TAB 325 MG TAB PO PRN (01:29)
[2017-04-19] MEDS: HYDROmorphone 1 MG/ML 1 ML SYRINGE IVP PRN ×6 (02:07→22:04)
[2017-04-19 06:07] LABS: Glucose,Whole Blood 100 mg/dL (75-99)
[2017-04-19] MEDS: PANTOPRAZOLE 40 MG TABLET PO SCH (06:30)
[2017-04-19] MEDS: INSULIN ASPART 100 UNIT/ML 1 ML 10 ML VIAL SQ SCH ×4 (06:30→22:01)
[2017-04-19 07:24] LABS: Basophils % (A) 1 %; Eosinophils # (A) 0.3 k/uL (0-0.7); Eosinophils % (A) 5 %; HCT 32.1 % (34.0-46.0); HGB 9.9 gm/dL (11.4-16.0); Hypochromasia Slight; Lymphocytes # (A) 2.1 k/uL (1.0-4.8); Lymphocytes % (A) 34 %; MCH 28.6 pg (25.0-35.0); MCHC 30.9 g/dL (31.0-37.0); MCV 92.4 fL (80.0-100.0); Monocytes # (A) 0.5 k/uL (0-1.0); Monocytes % (A) 8 %; Neutrophils % (A) 49 %; Platelet Count 278 k/uL (150-450); RBC 3.47 m/uL (3.80-5.40); RDW 15.2 % (11.5-15.5); WBC 6.2 k/uL (3.8-10.6)
[2017-04-19 07:35] LABS: ALT 30 U/L (9-52); AST 20 U/L (14-36); Albumin 3.1 g/dL (3.5-5.0); Alkaline Phosphatase 63 U/L (38-126); Anion Gap 9 mmol/L; Blood Urea Nitrogen 7 mg/dL (7-17); Calcium 8.9 mg/dL (8.4-10.2); Carbon Dioxide 28 mmol/L (22-30); Chloride 102 mmol/L (98-107); Glucose 108 mg/dL (74-99); Potassium 3.6 mmol/L (3.5-5.1); Sodium 139 mmol/L (137-145); Total Bilirubin 0.4 mg/dL (0.2-1.3)
[2017-04-19] MEDS: SODIUM CHLORIDE 0.9% 1,000 ML IV SCH ×3 (08:17→18:06)
[2017-04-19] MEDS: HYDROcodone/APAP 10-325MG 1 EACH TAB PO PRN ×2 (08:21→16:41)
[2017-04-19] MEDS: FLUoxetine HCL 20 MG CAP PO SCH (08:22)
[2017-04-19] MEDS: GABAPENTIN 100 MG CAP PO SCH (08:22)
[2017-04-19] MEDS: AZTREONAM 2 GM in SODIUM CHLORIDE 0.9% 100 ML IVPB SCH (08:22)
[2017-04-19] MEDS: HEPARIN SODIUM,PORCINE 5,000 UNIT/ML 1 ML VIAL SQ SCH ×2 (08:22→16:42)
[2017-04-19] MEDS: MULTIVITAMINS, THERA 1 EACH TAB PO SCH (08:23)
[2017-04-19] MEDS ORDERED: POTASSIUM CHLORIDE ER 20 MEQ TAB.ER PO SCH ×2 (09:00→13:00)
[2017-04-19] MEDS: BUDESONIDE 0.5 MG/2 ML NEBU INHALATION SCH ×2 (09:25→19:21)
[2017-04-19] MEDS: IPRATROPIUM-ALBUTEROL 3 ML NEB INHALATION SCH ×4 (09:25→19:21)
[2017-04-19] MEDS: FORMOTEROL FUMARATE 20 MCG/2 ML NEBU INHALATION SCH ×2 (09:25→19:21)
--- NOTE | 2017-04-19 10:35 | PN ---
PROGRESS NOTE DATE OF SERVICE: 04/18/2017. REASON FOR FOLLOWUP: Pneumonia. INTERVAL HISTORY: The patient is afebrile. He is breathing comfortably. Cough decreased in intensity, was mostly dry in nature. Some pain in the shoulder area. No nausea, vomiting or diarrhea. EXAMINATION: Blood pressure is 157/92 with a pulse of 83, temperature of 98.1. She is 95% on room air. General description is an elderly female lying in bed in no distress. RESPIRATORY SYSTEM: Unlabored breathing. Decreased breath sounds at bases. No wheeze. HEART: S1, S2. Regular rate and rhythm. ABDOMEN: Soft, no tenderness. LABS: BUN of 6, creatinine 0.50. Sputum has been negative for resistant pathogen. Blood culture has been negative. DIAGNOSTIC IMPRESSION/PLAN: Patient with pneumonia and likely community-acquired, sputum has been negative for resistant pathogen. Azactam will be discontinued. She will continue on Levaquin which should continue for another week to finish her course of therapy. Continue supportive care. MMODL / IJN: [id number] /
[2017-04-19 11:20] LABS: Glucose,Whole Blood 93 mg/dL (75-99)
--- NOTE | 2017-04-19 12:09 | PN ---
PROGRESS NOTE She was seen again on 04/19/2017. She has been hemodynamically stable. She complains of left sided chest pain. PHYSICAL EXAMINATION: On physical examination, blood pressure is 147/89, respiratory rate of 16, pulse rate 85, temperature 98 degrees Fahrenheit, O2 sat is 94% on room air. HEENT is unremarkable. Chest reveals an occasional wheeze. Cardiovascular system reveals an S1, S2. Abdomen is soft. There is no pedal edema. IMPRESSION AT THIS TIME: 1. Acute hypoxic respiratory failure. 2. Left upper lobe pneumonia. 3. Sepsis. 4. Chronic obstructive pulmonary disease and asthma with acute exacerbation. 5. Obesity, possible obstructive sleep apnea. Continue antibiotics per ID in the form of Levaquin and Zosyn. Continue bronchodilators, aerosolized steroids. Increase her activity level. Her prognosis at this time is fair. MMODL / IJN: [id number] /
[2017-04-19] MEDS: LEVOFLOXACIN 750 MG TAB PO SCH (16:42)
[2017-04-19 17:16] LABS: Glucose,Whole Blood 127 mg/dL (75-99)
[2017-04-19] MEDS: clonazePAM 0.5 MG TAB PO PRN (17:55)
[2017-04-19] MEDS: MONTELUKAST 10 MG TAB PO SCH (22:03)
[2017-04-20] MEDS: HYDROcodone/APAP 10-325MG 1 EACH TAB PO PRN ×3 (00:41→17:56)
[2017-04-20] MEDS: HEPARIN SODIUM,PORCINE 5,000 UNIT/ML 1 ML VIAL SQ SCH ×4 (00:41→23:14)
[2017-04-20] MEDS: HYDROmorphone 1 MG/ML 1 ML SYRINGE IVP PRN ×6 (02:20→23:11)
--- NOTE | 2017-04-20 05:04 | PN ---
PROGRESS NOTE DATE OF SERVICE: 04/19/2017 REASON FOR FOLLOWUP: Pneumonia. INTERVAL HISTORY: The patient is afebrile. She is breathing comfortably. Denies significant chest pain. Occasional cough. No nausea, vomiting. No abdominal pain, no diarrhea. PHYSICAL EXAMINATION: On examination, blood pressure 152/97 with a pulse of 88, temperature of 99.4. She is 94% on room air. General description is an elderly female lying in bed in no distress. RESPIRATORY SYSTEM: Unlabored breathing with decreased breath sounds. No wheeze. HEART: S1, S2. Regular rate and rhythm. ABDOMEN: Soft, no tenderness. LABS: Hemoglobin is 9.9, white count 6.2 with a BUN of 7, creatinine 0.51. DIAGNOSTIC IMPRESSION AND PLAN: Patient with left upper lobe pneumonia likely community acquired. Sputum has been negative for resistant pathogen. She is currently on oral Levaquin that will continue for another week to finish a course of therapy. Continue supportive care. MMODL / IJN: [id number] /
[2017-04-20] MEDS: ACETAMINOPHEN TAB 325 MG TAB PO PRN (05:14)
[2017-04-20] MEDS: IPRATROPIUM-ALBUTEROL 3 ML NEB INHALATION SCH ×4 (08:06→20:09)
[2017-04-20] MEDS: FORMOTEROL FUMARATE 20 MCG/2 ML NEBU INHALATION SCH ×2 (08:06→20:09)
[2017-04-20] MEDS: BUDESONIDE 0.5 MG/2 ML NEBU INHALATION SCH ×2 (08:06→20:09)
--- NOTE | 2017-04-20 08:07 | PN ---
PROGRESS NOTE SUBJECTIVE: This is a 66-year-old white female, who is having pleuritic-type costochondritis at her left side of her chest. She is still on IV aztreonam and IV Rocephin for gram-negative pneumonia community-acquired pneumonia and COPD exacerbation. Remains IV steroids. Seen by second crusher, Dr. Abreu and Infectious Disease, Dr. Herrera. Vital signs are reviewed. CARDIOVASCULAR: S1, S2. Lungs show decreased breath sounds x4. HEMATOLOGY: Negative Homans. PSYCH: Fair mood and affect. ASSESSMENT: 1. Gram-negative pneumonia, community-acquired pneumonia. 2. Chronic obstructive pulmonary disease exacerbation. 3. Atypical chest pain. 4. Costochondritis. PLAN: Wean steroids. Continue on IV antibiotics until oral antibiotics will be given. Will be sending home on oral antibiotics and steroid taper eventually. Pain control with pain medications for costochondritis. MMODL / IJN: [id number] /
[2017-04-20 08:46] LABS: Anion Gap 8 mmol/L; Blood Urea Nitrogen 7 mg/dL (7-17); Carbon Dioxide 29 mmol/L (22-30); Chloride 101 mmol/L (98-107); Glucose 118 mg/dL (74-99); Potassium 4.2 mmol/L (3.5-5.1); Sodium 138 mmol/L (137-145)
[2017-04-20] MEDS ORDERED: ARTIFICIAL TEARS-HYPROMELLOSE DROPS 15 ML BTL BOTH EYES PRN (09:06)
[2017-04-20] MEDS: GABAPENTIN 100 MG CAP PO SCH (09:26)
[2017-04-20] MEDS: FLUoxetine HCL 20 MG CAP PO SCH (09:26)
[2017-04-20] MEDS: PANTOPRAZOLE 40 MG TABLET PO SCH (09:26)
[2017-04-20] MEDS: INSULIN ASPART 100 UNIT/ML 1 ML 10 ML VIAL SQ SCH ×3 (09:27→17:56)
[2017-04-20] MEDS: clonazePAM 0.5 MG TAB PO PRN ×2 (09:35→17:56)
--- NOTE | 2017-04-20 11:42 | P.PN ---
Subjective Progress Note Date: 04/20/17 Principal diagnosis: Health care acquired pneumonia Patient seen and examined. Patient is laying in bed on room air. She denies any shortness of breath or chest pain. She denies any wheezing. She denies fevers and chills. She states her breathing is fine and she is just asking for more pain medication. Objective - Vital Signs Vital signs: Vital Signs Temp 99.0 F 04/20/17 07:00 Pulse 81 04/20/17 07:00 Resp 18 04/20/17 08:00 BP 133/91 04/20/17 07:00 Pulse Ox 96 04/20/17 07:00 Intake & Output 04/19/17 04/20/17 04/20/17 18:59 06:59 18:59 Intake Total 722 240 Output Total 400 Balance 322 240 Intake: Intake, IV Titration 260 Amount Aztreonam 2 gm In Sodium 100 Chloride 0.9% 100 ml @ 100 mls/hr IVPB Q8HR NARCISO Rx#:[id number] Sodium Chloride 0.9% 1, 160 000 ml @ 20 mls/hr IV . Q24H NARCISO Rx#:[id number] Oral 462 240 Output: Urine 400 Other: Voiding Method Toilet Toilet # Voids 3 - Exam Gen.: Patient is alert and oriented 3, no acute distress Cardiovascular: Regular rate and rhythm, S1/S2 Lungs: Diminished breath sounds bilaterally, otherwise clear Abdomen: Soft nontender nondistended positive bowel sounds Extremities: No edema - Labs CBC & Chem 7: 04/19/17 06:17 04/20/17 07:36 Labs: Abnormal Lab Results - Last 24 Hours (Table) 04/19/17 04/20/17 Range/Units 17:12 07:36 Creatinine 0.50 L (0.52-1.04) mg/dL Glucose 118 H (74-99) mg/dL POC Glucose (mg/dL) 127 H (75-99) mg/dL Microbiology - Last 24 Hours (Table) 04/14/17 13:25 Blood Culture - Preliminary Blood No Growth after 120 hours Assessment and Plan Assessment: Acute hypoxic respiratory failure - now resolved Health care acquired pneumonia - FAHEEM Severe Sepsis - resolved Acute exacerbation of COPD and asthma, unknown type Hypokalemia - resolved Dehydration - resolved Obesity, possible YAHAIRA Myalgias Chronic pain Active tobacco abuse GERD Seizure disorder Migraines History of VRE Hyperglycemia Anemia, normocytic O2 to maintain saturation greater than or equal to 90% Antibiotics: Levaquin and Aztreonam, Zosyn - per ID Sputum culture: normal maxi Duonebs Pulmicort and Perforomist Singulair Blood sugar control Incentive spirometry and pulmonary hygiene Replace potassium Influenza Rapid negative on 04/13/17 KVO IVF Tylenol PRN fever Smoking cessation highly recommended Outpatient PFT and PSG. Pulmonary follow up. Ok to DC from pulmonary standpoint. Follow up in office in 1-2 weeks. Would DC with LABA/LAMA/ICS as well as albuterol PRN, Singulair Qhs.
--- NOTE | 2017-04-20 12:29 | PN ---
PROGRESS NOTE DATE OF SERVICE: 04/20/2017 REASON FOR FOLLOWUP: Pneumonia. INTERVAL HISTORY: The patient is afebrile. She is breathing comfortably. Denies significant chest pain or shortness of breath. Occasional cough. No nausea, vomiting. No abdominal pain or diarrhea. PHYSICAL EXAMINATION: On examination, blood pressure is 133/91 with a pulse of 81, temperature of 99. She is 93% on room air. General description is an elderly female, lying in bed in no distress. RESPIRATORY SYSTEM: Unlabored breathing, clear to auscultation anteriorly. HEART: S1, S2. Regular rate and rhythm. ABDOMEN: Soft, no tenderness. LABS: Hemoglobin 9.8, white count 6.2, BUN of 7 creatinine 0.50. Sputum has been usual respiratory maxi. DIAGNOSTIC IMPRESSION AND PLAN: Patient with pneumonia, community acquired. Sputum has been negative for resistant pathogen. Currently on oral Levaquin, which she will continue for another 7 days to finish a course of therapy. Continue with supportive care. MMODL / IJN: [id number] /
[2017-04-20] MEDS: MULTIVITAMINS, THERA 1 EACH TAB PO SCH (12:48)
[2017-04-20] MEDS: LEVOFLOXACIN 750 MG TAB PO SCH (15:07)
[2017-04-20 17:48] LABS: Glucose,Whole Blood 93 mg/dL (75-99)
[2017-04-20] MEDS: SODIUM CHLORIDE 0.9% 1,000 ML IV SCH (17:58)
[2017-04-20] MEDS: MONTELUKAST 10 MG TAB PO SCH (21:53)
--- NOTE | 2017-04-20 23:02 | PN ---
PROGRESS NOTE SUBJECTIVE: White female admitted with gram-negative pneumonia community-acquired pneumonia, remains on IV antibiotics. We will try to wean off those antibiotics and oral ones and wean steroids to oral and possible discharge home in the next 24-48 hours. Costochondritis is slowly improving on the left side of her chest wall. Lungs show decreased breath sounds x4. Scattered wheeze x4. CARDIOVASCULAR: S1, S2. Abdomen is soft. Hematology is negative. No Homans. Negative. ASSESSMENT: 1. Gram-negative pneumonia. 2. Community-acquired pneumonia. 3. Atypical chest pain. 4. Chronic obstructive pulmonary disease exacerbation. 5. Costochondritis. Continue with IV steroids, IV antibiotics and updraft treatments. Possible discharge home in the next 24-48 hours. MMODL / IJN: [id number] /
[2017-04-21] MEDS: HYDROcodone/APAP 10-325MG 1 EACH TAB PO PRN ×3 (02:02→20:43)
[2017-04-21] MEDS: HYDROmorphone 1 MG/ML 1 ML SYRINGE IVP PRN ×4 (03:08→21:56)
[2017-04-21] MEDS: BUDESONIDE 0.5 MG/2 ML NEBU INHALATION SCH ×2 (08:13→19:37)
[2017-04-21] MEDS: FORMOTEROL FUMARATE 20 MCG/2 ML NEBU INHALATION SCH ×2 (08:13→19:37)
[2017-04-21] MEDS: IPRATROPIUM-ALBUTEROL 3 ML NEB INHALATION SCH ×4 (08:13→19:37)
[2017-04-21] MEDS: FLUoxetine HCL 20 MG CAP PO SCH (10:18)
[2017-04-21] MEDS: GABAPENTIN 100 MG CAP PO SCH (10:18)
[2017-04-21] MEDS: PANTOPRAZOLE 40 MG TABLET PO SCH (10:18)
[2017-04-21] MEDS: CYCLOBENZAPRINE 5 MG TAB PO SCH ×2 (10:19→20:43)
[2017-04-21] MEDS: HEPARIN SODIUM,PORCINE 5,000 UNIT/ML 1 ML VIAL SQ SCH ×3 (10:19→23:54)
--- NOTE | 2017-04-21 11:17 | P.PN ---
Subjective Progress Note Date: 04/21/17 Principal diagnosis: HCAP Patient seen and examined. Patient is complaining of continued shoulder and arm pain. She does have issues with chronic pain but states this is different. Her breathing is back to baseline. She denies chest pain and shortness of breath. She denies cough, fever, chills. Objective - Vital Signs Vital signs: Vital Signs Temp 97.1 F L 04/21/17 07:00 Pulse 82 04/21/17 07:00 Resp 18 04/21/17 08:00 BP 169/85 04/21/17 07:00 Pulse Ox 92 L 04/21/17 07:00 Intake & Output 04/20/17 04/21/17 04/21/17 18:59 06:59 18:59 Intake Total 440 Balance 440 Intake: Oral 440 Other: Voiding Method Toilet # Voids 3 3 # Bowel Movements 1 - Exam Gen.: Patient is alert and oriented 3, no acute distress Cardiovascular: Regular rate and rhythm, S1/S2 Lungs: Diminished breath sounds bilaterally, otherwise clear Abdomen: Soft nontender nondistended positive bowel sounds Extremities: No edema - Labs CBC & Chem 7: 04/19/17 06:17 04/20/17 07:36 Labs: Microbiology - Last 24 Hours (Table) 04/14/17 13:25 Blood Culture - Final Blood No Growth after 144 hours Assessment and Plan Assessment: Acute hypoxic respiratory failure - now resolved Health care acquired pneumonia - FAHEEM Severe Sepsis - resolved Acute exacerbation of COPD and asthma, unknown type Hypokalemia - resolved Dehydration - resolved Obesity, possible YAHAIRA Myalgias Chronic pain Active tobacco abuse GERD Seizure disorder Migraines History of VRE Hyperglycemia Anemia, normocytic O2 to maintain saturation greater than or equal to 90% Antibiotics: Levaquin and Aztreonam, Zosyn - per ID Sputum culture: normal maxi Duonebs Pulmicort and Perforomist Singulair Blood sugar control Incentive spirometry and pulmonary hygiene Replace potassium Influenza Rapid negative on 04/13/17 KVO IVF Tylenol PRN fever Smoking cessation highly recommended Outpatient PFT and PSG. Pulmonary follow up. Ok to DC from pulmonary standpoint. Follow up in office in 1-2 weeks. Would DC with LABA/LAMA/ICS as well as albuterol PRN, Singulair Qhs.
[2017-04-21] MEDS: MULTIVITAMINS, THERA 1 EACH TAB PO SCH (12:21)
--- NOTE | 2017-04-21 14:00 | CDI ---
Last Revision, March 2017 Documentation Clarification Form Date: 04/21/2017 1:47:00 PM From: Stephanie Lindquist Admit Date: 04/14/2017 3:38:00 PM Patient Name: Chayo Freitas Visit Number: [id number] ATTENTION: The Clinical Documentation Specialists (CDI) and [facility] Coding Staff appreciate your assistance in clarifying documentation. Please respond to the clarification below the line at the bottom and electronically sign. The CDI & [facility] Coding staff will review the response and follow-up if needed. Please note: Queries are made part of the Legal Health Record. If you have any questions, please contact the author of this message via ITS. Dr. Kasi Yoder, Documentation on 04/17 states 'severe sepsis' History/Risk Factors: COPD, GERD, SZ DISORDER, SYNCOPE, MIGRAINES pneumonia Clinical Indicators: WBC ON ADMISSION: 19.8 Lactic acid: on admission 3.7 Blood cultures: final report no growth after 144 hours Vitals signs on admission: T 103.3, P 118, R 22, 128/72, 94% RA Treatment: ID Consult: Dr Herrera Antibiotics: IV Levofloxacin In your professional opinion, please clarify if these findings signify one of the following conditions, whether the condition is POA, and cause, if known: Severe Sepsis ruled out Severe Sepsis ruled in and resolved Other, please specify Unable to determine Please continue to document in your progress notes and discharge summary in order to capture severity of illness and risk of mortality. Include clinical findings that support your diagnosis. MTDD
[2017-04-21] MEDS: LEVOFLOXACIN 750 MG TAB PO SCH (15:19)
--- NOTE | 2017-04-21 15:27 | PN ---
PROGRESS NOTE DATE OF SERVICE: 04/21/2017 REASON FOR FOLLOWUP: Pneumonia. INTERVAL HISTORY: The patient is afebrile. She is breathing comfortably. She is complaining of pain in her left posterior shoulder area. No nausea, no vomiting. Denies having any cough or sputum production. No abdominal pain and no diarrhea. PHYSICAL EXAMINATION: Blood pressure is 169/85 with a pulse of 82, temp 97.1. She is 92% on room air. General description is an elderly female, lying in bed in no distress. RESPIRATORY SYSTEM: Unlabored breathing, some decreased breath sounds, no wheeze. HEART: S1, S2. Regular rate and rhythm. ABDOMEN: Soft, no tenderness. LABS: BUN of 7, creatinine 0.50. Sputum is usual respiratory maxi. DIAGNOSTIC IMPRESSION AND PLAN: Patient with pneumonia, likely community-acquired, sputum has been negative pathogen, currently on Levaquin. She will continue for about a week to finish the course of therapy. Continue supportive care. MMODL / IJN: [id number] /
[2017-04-21 16:41] VITALS: BMI 29.4
[2017-04-21] MEDS: SODIUM CHLORIDE 0.9% 1,000 ML IV SCH (18:22)
[2017-04-21] MEDS: MONTELUKAST 10 MG TAB PO SCH (20:43)
--- NOTE | 2017-04-21 23:06 | PN ---
PROGRESS NOTE SUBJECTIVE: A 66-year-old white female with Gram-negative pneumonia, community-acquired pneumonia, remains on broad-spectrum IV antibiotics, awaiting Pulmonary recommendations on antibiotics. Remains on steroids with a taper. PHYSICAL EXAMINATION: Vital signs stable, afebrile. Cardiovascular S1, S2. Lungs scattered wheeze, rhonchi x4. Hematology negative Homans. Ophthalmological, pupils equal, round, reactive to light and accommodation. ASSESSMENT: 1. Gram-negative pneumonia, community-acquired pneumonia. 2. Atypical chest pain. 3. Chronic obstructive pulmonary disease exacerbation. 4. Costochondritis. PLAN: Continue current treatment. Possible discharge home in the next 24 to 48 hours. Remains on steroids and antibiotics. MMODL / IJN: [id number] /
[2017-04-22] MEDS: HYDROmorphone 1 MG/ML 1 ML SYRINGE IVP PRN ×2 (02:09→06:05)
[2017-04-22] MEDS: HYDROcodone/APAP 10-325MG 1 EACH TAB PO PRN ×3 (05:19→20:46)
[2017-04-22] MEDS: BUDESONIDE 0.5 MG/2 ML NEBU INHALATION SCH ×2 (07:57→19:39)
[2017-04-22] MEDS: FORMOTEROL FUMARATE 20 MCG/2 ML NEBU INHALATION SCH ×2 (07:57→19:39)
[2017-04-22] MEDS: IPRATROPIUM-ALBUTEROL 3 ML NEB INHALATION SCH ×4 (07:57→19:39)
[2017-04-22] MEDS: HEPARIN SODIUM,PORCINE 5,000 UNIT/ML 1 ML VIAL SQ SCH ×2 (09:34→16:00)
[2017-04-22] MEDS: CYCLOBENZAPRINE 5 MG TAB PO SCH ×2 (09:34→20:46)
[2017-04-22] MEDS: GABAPENTIN 100 MG CAP PO SCH (09:35)
[2017-04-22] MEDS: FLUoxetine HCL 20 MG CAP PO SCH (09:35)
[2017-04-22] MEDS: PANTOPRAZOLE 40 MG TABLET PO SCH (09:35)
[2017-04-22] MEDS: HYDROmorphone 2 MG/ML 1 ML SYRINGE IVP PRN ×2 (09:50→13:55)
[2017-04-22] MEDS: MULTIVITAMINS, THERA 1 EACH TAB PO SCH (13:08)
--- NOTE | 2017-04-22 13:09 | XR ---
EXAMINATION TYPE: XR shoulder complete LT DATE OF EXAM: 04/22/2017 COMPARISON: NONE HISTORY: pain TECHNIQUE: Three views are submitted. FINDINGS: The osseous structures are intact. There is no acute fracture or dislocation. The AC joint is maint ained. IMPRESSION: 1. No acute process.
--- NOTE | 2017-04-22 13:11 | XR ---
EXAMINATION TYPE: XR cervical spine comp DATE OF EXAM: 04/22/2017 COMPARISON: NONE HISTORY: Pain TECHNIQUE: Four views are submitted. FINDINGS: The odontoid is intact. There are no compression deformities. The prevertebral soft tissue structur es are within normal limits. Calcification soft tissue the neck likely vascular. Hypertrophic change is noted. Facet arthropathy noted. Moderate to severe degenerative disc disease C5-C6 and moderate c hanges C6-C7. Multilevel facet arthropathy noted. Foraminal encroachment noted at C4-5, C5-6 and C6-C 7 bilaterally. IMPRESSION: 1. Multilevel degenerative disc disease, facet arthropathy and foraminal encroachment with most marke d findings at C5-C6. Correlate with MRI. 2. Dense calcification soft tissue the neck likely related to atherosclerotic changes of the carotid artery and bifurcation.
[2017-04-22] MEDS: clonazePAM 0.5 MG TAB PO PRN (16:00)
--- NOTE | 2017-04-22 16:50 | PN ---
PROGRESS NOTE DATE OF SERVICE: 04/22/2017. REASON FOR FOLLOWUP VISIT: Pneumonia. INTERVAL HISTORY: The patient is afebrile. She is breathing comfortably. Denies significant chest pain. No cough. No nausea, abdominal pain, no diarrhea. EXAMINATION: Blood pressure 162/96 with a pulse of 83, temperature 98.1. She is 91% on room air. General description is an elderly female up in the bed, up in no distress. RESPIRATORY SYSTEM: Unlabored breathing, clear to auscultation anteriorly. HEART: S1, S2. Regular rate and rhythm. ABDOMEN: Soft, no tenderness. LABS: BUN of 7, creatinine 0.50. DIAGNOSTIC IMPRESSION AND PLAN: Patient pneumonia, community acquired with overall improvement on the Levaquin, to continue for another 5 to 7 days to finish a course of therapy. Continue supportive care. MMODL / IJN: [id number] /
[2017-04-22] MEDS: SODIUM CHLORIDE 0.9% 1,000 ML IV SCH (17:15)
[2017-04-22] MEDS: ACETAMINOPHEN TAB 325 MG TAB PO PRN (17:59)
[2017-04-22] MEDS: MONTELUKAST 10 MG TAB PO SCH (20:46)
[2017-04-23] MEDS: HEPARIN SODIUM,PORCINE 5,000 UNIT/ML 1 ML VIAL SQ SCH ×2 (00:07→08:14)
[2017-04-23] MEDS: clonazePAM 0.5 MG TAB PO PRN (08:13)
[2017-04-23] MEDS: HYDROcodone/APAP 10-325MG 1 EACH TAB PO PRN (08:13)
[2017-04-23] MEDS: CYCLOBENZAPRINE 5 MG TAB PO SCH (08:14)
[2017-04-23] MEDS: PANTOPRAZOLE 40 MG TABLET PO SCH (08:14)
[2017-04-23] MEDS: MULTIVITAMINS, THERA 1 EACH TAB PO SCH (08:14)
[2017-04-23] MEDS: FLUoxetine HCL 20 MG CAP PO SCH (08:14)
[2017-04-23] MEDS: GABAPENTIN 100 MG CAP PO SCH (08:14)
[2017-04-23] MEDS: BUDESONIDE 0.5 MG/2 ML NEBU INHALATION SCH (08:16)
[2017-04-23] MEDS: FORMOTEROL FUMARATE 20 MCG/2 ML NEBU INHALATION SCH (08:16)
[2017-04-23] MEDS: IPRATROPIUM-ALBUTEROL 3 ML NEB INHALATION SCH (08:16)
[2017-04-23 08:52] VITALS: BP 149/99; PULSE 90; RESP 16; TEMP 98.2
--- NOTE | 2017-04-23 13:09 | P.PN ---
Subjective Progress Note Date: 04/23/17 Principal diagnosis: Left upper lobe community-acquired pneumonia, left shoulder pain likely related to above, severe degree of C-spine disease likely degenerative joint disease especially involving C5 and C6 This patient is seen and evaluated examined while covering for Dr. 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 to follow up on left upper lobe pneumonia to document resolution Objective - Vital Signs Vital signs: Vital Signs Temp 98.2 F 04/23/17 07:00 Pulse 90 04/23/17 07:00 Resp 16 04/23/17 07:00 BP 149/99 04/23/17 07:00 Pulse Ox 92 L 04/23/17 08:10 Intake & Output 04/22/17 04/23/17 04/23/17 18:59 06:59 18:59 Intake Total 400 Balance 400 Intake: Oral 400 Other: Voiding Method Toilet Toilet # Voids 2 2 2 # Bowel Movements 1 - Exam Gen.: Patient is alert and oriented 3, no acute distress her pain in the shoulder is improved however continued to have some neck discomfort and pain HEENT is otherwise unremarkable, Neck is supple without any lymphadenopathy jugular venous distention or carotid bruit Cardiovascular: Regular rate and rhythm, S1/S2 Lungs: Diminished breath sounds bilaterally, otherwise clear Abdomen: Soft nontender nondistended positive bowel sounds Extremities: No edema [employer] normal - Labs CBC & Chem 7: 04/19/17 06:17 04/20/17 07:36 Assessment and Plan Plan: Neck pain related to C-spine disease involving C5-C6 will defer to primary service for further evaluation in that regard FAHEEM pneumonia, doing well clinically responding, would recommend a follow-up chest x-ray on outpatient basis to document resolution of left upper lobe pneumonia Severe Sepsis - resolved, Acute hypoxic respiratory failure - now resolved Acute exacerbation of COPD and asthma, unknown type Hypokalemia - resolved Dehydration - resolved Obesity, possible YAHAIRA Myalgias Chronic pain Active tobacco abuse GERD Seizure disorder Migraines History of VRE Hyperglycemia Anemia, normocytic O2 to maintain saturation greater than or equal to 90% Antibiotics: Levaquin - per ID Sputum culture: normal maxi Duonebs Pulmicort and Perforomist Singulair Blood sugar control Incentive spirometry and pulmonary hygiene Replace potassium Influenza Rapid negative on 04/13/17 KVO IVF Tylenol PRN fever Smoking cessation highly recommended. Time with Patient: Greater than 30
[2017-04-23] MEDS: ACETAMINOPHEN TAB 325 MG TAB PO PRN (13:16)
--- NOTE | 2017-04-23 15:44 | PN ---
PROGRESS NOTE DATE OF SERVICE: 04/23/2017. REASON FOR FOLLOWUP: Pneumonia. INTERVAL HISTORY: The patient is seen on rounds this afternoon. The patient has been afebrile. Overall, her breathing has improved. Denies significant chest pain. Occasional cough. No drainage. No abdominal pain. No diarrhea. EXAMINATION: Her blood pressure is 149/99 with a pulse of 90, temperature 98.2 she is 93%. GENERAL DESCRIPTION: An elderly female up in the room in no distress. RESPIRATORY SYSTEM: Unlabored breathing, clear to auscultation anteriorly. HEART: S1, S2. Regular rate and rhythm. LABS: No new labs have been obtained today. DIAGNOSTIC IMPRESSION AND PLAN: Patient with a pneumonia, community acquired. Sputum has been negative for resistant pathogen. Currently doing well on Levaquin. Should continue for another 5 days. Physical therapy. Continue supportive care. STEFANIE / VELASQUEZN: [id number] /
--- NOTE | 2017-04-24 09:39 | PN ---
PROGRESS NOTE SUBJECTIVE: 66-year-old white female who was supposed to be discharged. She is on oral antibiotics and steroids. Unable to find her caregiver. She remains in the hospital. IV fluids given. CARDIOVASCULAR: S1, S2. LUNGS: Scattered rhonchi and wheeze. HEMATOLOGY: Negative Homans. PSYCH: Fair mood and affect. ASSESSMENT: 1. Acute hypoxemic respiratory failure. 2. Gram-negative pneumonia, community-acquired pneumonia. 3. Atypical chest pain. 4. Chronic obstructive pulmonary disease exacerbation. 5. Costochondritis. Continue with IV steroids, IV antibiotics, updraft treatments. Follow up in the next 24 to 48 hours. Possible discharge home. She is on all oral medicines. MMODL / IJN: [id number] /
--- NOTE | 2017-04-25 10:32 | CDI ---
Last Revision, March 2017 Documentation Clarification Form Date: 04/21/2017 1:47:00 PM From: Stephanie Lindquist EBONY Admit Date: 04/14/2017 3:38:00 PM Patient Name: Chayo Freitas Visit Number: [id number] ATTENTION: The Clinical Documentation Specialists (CDI) and [facility] Coding Staff appreciate your assistance in clarifying documentation. Please respond to the clarification below the line at the bottom and electronically sign. The CDI & [facility] Coding staff will review the response and follow-up if needed. Please note: Queries are made part of the Legal Health Record. If you have any questions, please contact the author of this message via ITS. Dr. Kasi Yoder, (second notice please answer on query under line), Documentation on 04/17 states 'severe sepsis' History/Risk Factors: COPD, GERD, SZ DISORDER, SYNCOPE, MIGRAINES pneumonia Clinical Indicators: WBC ON ADMISSION: 19.8 Lactic acid: on admission 3.7 Blood cultures: final report no growth after 144 hours Vitals signs on admission: T 103.3, P 118, R 22, 128/72, 94% RA Treatment: ID Consult: Dr Herrera Antibiotics: IV Levofloxacin In your professional opinion, please clarify if these findings signify one of the following conditions, whether the condition is POA, and cause, if known: Condition Severe Sepsis ruled out Severe Sepsis ruled in and resolved Other, please specify Unable to determine Please continue to document in your progress notes and discharge summary in order to capture severity of illness and risk of mortality. Include clinical findings that support your diagnosis. - MTDD
--- NOTE | 2017-04-27 10:14 | CDI ---
Last Revision, March 2017 Documentation Clarification Form Date: 04/21/2017 1:47:00 PM From: Stephanie Lindquist EBONY Admit Date: 04/14/2017 3:38:00 PM Patient Name: Chayo Freitas Visit Number: [id number] ATTENTION: The Clinical Documentation Specialists (CDI) and [facility] Coding Staff appreciate your assistance in clarifying documentation. Please respond to the clarification below the line at the bottom and electronically sign. The CDI & [facility] Coding staff will review the response and follow-up if needed. Please note: Queries are made part of the Legal Health Record. If you have any questions, please contact the author of this message via ITS. Dr. Kasi Yoder, Documentation on 04/17 states 'severe sepsis' History/Risk Factors: COPD, GERD, SZ DISORDER, SYNCOPE, MIGRAINES pneumonia Clinical Indicators: WBC ON ADMISSION: 19.8 Lactic acid: on admission 3.7 Blood cultures: final report no growth after 144 hours Vitals signs on admission: T 103.3, P 118, R 22, 128/72, 94% RA Treatment: ID Consult: Dr Herrera Antibiotics: IV Levofloxacin In your professional opinion, please clarify if these findings signify one of the following conditions, whether the condition is POA, and cause, if known: Condition Severe Sepsis ruled out Severe Sepsis ruled in and resolved Other, please specify Unable to determine MTDD
--- NOTE | 2017-04-28 12:28 | CDI ---
Last Revision, March 2017 Documentation Clarification Form Date: 04/21/2017 1:47:00 PM From: Stephanie Ameena EBONY Admit Date: 04/14/2017 3:38:00 PM Patient Name: Chayo Freitas Visit Number: [id number] ATTENTION: The Clinical Documentation Specialists (CDI) and [facility] Coding Staff appreciate your assistance in clarifying documentation. Please respond to the clarification below the line at the bottom and electronically sign. The CDI & [facility] Coding staff will review the response and follow-up if needed. Please note: Queries are made part of the Legal Health Record. If you have any questions, please contact the author of this message via ITS. Dr. Kasi Yoder, Documentation on 04/17 states 'severe sepsis' (third request please document on query or in note) History/Risk Factors: COPD, GERD, SZ DISORDER, SYNCOPE, MIGRAINES pneumonia Clinical Indicators: WBC ON ADMISSION: 19.8 Lactic acid: on admission 3.7 Blood cultures: final report no growth after 144 hours Vitals signs on admission: T 103.3, P 118, R 22, 128/72, 94% RA Treatment: ID Consult: Dr Herrera Antibiotics: IV Levofloxacin In your professional opinion, please clarify if these findings signify one of the following conditions, whether the condition is POA, and cause, if known: Condition Severe Sepsis ruled out Severe Sepsis ruled in and resolved Other, please specify Unable to determine Please continue to document in your progress notes and discharge summary in order to capture severity of illness and risk of mortality. Include clinical findings that support your diagnosis. MTDD
--- NOTE | 2017-04-28 13:31 | DS ---
DISCHARGE SUMMARY ADDENDUM: Please add: Systemic inflammatory response syndrome secondary to influenza A infection, chronic obstructive pulmonary disease and tracheobronchitis. MMODL / IJN: [id number] /
--- NOTE | 2017-05-01 17:28 | DS ---
DISCHARGE SUMMARY ADDENDUM: Please add to discharge summary: Sepsis. MMODL / IJN: [id number] /
--- NOTE | 2017-05-09 10:21 | DS ---
DISCHARGE SUMMARY DATE OF ADMISSION: 04/14/2017. DATE OF DISCHARGE: 04/23/2017. DISCHARGE MEDICATIONS: 1. Multivitamin daily. 2. Klonopin 0.5 mg t.i.d. 3. Prozac 40 mg daily. 4. Neurontin 100 daily. 5. Spiriva 1 puff daily. 6. Symbicort 160/4.5 two puffs b.i.d. 7. Ventolin HFA inhaler 2 puffs q.6 hours p.r.n. 8. [place] 10/325 b.i.d. 9. Lasix 40 daily. 10.DuoNeb updraft q.i.d. 11.Pulmicort 0.5 b.i.d. 12.Azithromycin 250 daily for 4 days. CONDITION: Stable. PROGNOSIS: Guarded. Ambulate as tolerated. DISCHARGE DIAGNOSES: 1. Acute hypoxemic respiratory failure. 2. Acute on chronic anemia. 3. Chronic pain syndrome. 4. Obesity. 5. Obstructive sleep apnea. 6. Nicotine addiction. 7. Gastroesophageal reflux disease. 8. Seizure disorder. 9. Migraines. 10.VRE history. 11.Healthcare-acquired pneumonia left upper lobe. 12.Severe sepsis, resolved. 13.Chronic obstructive pulmonary disease and asthma exacerbation. 14.Hypokalemia. 15.Dehydration. The patient was admitted and given IV antibiotics for multiple days, fluid rehydration, potassium supplementation, updraft treatments. Patient slowly improved. Was seen by log tumbler, Dr. Abreu, fur blowing machine operator, and stabilized from medical standpoint by the time she was sent home in stable condition. Will follow up as an outpatient. MMODL / IJN: [id number] /
--- NOTE | 2017-05-09 16:27 | PN ---
PROGRESS NOTE DATE OF SERVICE: 04/22/2017. The patient is a 66-year-old female who is seen sitting up in bed, awake and alert. Patient is back at baseline. He is hemodynamically stable, afebrile, in no acute distress. PHYSICAL EXAM: VITAL SIGNS: Temperature is 97.1, heart rate is 82, respiratory rate 18, blood pressure is 147/87, O2 saturation is 92% on room air. HEENT. Head is normocephalic, atraumatic. Neck is supple. Trachea is midline. LUNGS: Essentially clear with decreased bases. HEART: S1, S2 heard. Not tachycardic. ABDOMEN: Soft. Bowel sounds are positive. EXTREMITIES: With no edema. NEUROLOGIC: Patient is awake, alert, oriented. LABS: No new labs to review. IMAGING: Shoulder x-ray shows no acute process. Cervical spine x-ray shows multilevel degenerative disc disease, facet arthropathy and foraminal encroachment with most marked findings at C5-C6. Correlate with MRI. Dense calcifications soft tissues of the neck likely related to atherosclerotic changes of the carotid artery and bifurcation. IMPRESSION: 1. Acute hypoxic respiratory failure, resolved. 2. Healthcare acquired pneumonia left upper lobe. 3. Severe sepsis, resolved. 4. Acute exacerbation of chronic obstructive pulmonary disease and asthma, unknown type. 5. Hypokalemia, resolved. 6. Dehydration, resolved. 7. Obesity possible obstructive sleep apnea. 8. Myalgias. 9. Chronic pain. 10.Active tobacco abuse. 11.Gastroesophageal reflux disease. 12.Seizure disorder. 13.Migraines. 14.History of vancomycin-resistant enterococcus. 15.Hyperglycemia. 16.Anemia normocytic. PLAN: Continue oxygen to maintain sats greater than or equal to 90%. Continue current medications which have been reviewed with antibiotics per Infectious Disease. Continue bronchodilators and aerosol steroids. Continue incentive spirometry with pulmonary hygiene. The patient is stable from a pulmonary standpoint. Should follow up in the Pulmonary Clinic for outpatient PFT and sleep study. Recommend the patient be discharged with a LABA Lama and inhaled corticosteroid as well as albuterol p.r.n. and Singulair q.h.s. I will follow patient with you in the interim, making further changes as necessary. MMODL / IJN: [id number] /
== END 2017-04-23 13:51 | disposition home or self-care (01) | DRG 871 ==
LOC: EC 12:45 → 6SEL 15:38 → 4MS4W 04-19 17:51
PROVIDERS: ADMIT Family Medicine; ATTEND Family Medicine
DX: A41.9 Sepsis, unspecified organism (principal); J15.6 Pneumonia due to other Gram-negative bacteria; J96.21 Acute and chronic respiratory failure with hypoxia; J44.0 Chronic obstructive pulmonary disease with (acute) lower respiratory infection; J45.901 Unspecified asthma with (acute) exacerbation; E83.42 Hypomagnesemia; J44.1 Chronic obstructive pulmonary disease with (acute) exacerbation; R65.20 Severe sepsis without septic shock; J20.9 Acute bronchitis, unspecified; K21.9 Gastro-esophageal reflux disease without esophagitis; M94.0 Chondrocostal junction syndrome [Tietze]; F17.200 Nicotine dependence, unspecified, uncomplicated; E87.6 Hypokalemia; E86.0 Dehydration; E66.9 Obesity, unspecified; Z68.29 Body mass index [BMI] 29.0-29.9, adult; M79.1 Myalgia; G89.29 Other chronic pain; K58.9 Irritable bowel syndrome, unspecified; G43.909 Migraine, unspecified, not intractable, without status migrainosus; G40.909 Epilepsy, unspecified, not intractable, without status epilepticus; R73.9 Hyperglycemia, unspecified; G47.33 Obstructive sleep apnea (adult) (pediatric); H66.90 Otitis media, unspecified, unspecified ear; M19.91 Primary osteoarthritis, unspecified site; F32.9 Major depressive disorder, single episode, unspecified; F41.9 Anxiety disorder, unspecified; D64.9 Anemia, unspecified; Z79.51 Long term (current) use of inhaled steroids; Z79.899 Other long term (current) drug therapy; Z87.11 Personal history of peptic ulcer disease; Z86.19 Personal history of other infectious and parasitic diseases; Z88.0 Allergy status to penicillin; Z88.8 Allergy status to other drugs, medicaments and biological substances; Z90.710 Acquired absence of both cervix and uterus; Z90.49 Acquired absence of other specified parts of digestive tract
CPT/HCPCS: 36415; 71020; 72050; 80048; 80053; 81003; 83036; 83605; 83735; 84100; 84132; 85025; 85610; 85730; 87040; 87070; 87086; 87205; 87502; 93005; 94640; 94760; 96360; 96361; 96365; 99283; 99285

== ENCOUNTER 2017-04-26 15:33 | Inpatient (IN) | payer MEDICARE ==
[2017-04-26] MEDS ORDERED: SODIUM CHLORIDE 0.9% 1,000 ML IV STA (17:20)
[2017-04-26] MEDS ORDERED: ACETAMINOPHEN IV (For NPO) 1,000 MG in EMPTY BAG 1 BAG IVPB STA (17:20)
[2017-04-26] MEDS ORDERED: IPRATROPIUM-ALBUTEROL 3 ML NEB INHALATION STA (17:20)
[2017-04-26] MEDS ORDERED: KETOROLAC 30 MG/ML 1 ML VIAL IVP STA (17:20)
--- NOTE | 2017-04-26 17:39 | ED ---
General Adult HPI - General Chief complaint: Shortness of Breath Stated complaint: pneumonia-revisit Time Seen by Provider: 04/26/17 17:05 Source: patient, RN notes reviewed, old records reviewed Mode of arrival: wheelchair Limitations: no limitations - History of Present Illness Initial comments: This is a 66-year-old female ER for evaluation of shortness of breath. Patient has significant shortness of breath as well as fever. Cough and congestion, no chest pain. Patient is recent hospitalization for pneumonia at this time denies any travel history, no sick contacts - Related Data Home Medications Medication Instructions Recorded Confirmed Multivitamins, Thera [Multivitamin 1 tab PO DAILY 01/19/17 04/14/17 (formulary)] Albuterol Inhaler [Ventolin Hfa 1 - 2 puff INHALATION RT-Q6H PRN 02/27/17 Inhaler] Budesonide-Formot 160-4.5 Mcg 2 puff INHALATION RT-BID 02/27/17 04/14/17 [Symbicort 160-4.5 Mcg Inhaler] Tiotropium [place] [Spiriva] 1 cap INHALATION RT-DAILY 02/27/17 04/14/17 HYDROcodone/APAP 10-325MG [[place] 1 tab PO BID PRN 03/18/17 04/14/17 10-325] Furosemide [Lasix] 40 mg PO DAILY 03/24/17 04/14/17 Budesonide [Pulmicort] 0.5 mg INHALATION RT-BID 04/13/17 04/14/17 Ipratropium-Albuterol Nebulize 3 ml INHALATION RT-QID 04/13/17 04/14/17 [Duoneb 0.5 mg-3 mg/3 ml Soln] Previous Rx's Medication Instructions Recorded FLUoxetine HCL [PROzac] 40 mg PO DAILY #20 capsule 02/20/17 Gabapentin [Neurontin] 100 mg PO DAILY #30 cap 02/20/17 clonazePAM [KlonoPIN] 0.5 mg PO TID PRN #20 tablet 02/20/17 Azithromycin 250 mg PO DAILY #4 tab 04/14/17 Allergies Allergy/AdvReac Type Severity Reaction Status Date / Time Penicillins Allergy Rash/Hives Verified 04/14/17 13:39 ketorolac [From Toradol] AdvReac Rapid Verified 04/14/17 13:39 Heart Rate Review of Systems ROS Statement: Those systems with pertinent positive or pertinent negative responses have been documented in the HPI. ROS Other: All systems not noted in ROS Statement are negative. Past Medical History Past Medical History: COPD, GERD/Reflux, Pneumonia, Seizure Disorder, Syncope Additional Past Medical History / Comment(s): Migraines, last seizure 5 years ago thought d/t ativan withdrawal, gastric ulcer, IBS, incontinent of urine/ stool. History of Any Multi-Drug Resistant Organisms: VRE Date of last positivie culture/infection: 02/27/17 MDRO Source:: URINE Past Surgical History: Adenoidectomy, Appendectomy, Cholecystectomy, Hysterectomy, Tonsillectomy Additional Past Surgical History / Comment(s): Pilonidal cyst removal, EGD/ colonoscopy. Past Anesthesia/Blood Transfusion Reactions: Previous Problems w/ Anesthesia Additional Past Anesthesia/Blood Transfusion Reaction / Comment(s): Problem with past anesthesia with her muscles-last surgery anesthesia went good. Past Psychological History: Anxiety, Depression Smoking Status: Current every day smoker Past Alcohol Use History: None Reported Past Drug Use History: None Reported - Past Family History Mother Family Medical History: Cancer Additional Family Medical History / Comment(s): Mother of breast/ovarian cancer at the age of 71yrs. Father Family Medical History: Musculoskeletal Disorder, Neurologic Disorder Additional Family Medical History / Comment(s): Father of Kamla Gehrig's disease at the age of 53 yrs. General Exam Limitations: no limitations General appearance: alert, in no apparent distress, anxious Head exam: Present: atraumatic, normocephalic, normal inspection Eye exam: Present: normal appearance, PERRL, EOMI. Absent: scleral icterus, conjunctival injection, periorbital swelling ENT exam: Present: normal exam, mucous membranes moist Neck exam: Present: normal inspection. Absent: tenderness, meningismus, lymphadenopathy Respiratory exam: Present: normal lung sounds bilaterally, wheezes. Absent: respiratory distress, rales, rhonchi, stridor Cardiovascular Exam: Present: regular rate, normal rhythm, normal heart sounds. Absent: systolic murmur, diastolic murmur, rubs, gallop, clicks GI/Abdominal exam: Present: soft, normal bowel sounds. Absent: distended, tenderness, guarding, rebound, rigid Extremities exam: Present: normal inspection, full ROM, normal capillary refill. Absent: tenderness, pedal edema, joint swelling, calf tenderness Back exam: Present: normal inspection Neurological exam: Present: alert, oriented X3, CN II-XII intact Psychiatric exam: Present: normal affect, normal mood Skin exam: Present: warm, dry, intact, normal color. Absent: rash Course Vital Signs 04/26/17 04/26/17 04/26/17 16:00 17:49 17:59 Temperature 100.5 F H 101.5 F H Pulse Rate 98 101 H 99 Respiratory 20 20 18 Rate Blood Pressure 121/66 136/82 O2 Sat by Pulse 94 L 95 Oximetry 04/26/17 18:31 Temperature Pulse Rate 104 H Respiratory 22 Rate Blood Pressure 138/80 O2 Sat by Pulse 96 Oximetry - Reevaluation(s) Reevaluation #1: 04/26/17 18:42 Patient's symptoms much improved appetite returning with breathing treatment, fever control, pain control EKG Findings - EKG Comments: EKG Findings:: EKG shows sinus tachycardia normal 106, [place] 136 over to a 76, QTc 502 Medical Decision Making - Medical Decision Making 66 female ER for vaginal shortness of breath and fever, positive influenza. Patient will be admitted for Tamiflu, treatment of COPD - Lab Data Result diagrams: 04/26/17 17:50 04/26/17 17:50 Lab Results 04/26/17 04/26/17 04/26/17 Range/Units 17:50 17:50 17:50 WBC 7.0 (3.8-10.6) k/uL RBC 4.35 (3.80-5.40) m/uL Hgb 12.2 (11.4-16.0) gm/dL Hct 38.7 (34.0-46.0) % MCV 88.9 (80.0-100.0) fL MCH 27.9 (25.0-35.0) pg MCHC 31.4 (31.0-37.0) g/dL RDW 16.8 H (11.5-15.5) % Plt Count 368 (150-450) k/uL Neutrophils % 76 % Lymphocytes % 14 % Monocytes % 5 % Eosinophils % 1 % Basophils % 1 % Neutrophils # 5.4 (1.3-7.7) k/uL Lymphocytes # 1.0 (1.0-4.8) k/uL Monocytes # 0.4 (0-1.0) k/uL Eosinophils # 0.1 (0-0.7) k/uL Basophils # 0.0 (0-0.2) k/uL Hypochromasia Slight Anisocytosis Slight Sodium (137-145) mmol/L Potassium (3.5-5.1) mmol/L Chloride (98-107) mmol/L Carbon Dioxide (22-30) mmol/L Anion Gap mmol/L BUN (7-17) mg/dL Creatinine (0.52-1.04) mg/dL Est GFR (MDRD) Af Amer (>60 ml/min/1.73 sqM) Est GFR (MDRD) Non-Af (>60 ml/min/1.73 sqM) Glucose (74-99) mg/dL Calcium (8.4-10.2) mg/dL Magnesium (1.6-2.3) mg/dL Total Bilirubin (0.2-1.3) mg/dL AST (14-36) U/L ALT (9-52) U/L Alkaline Phosphatase (38-126) U/L Total Creatine Kinase 36 (30-135) U/L CK-MB (CK-2) <0.2 (0.0-2.4) ng/mL CK-MB (CK-2) Rel Index Troponin I <0.012 (0.000-0.034) ng/mL NT-Pro-B Natriuret Pep pg/mL Total Protein (6.3-8.2) g/dL Albumin (3.5-5.0) g/dL Influenza Type A RNA Detected H (Not Detectd) Influenza Type B (PCR) Not Detected (Not Detectd) 04/26/17 04/26/17 Range/Units 17:50 17:50 WBC (3.8-10.6) k/uL RBC (3.80-5.40) m/uL Hgb (11.4-16.0) gm/dL Hct (34.0-46.0) % MCV (80.0-100.0) fL MCH (25.0-35.0) pg MCHC (31.0-37.0) g/dL RDW (11.5-15.5) % Plt Count (150-450) k/uL Neutrophils % % Lymphocytes % % Monocytes % % Eosinophils % % Basophils % % Neutrophils # (1.3-7.7) k/uL Lymphocytes # (1.0-4.8) k/uL Monocytes # (0-1.0) k/uL Eosinophils # (0-0.7) k/uL Basophils # (0-0.2) k/uL Hypochromasia Anisocytosis Sodium 139 (137-145) mmol/L Potassium 3.5 (3.5-5.1) mmol/L Chloride 95 L (98-107) mmol/L Carbon Dioxide 27 (22-30) mmol/L Anion Gap 17 mmol/L BUN 15 (7-17) mg/dL Creatinine 0.90 (0.52-1.04) mg/dL Est GFR (MDRD) Af Amer >60 (>60 ml/min/1.73 sqM) Est GFR (MDRD) Non-Af >60 (>60 ml/min/1.73 sqM) Glucose 129 H (74-99) mg/dL Calcium 9.8 (8.4-10.2) mg/dL Magnesium 1.3 L (1.6-2.3) mg/dL Total Bilirubin 0.5 (0.2-1.3) mg/dL AST 41 H (14-36) U/L ALT 35 (9-52) U/L Alkaline Phosphatase 58 (38-126) U/L Total Creatine Kinase (30-135) U/L CK-MB (CK-2) (0.0-2.4) ng/mL CK-MB (CK-2) Rel Index Troponin I (0.000-0.034) ng/mL NT-Pro-B Natriuret Pep 185 pg/mL Total Protein 8.1 (6.3-8.2) g/dL Albumin 4.4 (3.5-5.0) g/dL Influenza Type A RNA (Not Detectd) Influenza Type B (PCR) (Not Detectd) - Radiology Data Radiology results: report reviewed (Chest x-ray is negative), image reviewed Disposition Clinical Impression: Acute exacerbation of chronic obstructive airways disease, Influenza A, Systemic inflammatory response syndrome (SIRS) Disposition: ADMITTED IP TO THIS HOSP Condition: Good Referrals: Kasi Yoder MD [Primary Care Provider] - 1-2 days
[2017-04-26] MEDS ORDERED: HYDROmorphone 2 MG/ML 1 ML SYRINGE IVP STA (18:00)
[2017-04-26 18:03] LABS: Anisocytosis Slight; Basophils % (A) 1 %; Eosinophils # (A) 0.1 k/uL (0-0.7); Eosinophils % (A) 1 %; HCT 38.7 % (34.0-46.0); HGB 12.2 gm/dL (11.4-16.0); Hypochromasia Slight; Lymphocytes % (A) 14 %; MCH 27.9 pg (25.0-35.0); MCHC 31.4 g/dL (31.0-37.0); MCV 88.9 fL (80.0-100.0); Mean Platelet Volume 7.5; Monocytes # (A) 0.4 k/uL (0-1.0); Monocytes % (A) 5 %; Neutrophils # (A) 5.4 k/uL (1.3-7.7); Neutrophils % (A) 76 %; Platelet Count 368 k/uL (150-450); RBC 4.35 m/uL (3.80-5.40); RDW 16.8 % (11.5-15.5)
[2017-04-26 18:15] LABS: ALT 35 U/L (9-52); AST 41 U/L (14-36); Albumin 4.4 g/dL (3.5-5.0); Alkaline Phosphatase 58 U/L (38-126); Anion Gap 17 mmol/L; Blood Urea Nitrogen 15 mg/dL (7-17); Calcium 9.8 mg/dL (8.4-10.2); Carbon Dioxide 27 mmol/L (22-30); Chloride 95 mmol/L (98-107); Creatine Kinase 36 U/L (30-135); Glucose 129 mg/dL (74-99); Magnesium 1.3 mg/dL (1.6-2.3); Potassium 3.5 mmol/L (3.5-5.1); Sodium 139 mmol/L (137-145); Total Bilirubin 0.5 mg/dL (0.2-1.3); Total Protein 8.1 g/dL (6.3-8.2)
[2017-04-26 18:28] LABS: Creatine Kinase MB <0.2 ng/mL (0.0-2.4); Troponin I <0.012 ng/mL (0.000-0.034)
[2017-04-26] MEDS ORDERED: IPRATROPIUM-ALBUTEROL 3 ML NEB INHALATION PRN (18:39)
[2017-04-26] MEDS ORDERED: methylPREDNISolone SOD SUCCI 125 MG/2 ML VIAL IV STA (18:39)
[2017-04-26] MEDS ORDERED: OSELTAMIVIR 75 MG CAP PO STA (18:41)
[2017-04-26] MEDS ORDERED: SODIUM CHLORIDE 0.9% 1,000 ML IV SCH (18:45)
--- NOTE | 2017-04-26 18:56 | XR ---
EXAMINATION: XR chest 2V DATE AND TIME: 04/26/2017 6:22 PM ORDERING PROVIDER: Tru Garcia DO CLINICAL INDICATION: difficulty breathing TECHNIQUE: PA and lateral COMPARISON: 04/15/2017 DESCRIPTION: The lungs are clear. The pleural spaces are negative. The cardiac silhouette is not enlarged. The mediastinal and pleural silhouettes are unremarkable. The skeletal structures are intact without focal findings. The soft tissues are unremarkable. IMPRESSION: NO ACUTE PROCESS.
[2017-04-26 19:02] LABS: INR 1.2 (<1.2); Partial Thromboplastin Time 25.6 sec (22.0-30.0); Prothrombin Time 11.5 sec (9.0-12.0)
[2017-04-26 22:11] LABS: Glucose,Whole Blood 169 mg/dL (75-99)
[2017-04-26] MEDS ORDERED: ACETAMINOPHEN TAB 325 MG TAB PO PRN (22:14)
[2017-04-26] MEDS: HYDROmorphone 2 MG/ML 1 ML SYRINGE IVP PRN (22:48)
[2017-04-26] MEDS: INSULIN ASPART 100 UNIT/ML 1 ML 10 ML VIAL SQ SCH (22:49)
[2017-04-26] MEDS: OSELTAMIVIR 75 MG CAP PO SCH (23:52)
[2017-04-26] MEDS: methylPREDNISolone SOD SUCCI 125 MG/2 ML VIAL IV SCH (23:52)
[2017-04-27] MEDS: HYDROcodone/APAP 10-325MG 1 EACH TAB PO PRN ×2 (02:23→15:28)
[2017-04-27] MEDS: clonazePAM 0.5 MG TAB PO PRN (03:55)
[2017-04-27] MEDS: HYDROmorphone 2 MG/ML 1 ML SYRINGE IVP PRN ×3 (05:08→17:42)
[2017-04-27] MEDS: methylPREDNISolone SOD SUCCI 125 MG/2 ML VIAL IV SCH ×3 (05:09→17:41)
--- NOTE | 2017-04-27 05:20 | HP ---
HISTORY AND PHYSICAL CHIEF COMPLAINT: A 66-year-old white female with shortness of breath. HISTORY OF PRESENT ILLNESS: This 66-year-old, white female with a fever of 103 at home and in the ER, cough, congestion, shortness of breath with positive for influenza A in the emergency room, was admitted with COPD exacerbation with influenza A, comorbidity shortness of breath at rest or with any exertion. HOME MEDICATIONS: She takes: 1. Spiriva. 2. Symbicort. 3. Ventolin HFA. 4. Multivitamin. 5. [place] 10. 6. Lasix 40 daily. 7. Pulmicort 0.5 mg b.i.d. 8. DuoNeb q.i.d. ALLERGIES: Allergies are PENICILLIN and TORADOL. REVIEW OF SYSTEM: Fourteen-point review of systems negative except for as mentioned in HPI. PAST MEDICAL HISTORY: COPD, GERD, pneumonia, seizure disorder, syncope, gastric ulcer, irritable bowel syndrome, incontinence to urine and stool, migraines, seizures, Ativan withdrawal. SURGICAL HISTORY: Adenoidectomy, appendectomy, cholecystectomy, hysterectomy, tonsillectomy, pilonidal cyst removed, EGD, colonoscopy. Anxiety and depression. SOCIAL HISTORY: Current everyday smoker. No alcohol. No illicit drugs. FAMILY HISTORY: Mother with breast, ovarian cancer. Father musculoskeletal disorder, neurologic disorder with Kamla Gehrig's disease. PHYSICAL EXAM: An elderly white appearing female. BMI is over 40. HEENT: Normocephalic, atraumatic. OPHTHALMOLOGIC: Pupils equal, round, react to light and accommodation. ENT: External ear canals within normal limits. NECK: Supple. No lymphadenopathy. RESPIRATORY: Scattered rhonchi and wheeze. HEMATOLOGY: Negative Homans. CARDIOVASCULAR: S1, S2, murmurs, rubs or gallops. GI: Soft, nontender. Distended due to obesity. EXTREMITIES: Full range of motion. BACK: Normal inspection. NEUROLOGIC: Alert and oriented x3. PSYCH: Fair mood and affect. SKIN: Warm, dry, intact. T-max 101.5 in the ER, pulse 101, respiratory 18 to 25, blood pressure 120s to 130s over 60s to 80s, O2 of 94 on 2 L. EKG sinus tachycardia. Influenza is positive for type A. ASSESSMENT: 1. Acute exacerbation chronic obstructive pulmonary disease. Exacerbation complicated with pneumonia and influenza A. 2. Systemic inflammatory response syndrome. 3. Generally medical debility. Tamiflu will be started, IV steroids was started, IV azithromycin started. Pulmonary consultation. STEFANIE / VANESSA: [id number] /
[2017-04-27 07:07] LABS: Glucose,Whole Blood 184 mg/dL (75-99)
[2017-04-27] MEDS: INSULIN ASPART 100 UNIT/ML 1 ML 10 ML VIAL SQ SCH ×4 (07:33→20:31)
[2017-04-27] MEDS: ENOXAPARIN 40 MG/0.4 ML SYRINGE SQ SCH (07:34)
[2017-04-27] MEDS: FUROSEMIDE 40 MG TAB PO SCH (07:34)
[2017-04-27] MEDS: FLUoxetine HCL 20 MG CAP PO SCH (07:34)
[2017-04-27] MEDS: GABAPENTIN 100 MG CAP PO SCH (07:34)
[2017-04-27] MEDS: OSELTAMIVIR 75 MG CAP PO SCH ×2 (07:35→20:32)
[2017-04-27] MEDS: IPRATROPIUM 0.5 MG/2.5 ML NEBU INHALATION SCH ×6 (08:35→20:42)
[2017-04-27] MEDS: BUDESONIDE 0.5 MG/2 ML NEBU INHALATION SCH ×2 (08:35→20:42)
[2017-04-27] MEDS ORDERED: AZITHROMYCIN 500 MG in SODIUM CHLORIDE 0.9% 250 ML IVPB SCH (09:00)
[2017-04-27 11:07] LABS: Glucose,Whole Blood 190 mg/dL (75-99)
[2017-04-27] MEDS: MULTIVITAMINS, THERA 1 EACH TAB PO SCH (11:29)
--- NOTE | 2017-04-27 13:54 | CDI ---
Last Revision, March 2017 Documentation Clarification Form Date: 04/27/2017 1:45:00 PM From: Courtney MartinezSONU, CCDS Admit Date: 04/26/2017 6:41:00 PM Patient Name: Chayo Freitas Visit Number: [id number] Discharge Date: ATTENTION: The Clinical Documentation Specialists (CDI) and [facility] Coding Staff appreciate your assistance in clarifying documentation. Please respond to the clarification below the line at the bottom and electronically sign. The CDI & [facility] Coding staff will review the response and follow-up if needed. Please note: Queries are made part of the Legal Health Record. If you have any questions, please contact the author of this message via ITS. Dr. Kasi Yoder: Patient readmitted Influenza A, Pneumonia & COPD exacerbation. Recent discharge , admitted for pneumonia. History/Risk Factors: COPD, GERD, Pneumonia, Seizure disorder, Gastric ulcer, IBS, Incontinent urine & stool and Migraines. Clinical Indicators: WBC: (7.0), Influenza A/B: Detected A Vitals signs on admission: T 100.5 - 101.5, P 98-101, PO 94 ra Treatment: IV Tylenol, INH, IV Toradol, IV fluid, IV dilaudid, IV Solumedrol. Consulted pulmonary. In your professional opinion, please clarify if these findings signify one of the following conditions, whether the condition is POA, and cause, if known: Sepsis ruled out SIRS, without underlying infectious process Sepsis Severe Sepsis Septic Shock Other, please specify Unable to determine Present on Admission: Yes or No Identify the (suspected) organism Link or clarify if there is associated (due to/with): Organ failure Shock Please continue to document in your progress notes and discharge summary in order to capture severity of illness and risk of mortality. Include clinical findings that support your diagnosis. MTDD
--- NOTE | 2017-04-27 13:59 | P.CNPUL ---
History of Present Illness Consult date: 04/27/17 Reason for consult: dyspnea, cough, pneumonia Chief complaint: Shortness of breath cough History of present illness: Ms. Raul Freitas is a 66-year-old female who was seen eval examined on fifth floor patient is currently on respiratory isolation for flu this patient has been having cough congestion shortness of breath has been treated with the heart spectrum antibiotics for pneumonia without any significant relief due to persistent cystitis and symptoms she came into the emergency department where she was seen and evaluated examined she was found to be flu positive has been admitted into the hospital she is being rehydrated has been placed on broad- spectrum antibiotics as well as Tamiflu. On this requestioning she does complaining of shortness of breath dyspnea on exertion which has been progressive in the last 10 days in addition to that she has cough is mostly dry and nonproductive she is been having spiking fever and chills with a lot of sweating however denies any hemoptysis. She feels weak and dehydrated as well she has diffuse myalgia also for the last several days Review of Systems All systems: negative Constitutional: Reports as per HPI Eyes: denies as per HPI Ears: deny: decreased hearing Ears, nose, mouth and throat: Reports as per HPI Cardiovascular: Reports as per HPI Respiratory: Reports congestion, Reports cough, Reports dyspnea, Reports respiratory infections, Reports wheezing Gastrointestinal: Reports as per HPI Genitourinary: Reports as per HPI Musculoskeletal: Reports as per HPI Integumentary: Reports as per HPI Neurological: Reports as per HPI Psychiatric: Reports as per HPI Endocrine: Reports as per HPI Hematologic/Lymphatic: Reports as per HPI Allergic/Immunologic: Reports as per HPI Past Medical History Past Medical History: COPD, GERD/Reflux, Pneumonia, Seizure Disorder, Syncope Additional Past Medical History / Comment(s): pne/sepsis,Migraines, last seizure 5 years ago thought d/t ativan withdrawal, gastric ulcer, IBS, incontinent of urine/stool. History of Any Multi-Drug Resistant Organisms: VRE Date of last positivie culture/infection: 02/27/17 MDRO Source:: URINE(enterococus faecium) Past Surgical History: Adenoidectomy, Appendectomy, Cholecystectomy, Hysterectomy, Tonsillectomy Additional Past Surgical History / Comment(s): Pilonidal cyst removal, EGD/ colonoscopy. Past Anesthesia/Blood Transfusion Reactions: Previous Problems w/ Anesthesia Additional Past Anesthesia/Blood Transfusion Reaction / Comment(s): Problem with past anesthesia with her muscles-last surgery anesthesia went good. Smoking Status: Former smoker - Past Family History Mother Family Medical History: Cancer Additional Family Medical History / Comment(s): Mother of breast/ovarian cancer at the age of 71yrs. Father Family Medical History: Musculoskeletal Disorder, Neurologic Disorder Additional Family Medical History / Comment(s): Father of Kamla Gehrig's disease at the age of 53 yrs. Medications and Allergies Home Medications Medication Instructions Recorded Confirmed Type Multivitamins, Thera [Multivitamin 1 tab PO DAILY 01/19/17 04/26/17 History (formulary)] FLUoxetine HCL [PROzac] 40 mg PO DAILY #20 capsule 02/20/17 04/26/17 Rx Gabapentin [Neurontin] 100 mg PO DAILY #30 cap 02/20/17 04/26/17 Rx clonazePAM [KlonoPIN] 0.5 mg PO TID PRN #20 tablet 02/20/17 04/26/17 Rx Albuterol Inhaler [Ventolin Hfa 1 - 2 puff INHALATION RT-Q6H PRN 02/27/17 History Inhaler] Budesonide-Formot 160-4.5 Mcg 2 puff INHALATION RT-BID 02/27/17 04/26/17 History [Symbicort 160-4.5 Mcg Inhaler] Tiotropium [place] [Spiriva] 1 cap INHALATION RT-DAILY 02/27/17 04/26/17 History HYDROcodone/APAP 10-325MG [[place] 1 tab PO BID PRN 03/18/17 04/26/17 History 10-325] Furosemide [Lasix] 40 mg PO DAILY 03/24/17 04/26/17 History Budesonide [Pulmicort] 0.5 mg INHALATION RT-BID 04/13/17 04/26/17 History Ipratropium-Albuterol Nebulize 3 ml INHALATION RT-QID 04/13/17 04/26/17 History [Duoneb 0.5 mg-3 mg/3 ml Soln] Azithromycin 250 mg PO DAILY #4 tab 04/14/17 04/26/17 Rx Allergies Allergy/AdvReac Type Severity Reaction Status Date / Time Penicillins Allergy Rash/Hives Verified 04/26/17 18:44 ketorolac [From Toradol] AdvReac Rapid Verified 04/26/17 18:44 Heart Rate Physical Exam Vitals: Vital Signs Temp Pulse Pulse Resp BP BP Pulse Ox 04/27/17 08:53 100 04/27/17 08:35 104 H 04/27/17 07:00 98.5 F 102 H 18 140/78 92 L 04/26/17 21:28 98.8 F 100 18 128/79 92 L 04/26/17 20:25 98.5 F 103 H 18 132/79 92 L 04/26/17 18:31 104 H 22 138/80 96 04/26/17 18:09 99 04/26/17 17:59 99 18 04/26/17 17:49 101.5 F H 101 H 20 136/82 95 04/26/17 16:00 100.5 F H 98 20 121/66 94 L Intake and Output 04/26/17 04/27/17 04/27/17 22:59 06:59 14:59 Intake Total 300 2000 Balance 300 1999 Intake: Amount of Fluid Infused ( 300 ml) Intake, IV Titration 800 Amount Sodium Chloride 0.9% 1, 800 000 ml @ 100 mls/hr IV . Q10H STA Rx#:[id number] Oral 1200 Other: # Voids 1 2 Weight 68.039 kg - Constitutional General appearance: average body habitus, cooperative, mild distress - EENT Eyes: EOMI, PERRLA, normal appearance ENT: pharyngeal erythema Ears: bilateral: normal - Neck Neck: normal ROM Carotids: bilateral: upstroke normal, bruit absent Thyroid: bilateral: normal size - Respiratory Respiratory: bilateral: wheezing, prolonged expiration, negative: CTA, diminished, dullness, rales, rhonchi, prolonged inspiration - Cardiovascular Heart sounds: normal: S1, S2 - Integumentary Integumentary: normal, normal turgor - Neurologic Neurologic: CNII-XII intact - Musculoskeletal Musculoskeletal: gait normal, generalized weakness, strength equal bilaterally - Psychiatric Psychiatric: A&O x's 3, appropriate affect, intact judgment & insight Results - Laboratory Findings CBC and BMP: 04/26/17 17:50 04/26/17 17:50 PT/INR, D-dimer PT 11.5 sec (9.0-12.0) 04/26/17 17:50 INR 1.2 (<1.2) H 04/26/17 17:50 Abnormal lab findings: Abnormal Labs 04/26/17 04/26/17 04/26/17 17:50 17:50 17:50 RDW 16.8 H INR Chloride 95 L Glucose 129 H POC Glucose (mg/dL) Magnesium 1.3 L AST 41 H Influenza Type A RNA Detected H 04/26/17 04/26/17 04/27/17 17:50 22:10 07:01 RDW INR 1.2 H Chloride Glucose POC Glucose (mg/dL) 169 H 184 H Magnesium AST Influenza Type A RNA 04/27/17 11:05 RDW INR Chloride Glucose POC Glucose (mg/dL) 190 H Magnesium AST Influenza Type A RNA - Diagnostic Findings Chest x-ray: report reviewed (Mild bilateral interstitial pneumonia or raticular infiltrate cannot be excluded), image reviewed Assessment and Plan Assessment: Influenza A pneumonia Sirs Acute COPD exacerbation Acute influenza A infection Failed outpatient therapy for COPD exacerbation Plan: Continue antibiotics, Tamiflu, breathing treatment and steroids keep patient in isolation continue supportive care and DVT prophylaxis with early ambulation, peptic ulcer disease prophylaxis will follow closely further recommendations pending Time with Patient: Greater than 30
[2017-04-27 16:56] LABS: Glucose,Whole Blood 203 mg/dL (75-99)
[2017-04-27 20:06] LABS: Glucose,Whole Blood 179 mg/dL (75-99)
[2017-04-27] MEDS: guaiFENesin SYRUP 100MG/5ML 200 MG/10 ML CUP PO PRN (20:32)
--- NOTE | 2017-04-27 22:48 | PN ---
PROGRESS NOTE SUBJECTIVE: A 66-year-old white female with Haemophilus A flu, COPD exacerbation, tracheobronchitis on IV steroids, IV antibiotics, Tamiflu, awaiting pulmonary consultation. Vital signs are reviewed. CARDIOVASCULAR: S1, S2. LUNGS: Scattered rhonchi and wheeze. HEMATOLOGY: Negative Homans'. PSYCH: Fair mood and affect. ASSESSMENT: 1. Haemophilus A flu. 2. Chronic obstructive pulmonary disease exacerbation. 3. Tracheobronchitis. 4. Acute hypoxemic respiratory failure. Continue on Tamiflu, IV steroids, IV antibiotics. Await pulmonary consultation. MMODL / IJN: [id number] /
[2017-04-28] MEDS: HYDROmorphone 2 MG/ML 1 ML SYRINGE IVP PRN ×4 (00:06→19:14)
[2017-04-28] MEDS: methylPREDNISolone SOD SUCCI 125 MG/2 ML VIAL IV SCH ×2 (00:26→05:23)
[2017-04-28] MEDS: clonazePAM 0.5 MG TAB PO PRN ×3 (00:26→22:15)
[2017-04-28] MEDS: HYDROcodone/APAP 10-325MG 1 EACH TAB PO PRN ×2 (03:00→15:56)
[2017-04-28] MEDS: guaiFENesin SYRUP 100MG/5ML 200 MG/10 ML CUP PO PRN (05:23)
[2017-04-28] MEDS: BUDESONIDE 0.5 MG/2 ML NEBU INHALATION SCH ×2 (07:19→20:43)
[2017-04-28 07:22] LABS: Glucose,Whole Blood 216 mg/dL (75-99)
[2017-04-28] MEDS: IPRATROPIUM 0.5 MG/2.5 ML NEBU INHALATION SCH ×4 (07:45→20:43)
[2017-04-28] MEDS: INSULIN ASPART 100 UNIT/ML 1 ML 10 ML VIAL SQ SCH ×4 (07:49→21:14)
[2017-04-28] MEDS: AZITHROMYCIN 500 MG TAB PO SCH (07:49)
[2017-04-28] MEDS: ENOXAPARIN 40 MG/0.4 ML SYRINGE SQ SCH (07:50)
[2017-04-28] MEDS: FLUoxetine HCL 20 MG CAP PO SCH (07:50)
[2017-04-28] MEDS: OSELTAMIVIR 75 MG CAP PO SCH ×2 (07:50→21:20)
[2017-04-28] MEDS: FUROSEMIDE 40 MG TAB PO SCH (07:50)
[2017-04-28] MEDS: GABAPENTIN 100 MG CAP PO SCH (07:50)
--- NOTE | 2017-04-28 09:38 | P.PN ---
Subjective Progress Note Date: 04/28/17 Principal diagnosis: Influenza A pneumonia, acute COPD exacerbation, tracheobronchitis, acute hypoxic respirator failure, history of recurrent pneumonia 04/28/2017, patient seen eval examined during the rounds she is breathing comfortably more awake and alert still left cough and shortness breath still feel congested current therapy seems to be helping her she is able to ambulate to the washroom now, her blood culture results and reports are reviewed no positive cultures so far, sugars are mildly elevated likely related to steroids will start tapering it down Objective - Vital Signs Vital signs: Vital Signs Temp 97.3 F L 04/28/17 07:00 Pulse 94 04/28/17 07:29 Resp 18 04/28/17 07:19 BP 151/85 04/28/17 07:00 Pulse Ox 92 L 04/28/17 07:19 Intake & Output 04/27/17 04/28/17 04/28/17 18:59 06:59 18:59 Intake Total 1180 Balance 1180 Intake: Oral 1180 Other: # Voids 2 2 - Exam - Constitutional General appearance: average body habitus, cooperative, mild distress - EENT Eyes: EOMI, PERRLA, normal appearance ENT: pharyngeal erythema Ears: bilateral: normal - Neck Neck: normal ROM Carotids: bilateral: upstroke normal, bruit absent Thyroid: bilateral: normal size - Respiratory Respiratory: bilateral: wheezing, prolonged expiration, negative: CTA, diminished, dullness, rales, rhonchi, prolonged inspiration - Cardiovascular Heart sounds: normal: S1, S2 - Integumentary Integumentary: normal, normal turgor - Neurologic Neurologic: CNII-XII intact - Musculoskeletal Musculoskeletal: gait normal, generalized weakness, strength equal bilaterally - Psychiatric Psychiatric: A&O x's 3, appropriate affect, intact judgment & insight - Labs CBC & Chem 7: 04/26/17 17:50 04/26/17 17:50 Labs: Abnormal Lab Results - Last 24 Hours (Table) 04/27/17 04/27/17 04/27/17 Range/Units 11:05 16:47 20:05 POC Glucose (mg/dL) 190 H 203 H 179 H (75-99) mg/dL 04/28/17 Range/Units 07:13 POC Glucose (mg/dL) 216 H (75-99) mg/dL Microbiology - Last 24 Hours (Table) 04/26/17 17:50 Blood Culture - Preliminary Blood No Growth after 24 hours Assessment and Plan Assessment: Hyperglycemia likely related to high-dose steroid Influenza A pneumonia Sirs Acute COPD exacerbation Acute influenza A infection Failed outpatient therapy for COPD exacerbation Plan: Continue antibiotics, will start tapering down the steroids Tamiflu, breathing treatment and steroids keep patient in isolation continue supportive care and DVT prophylaxis with early ambulation, peptic ulcer disease prophylaxis will follow closely further recommendations pending Time with Patient: Greater than 30
[2017-04-28 12:16] LABS: Glucose,Whole Blood 237 mg/dL (75-99)
[2017-04-28] MEDS: MULTIVITAMINS, THERA 1 EACH TAB PO SCH (12:16)
[2017-04-28 17:31] LABS: Glucose,Whole Blood 120 mg/dL (75-99)
[2017-04-28 20:34] LABS: Glucose,Whole Blood 116 mg/dL (75-99)
[2017-04-28] MEDS: methylPREDNISolone SOD SUCCI 40 MG/ML 1 ML VIAL IV SCH (21:20)
--- NOTE | 2017-04-28 22:55 | PN ---
PROGRESS NOTE SUBJECTIVE: This is a 66-year-old white female with fluid, fever and COPD exacerbation, improving Tamiflu, IV steroids, IV antibiotics. CARDIOVASCULAR: S1, S2. LUNGS: Transmitted upper airway sounds. Scattered wheeze. HEMATOLOGY: Negative Homans'. PSYCH: Fair mood and affect. ASSESSMENT: 1. Influenza. 2. Pneumonia. 3. Acute hypoxemic respiratory failure secondary to influenza, pneumonia, chronic obstructive pulmonary disease exacerbation. Continue with IV steroids, antibiotics, updraft treatments. Possible discharge home in the next 24-48 hours. MMODL / IJN: [id number] /
[2017-04-29] MEDS: HYDROmorphone 2 MG/ML 1 ML SYRINGE IVP PRN (01:12)
[2017-04-29] MEDS: HYDROcodone/APAP 10-325MG 1 EACH TAB PO PRN (04:11)
[2017-04-29 07:01] LABS: Glucose,Whole Blood 158 mg/dL (75-99)
[2017-04-29] MEDS ORDERED: HYDROmorphone 4 MG/ML 1 ML SYRINGE IVP PRN (07:34)
[2017-04-29] MEDS: FLUoxetine HCL 20 MG CAP PO SCH (08:02)
[2017-04-29] MEDS: ENOXAPARIN 40 MG/0.4 ML SYRINGE SQ SCH (08:02)
[2017-04-29] MEDS: GABAPENTIN 100 MG CAP PO SCH (08:02)
[2017-04-29] MEDS: OSELTAMIVIR 75 MG CAP PO SCH (08:02)
[2017-04-29] MEDS: INSULIN ASPART 100 UNIT/ML 1 ML 10 ML VIAL SQ SCH ×2 (08:02→12:48)
[2017-04-29] MEDS: AZITHROMYCIN 500 MG TAB PO SCH (08:03)
[2017-04-29] MEDS: methylPREDNISolone SOD SUCCI 40 MG/ML 1 ML VIAL IV SCH (08:03)
[2017-04-29] MEDS: FUROSEMIDE 40 MG TAB PO SCH (08:03)
[2017-04-29 08:13] VITALS: BP 133/86; PULSE 68; RESP 20; TEMP 97.9
[2017-04-29] MEDS: BUDESONIDE 0.5 MG/2 ML NEBU INHALATION SCH (08:42)
[2017-04-29] MEDS: IPRATROPIUM 0.5 MG/2.5 ML NEBU INHALATION SCH ×2 (08:42→12:03)
--- NOTE | 2017-04-29 10:58 | CDI ---
Last Revision, March 2017 Documentation Clarification Form Date: 04/27/2017 1:45:00 PM Resubmitted 04/29/2017 From: Courtney Martinez CCS, CCDS Admit Date: 04/26/2017 6:41:00 PM Patient Name: Chayo Freitas Visit Number: [id number] Discharge Date: ATTENTION: The Clinical Documentation Specialists (CDI) and [facility] Coding Staff appreciate your assistance in clarifying documentation. Please respond to the clarification below the line at the bottom and electronically sign. The CDI & [facility] Coding staff will review the response and follow-up if needed. Please note: Queries are made part of the Legal Health Record. If you have any questions, please contact the author of this message via ITS. Dr. Kasi Yoder: Patient readmitted Influenza A, Pneumonia & COPD exacerbation. Recent discharge , admitted for pneumonia. History/Risk Factors: COPD, GERD, Pneumonia, Seizure disorder, Gastric ulcer, IBS, Incontinent urine & stool and Migraines. Clinical Indicators: WBC: (7.0). Influenza A/B: Detected A Vitals signs on admission: T 100.5 - 101.5, P 98-101, PO 94 ra Treatment: IV Tylenol, INH, IV Toradol, IV fluid, IV dilaudid, IV Solumedrol. Consulted pulmonary. In your professional opinion, please clarify if these findings signify one of the following conditions, whether the condition is POA, and cause, if known: Sepsis ruled out SIRS, without underlying infectious process Sepsis Severe Sepsis Septic Shock Other, please specify Unable to determine Present on Admission: Yes or No Identify the (suspected) organism Link or clarify if there is associated (due to/with): Organ failure Shock Please continue to document in your progress notes and discharge summary in order to capture severity of illness and risk of mortality. Include clinical findings that support your diagnosis. MTDD
[2017-04-29 11:31] LABS: Glucose,Whole Blood 200 mg/dL (75-99)
[2017-04-29] MEDS: MULTIVITAMINS, THERA 1 EACH TAB PO SCH (12:47)
--- NOTE | 2017-04-29 14:53 | P.PN ---
Subjective Progress Note Date: 04/29/17 Principal diagnosis: Influenza A pneumonia, acute COPD exacerbation, tracheobronchitis, acute hypoxic respirator failure, history of recurrent pneumonia 2017 patient seen and evaluated examined during the rounds respiratory status is better still have cough no obvious sputum production is present patient is tolerating antiviral fairly well along with breathing treatments antibiotics and steroid she is likely to be discharged later on today I have advised to follow up on outpatient basis 04/28/2017, patient seen eval examined during the rounds she is breathing comfortably more awake and alert still left cough and shortness breath still feel congested current therapy seems to be helping her she is able to ambulate to the washroom now, her blood culture results and reports are reviewed no positive cultures so far, sugars are mildly elevated likely related to steroids will start tapering it down Objective - Vital Signs Vital signs: Vital Signs Temp 97.9 F 04/29/17 07:00 Pulse 68 04/29/17 07:00 Resp 20 04/29/17 07:00 BP 133/86 04/29/17 07:00 Pulse Ox 93 L 04/29/17 07:00 Intake & Output 04/28/17 04/29/17 04/29/17 18:59 06:59 18:59 Intake Total 580 590 Balance 580 590 Intake: Oral 580 590 Other: # Voids 2 2 3 - Exam - Constitutional General appearance: average body habitus, cooperative, mild distress - EENT Eyes: EOMI, PERRLA, normal appearance ENT: pharyngeal erythema Ears: bilateral: normal - Neck Neck: normal ROM Carotids: bilateral: upstroke normal, bruit absent Thyroid: bilateral: normal size - Respiratory Respiratory: bilateral: wheezing, prolonged expiration, negative: CTA, diminished, dullness, rales, rhonchi, prolonged inspiration - Cardiovascular Heart sounds: normal: S1, S2 - Integumentary Integumentary: normal, normal turgor - Neurologic Neurologic: CNII-XII intact - Musculoskeletal Musculoskeletal: gait normal, generalized weakness, strength equal bilaterally - Psychiatric Psychiatric: A&O x's 3, appropriate affect, intact judgment & insight - Labs CBC & Chem 7: 04/26/17 17:50 04/26/17 17:50 Labs: Abnormal Lab Results - Last 24 Hours (Table) 04/28/17 04/28/17 04/29/17 Range/Units 17:26 20:33 06:57 POC Glucose (mg/dL) 120 H 116 H 158 H (75-99) mg/dL 04/29/17 Range/Units 11:29 POC Glucose (mg/dL) 200 H (75-99) mg/dL Microbiology - Last 24 Hours (Table) 04/26/17 17:50 Blood Culture - Preliminary Blood No Growth after 48 hours Assessment and Plan Assessment: Hyperglycemia likely related to high-dose steroid Influenza A pneumonia Sirs Acute COPD exacerbation Acute influenza A infection Failed outpatient therapy for COPD exacerbation Plan: Continue antibiotics, will start tapering down the steroids Tamiflu, breathing treatment and steroids keep patient in isolation continue supportive care and DVT prophylaxis with early ambulation, peptic ulcer disease prophylaxis will follow closely further recommendations pending Time with Patient: Greater than 30
--- NOTE | 2017-05-02 08:54 | CDI ---
Last Revision, March 2017 Documentation Clarification Form Date: 04/27/2017 1:45:00 PM Resubmitted 05/02/2017 From: Courtney Martinez CCS, CCDS Admit Date: 04/26/2017 6:41:00 PM Patient Name: Chayo Freitas Visit Number: [id number] Discharge Date: 04/29/2017 ATTENTION: The Clinical Documentation Specialists (CDI) and [facility] Coding Staff appreciate your assistance in clarifying documentation. Please respond to the clarification below the line at the bottom and electronically sign. The CDI & [facility] Coding staff will review the response and follow-up if needed. Please note: Queries are made part of the Legal Health Record. If you have any questions, please contact the author of this message via ITS. Dr. Kasi Yoder: Patient readmitted Influenza A, Pneumonia & COPD exacerbation. Recent discharge , admitted for pneumonia. History/Risk Factors: COPD, GERD, Pneumonia, Seizure disorder, Gastric ulcer, IBS, Incontinent urine & stool and Migraines. Clinical Indicators: WBC: (7.0). Influenza A/B: Detected A Vitals signs on admission: T 100.5 - 101.5, P 98-101, PO 94 ra Treatment: IV Tylenol, INH, IV Toradol, IV fluid, IV dilaudid, IV Solumedrol. Consulted pulmonary. In your professional opinion, please clarify if these findings signify one of the following conditions, whether the condition is POA, and cause, if known: Sepsis ruled out SIRS, without underlying infectious process Sepsis Severe Sepsis Septic Shock Other, please specify Unable to determine Present on Admission: Yes No Identify the (suspected) organism Link or clarify if there is associated (due to/with): Organ failure Shock Please continue to document in your progress notes and discharge summary in order to capture severity of illness and risk of mortality. Include clinical findings that support your diagnosis. MTDD
--- NOTE | 2017-05-10 11:53 | CDI ---
Last Revision, March 2017 Documentation Clarification Form Date: 04/27/2017 1:45:00 PM Resubmitted 05/10/2017 From: Courtney Martinez CCS, CCDS Admit Date: 04/26/2017 6:41:00 PM Patient Name: Chayo Freitas Visit Number: [id number] Discharge Date: 04/29/2017 ATTENTION: The Clinical Documentation Specialists (CDI) and [facility] Coding Staff appreciate your assistance in clarifying documentation. Please respond to the clarification below the line at the bottom and electronically sign. The CDI & [facility] Coding staff will review the response and follow-up if needed. Please note: Queries are made part of the Legal Health Record. If you have any questions, please contact the author of this message via ITS. Dr. Kasi Yoder: Patient readmitted Influenza A, Pneumonia & COPD exacerbation. Recent discharge , admitted for pneumonia. History/Risk Factors: COPD, GERD, Pneumonia, Seizure disorder, Gastric ulcer, IBS, Incontinent urine & stool and Migraines. Clinical Indicators: WBC: (7.0), Influenza A/B: Detected A Vitals signs on admission: T 100.5 - 101.5, P 98-101, PO 94 ra Treatment: IV Tylenol, INH, IV Toradol, IV fluid, IV dilaudid, IV Solumedrol. Consulted pulmonary. In your professional opinion, please clarify if these findings signify one of the following conditions, whether the condition is POA, and cause, if known: Sepsis ruled out SIRS, without underlying infectious process Sepsis Severe Sepsis Septic Shock Other, please specify Unable to determine Present on Admission: Yes or No Identify the (suspected) organism, if known Link or clarify if there is associated (due to/with): Organ failure or Shock Please continue to document in your progress notes and discharge summary in order to capture severity of illness and risk of mortality. Include clinical findings that support your diagnosis. MTDD
--- NOTE | 2017-07-03 07:15 | DS ---
DISCHARGE SUMMARY MEDICATIONS: Multivitamin daily, Klonopin 0.5 t.i.d., fluoxetine 20 mg daily, Neurontin 100 mg daily. Spiriva 1 puff daily. Budesonide 160/4.5, 2 puffs b.i.d. Ventolin HFA 2 puffs q.4 hours p.r.n. [place] 10/325 b.i.d., Lasix 40 mg daily, azithromycin 250 mg for 4 days. CONDITION: Stable. PROGNOSIS: Guarded. Ambulate as tolerated. HOSPITAL COURSE OF EVENTS: This is a white female, admitted with acute hypoxemic respiratory distress, COPD exacerbation, gastroesophageal reflux disease, influenza A pneumonia, systemic inflammatory response syndrome, acute influenza A infection. Condition stable, prognosis guarded. A white female admitted with influenza A pneumonia. The patient started on IV steroids, IV antibiotics, updraft treatments, DuoNeb. The patient was stabilized under medical management and seen by Rope Cutter. Patient was stable to respiratory distress. IV steroids were eliminated. Oral antibiotics were switched from IV to oral. Follow up in next 24 to 48 hours. MMODL / IJN: [id number] /
== END 2017-04-29 17:06 | disposition home or self-care (01) | DRG 193 ==
LOC: EC 15:33 → 4MS4W 18:41 → 5MS5E 20:25
PROVIDERS: ADMIT Family Medicine; ATTEND Family Medicine
DX: J10.01 Influenza due to other identified influenza virus with the same other identified influenza virus pneumonia (principal); J96.01 Acute respiratory failure with hypoxia; J44.1 Chronic obstructive pulmonary disease with (acute) exacerbation; N30.90 Cystitis, unspecified without hematuria; R15.9 Full incontinence of feces; E86.0 Dehydration; G43.909 Migraine, unspecified, not intractable, without status migrainosus; G40.909 Epilepsy, unspecified, not intractable, without status epilepticus; K58.9 Irritable bowel syndrome, unspecified; F32.9 Major depressive disorder, single episode, unspecified; F41.9 Anxiety disorder, unspecified; R32 Unspecified urinary incontinence; F17.200 Nicotine dependence, unspecified, uncomplicated; T38.0X5A Adverse effect of glucocorticoids and synthetic analogues, initial encounter; K21.9 Gastro-esophageal reflux disease without esophagitis; R73.9 Hyperglycemia, unspecified; Z79.51 Long term (current) use of inhaled steroids; Z79.899 Other long term (current) drug therapy; Z87.11 Personal history of peptic ulcer disease; Z90.710 Acquired absence of both cervix and uterus; Z86.19 Personal history of other infectious and parasitic diseases; Z78.9 Other specified health status; Z90.49 Acquired absence of other specified parts of digestive tract; Z88.0 Allergy status to penicillin; Z88.8 Allergy status to other drugs, medicaments and biological substances
CPT/HCPCS: 36415; 71046; 80053; 82550; 82553; 83735; 83880; 84484; 85025; 85610; 85730; 87040; 87502; 93005; 94640; 94760; 96361; 96365; 96366; 96375; 99285

== ENCOUNTER 2017-12-12 13:37 | Emergency (ER) | payer MEDICARE ==
[2017-12-12 13:46] VITALS: TEMP 98.1
[2017-12-12] MEDS ORDERED: SODIUM CHLORIDE 0.9% 1,000 ML IV STA (14:36)
--- NOTE | 2017-12-12 14:40 | ED ---
General Adult HPI - General Chief complaint: Anxiety Stated complaint: diarrhea, headache, rash Time Seen by Provider: 12/12/17 14:24 Source: patient, RN notes reviewed Mode of arrival: wheelchair Limitations: no limitations - History of Present Illness Initial comments: This is a 67-year-old female who presents to the emergency department with a multitude of complaints. Patient reports a rash for the past one week. She states that she has been applying ergy-noe-knjzheq hydrocortisone and taking Benadryl with minimal relief. Patient denies any new lotions, laundry detergents or soaps. Patient also reports a headache that started today. She states that she took a Alexander earlier this morning and this did not relieve the headache. Patient reports a history of headaches. Patient also reports diarrhea that started yesterday. She states that she has been unable to eat or drink anything. Denies any fevers or chills. Denies abdominal pain. Denies chest pain or shortness of breath. - Related Data Home Medications Medication Instructions Recorded Confirmed Butalb/APAP/Caff 50-325-40Mg 1 tab PO DAILY PRN 12/12/17 12/12/17 [Fioricet 50-325-40] Pregabalin [Lyrica] 100 mg PO BID 12/12/17 12/12/17 Zolpidem Tartrate [Ambien] 10 mg PO HS PRN 12/12/17 12/12/17 clonazePAM [KlonoPIN] 1 mg PO BID 12/12/17 12/12/17 Previous Rx's Medication Instructions Recorded FLUoxetine HCL [PROzac] 40 mg PO DAILY #20 capsule 02/20/17 Triamcinolone 0.1% Cream [Kenalog 1 applicatio TOPICAL TID #1 tube 12/12/17 0.1% Cream] Allergies Allergy/AdvReac Type Severity Reaction Status Date / Time Penicillins Allergy Rash/Hives Verified 12/12/17 14:16 ketorolac [From Toradol] AdvReac Rapid Verified 12/12/17 14:16 Heart Rate Review of Systems ROS Statement: Those systems with pertinent positive or pertinent negative responses have been documented in the HPI. ROS Other: All systems not noted in ROS Statement are negative. Past Medical History Past Medical History: COPD, GERD/Reflux, Pneumonia, Seizure Disorder, Syncope Additional Past Medical History / Comment(s): pne/sepsis,Migraines, last seizure 5 years ago thought d/t ativan withdrawal, gastric ulcer, IBS, incontinent of urine/stool. History of Any Multi-Drug Resistant Organisms: VRE Date of last positivie culture/infection: 02/27/17 MDRO Source:: URINE(enterococus faecium) Past Surgical History: Adenoidectomy, Appendectomy, Cholecystectomy, Hysterectomy, Tonsillectomy Additional Past Surgical History / Comment(s): Pilonidal cyst removal, EGD/ colonoscopy. Past Anesthesia/Blood Transfusion Reactions: Previous Problems w/ Anesthesia Additional Past Anesthesia/Blood Transfusion Reaction / Comment(s): Problem with past anesthesia with her muscles-last surgery anesthesia went good. Past Psychological History: Anxiety, Depression Smoking Status: Current every day smoker Past Alcohol Use History: None Reported Past Drug Use History: None Reported - Past Family History Mother Family Medical History: Cancer Additional Family Medical History / Comment(s): Mother of breast/ovarian cancer at the age of 71yrs. Father Family Medical History: Musculoskeletal Disorder, Neurologic Disorder Additional Family Medical History / Comment(s): Father of Kamla Gehrig's disease at the age of 53 yrs. General Exam - General Exam Comments Initial Comments: General: Awake and alert, well-developed; in no apparent distress. HEENT: Head atraumatic, normocephalic. Pupils are equal, round and reactive to light. Extraocular movements intact. Oropharynx moist without erythema or exudate. Neck: Supple. Normal ROM. Cardiovascular: Regular rate and rhythm. No murmurs, rubs or gallops. Chest symmetrical. Respiratory: Lungs clear to auscultation bilaterally. No wheezes, rales or rhonchi. Normal respiratory effort with no use of accessory muscles. Abdomen: Soft, non-tender, non-distended. No rigidity, rebound or guarding. Normal bowel sounds in all 4 quadrants. Musculoskeletal: Normal ROM, no tenderness bilateral upper and lower extremities. Ambulating normally. Skin: Erythematous maculopapular rash bilateral arms, legs and back. Overlying excoriations. Neurological: Alert and oriented x3. CN II-XII grossly intact. Speech is fluent and answers are appropriate. No focal neuro deficits. Limitations: no limitations Course Vital Signs 12/12/17 12/12/17 13:44 14:43 Temperature 98.1 F Pulse Rate 90 79 Respiratory 20 18 Rate Blood Pressure 116/78 126/70 O2 Sat by Pulse 98 95 Oximetry Medical Decision Making - Medical Decision Making This is a 67-year-old female who presents to the emergency department with multiple complaints. Patient states that she has a headache, rash diarrhea. Patient given a liter bolus in the emergency department. Patient was offered Tylenol for her headache, however she refuses. She requests to have morphine injection. Patient educated that opiates are not a treatment for headaches and that she will not be receiving opiates for this. Patient states that she has a "head splitting headache." However, she is sitting in a fully lit room listening to loud television. CBC, CMP were unremarkable. Urine did show occasional bacteria so is sent for a culture. Patient denies any urinary symptoms such as dysuria, hematuria or increased frequency. Patient also reports a rash that has been present for one week. She has been applying over- the-counter hydrocortisone cream. This rash does appear to be dermatitis. She will be sent home with a prescription for a topical steroid. Patient is in agreement with this. All questions answered. Patient's vital signs have been stable and she is in no acute distress. - Lab Data Result diagrams: 12/12/17 14:45 12/12/17 14:45 Lab Results 12/12/17 12/12/17 12/12/17 Range/Units 14:45 14:45 14:45 WBC 7.5 (3.8-10.6) k/uL RBC 4.54 (3.80-5.40) m/uL Hgb 13.4 (11.4-16.0) gm/dL Hct 40.9 (34.0-46.0) % MCV 90.2 (80.0-100.0) fL MCH 29.5 (25.0-35.0) pg MCHC 32.8 (31.0-37.0) g/dL RDW 14.0 (11.5-15.5) % Plt Count 229 (150-450) k/uL Neutrophils % 41 % Lymphocytes % 48 % Monocytes % 7 % Eosinophils % 3 % Basophils % 1 % Neutrophils # 3.1 (1.3-7.7) k/uL Lymphocytes # 3.6 (1.0-4.8) k/uL Monocytes # 0.5 (0-1.0) k/uL Eosinophils # 0.2 (0-0.7) k/uL Basophils # 0.1 (0-0.2) k/uL Sodium 140 (137-145) mmol/L Potassium 4.1 (3.5-5.1) mmol/L Chloride 104 (98-107) mmol/L Carbon Dioxide 26 (22-30) mmol/L Anion Gap 10 mmol/L BUN 24 H (7-17) mg/dL Creatinine 0.78 (0.52-1.04) mg/dL Est GFR (CKD-EPI)AfAm >90 (>60 ml/min/1.73 sqM) Est GFR (CKD-EPI)NonAf 79 (>60 ml/min/1.73 sqM) Glucose 78 (74-99) mg/dL Calcium 9.9 (8.4-10.2) mg/dL Total Bilirubin 0.5 (0.2-1.3) mg/dL AST 38 H (14-36) U/L ALT 31 (9-52) U/L Alkaline Phosphatase 62 (38-126) U/L Total Protein 8.6 H (6.3-8.2) g/dL Albumin 4.7 (3.5-5.0) g/dL Urine Color Yellow Urine Appearance Cloudy H (Clear) Urine pH 6.0 (5.0-8.0) Ur Specific [place] 1.023 (1.001-1.035) Urine Protein Trace H (Negative) Urine Glucose (UA) Negative (Negative) Urine Ketones Negative (Negative) Urine Blood Trace H (Negative) Urine Nitrite Negative (Negative) Urine Bilirubin Negative (Negative) Urine Urobilinogen 2.0 (<2.0) mg/dL Ur Leukocyte Esterase Negative (Negative) Urine RBC 3 (0-5) /hpf Urine WBC 2 (0-5) /hpf Ur Squamous Epith Cells 3 (0-4) /hpf Calcium Oxalate Crystal Occasional H (None) /hpf Urine Bacteria Occasional H (None) /hpf Hyaline Casts 42 H (0-2) /lpf Urine Mucus Few H (None) /hpf Disposition Clinical Impression: Dermatitis, Headache, Diarrhea Disposition: HOME SELF-CARE Condition: Good Instructions: Acute Diarrhea (ED), Acute Headache (ED), Dermatitis (ED) Additional Instructions: Please apply topical steroid 3 times per day for up to 2 weeks. Please follow up with primary care provider within 1-2 days. Return to emergency department if symptoms should worsen or any concerns arise. Prescriptions: Triamcinolone 0.1% Cream [Kenalog 0.1% Cream] 1 applicatio TOPICAL TID #1 tube Is patient prescribed a controlled substance at d/c from ED?: No Referrals: Kasi Yoder MD [Primary Care Provider] - 1-2 days Time of Disposition: 15:40
[2017-12-12 14:46] VITALS: RESP 18
[2017-12-12 15:09] LABS: Basophils # (A) 0.1 k/uL (0-0.2); Basophils % (A) 1 %; Eosinophils # (A) 0.2 k/uL (0-0.7); Eosinophils % (A) 3 %; HCT 40.9 % (34.0-46.0); HGB 13.4 gm/dL (11.4-16.0); Lymphocytes # (A) 3.6 k/uL (1.0-4.8); Lymphocytes % (A) 48 %; MCH 29.5 pg (25.0-35.0); MCHC 32.8 g/dL (31.0-37.0); MCV 90.2 fL (80.0-100.0); Mean Platelet Volume 6.7; Monocytes # (A) 0.5 k/uL (0-1.0); Monocytes % (A) 7 %; Neutrophils # (A) 3.1 k/uL (1.3-7.7); Neutrophils % (A) 41 %; Platelet Count 229 k/uL (150-450); RBC 4.54 m/uL (3.80-5.40); WBC 7.5 k/uL (3.8-10.6)
[2017-12-12 15:16] LABS: Appearance,Urine Cloudy (Clear); Bacteria,Urine Occasional /hpf; Bilirubin,Urine Negative (Negative); Blood,Urine Trace (Negative); Calcium Oxalate Crystals,Urine Occasional /hpf; Color,Urine Yellow; Glucose,Urine (UA) Negative (Negative); Hyaline Casts,Urine 42 /lpf (0-2); Ketones,Urine Negative (Negative); Leukocyte Esterase,Urine Negative (Negative); Mucus,Urine Few /hpf; Nitrite,Urine Negative (Negative); Protein,Urine Trace (Negative); RBC,Urine 3 /hpf (0-5); Specific Gravity,Urine 1.023 (1.001-1.035); Squamous Epithelial Cell,Urine 3 /hpf (0-4); WBC,Urine 2 /hpf (0-5)
[2017-12-12 15:18] LABS: ALT 31 U/L (9-52); AST 38 U/L (14-36); Albumin 4.7 g/dL (3.5-5.0); Alkaline Phosphatase 62 U/L (38-126); Anion Gap 10 mmol/L; Blood Urea Nitrogen 24 mg/dL (7-17); Calcium 9.9 mg/dL (8.4-10.2); Carbon Dioxide 26 mmol/L (22-30); Chloride 104 mmol/L (98-107); Glucose 78 mg/dL (74-99); Potassium 4.1 mmol/L (3.5-5.1); Sodium 140 mmol/L (137-145); Total Bilirubin 0.5 mg/dL (0.2-1.3); Total Protein 8.6 g/dL (6.3-8.2)
[2017-12-12] MEDS ORDERED: ACETAMINOPHEN TAB 325 MG TAB PO STA (15:21)
[2017-12-12 15:53] VITALS: BP 121/63; PULSE 69
== END 2017-12-12 16:18 | disposition home or self-care (01) ==
LOC: EC 13:37
DX: L30.9 Dermatitis, unspecified (principal); R51 Headache; R19.7 Diarrhea, unspecified; F17.200 Nicotine dependence, unspecified, uncomplicated; G40.909 Epilepsy, unspecified, not intractable, without status epilepticus; Z79.899 Other long term (current) drug therapy; Z88.0 Allergy status to penicillin; Z88.6 Allergy status to analgesic agent
CPT/HCPCS: 36415; 80053; 81001; 85025; 87086; 96360; 99283

== ENCOUNTER → 2020-10-23 | Outpatient (CLI) | payer MEDICARE ==
--- NOTE | 2020-10-24 14:35 | MM ---
Reason for exam: clinical finding. History: Patient is postmenopausal. Benign excisional biopsy of the left breast, 1985. Took hormonal contraceptives for 7 years. Physical Findings: Nurse Summary: 2-3cm nodule in the left breast at 4-5 o'clock (nurse db). [facility] Diagnostic Mammo w CAD GRZEGORZ Bilateral CC and MLO view(s) were taken. No prior studies available for comparison. The breast tissue is heterogeneously dense. This may lower the sensitivity of mammography. These results were verbally communicated with the patient and result sheet given to the patient on 10/23/20. ASSESSMENT: Incomplete: need additional imaging evaluation, BI-RAD 0 RECOMMENDATION: Ultrasound of the left breast. (palpable/area of concern)
--- NOTE | 2020-10-24 14:36 | USB ---
Reason for exam: additional evaluation requested from abnormal screening. History: Patient is postmenopausal. Benign excisional biopsy of the left breast, 1985. Took hormonal contraceptives for 7 years. US Breast Limited LT Left limited breast ultrasound including focal area of concern, retroareolar and axilla demonstrates no cystic or solid lesion seen. No sonographic findings. These results were verbally communicated with the patient and result sheet given to the patient on 10/23/20. ASSESSMENT: Benign, BI-RAD 2 RECOMMENDATION: Routine screening mammogram of both breasts in 1 year.
== END | disposition home or self-care (01) ==
LOC: RADMAMWWP 14:58
PROVIDERS: ATTEND General Practice
DX: N63.23 Unspecified lump in the left breast, lower outer quadrant (principal); Z78.0 Asymptomatic menopausal state; Z79.3 Long term (current) use of hormonal contraceptives
CPT/HCPCS: 77066

== ENCOUNTER 2021-09-16 21:35 | Observation (INO) | payer MEDICARE ==
[2021-09-16] MEDS ORDERED: ACETAMINOPHEN TAB 500 MG TAB PO STA (23:02)
[2021-09-16 23:38] LABS: Appearance,Urine Clear (Clear); Bilirubin,Urine Negative (Negative); Blood,Urine Negative (Negative); Color,Urine Light Yellow; Glucose,Urine (UA) Negative (Negative); Ketones,Urine Negative (Negative); Leukocyte Esterase,Urine Negative (Negative); Nitrite,Urine Negative (Negative); Protein,Urine Negative (Negative); Specific Gravity,Urine 1.005 (1.001-1.035); Urobilinogen,Urine <2.0 mg/dL (<2.0)
[2021-09-17] MEDS ORDERED: ONDANSETRON 4 MG/2 ML VIAL IVP STA (01:26)
[2021-09-17] MEDS ORDERED: MORPHINE SULFATE 4 MG/ML SYRINGE IV STA (01:26)
[2021-09-17] MEDS ORDERED: SODIUM CHLORIDE 0.9% 500 ML 500 ML IV ONE (01:26)
--- NOTE | 2021-09-17 01:29 | ED ---
General Adult HPI - General Chief complaint: Urogenital Stated complaint: Possible UTI Time Seen by Provider: 09/17/21 01:17 Source: patient, RN notes reviewed Mode of arrival: ambulatory - History of Present Illness Initial comments: This is a pleasant 71-year-old female with a history of diabetes mellitus, COPD, seizure disorder and previous pneumonia. Patient comes complaining of multiple symptoms to include chest pressure, pressure in the upper back, increased urinary frequency, some lightheadedness, patient states his white count about 2 days. She exercises states that the chest pressure is been constant. There are no alleviating or exacerbating factors. Patient has no history of cardiac disease. Patient is a cigarette smoker but states she hasn't smoked for the last week. Patient also has sleep apnea. No headache, no fever or chills, no changes in vision or hearing, no sore throat or difficulty with speech, no neck pain, no abdominal pain, no nausea or vomiting, no changes in bowel movements, no numbness or tingling, no extremity pain, no skin rashes or lesions. - Related Data Home Medications Medication Instructions Recorded Confirmed Butalb/APAP/Caff 50-325-40Mg 1 tab PO DAILY PRN 12/12/17 12/12/17 [Fioricet 50-325-40] Pregabalin [Lyrica] 100 mg PO BID 12/12/17 12/12/17 Zolpidem Tartrate [Ambien] 10 mg PO HS PRN 12/12/17 12/12/17 clonazePAM [KlonoPIN] 1 mg PO BID 12/12/17 12/12/17 Previous Rx's Medication Instructions Recorded FLUoxetine HCL [PROzac] 40 mg PO DAILY #20 capsule 02/20/17 Triamcinolone 0.1% Cream [Kenalog 1 applicatio TOPICAL TID #1 tube 12/12/17 0.1% Cream] Allergies Allergy/AdvReac Type Severity Reaction Status Date / Time Penicillins Allergy Rash/Hives Verified 09/16/21 23:01 ketorolac [From Toradol] AdvReac Rapid Verified 09/16/21 23:01 Heart Rate Review of Systems ROS Statement: Those systems with pertinent positive or pertinent negative responses have been documented in the HPI. ROS Other: All systems not noted in ROS Statement are negative. Past Medical History Past Medical History: COPD, Diabetes Mellitus, GERD/Reflux, Pneumonia, Seizure Disorder, Syncope Additional Past Medical History / Comment(s): pne/sepsis,Migraines, last seizure 5 years ago thought d/t ativan withdrawal, gastric ulcer, IBS, incontinent of urine/stool. History of Any Multi-Drug Resistant Organisms: VRE Date of last positivie culture/infection: 02/27/17 MDRO Source:: URINE(enterococus faecium) Past Surgical History: Adenoidectomy, Appendectomy, Cholecystectomy, Hysterectomy, Tonsillectomy Additional Past Surgical History / Comment(s): Pilonidal cyst removal, EGD/colonoscopy. Past Anesthesia/Blood Transfusion Reactions: Previous Problems w/ Anesthesia Additional Past Anesthesia/Blood Transfusion Reaction / Comment(s): Problem with past anesthesia with her muscles-last surgery anesthesia went good. Past Psychological History: Anxiety, Depression Smoking Status: Current every day smoker Past Alcohol Use History: None Reported Past Drug Use History: None Reported - Past Family History Mother Family Medical History: Cancer Additional Family Medical History / Comment(s): Mother of breast/ovarian cancer at the age of 71yrs. Father Family Medical History: Musculoskeletal Disorder, Neurologic Disorder Additional Family Medical History / Comment(s): Father of Kamla Gehrig's disease at the age of 53 yrs. General Exam - General Exam Comments Initial Comments: Patient really appears to be in no significant distress. Patient noted to be hypertensive. Cranial nerves II through XII grossly intact. Capillary refill less than 2 seconds. Adequate peripheral perfusion. Good skin color. General appearance: alert, in no apparent distress Head exam: Present: atraumatic, normocephalic, normal inspection Eye exam: Present: normal appearance, PERRL, EOMI. Absent: scleral icterus, conjunctival injection, periorbital swelling ENT exam: Present: normal exam, normal oropharynx, mucous membranes moist, normal external ear exam. Absent: mucous membranes dry Neck exam: Present: normal inspection, full ROM. Absent: tenderness, meningismus, lymphadenopathy Respiratory exam: Present: wheezes (Patient has very scant expiratory wheezing noted.). Absent: respiratory distress, rales, rhonchi, stridor, chest wall tenderness, accessory muscle use, decreased breath sounds, prolonged expiratory Cardiovascular Exam: Present: regular rate, normal rhythm, normal heart sounds. Absent: systolic murmur, diastolic murmur, rubs, gallop, clicks GI/Abdominal exam: Present: soft, normal bowel sounds. Absent: distended, tenderness, guarding, rebound, rigid Extremities exam: Present: normal inspection, full ROM, normal capillary refill. Absent: tenderness, pedal edema, joint swelling, calf tenderness Back exam: Present: normal inspection Neurological exam: Present: alert, oriented X3, CN II-XII intact Psychiatric exam: Present: normal affect, normal mood Skin exam: Present: warm, dry, intact, normal color. Absent: rash Course Vital Signs 09/16/21 09/17/21 09/17/21 22:55 01:45 02:18 Temperature 98.3 F Pulse Rate 96 83 80 Respiratory 17 18 18 Rate Blood Pressure 175/98 146/92 144/99 O2 Sat by Pulse 98 93 L 93 L Oximetry - Consultations Consultation #1: Discussed in detail with Dr. Bennett. Patient to his service. EKG Findings - EKG Comments: EKG Findings:: EKG done at 0126 read by the ED attending physician reveals normal sinus rhythm with a rate of 81, normal intervals, normal axis, normal QRS morphology. No acute ST or T-wave changes. Medical Decision Making - Medical Decision Making Patient presents with nonreproducible chest pressure in the upper chest and up per back. Given the patient's obscure symptomology M going to order a CT of the chest to evaluate the aorta. Certainly this could be related to her respiratory disease as the patient does have long-term cigarette smoking and has very scant expiratory wheezes. Abdomen is soft. There is no pulsatile mass. Patient has increased urinary frequency of undetermined etiology. We'll place cardiology consultation as the patient has had no recent cardiac testing. Serial enzymes. Patient admitted to Dr. Bennett The case was discussed in detail with ED attending physician. Presentation, findings, treatment plan discussed in detail. Qa Manager Dr. Ness - Lab Data Result diagrams: 09/17/21 01:35 09/17/21 01:35 Lab Results 09/16/21 09/17/21 09/17/21 Range/Units 23:00 01:35 01:35 WBC 8.5 (3.8-10.6) k/uL RBC 4.48 (3.80-5.40) m/uL Hgb 13.3 (11.4-16.0) gm/dL Hct 40.7 (34.0-46.0) % MCV 90.9 (80.0-100.0) fL MCH 29.7 (25.0-35.0) pg MCHC 32.6 (31.0-37.0) g/dL RDW 13.0 (11.5-15.5) % Plt Count 190 (150-450) k/uL MPV 7.4 Neutrophils % 54 % Lymphocytes % 37 % Monocytes % 5 % Eosinophils % 2 % Basophils % 1 % Neutrophils # 4.6 (1.3-7.7) k/uL Lymphocytes # 3.1 (1.0-4.8) k/uL Monocytes # 0.4 (0-1.0) k/uL Eosinophils # 0.2 (0-0.7) k/uL Basophils # 0.0 (0-0.2) k/uL PT (9.0-12.0) sec INR (<1.2) APTT (22.0-30.0) sec Sodium 137 (137-145) mmol/L Potassium 3.6 (3.5-5.1) mmol/L Chloride 99 (98-107) mmol/L Carbon Dioxide 29 (22-30) mmol/L Anion Gap 9 mmol/L BUN 10 (7-17) mg/dL Creatinine 0.51 L (0.52-1.04) mg/dL Est GFR (CKD-EPI)AfAm >90 (>60 ml/min/1.73 sqM) Est GFR (CKD-EPI)NonAf >90 (>60 ml/min/1.73 sqM) Glucose 119 H (74-99) mg/dL POC Glucose (mg/dL) (75-99) mg/dL POC Glu Car Varnisher ID Calcium 9.5 (8.4-10.2) mg/dL Magnesium 1.6 (1.6-2.3) mg/dL Total Bilirubin 1.0 (0.2-1.3) mg/dL AST 54 H (14-36) U/L ALT 23 (4-34) U/L Alkaline Phosphatase 60 (38-126) U/L Troponin I (0.000-0.034) ng/mL NT-Pro-B Natriuret Pep pg/mL Total Protein 8.1 (6.3-8.2) g/dL Albumin 4.4 (3.5-5.0) g/dL Lipase 71 (23-300) U/L Urine Color Light Yellow Urine Appearance Clear (Clear) Urine pH 7.0 (5.0-8.0) Ur Specific [place] 1.005 (1.001-1.035) Urine Protein Negative (Negative) Urine Glucose (UA) Negative (Negative) Urine Ketones Negative (Negative) Urine Blood Negative (Negative) Urine Nitrite Negative (Negative) Urine Bilirubin Negative (Negative) Urine Urobilinogen <2.0 (<2.0) mg/dL Ur Leukocyte Esterase Negative (Negative) 09/17/21 09/17/21 09/17/21 Range/Units 01:35 01:35 01:35 WBC (3.8-10.6) k/uL RBC (3.80-5.40) m/uL Hgb (11.4-16.0) gm/dL Hct (34.0-46.0) % MCV (80.0-100.0) fL MCH (25.0-35.0) pg MCHC (31.0-37.0) g/dL RDW (11.5-15.5) % Plt Count (150-450) k/uL MPV Neutrophils % % Lymphocytes % % Monocytes % % Eosinophils % % Basophils % % Neutrophils # (1.3-7.7) k/uL Lymphocytes # (1.0-4.8) k/uL Monocytes # (0-1.0) k/uL Eosinophils # (0-0.7) k/uL Basophils # (0-0.2) k/uL PT 11.1 (9.0-12.0) sec INR 1.0 (<1.2) APTT 26.2 (22.0-30.0) sec Sodium (137-145) mmol/L Potassium (3.5-5.1) mmol/L Chloride (98-107) mmol/L Carbon Dioxide (22-30) mmol/L Anion Gap mmol/L BUN (7-17) mg/dL Creatinine (0.52-1.04) mg/dL Est GFR (CKD-EPI)AfAm (>60 ml/min/1.73 sqM) Est GFR (CKD-EPI)NonAf (>60 ml/min/1.73 sqM) Glucose (74-99) mg/dL POC Glucose (mg/dL) (75-99) mg/dL POC Glu Car Varnisher ID Calcium (8.4-10.2) mg/dL Magnesium (1.6-2.3) mg/dL Total Bilirubin (0.2-1.3) mg/dL AST (14-36) U/L ALT (4-34) U/L Alkaline Phosphatase (38-126) U/L Troponin I <0.012 (0.000-0.034) ng/mL NT-Pro-B Natriuret Pep 161 pg/mL Total Protein (6.3-8.2) g/dL Albumin (3.5-5.0) g/dL Lipase (23-300) U/L Urine Color Urine Appearance (Clear) Urine pH (5.0-8.0) Ur Specific [place] (1.001-1.035) Urine Protein (Negative) Urine Glucose (UA) (Negative) Urine Ketones (Negative) Urine Blood (Negative) Urine Nitrite (Negative) Urine Bilirubin (Negative) Urine Urobilinogen (<2.0) mg/dL Ur Leukocyte Esterase (Negative) 09/17/21 Range/Units 01:42 WBC (3.8-10.6) k/uL RBC (3.80-5.40) m/uL Hgb (11.4-16.0) gm/dL Hct (34.0-46.0) % MCV (80.0-100.0) fL MCH (25.0-35.0) pg MCHC (31.0-37.0) g/dL RDW (11.5-15.5) % Plt Count (150-450) k/uL MPV Neutrophils % % Lymphocytes % % Monocytes % % Eosinophils % % Basophils % % Neutrophils # (1.3-7.7) k/uL Lymphocytes # (1.0-4.8) k/uL Monocytes # (0-1.0) k/uL Eosinophils # (0-0.7) k/uL Basophils # (0-0.2) k/uL PT (9.0-12.0) sec INR (<1.2) APTT (22.0-30.0) sec Sodium (137-145) mmol/L Potassium (3.5-5.1) mmol/L Chloride (98-107) mmol/L Carbon Dioxide (22-30) mmol/L Anion Gap mmol/L BUN (7-17) mg/dL Creatinine (0.52-1.04) mg/dL Est GFR (CKD-EPI)AfAm (>60 ml/min/1.73 sqM) Est GFR (CKD-EPI)NonAf (>60 ml/min/1.73 sqM) Glucose (74-99) mg/dL POC Glucose (mg/dL) 112 H (75-99) mg/dL POC Glu Car Varnisher ID Elaine Pearl Calcium (8.4-10.2) mg/dL Magnesium (1.6-2.3) mg/dL Total Bilirubin (0.2-1.3) mg/dL AST (14-36) U/L ALT (4-34) U/L Alkaline Phosphatase (38-126) U/L Troponin I (0.000-0.034) ng/mL NT-Pro-B Natriuret Pep pg/mL Total Protein (6.3-8.2) g/dL Albumin (3.5-5.0) g/dL Lipase (23-300) U/L Urine Color Urine Appearance (Clear) Urine pH (5.0-8.0) Ur Specific [place] (1.001-1.035) Urine Protein (Negative) Urine Glucose (UA) (Negative) Urine Ketones (Negative) Urine Blood (Negative) Urine Nitrite (Negative) Urine Bilirubin (Negative) Urine Urobilinogen (<2.0) mg/dL Ur Leukocyte Esterase (Negative) Disposition Clinical Impression: Atypical chest pain, Urinary frequency, Upper back pain Disposition: ADMITTED IP TO THIS [facility] Condition: Stable Is patient prescribed a controlled substance at d/c from ED?: No Referrals: Steve Fernandez MD [Primary Care Provider] - 1-2 days Time of Disposition: 03:19 Decision to Admit Reason: Admit from EC Decision Time: 03:19
[2021-09-17 01:43] LABS: Glucose,Whole Blood 112 mg/dL (75-99)
[2021-09-17 01:56] LABS: Basophils % (A) 1 %; Eosinophils # (A) 0.2 k/uL (0-0.7); Eosinophils % (A) 2 %; HCT 40.7 % (34.0-46.0); HGB 13.3 gm/dL (11.4-16.0); Lymphocytes # (A) 3.1 k/uL (1.0-4.8); Lymphocytes % (A) 37 %; MCH 29.7 pg (25.0-35.0); MCHC 32.6 g/dL (31.0-37.0); MCV 90.9 fL (80.0-100.0); Mean Platelet Volume 7.4; Monocytes # (A) 0.4 k/uL (0-1.0); Monocytes % (A) 5 %; Neutrophils # (A) 4.6 k/uL (1.3-7.7); Neutrophils % (A) 54 %; Platelet Count 190 k/uL (150-450); RBC 4.48 m/uL (3.80-5.40); WBC 8.5 k/uL (3.8-10.6)
[2021-09-17 02:08] LABS: Partial Thromboplastin Time 26.2 sec (22.0-30.0); Prothrombin Time 11.1 sec (9.0-12.0)
[2021-09-17 02:16] LABS: ALT 23 U/L (4-34); AST 54 U/L (14-36); African American GFR (CKD) >90 (>60 ml/min/1.73 sqM); Albumin 4.4 g/dL (3.5-5.0); Alkaline Phosphatase 60 U/L (38-126); Anion Gap 9 mmol/L; Blood Urea Nitrogen 10 mg/dL (7-17); Calcium 9.5 mg/dL (8.4-10.2); Carbon Dioxide 29 mmol/L (22-30); Chloride 99 mmol/L (98-107); Glucose 119 mg/dL (74-99); Lipase 71 U/L (23-300); Magnesium 1.6 mg/dL (1.6-2.3); Non-African American GFR(CKD) >90 (>60 ml/min/1.73 sqM); Potassium 3.6 mmol/L (3.5-5.1); Sodium 137 mmol/L (137-145); Total Protein 8.1 g/dL (6.3-8.2)
--- NOTE | 2021-09-17 02:17 | XR ---
EXAMINATION TYPE: XR chest 1V portable DATE OF EXAM: 09/17/2021 COMPARISON: 04/26/2017 HISTORY: Chest pain TECHNIQUE: FINDINGS: Heart is normal. Lungs are clear of infiltrate. Thoracic aorta is atheromatous. There is no pleural effusion. There are chest leads. Bony thorax is intact. IMPRESSION: No active cardiopulmonary disease. Normal heart. No change.
--- NOTE | 2021-09-17 03:04 | CT ---
EXAMINATION TYPE: CT angio thor/abd pel aorta DATE OF EXAM: 09/17/2021 COMPARISON: HISTORY: Chest/Abd pain CT DLP: 1557.7 mGycm Automated exposure control for dose reduction was used. CONTRAST: Performed with IV Contrast, patient injected with 100 mL of Isovue 370. Images obtained from the thoracic inlet to the floor of the pelvis without and with IV contrast there are Three-D postprocessed images. The lungs are clear of consolidation. No pleural effusion. No pericardial effusion. Heart size is nor mal. There are no hilar masses. There is no mediastinal adenopathy. Thoracic aorta is atheromatous. Liver spleen and stomach pancreas appear intact. The bile ducts in the liver are not dilated. There i s air refluxed into the biliary tree. There is cholecystectomy. There is no adrenal mass. Kidneys show satisfactory contrast opacification. There is some fullness of the right renal pelvis. No renal calculus seen. The ureters are not dilated. There is no retroperito estrella adenopathy. The bladder distends smoothly. There are multiple sigmoid diverticula. No diverticul itis. The cecum is in the pelvis. Appendix not seen. No sign of thickened appendix. No mesenteric vincent ma. No ascites or free air. No bowel obstruction. The thoracic aorta appears intact. There is no dissection. 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 There is no evidence of filling defect in the pulmonary arteries. Abdominal aorta is intact without evidence of aneurysm or dissection. There is arterial flow in the c eliac artery and superior mesenteric artery. There is common origin of the celiac artery and superior mesenteric artery. There is also separate origin on the the aorta of the left hepatic artery. There is arterial flow in the renal and iliac and femoral arteries. There are atheromatous changes in the a ganga plaque formation at the renal artery origins. There is probably 50% stenosis at the origin of th e right renal artery and 25% stenosis origin left renal artery. No evidence of any significant stenos is of the iliac and proximal femoral arteries. No evidence of arterial aneurysm or dissection. The thoracic and lumbar vertebra appear intact. No compression fracture. There is moderate narrowing of the L3-4 disc space with spurring and sclerosis. There is vacuum disc at L3-4. The bony pelvis is intact. Hip joints are intact. IMPRESSION: Atherosclerotic mild vascular disease. No evidence of arterial dissection. No evidence of pulmonary e mbolism. There is mild aneurysm of the ascending aorta. There is tortuous thoracic aorta.
[2021-09-17] MEDS ORDERED: ASPIRIN 81 MG PO STA (03:11)
[2021-09-17] MEDS ORDERED: ACETAMINOPHEN TAB 325 MG TAB PO PRN (03:14)
[2021-09-17] MEDS ORDERED: ONDANSETRON 4 MG/2 ML VIAL IVP PRN (03:14)
[2021-09-17] MEDS ORDERED: NALOXONE 0.4 MG/ML 1 ML VIAL IV PRN (03:14)
[2021-09-17] MEDS ORDERED: LORazepam 2 MG/ML INJ IV STA (03:21)
[2021-09-17 07:29] LABS: Glucose,Whole Blood 267 mg/dL (75-99)
[2021-09-17] MEDS: INSULIN ASPART (NovoLOG) 100 UNIT/ML VIAL SQ SCH ×3 (07:41→17:04)
[2021-09-17] MEDS: HEPARIN SODIUM,PORCINE/PF 5,000 UNIT/0.5 ML SYRINGE SQ SCH ×2 (07:42→17:03)
[2021-09-17] MEDS ORDERED: PANTOPRAZOLE 40 MG/10 ML VIAL IV SCH (09:00)
[2021-09-17] MEDS ORDERED: IBUPROFEN 600 MG TAB PO PRN (09:12)
[2021-09-17] MEDS ORDERED: ASPIRIN 81 MG PO SCH (09:15)
[2021-09-17] MEDS ORDERED: LOSARTAN 25 MG TAB PO SCH (09:15)
--- NOTE | 2021-09-17 10:36 | P.CRDCN ---
History of Present Illness Consult date: 09/17/21 History of present illness: HISTORY OF PRESENT ILLNESS: This is a 71-year-old female with a past medical history significant for diabetes, COPD, and former nicotine dependence. Patient does not follow with a hyster driver. We have been asked to see the patient in consultation for chest pain. Patient examined at the bedside. Patient states she initially presented to the hospital because she had increased urinary frequency and thought she might have a urinary tract infection. She also reported complaints of chest pain and back pain. She states her chest pain has been ongoing for the past 4-5 days. She states the pain is in the middle of her chest and also across her shoulder blades. She reports feeling nauseous but having no episodes of vomiting. She denies any diaphoresis. She reports her back hurts with palpation. She also reports some tenderness of her chest with palpation. She reports a frequent cough which she states makes her chest pain worse. She states that she took Tylenol history but it did not help with the pain. She denies any family history of coronary artery disease. * EKG reveals sinus mechanism with no signs of acute anemia. * Chest xray negative for acute process * CT angios thoracic abdomen and pelvis: Atherosclerotic mild vascular disease. No evidence of arterial dissection. No evidence of pulmonary embolism. There is mild aneurysm of the ascending aorta. There is tortuous thoracic aorta. * Laboratory data: WBC 8.5. Hemoglobin 13.3. Platelet count 190. Sodium 137. Potassium 3.6. BUN 10. Creatinine 0.51. Troponin negative 3. * Current home cardiac medications include none * Most recent echocardiogram obtained in 2017 revealing ejection fraction 55- 60%, mild MR, mild TR * Patient underwent dobutamine stress test in January 2017 which was negative for ischemia REVIEW OF SYSTEMS: At the time of my exam: CONSTITUTIONAL: Denies fever or chills. HEENT: Denies blurred vision, vision changes, or eye pain. Denies hemoptysis CARDIOVASCULAR: Denies chest pain. Denies orthopnea. Denies PND. Denies palpitations RESPIRATORY: Denies shortness of breath. GASTROINTESTINAL: Denies abdominal pain. Denies nausea or vomiting. HEMATOLOGIC: Denies bleeding disorders. GENITOURINARY: Denies any blood in urine. SKIN: Denies pruitis. Denies rash. PHYSICAL EXAM: VITAL SIGNS: Reviewed. GENERAL: Well-developed in no acute distress. HEENT: Head is normocephalic. Pupils are equal, round. Sclerae anicteric. Mucous membranes of the mouth are moist. Neck supple. No JVD or thyromegaly LUNGS: Respirations even and unlabored. Lungs essentially clear to auscultation bilaterally. HEART: Regular rate and rhythm. S1 and S2 heard. ABDOMEN: Soft. Nondistended. Nontender. EXTREMITIES: Normal range of motion. No clubbing or cyanosis. Peripheral pulses intact. No lower extremity edema NEUROLOGIC: Awake and alert. Oriented x 3. ASSESSMENT: Urinary frequency Chest pain, atypical and reproducible, troponin negative 3 Diabetes COPD Former nicotine dependence PLAN: An acute coronary event has been ruled out Obtain 2-D echo to assess cardiac structure and function Begin aspirin 81 mg daily, atorvastatin 40 mg at night, and losartan 12.5 mg daily Continue to monitor blood pressure Likely outpatient stress test Further recommendations pending patient's course Nurse practitioner note has been reviewed by physician. Signing provider agrees with the documented findings, assessment, and plan of care. Past Medical History Past Medical History: COPD, Diabetes Mellitus, GERD/Reflux, Pneumonia, Seizure Disorder, Syncope Additional Past Medical History / Comment(s): pne/sepsis,Migraines, last seizure 5 years ago thought d/t ativan withdrawal, gastric ulcer, IBS, incontinent of urine/stool. History of Any Multi-Drug Resistant Organisms: VRE Date of last positivie culture/infection: 02/27/17 MDRO Source:: URINE(enterococus faecium) Past Surgical History: Adenoidectomy, Appendectomy, Cholecystectomy, Hy sterectomy, Tonsillectomy Additional Past Surgical History / Comment(s): Pilonidal cyst removal, EGD/colonoscopy. Past Anesthesia/Blood Transfusion Reactions: Previous Problems w/ Anesthesia Additional Past Anesthesia/Blood Transfusion Reaction / Comment(s): Problem with past anesthesia with her muscles-last surgery anesthesia went good. Past Psychological History: Anxiety, Depression Smoking Status: Current every day smoker Past Alcohol Use History: None Reported Past Drug Use History: None Reported - Past Family History Mother Family Medical History: Cancer Additional Family Medical History / Comment(s): Mother of breast/ovarian cancer at the age of 71yrs. Father Family Medical History: Musculoskeletal Disorder, Neurologic Disorder Additional Family Medical History / Comment(s): Father of Kamla Gehrig's disease at the age of 53 yrs. Medications and Allergies Home Medications Medication Instructions Recorded Confirmed Type Insulin NPH Hum/Reg Insulin Hm 20 unit SQ BID 09/17/21 09/17/21 History [NovoLIN 70-30 100 UNIT/ML VIAL] Allergies Allergy/AdvReac Type Severity Reaction Status Date / Time Penicillins Allergy Rash/Hives Verified 09/16/21 23:01 ketorolac [From Toradol] AdvReac Rapid Verified 09/16/21 23:01 Heart Rate Physical Exam Vitals: Vital Signs Temp Pulse Resp BP Pulse Ox 09/17/21 10:00 81 20 145/84 95 09/17/21 06:49 98.1 F 84 18 151/92 93 L 09/17/21 05:01 97.9 F 84 18 129/84 93 L 09/17/21 02:18 80 18 144/99 93 L 09/17/21 01:45 83 18 146/92 93 L 09/16/21 22:55 98.3 F 96 17 175/98 98 Intake and Output 09/16/21 09/17/21 09/17/21 22:59 06:59 14:59 Other: Voiding Method Toilet Weight 88.451 kg Results 09/17/21 01:35 09/17/21 01:35 Cardiac Enzymes 09/17/21 09/17/21 09/17/21 Range/Units 01:35 01:35 05:23 AST 54 H (14-36) U/L Troponin I <0.012 <0.012 (0.000-0.034) ng/mL 09/17/21 Range/Units 08:50 AST (14-36) U/L Troponin I <0.012 (0.000-0.034) ng/mL Coagulation 09/17/21 Range/Units 01:35 PT 11.1 (9.0-12.0) sec APTT 26.2 (22.0-30.0) sec CBC 09/17/21 Range/Units 01:35 WBC 8.5 (3.8-10.6) k/uL RBC 4.48 (3.80-5.40) m/uL Hgb 13.3 (11.4-16.0) gm/dL Hct 40.7 (34.0-46.0) % Plt Count 190 (150-450) k/uL Comprehensive Metabolic Panel 09/17/21 Range/Units 01:35 Sodium 137 (137-145) mmol/L Potassium 3.6 (3.5-5.1) mmol/L Chloride 99 (98-107) mmol/L Carbon Dioxide 29 (22-30) mmol/L BUN 10 (7-17) mg/dL Creatinine 0.51 L (0.52-1.04) mg/dL Glucose 119 H (74-99) mg/dL Calcium 9.5 (8.4-10.2) mg/dL AST 54 H (14-36) U/L ALT 23 (4-34) U/L Alkaline Phosphatase 60 (38-126) U/L Total Protein 8.1 (6.3-8.2) g/dL Albumin 4.4 (3.5-5.0) g/dL Current Medications Generic Name Dose Route Start Last Admin Trade Name Freq PRN Reason Stop Dose Admin Acetaminophen 650 mg 09/17/21 03:14 Acetaminophen Tab 325 Mg Tab PO Q6HR PRN Mild Pain or Fever > 100.5 Aspirin 81 mg 09/17/21 09:15 09/17/21 10:02 Aspirin 81 Mg PO 81 mg DAILY NARCISO Administration Atorvastatin Calcium 40 mg 09/17/21 21:00 Atorvastatin 40 Mg Tab PO HS NARCISO Heparin Sodium (Porcine) 5,000 unit 09/17/21 08:00 09/17/21 07:42 Heparin Sodium,Porcine/Pf 5,000 Unit/0.5 Ml Syringe SQ 5,000 unit Q8HR NARCISO Administration Ibuprofen 600 mg 09/17/21 09:12 Ibuprofen 600 Mg Tab PO TID PRN Pain Insulin Aspart 0 unit 09/17/21 07:30 09/17/21 07:41 Insulin Aspart (Novolog) 100 Unit/Ml Vial SQ 3 unit ACHS NARCISO Administration Protocol Losartan Potassium 12.5 mg 09/17/21 09:15 09/17/21 10:03 Losartan 25 Mg Tab PO 12.5 mg DAILY NARCISO Administration Naloxone HCl 0.2 mg 09/17/21 03:14 Naloxone 0.4 Mg/Ml 1 Ml Vial IV Q2M PRN Opioid Reversal Ondansetron HCl 4 mg 09/17/21 03:14 Ondansetron 4 Mg/2 Ml Vial IVP Q8HR PRN Nausea And Vomiting Pantoprazole Sodium 40 mg 09/17/21 09:00 06/02/22 07:42 Pantoprazole 40 Mg/10 Ml Vial IV 40 mg DAILY NARCISO Administration Intake and Output 09/16/21 09/17/21 09/17/21 22:59 06:59 14:59 Other: Voiding Method Toilet Weight 88.451 kg 09/17/21 01:35 09/17/21 01:35
[2021-09-17 12:04] LABS: Glucose,Whole Blood 141 mg/dL (75-99)
--- NOTE | 2021-09-17 12:15 | CA ---
Transthoracic Echo Report Name: Chayo Freitas Age: 71 Gender: F : 1950 Exam Date: 09/17/2021 09:41 Exam Location: [facility] Ht (in): 68 Wt (lb): 195 Ordering Physician: Kenzie Tolliver Attending/Referring Phys: [id number], Sharee Senior [employer]ight Manager [employer] Jammie Ambriz RDCS Procedure CPT: Indications: LV function Cardiac Hx: Technical Quality: Fair Contrast 1: Total Dose (mL): Contrast 2: Total Dose (mL): MEASUREMENTS (Male / Female) Normal Values 2D ECHO LV Diastolic Diameter PLAX 4.7 cm 4.2 - 5.9 / 3.9 - 5.3 cm LV Systolic Diameter PLAX 3.3 cm IVS Diastolic Thickness 1.0 cm 0.6 - 1.0 / 0.6 - 0.9 cm LVPW Diastolic Thickness 1.1 cm 0.6 - 1.0 / 0.6 - 0.9 cm LV Relative Wall Thickness 0.5 RV Internal Dim ED PLAX 3.5 cm M-MODE Aortic Root Diameter MM 3.5 cm LA Systolic Diameter MM 3.1 cm LA Ao Ratio MM 0.9 AV Cusp Separation MM 1.6 cm DOPPLER AV Peak Velocity 178.8 cm/s AV Peak Gradient 12.8 mmHg AI Peak Velocity 373.0 cm/s AI Peak Gradient 55.6 mmHg AI Pressure Half Time 552.3 ms LVOT Peak Velocity 94.5 cm/s LVOT Peak Gradient 3.6 mmHg MV Area PHT 3.9 cm??? Mitral E Point Velocity 67.8 cm/s Mitral A Point Velocity 92.5 cm/s Mitral E to A Ratio 0.7 MV Deceleration Time 192.2 ms TR Peak Velocity 282.7 cm/s TR Peak Gradient 32.0 mmHg Right Ventricular Systolic Press 37.0 mmHg FINDINGS Left Ventricle Mildly increased left ventricular wall thickness. Normal left ventricular systolic function with no obvious regional wall motion abnormalities. Left ventricular ejection fraction is estimated at 55-60 %. Right Ventricle Mild right ventricular dilatation. Right Atrium Normal right atrial size. Left Atrium Normal left atrial size. Mitral Valve Structurally normal mitral valve. Mild mitral regurgitation. Aortic Valve Mild aortic regurgitation. No aortic stenosis. Tricuspid Valve Structurally normal tricuspid valve. Mild tricuspid regurgitation. Pulmonic Valve Structurally normal pulmonic valve. Trace to mild pulmonic regurgitation. Pericardium No pericardial effusion. Echo free space anterior to the right ventricle likely represents a fat pad. Aorta Normal size aortic root and proximal ascending aorta. CONCLUSIONS Normal left ventricular ejection fraction 55-60% Mild mitral regurgitation Mild tricuspid regurgitation RVSP 37 Previewed by: Dr. Vijay Padilla DO (Electronically Signed) Final Date: 17 September 2021 12:15
[2021-09-17] MEDS ORDERED: FAMOTIDINE 20 MG TAB PO SCH (14:18)
--- NOTE | 2021-09-17 15:07 | XR ---
EXAMINATION TYPE: XR cervical spine w flex/ext DATE OF EXAM: 09/17/2021 COMPARISON: 04/22/2017 HISTORY: Pain TECHNIQUE: 7 views submitted FINDINGS: Dense calcification in the soft tissues of neck likely related carotid artery calcification . There is diffuse osteopenia with a grade 1 anterior listhesis of C4 relative to C5. Severe degenera tive disc disease C5-6 and C6-C7 with facet arthropathy. Flexion-extension views demonstrate approxim ate 2 mm anterolisthesis of C4 relative to C5 which is similar on flexion and extension views relativ e to neutral imaging. IMPRESSION: 1. There is a 2 mm anterolisthesis of C4 relative to C5. 2. See severe degenerative disc disease lower cervical spine with multilevel facet arthropathy. 3. Dense calcifications soft tissue the neck likely related to significant atherosclerotic change of the carotid bifurcation.
--- NOTE | 2021-09-17 15:08 | XR ---
EXAMINATION TYPE: XR thoracic spine 2V DATE OF EXAM: 09/17/2021 COMPARISON: NONE HISTORY: Pain TECHNIQUE: 3 views submitted FINDINGS: Alignment is anatomic. There is no compression deformities. Vertebral body height and disc interspa michael are maintained. Atherosclerotic change aorta. Slight curvature of the spine. Mild hypertrophic a nd degenerative changes of the spine. IMPRESSION: 1. Mild degenerative disc disease lower thoracic spine.
--- NOTE | 2021-09-17 15:31 | CT ---
EXAMINATION TYPE: CT CervThoracic spine wo con DATE OF EXAM: 09/17/2021 COMPARISON: Radiographs same day HISTORY: 71-year-old female lower Neck and shoulder pain, no injury. TECHNIQUE: Contiguous axial scanning of the cervical and thoracic spine without IV contrast. Coronal and sagittal reconstructions performed. CT DLP: 1683.6 mGycm Automated exposure control for dose reduction was used. FINDINGS: CERVICAL SPINE: Aneurysmal thoracic aorta. Ascending measuring up to 4.2 cm and descending measuring up to 3.3 cm. Mild LAD and proximal circumflex coronary artery calcifications. Biapical pleural parenchymal scarring noted. Mild patchy groundglass and tree-in-bud opacities periph ally of the right midlung. Correlate for any atypical pneumonia or bronchiolitis. Levoconvex curvature along the upper thoracic spine. No precervical junction abnormality, predental space widening, or prevertebral soft tissue swelling. Moderate disc/endplate degenerative change C5-C7 levels with disc space narrowing and anterior endpla te spondylosis. Hypertrophic facet arthropathy throughout with degenerative grade 1 anterolisthesis C4-C5. Assessment of the spinal canal from C6-C7 and below is limited due to artifact from the patient's miya ulders. Some mild disc bulge at C4-C5 likely causes mild narrowing of the spinal canal. No acute fracture of the cervical spine. At C4-C5, there is moderate bilateral neuroforaminal stenosis. At C5-C6, mild right neural foraminal stenosis. THORACIC SPINE: Again, levoconvex curvature along the upper thoracic spine. Vertebral body heights are preserved and alignment is maintained. Facet arthropathy especially towards the right in the upper thoracic spine. Changes result in mild [place] neuroforaminal narrowing on the right and T1-T2, T2-T3, T3-T4, and T4-T5. No evident canal compromise. Mild degenerative disc disease T9-T10 with anterior vacuum phenomenon. Pneumobilia within the liver and within the bile duct. Query prior sphincterotomy. Moderate atelectat ic calcifications abdominal aorta. Excreting contrast from the kidneys. Suspected 1.6 cm cortical cys t anterior left kidney. Moderate to advanced degenerative disc disease more so towards the right at L3-L4. Facet arthropathy here with grade 1 retrolisthesis. Moderate right neuroforaminal stenosis. IMPRESSION: CERVICAL SPINE: 1. MODERATE SPONDYLOTIC CHANGE ESPECIALLY C4 THROUGH C7 LEVELS. DEGENERATIVE GRADE 1 ANTEROLISTHESIS C4-C5. DISC BULGE HERE MAY CONTRIBUTE TO MILD NARROWING OF THE SPINAL CANAL. 2. ADDITIONAL SCATTERED FACET AND UNCOVERTEBRAL JOINT ARTHROPATHY. MODERATE BILATERAL NEUROFORAMINAL STENOSIS AT C4-C5. 3. ANEURYSMAL THORACIC AORTA; ASCENDING MEASURING UP TO 4.2 CM AND DESCENDING MEASURING UP TO 3.3 CM. 4. SOME MILD PATCHY GROUNDGLASS OR TREE-IN-BUD OPACITY PERIPHERY OF THE RIGHT MIDLUNG. CORRELATE FOR ANY SIGNS/SYMPTOMS OF ATYPICAL PNEUMONIA OR BRONCHIOLITIS. THORACIC SPINE: 5. LEVOCONVEX CURVATURE/SCOLIOSIS ALONG THE UPPER THORACIC SPINE. 6. SECONDARY FACET ARTHROPATHY PREFERENTIALLY TOWARDS THE RIGHT IN THE UPPER THORACIC SPINE. THIS RES ULTS IN MILD BONY NEURAL FORAMINAL NARROWING ON THE RIGHT FROM T1 THROUGH T5 LEVELS. 7. MILD DEGENERATIVE DISC DISEASE T9-T10. MORE MODERATE TO ADVANCED DEGENERATIVE DISC DISEASE AT L3-L 4 MORE SO TOWARDS THE RIGHT. FACET ARTHROPATHY WITH GRADE 1 RETROLISTHESIS HERE at L3-L4 AND A MODERA TE RIGHT NEURAL FORAMINAL STENOSIS. 8. PNEUMOBILIA AND ADDITIONAL AIR WITHIN THE BILE DUCT. QUERY TO POTENTIAL ETIOLOGY SUCH PRIOR SPHINCTEROTOMY.
[2021-09-17] MEDS ORDERED: NAPROXEN 250 MG TAB PO ONE (16:00)
[2021-09-17 16:38] LABS: Chol/HDL Ratio 3.99 Ratio; LDL Cholesterol,Calculated 90.1 mg/dL (0.0-131.0)
[2021-09-17 17:03] LABS: Glucose,Whole Blood 226 mg/dL (75-99)
[2021-09-17 19:04] VITALS: BP 142/76; PULSE 76; RESP 18; TEMP 98
--- NOTE | 2021-09-17 19:09 | P.HPIM ---
History of Present Illness H&P Date: 09/17/21 Chief Complaint: Neck pain This is a pleasant 71-year-old patient who follows with visiting physicians Dr. Fernandez. Chronic stable medical conditions include COPD, diabetes, GERD, seizure disorder, smoker, IBS, urinary incontinence. Patient presents with 1 week of increasing pain in the lower neck going across to both the shoulders. It is worse with movement. Has been present for just about a week. Denies any injury. Also complains of some pain in the front part of the chest seems to be radiating from the neck. Worse with movement and activity. No shortness of breath. No dizziness or lightheadedness. Risk factors cardiology he was consulted Review of systems: GEN.: None EYES: None HEENT: None NECK: None RESPIRATORY: Occasional wheezing CARDIOVASCULAR: None GASTROINTESTINAL: None GENITOURINARY: in continent MUSCULOSKELETAL: Joint pains LYMPHATICS: None HEMATOLOGICAL: None PSYCHIATRY: None NEUROLOGICAL: None Past medical history to include: COPD, diabetes, GERD, seizure disorder, gastric ulcer, IBS, urinary incontinence Social history: Lives with roommates. Been smoking about half a pack a day since 1965. No alcohol. Family history: Mother of breast ovarian cancer. Physical examination: VITAL SIGNS: 98.1, 84, 18, 151-92, 93% room air GENERAL: BMI 29.6, laying in bed, awake or in distress. EYES: Pupils equal. Conjunctiva normal. HEENT: External appearance of nose and ears normal, oral cavity grossly normal. NECK: JVD not raised; masses not palpable. HEART: First and second heart sounds are normal; no edema. LUNGS: Respiratory rate normal; clear to auscultation. ABDOMEN: Soft, nontender, liver spleen not palpable, no masses palpable. PSYCH: Alert and oriented x3; mood and affect normal. MUSCULOSKELETAL:No Clubbing/cyanosis;muscles-grossly intact. Evidence of OA. Some local tenderness around the cervical thoracic spine area. NEUROLOGICAL: Cranial nerves grossly intact; no facial asymmetry, power and sensation grossly intact. LYMPHATICS: No lymph nodes palpable in the axilla and neck INVESTIGATIONS, reviewed in the clinical context: White count 8.5 hemoglobin 13.3 platelets 190 potassium 3.6 creatinine 0.51 LDL 90 EKG tracing personally reviewed by me-normal sinus rhythm. Chest x-ray film personally reviewed by me-some prominent pulmonary artery CT angiogram thoracic abdomen pelvic out of: Nonspecific. 2-D echocardiogram: EF 55-60%. Assessment and plan: -Anterior chest wall pain. Risk factors include hypertension, COPD, smoker. Troponin negative. Cardiology consulted. Telemetry. -Pain in the lower cervical thoracic spine area with radiation to the shoulders. Suspect cervical stenosis arthritis. We will get x-ray and computed tomography scan of that area. Consult orthopedics. -Diabetes mellitus type 2 chronically on insulin Follow Accu-Cheks. Cardiac consulted. Telemetry. X-ray and computed tomography scan of the cervical thoracic spine area. Consult orthopedics. Insulin. Follow Accu- Cheks. Care was discussed with the patient. Naproxen. Past Medical History Past Medical History: COPD, Diabetes Mellitus, GERD/Reflux, Pneumonia, Seizure Disorder, Syncope Additional Past Medical History / Comment(s): pne/sepsis,Migraines, last seizure 5 years ago thought d/t ativan withdrawal, gastric ulcer, IBS, incontinent of urine/stool. History of Any Multi-Drug Resistant Organisms: VRE Date of last positivie culture/infection: 02/27/17 MDRO Source:: URINE(enterococus faecium) Past Surgical History: Adenoidectomy, Appendectomy, Cholecystectomy, Hysterectomy, Tonsillectomy Additional Past Surgical History / Comment(s): Pilonidal cyst removal, EGD/colonoscopy. Past Anesthesia/Blood Transfusion Reactions: Previous Problems w/ Anesthesia Additional Past Anesthesia/Blood Transfusion Reaction / Comment(s): Problem with past anesthesia with her muscles-last surgery anesthesia went good. Past Psychological History: Anxiety, Depression Smoking Status: Current every day smoker Past Alcohol Use History: None Reported Past Drug Use History: None Reported - Past Family History Mother Family Medical History: Cancer Additional Family Medical History / Comment(s): Mother of breast/ovarian cancer at the age of 71yrs. Father Family Medical History: Musculoskeletal Disorder, Neurologic Disorder Additional Family Medical History / Comment(s): Father of Kamla Gehrig's disease at the age of 53 yrs. Medications and Allergies Home Medications Medication Instructions Recorded Confirmed Type Insulin NPH Hum/Reg Insulin Hm 20 unit SQ BID 09/17/21 09/17/21 History [NovoLIN 70-30 100 UNIT/ML VIAL] Allergies Allergy/AdvReac Type Severity Reaction Status Date / Time Penicillins Allergy Rash/Hives Verified 09/16/21 23:01 ketorolac [From Toradol] AdvReac Rapid Verified 09/16/21 23:01 Heart Rate Physical Exam Vitals: Vital Signs Temp Pulse Resp BP Pulse Ox 09/17/21 10:00 81 20 145/84 95 09/17/21 06:49 98.1 F 84 18 151/92 93 L 09/17/21 05:01 97.9 F 84 18 129/84 93 L 09/17/21 02:18 80 18 144/99 93 L 09/17/21 01:45 83 18 146/92 93 L 09/16/21 22:55 98.3 F 96 17 175/98 98 Intake and Output 09/16/21 09/17/21 09/17/21 22:59 06:59 14:59 Other: Voiding Method Toilet Weight 88.451 kg Results CBC & Chem 7: 09/17/21 01:35 09/17/21 01:35 Labs: Abnormal Lab Results - Last 24 Hours (Table) 09/17/21 09/17/21 09/17/21 Range/Units 01:35 01:42 07:28 Creatinine 0.51 L (0.52-1.04) mg/dL Glucose 119 H (74-99) mg/dL POC Glucose (mg/dL) 112 H 267 H (75-99) mg/dL AST 54 H (14-36) U/L 09/17/21 Range/Units 12:02 Creatinine (0.52-1.04) mg/dL Glucose (74-99) mg/dL POC Glucose (mg/dL) 141 H (75-99) mg/dL AST (14-36) U/L
[2021-09-17] MEDS ORDERED: INSULIN DETEMIR (LEVEMIR) 100 UNIT/ML SYR SQ SCH (21:00)
[2021-09-17] MEDS ORDERED: ATORVASTATIN 40 MG TAB PO SCH (21:00)
[2021-09-17] MEDS ORDERED: NAPROXEN 250 MG TAB PO SCH (22:00)
== END 2021-09-17 21:08 | disposition left against medical advice (07) ==
LOC: EC 21:35 → 6NMEDSUR 09-17 05:02
PROVIDERS: ADMIT Hospitalist; ATTEND Hospitalist
DX: R35.0 Frequency of micturition (principal); R07.89 Other chest pain; E11.9 Type 2 diabetes mellitus without complications; J44.9 Chronic obstructive pulmonary disease, unspecified; F17.210 Nicotine dependence, cigarettes, uncomplicated; G40.909 Epilepsy, unspecified, not intractable, without status epilepticus; R03.0 Elevated blood-pressure reading, without diagnosis of hypertension; I08.3 Combined rheumatic disorders of mitral, aortic and tricuspid valves; R32 Unspecified urinary incontinence; G47.30 Sleep apnea, unspecified; M54.2 Cervicalgia; M54.6 Pain in thoracic spine; K21.9 Gastro-esophageal reflux disease without esophagitis; I71.2 Thoracic aortic aneurysm, without rupture; F32.A Depression, unspecified; F41.9 Anxiety disorder, unspecified; K58.9 Irritable bowel syndrome, unspecified; Z79.4 Long term (current) use of insulin; Z79.899 Other long term (current) drug therapy; Z88.0 Allergy status to penicillin; Z88.6 Allergy status to analgesic agent; Z90.710 Acquired absence of both cervix and uterus; Z16.24 Resistance to multiple antibiotics; Z87.11 Personal history of peptic ulcer disease; Z87.01 Personal history of pneumonia (recurrent); Z90.49 Acquired absence of other specified parts of digestive tract; Z86.69 Personal history of other diseases of the nervous system and sense organs; Z80.41 Family history of malignant neoplasm of ovary; Z82.0 Family history of epilepsy and other diseases of the nervous system
CPT/HCPCS: 99285; 96361; 96372; 96374; 96375; 36415; 93005; 93306; 83880; 80061; 80053; 83690; 83735; 84484; 85025; 85610; 85730; 81003; 72070; 72052; 71045; 72128; 72125; 71275; 74174; G0378; J2060; J2270; J2405; C9113; Q9967; J1644

== ENCOUNTER → 2022-03-29 | Outpatient (CLI) | payer MEDICARE ==
--- NOTE | 2022-03-29 14:35 | MR ---
EXAMINATION TYPE: MR brain wo con DATE OF EXAM: 03/29/2022 12:11 PM COMPARISON: None. CLINICAL INDICATION:Female, 71 years old with history of R51.9 HEADACHE, G89.29 CHRONIC PAIN; TECHNIQUE: Multi planar, multi sequence imaging was performed through the brain including: T1, T2, In version recovery, Diffusion weighted imaging, and gradient echo imaging. No gadolinium was given. FINDINGS: The hernandez-white junctions, ventricular system, and cisterns appear unremarkable. Scattered foci of hi gh T2 signal intensity are seen within the periventricular white matter. Midline structures show no a bnormality. Diffusion-weighted imaging shows no evidence of restricted diffusion. The susceptibility weighted images do not reveal any evidence for micro-hemorrhage. The bone marrow signal is within normal limits. Paranasal sinuses and mastoid air cells: Mild scattered paranasal sinus disease. Visualized orbits: Orbital contents are intact. IMPRESSION: 1. No evidence of intracranial mass or acute/subacute infarct. 2. Nonspecific white matter changes, likely secondary to small vessel ischemic disease.
== END | disposition home or self-care (01) ==
LOC: RADMRIMAIN 11:32
PROVIDERS: ATTEND Family Medicine
DX: R90.82 White matter disease, unspecified (principal); I67.82 Cerebral ischemia; G89.29 Other chronic pain
CPT/HCPCS: 70551

== ENCOUNTER 2022-10-04 22:40 | Emergency (ER) | payer MEDICARE ==
[2022-10-05] MEDS ORDERED: SODIUM CHLORIDE 0.9% 1,000 ML IV STA (00:32)
[2022-10-05] MEDS ORDERED: HYDROmorphone 0.5 MG/0.5 ML SYRINGE IVP STA ×2 (00:32→03:49)
[2022-10-05] MEDS ORDERED: ONDANSETRON 4 MG/2 ML VIAL IVP STA (00:32)
[2022-10-05] MEDS ORDERED: PANTOPRAZOLE 40 MG/10 ML VIAL IVP STA (00:32)
[2022-10-05 00:58] LABS: Basophils % (A) 0 %; Eosinophils # (A) 0.1 k/uL (0-0.7); Eosinophils % (A) 1 %; HCT 20.4 % (34.0-46.0); Lymphocytes # (A) 2.9 k/uL (1.0-4.8); Lymphocytes % (A) 30 %; MCH 29.3 pg (25.0-35.0); MCHC 33.3 g/dL (31.0-37.0); MCV 87.9 fL (80.0-100.0); Mean Platelet Volume 7.8; Monocytes # (A) 0.4 k/uL (0-1.0); Monocytes % (A) 4 %; Neutrophils # (A) 6.3 k/uL (1.3-7.7); Neutrophils % (A) 65 %; Platelet Count 246 k/uL (150-450); RBC 2.32 m/uL (3.80-5.40); RDW 15.1 % (11.5-15.5); WBC 9.8 k/uL (3.8-10.6)
[2022-10-05 01:11] LABS: ALT 13 U/L (4-34); AST 23 U/L (14-36); African American GFR (CKD) >90 (>60 ml/min/1.73 sqM); Albumin 3.8 g/dL (3.5-5.0); Alkaline Phosphatase 58 U/L (38-126); Anion Gap 8 mmol/L; Blood Urea Nitrogen 17 mg/dL (7-17); Carbon Dioxide 26 mmol/L (22-30); Chloride 100 mmol/L (98-107); Glucose 130 mg/dL (74-99); Lipase 74 U/L (23-300); Magnesium 1.5 mg/dL (1.6-2.3); Non-African American GFR(CKD) >90 (>60 ml/min/1.73 sqM); Potassium 3.6 mmol/L (3.5-5.1); Sodium 134 mmol/L (137-145); Total Bilirubin 0.6 mg/dL (0.2-1.3); Total Protein 6.6 g/dL (6.3-8.2)
[2022-10-05 01:35] LABS: Prothrombin Time 10.8 sec (9.0-12.0)
--- NOTE | 2022-10-05 02:01 | ED ---
Nausea/Vomiting/Diarrhea HPI - General Chief complaint: Nausea/Vomiting/Diarrhea Stated complaint: Black stools, vomiting, pain Time Seen by Provider: 10/04/22 23:49 Source: family Mode of arrival: wheelchair Limitations: no limitations - History of Present Illness Initial comments: 72-year-old female with past medical history of diabetes, COPD presents to the emergency department with dark stools. States has been going on for the past 3 days. She has soft bowel movements which are very dark in color. Denies history of GI bleed in the past. She also has had some nausea with vomiting. Denies hematemesis. No history of peptic ulcer. Has had previous colonoscopies and EGDs denies that she ever had any abnormal results. She denies fevers. D oes admit to mid abdominal pain which is sharp in nature. She took Aleve at home for the pain which did not help her symptoms. Reports that she normally does not take NSAIDs. She denies alcohol use. No iron or Pepto use. Has never required a blood transfusion before and no other alleviating, precipitating or modifying factors - Related Data Home Medications Medication Instructions Recorded Confirmed Insulin NPH Hum/Reg Insulin Hm 20 unit SQ BID 09/17/21 09/17/21 [NovoLIN 70-30 100 UNIT/ML VIAL] Allergies Allergy/AdvReac Type Severity Reaction Status Date / Time Penicillins Allergy Rash/Hives Verified 10/04/22 22:44 ketorolac [From Toradol] AdvReac Rapid Verified 10/04/22 22:44 Heart Rate Review of Systems ROS Statement: Those systems with pertinent positive or pertinent negative responses have been documented in the HPI. ROS Other: All systems not noted in ROS Statement are negative. Past Medical History Past Medical History: COPD, Diabetes Mellitus, GERD/Reflux, Pneumonia, Seizure Disorder, Syncope Additional Past Medical History / Comment(s): pne/sepsis,Migraines, last seizure 5 years ago thought d/t ativan withdrawal, gastric ulcer, IBS, incontinent of ur ine/stool. History of Any Multi-Drug Resistant Organisms: VRE Date of last positivie culture/infection: 02/27/17 MDRO Source:: URINE(enterococus faecium) Past Surgical History: Adenoidectomy, Appendectomy, Cholecystectomy, Hysterectomy, Tonsillectomy Additional Past Surgical History / Comment(s): Pilonidal cyst removal, EGD/colonoscopy. Past Anesthesia/Blood Transfusion Reactions: Previous Problems w/ Anesthesia Additional Past Anesthesia/Blood Transfusion Reaction / Comment(s): Problem with past anesthesia with her muscles-last surgery anesthesia went good. Past Psychological History: Anxiety, Depression Smoking Status: Current every day smoker Past Alcohol Use History: None Reported Past Drug Use History: None Reported - Past Family History Mother Family Medical History: Cancer Additional Family Medical History / Comment(s): Mother of breast/ovarian cancer at the age of 71yrs. Father Family Medical History: Musculoskeletal Disorder, Neurologic Disorder Additional Family Medical History / Comment(s): Father of Kamla Gehrig's disease at the age of 53 yrs. General Exam Limitations: no limitations General appearance: alert, in no apparent distress Head exam: Present: atraumatic, normocephalic, normal inspection Eye exam: Present: normal appearance, PERRL, EOMI. Absent: scleral icterus, conjunctival injection, periorbital swelling ENT exam: Present: normal exam, mucous membranes moist Neck exam: Present: normal inspection. Absent: tenderness, meningismus, lymphadenopathy Respiratory exam: Present: normal lung sounds bilaterally. Absent: respiratory distress, wheezes, rales, rhonchi, stridor Cardiovascular Exam: Present: regular rate, normal rhythm, normal heart sounds. Absent: systolic murmur, diastolic murmur, rubs, gallop, clicks GI/Abdominal exam: Present: soft, normal bowel sounds. Absent: distended, te nderness, guarding, rebound, rigid Rectal exam: Present: heme (+) stool, black stool. Absent: mass, tenderness Extremities exam: Present: normal inspection, full ROM, normal capillary refill. Absent: tenderness, pedal edema, joint swelling, calf tenderness Back exam: Present: normal inspection Neurological exam: Present: alert, oriented X3, CN II-XII intact Psychiatric exam: Present: normal affect, normal mood Skin exam: Present: warm, dry, intact, normal color. Absent: rash Course Vital Signs 10/04/22 10/04/22 10/05/22 22:41 23:38 00:15 Temperature 98.5 F Pulse Rate 95 82 89 Respiratory 18 20 20 Rate Blood Pressure 123/69 134/75 130/96 O2 Sat by Pulse 99 99 97 Oximetry 10/05/22 10/05/22 10/05/22 00:30 00:45 05:09 Temperature 98.6 F Pulse Rate 90 85 86 Respiratory 20 20 16 Rate Blood Pressure 108/66 146/76 143/78 O2 Sat by Pulse 98 99 96 Oximetry 10/05/22 10/05/22 05:18 05:38 Temperature 98.7 F 98.7 F Pulse Rate 83 80 Respiratory 16 18 Rate Blood Pressure 133/80 127/74 O2 Sat by Pulse 97 97 Oximetry Medical Decision Making - Medical Decision Making Was pt. sent in by a medical professional or institution (, PA, [employer], urgent care, hospital, or fpc...) When possible be specific @ -No Did you speak to anyone other than the patient for history (EMS, parent, family, police, friend...)? What history was obtained from this source @ -EMS Did you review nursing and triage notes (agree or disagree)? Why? @ -I reviewed and agree with nursing and triage notes Were old charts reviewed (outside hosp., previous admission, EMS record, old EKG, old radiological studies, urgent care reports/EKG's, fpc records)? Report findings @ -No Differential Diagnosis (chest pain, altered mental status, abdominal pain women, abdominal pain men, vaginal bleeding, weakness, fever, dyspnea, syncope, headache, dizziness, GI bleed, back pain, seizure, CVA, palpatations, mental health, musculoskeletal)? @ -gi bleed, iron deficiency, anemia of chronic disease EKG interpreted by me (3pts min.). @ -not done X-rays interpreted by me (1pt min.). @ -None done CT interpreted by me (1pt min.). @ -yes, acute duodenitis U/S interpreted by me (1pt. min.). @ -None done What testing was considered but not performed or refused? (CT, X-rays, U/S, labs)? Why? @ -None What meds were considered but not given or refused? Why? @ -None Did you discuss the management of the patient with other professionals (professionals i.e. BLAIR Melendez, [employer], lab, RT, psych nurse, social work supervisor, ferryboat helper, teacher, grants officer, nurse outreach case manager)? Give summary @ -dr broussard who felt patient needed to be transferred for gi services Was smoking cessation discussed for >3mins.? @ -No Was critical care preformed (if so, how long)? @ -yes, 35 minutes for blood transfusion Were there social determinants of health that impacted care today? How? (Homelessness, low income, unemployed, alcoholism, drug addiction, transportation, low edu. Level, literacy, decrease access to med. care, residential, rehab)? @ -No Was there de-escalation of care discussed even if they declined (Discuss DNR or withdrawal of care, Hospice)? DNR status @ -No What co-morbidities impacted this encounter? (DM, HTN, Smoking, COPD, CAD, Cancer, CVA, ARF, Chemo, Hep., AIDS, mental health diagnosis, sleep apnea, morbid obesity)? @ -none Was patient admitted / discharged? Hospital course, mention meds given and route, prescriptions, significant lab abnormalities, going to OR and other pertinent info. @- Upon arrival patient is placed into room 8. A thorough history and physical exam was performed. IV access was established. Patient was given 0.5 mg of Dilaudid for pain control and 4 mg of Zofran for nausea. Laboratory studies are conducted. They do reveal a hemoglobin of 6.8. Lactic is 2.2. Occult is positive. Patient was given 40 mg of Protonix. She is given 1 g of magnesium for her magnesium level of 1.5. She was also given a liter bolus of normal saline. Patient reevaluated and reports that her pain has improved however it is slowly coming back. She is given another 0.5 mg of Dilaudid. I did call and speak with Dr. Broussard. He feels that the patient should be transferred as we do not have any GI capabilities. I did call and speak with [facility] was not accepting any transfers at this time. I then called and spoke with Dr. Rosado at [facility] who is willing to accept the patient. One unit of blood is ordered and is transfused prior to transfer. Patient remained in hemogram stable condition and was transferred Undiagnosed new problem with uncertain prognosis? @ -Yes Drug Therapy requiring intensive monitoring for toxicity (Heparin, Nitro, Insulin, Cardizem)? @ -Blood products Were any procedures done? @ -No Diagnosis/symptom? @ -acute anemia, gi bleed, acute duodenitis, hypomag Acute, or Chronic, or Acute on Chronic? @ -acute Uncomplicated (without systemic symptoms) or Complicated (systemic symptoms)? @ -complicated Side effects of treatment? @ -volume overload Exacerbation, Progression, or Severe Exacerbation? @ -No Poses a threat to life or bodily function? How? (Chest pain, [place], [place], pneumonia, PE, COPD, DKA, ARF, appy, cholecystitis, CVA, Diverticulitis, Homicidal, Suicidal, threat to staff... and all critical care pts) @ -severe anemia can lead to hemodynamic instability - Lab Data Result diagrams: 10/05/22 00:25 10/05/22 00:25 Lab Results 10/05/22 10/05/22 10/05/22 Range/Units 00:25 00:25 00:25 WBC 9.8 (3.8-10.6) k/uL RBC 2.32 L (3.80-5.40) m/uL Hgb 6.8 L* (11.4-16.0) gm/dL Hct 20.4 L (34.0-46.0) % MCV 87.9 (80.0-100.0) fL MCH 29.3 (25.0-35.0) pg MCHC 33.3 (31.0-37.0) g/dL RDW 15.1 (11.5-15.5) % Plt Count 246 (150-450) k/uL MPV 7.8 Neutrophils % 65 % Lymphocytes % 30 % Monocytes % 4 % Eosinophils % 1 % Basophils % 0 % Neutrophils # 6.3 (1.3-7.7) k/uL Lymphocytes # 2.9 (1.0-4.8) k/uL Monocytes # 0.4 (0-1.0) k/uL Eosinophils # 0.1 (0-0.7) k/uL Basophils # 0.0 (0-0.2) k/uL PT 10.8 (9.0-12.0) sec INR 1.0 (<1.2) APTT 22.0 (22.0-30.0) sec Sodium (137-145) mmol/L Potassium (3.5-5.1) mmol/L Chloride (98-107) mmol/L Carbon Dioxide (22-30) mmol/L Anion Gap mmol/L BUN (7-17) mg/dL Creatinine (0.52-1.04) mg/dL Est GFR (CKD-EPI)AfAm (>60 ml/min/1.73 sqM) Est GFR (CKD-EPI)NonAf (>60 ml/min/1.73 sqM) Glucose (74-99) mg/dL Lactic Ac Sepsis Rflx Plasma Lactic Acid Baldo (0.7-2.0) mmol/L Calcium (8.4-10.2) mg/dL Magnesium (1.6-2.3) mg/dL Total Bilirubin (0.2-1.3) mg/dL AST (14-36) U/L ALT (4-34) U/L Alkaline Phosphatase (38-126) U/L Troponin I (0.000-0.034) ng/mL Total Protein (6.3-8.2) g/dL Albumin (3.5-5.0) g/dL Lipase (23-300) U/L Stool Occult Blood Positive H (Negative) Blood Type Blood Type Recheck Bld Type Recheck Status Antibody Screen Crossmatch Spec Expiration Date 10/05/22 10/05/22 10/05/22 Range/Units 00:25 00:25 00:25 WBC (3.8-10.6) k/uL RBC (3.80-5.40) m/uL Hgb (11.4-16.0) gm/dL Hct (34.0-46.0) % MCV (80.0-100.0) fL MCH (25.0-35.0) pg MCHC (31.0-37.0) g/dL RDW (11.5-15.5) % Plt Count (150-450) k/uL MPV Neutrophils % % Lymphocytes % % Monocytes % % Eosinophils % % Basophils % % Neutrophils # (1.3-7.7) k/uL Lymphocytes # (1.0-4.8) k/uL Monocytes # (0-1.0) k/uL Eosinophils # (0-0.7) k/uL Basophils # (0-0.2) k/uL PT (9.0-12.0) sec INR (<1.2) APTT (22.0-30.0) sec Sodium 134 L (137-145) mmol/L Potassium 3.6 (3.5-5.1) mmol/L Chloride 100 (98-107) mmol/L Carbon Dioxide 26 (22-30) mmol/L Anion Gap 8 mmol/L BUN 17 (7-17) mg/dL Creatinine 0.48 L (0.52-1.04) mg/dL Est GFR (CKD-EPI)AfAm >90 (>60 ml/min/1.73 sqM) Est GFR (CKD-EPI)NonAf >90 (>60 ml/min/1.73 sqM) Glucose 130 H (74-99) mg/dL Lactic Ac Sepsis Rflx Plasma Lactic Acid Baldo 2.2 H* (0.7-2.0) mmol/L Calcium 9.0 (8.4-10.2) mg/dL Magnesium 1.5 L (1.6-2.3) mg/dL Total Bilirubin 0.6 (0.2-1.3) mg/dL AST 23 (14-36) U/L ALT 13 (4-34) U/L Alkaline Phosphatase 58 (38-126) U/L Troponin I <0.012 (0.000-0.034) ng/mL Total Protein 6.6 (6.3-8.2) g/dL Albumin 3.8 (3.5-5.0) g/dL Lipase 74 (23-300) U/L Stool Occult Blood (Negative) Blood Type Blood Type Recheck Bld Type Recheck Status Antibody Screen Crossmatch Spec Expiration Date 10/05/22 10/05/22 Range/Units 02:17 03:25 WBC (3.8-10.6) k/uL RBC (3.80-5.40) m/uL Hgb (11.4-16.0) gm/dL Hct (34.0-46.0) % MCV (80.0-100.0) fL MCH (25.0-35.0) pg MCHC (31.0-37.0) g/dL RDW (11.5-15.5) % Plt Count (150-450) k/uL MPV Neutrophils % % Lymphocytes % % Monocytes % % Eosinophils % % Basophils % % Neutrophils # (1.3-7.7) k/uL Lymphocytes # (1.0-4.8) k/uL Monocytes # (0-1.0) k/uL Eosinophils # (0-0.7) k/uL Basophils # (0-0.2) k/uL PT (9.0-12.0) sec INR (<1.2) APTT (22.0-30.0) sec Sodium (137-145) mmol/L Potassium (3.5-5.1) mmol/L Chloride (98-107) mmol/L Carbon Dioxide (22-30) mmol/L Anion Gap mmol/L BUN (7-17) mg/dL Creatinine (0.52-1.04) mg/dL Est GFR (CKD-EPI)AfAm (>60 ml/min/1.73 sqM) Est GFR (CKD-EPI)NonAf (>60 ml/min/1.73 sqM) Glucose (74-99) mg/dL Lactic Ac Sepsis Rflx Y Plasma Lactic Acid Baldo (0.7-2.0) mmol/L Calcium (8.4-10.2) mg/dL Magnesium (1.6-2.3) mg/dL Total Bilirubin (0.2-1.3) mg/dL AST (14-36) U/L ALT (4-34) U/L Alkaline Phosphatase (38-126) U/L Troponin I (0.000-0.034) ng/mL Total Protein (6.3-8.2) g/dL Albumin (3.5-5.0) g/dL Lipase (23-300) U/L Stool Occult Blood (Negative) Blood Type A Positive Blood Type Recheck A Pos Bld Type Recheck Status No Antibody Screen NEGATIVE Crossmatch See Detail Spec Expiration Date 10/08/20222324 Disposition Clinical Impression: GI bleed, Melena, Anemia Disposition: OTHER INSTITUTION NOT DEFINED Condition: Serious Is patient prescribed a controlled substance at d/c from ED?: No Referrals: Nonstaff,Physician [Primary Care Provider] - 1-2 days Time of Disposition: 04:54 - Out of Hospital Transfer - Req. Specs Out of Hospital Transfer - Requested Specifics: Other Emergency Center ([facility]
[2022-10-05 02:02] LABS: HGB 6.8 gm/dL (11.4-16.0)
--- NOTE | 2022-10-05 02:19 | CT ---
EXAM: CT Abdomen and Pelvis With Intravenous Contrast CLINICAL HISTORY: ITS.REASON CT Reason: gi bleed, pain TECHNIQUE: Axial computed tomography images of the abdomen and pelvis with intravenous contrast. CTDI is 20.2 mGy and DLP is 989.8 mGy-cm. This CT exam was performed using one or more of the following dose reduction techniques: automated exposure control, adjustment of the mA and/or kV according to patient size, and/or use of iterative reconstruction technique. COMPARISON: 06/04/2022 FINDINGS: Lung bases: Unremarkable. No mass. No consolidation. ABDOMEN: Liver: Unremarkable. No mass. Gallbladder and bile ducts: Postoperative changes prior cholecystectomy. Pneumobilia likely secondary to prior sphincterotomy. Common bile duct is distended measuring 1.2 cm. Pancreas: Unremarkable. No mass. No ductal dilation. Spleen: Unremarkable. No splenomegaly. Adrenals: Unremarkable. No mass. Kidneys and ureters: Unremarkable. No solid mass. No hydronephrosis. Stomach and bowel: Inflammatory changes about the duodenum likely representing duodenitis. Diverticulosis without evidence of diverticulitis. No obstruction. PELVIS: Appendix: No findings to suggest acute appendicitis. Bladder: Unremarkable. No mass. Reproductive: Uterus is surgically absent. ABDOMEN and PELVIS: Intraperitoneal space: Unremarkable. No free air. No significant fluid collection. Bones/joints: No acute fracture. No dislocation. Soft tissues: Unremarkable. Vasculature: Unremarkable. No abdominal aortic aneurysm. Lymph nodes: Unremarkable. No enlarged lymph nodes. IMPRESSION: Inflammatory changes about the duodenum consistent with duodenitis
[2022-10-05] MEDS ORDERED: MAGNESIUM SULFATE-D5W PMX 1 GM in DEXTROSE/WATER 1 100ML.BAG IVPB ONE (02:54)
[2022-10-05 05:21] VITALS: TEMP 98.7
[2022-10-05 05:44] VITALS: BP 127/74; PULSE 80; RESP 18
== END 2022-10-05 06:15 | disposition other institution (70) ==
LOC: EC 22:40
DX: K92.1 Melena (principal); D64.9 Anemia, unspecified; E11.9 Type 2 diabetes mellitus without complications; J44.9 Chronic obstructive pulmonary disease, unspecified; F17.200 Nicotine dependence, unspecified, uncomplicated; Z79.4 Long term (current) use of insulin; Z90.49 Acquired absence of other specified parts of digestive tract; Z88.0 Allergy status to penicillin
CPT/HCPCS: 99285 ×2; 96365 ×2; 96375 ×4; 96376 ×2; 96361 ×2; 36430; 36415; 86900; 86901; 80053; 83605; 83690; 83735; 84484; 85025; 85610; 85730; 86850; 86920; 82272; 74177; P9016; J2405; J3475; C9113; J1170; Q9967

== ENCOUNTER 2023-12-22 14:44 | Emergency (ER) | payer MEDICARE ==
--- NOTE | 2023-12-22 15:09 | ED ---
GI Bleed HPI - General Chief complaint: GI Bleed Stated complaint: dark stool Time Seen by Provider: 12/22/23 14:58 Source: patient, family, RN notes reviewed Mode of arrival: ambulatory Limitations: no limitations - History of Present Illness Initial comments: 73-year-old female with a past medical history of diabetes presents emergency department chief complaint of dark and tarry stools over the past 3 to 4 days. Patient states that she also been feeling mildly bloated as well and has had intermittent diarrhea as well. She denies chronic NSAID use, alcohol abuse, peptic ulcer disease, diverticulitis or diverticulosis. Denies nausea, vomiting, hematemesis, coffee-ground emesis. States that she has been using the bathroom more frequently, denies dysuria, hematuria, increase in urinary frequency or urgency. Denies fevers, chills, shortness of breath, difficulty breathing, heart palpitations. States that she had a colonoscopy completed ap proximately 5 years ago with no acute findings and follow-up in 5 years. - Related Data Home Medications Medication Instructions Recorded Confirmed Insulin NPH Hum/Reg Insulin Hm 20 unit SQ BID 09/17/21 09/17/21 [NovoLIN 70-30 100 UNIT/ML VIAL] Allergies Allergy/AdvReac Type Severity Reaction Status Date / Time Penicillins Allergy Rash/Hives Verified 12/22/23 14:53 ketorolac [From Toradol] AdvReac Rapid Verified 12/22/23 14:53 Heart Rate Review of Systems ROS Statement: Those systems with pertinent positive or pertinent negative responses have been documented in the HPI. ROS Other: All systems not noted in ROS Statement are negative. Past Medical History Past Medical History: COPD, Diabetes Mellitus, GERD/Reflux, Pneumonia, Seizure Disorder, Syncope Additional Past Medical History / Comment(s): pne/sepsis,Migraines, last seizure 5 years ago thought d/t ativan withdrawal, gastric ulcer, IBS, incontinent of urine/stool. History of Any Multi-Drug Resistant Organisms: VRE Date of last positivie culture/infection: 02/27/17 MDRO Source:: URINE(enterococus faecium) Past Surgical History: Adenoidectomy, Appendectomy, Cholecystectomy, Hysterectomy, Tonsillectomy Additional Past Surgical History / Comment(s): Pilonidal cyst removal, EGD/colonoscopy. Past Anesthesia/Blood Transfusion Reactions: Previous Problems w/ Anesthesia Additional Past Anesthesia/Blood Transfusion Reaction / Comment(s): Problem with past anesthesia with her muscles-last surgery anesthesia went good. Past Psychological History: Anxiety, Depression Smoking Status: Current every day smoker Past Alcohol Use History: None Reported Past Drug Use History: None Reported - Past Family History Mother Family Medical History: Cancer Additional Family Medical History / Comment(s): Mother of breast/ovarian cancer at the age of 71yrs. Father Family Medical History: Musculoskeletal Disorder, Neurologic Disorder Additional Family Medical History / Comment(s): Father of Kamla Gehrig's disease at the age of 53 yrs. General Exam Limitations: no limitations General appearance: alert, in no apparent distress Head exam: Present: atraumatic, normocephalic, normal inspection Eye exam: Present: normal appearance, PERRL, EOMI. Absent: scleral icterus, conjunctival injection, periorbital swelling ENT exam: Present: normal exam, mucous membranes moist Neck exam: Present: normal inspection. Absent: tenderness, meningismus, lymphadenopathy Respiratory exam: Present: normal lung sounds bilaterally. Absent: respiratory distress, wheezes, rales, rhonchi, stridor Cardiovascular Exam: Present: regular rate, normal rhythm, normal heart sounds. Absent: systolic murmur, diastolic murmur, rubs, gallop, clicks GI/Abdominal exam: Present: soft, normal bowel sounds. Absent: distended, tenderness, guarding, rebound, rigid Rectal exam: Present: normal inspection, normal rectal tone Extremities exam: Present: normal inspection, full ROM, normal capillary refill. Absent: tenderness, pedal edema, joint swelling, calf tenderness Back exam: Present: normal inspection Neurological exam: Present: alert, oriented X3, CN II-XII intact Skin exam: Present: warm, dry, intact, normal color. Absent: rash Course Vital Signs 12/22/23 12/22/23 12/22/23 14:50 16:00 19:00 Temperature 98.4 F Pulse Rate 110 H 109 H 86 Respiratory 18 18 18 Rate Blood Pressure 158/113 163/108 155/86 O2 Sat by Pulse 96 98 98 Oximetry Medical Decision Making - Medical Decision Making Was pt. sent in by a medical professional or institution (, PA, FIRST CALENDER WORKER, urgent care, hospital, or [facility]...) When possible be specific @ -No Did you speak to anyone other than the patient for history (EMS, parent, family, police, friend...)? What history was obtained from this source @ -No Did you review nursing and triage notes (agree or disagree)? Why? @ -I reviewed and agree with nursing and triage notes Were old charts reviewed (outside hosp., previous admission, EMS record, old EKG, old radiological studies, urgent care reports/EKG's, [facility] records)? Report findings @ -I reviewed the patient's emergency department visit note from 10/05/2022 where she presented with dark or tarry stools, nausea and vomiting and was transferred to outside facility for GI bleed with low hemoglobin. Differential Diagnosis (chest pain, altered mental status, abdominal pain women, abdominal pain men, vaginal bleeding, weakness, fever, dyspnea, syncope, headache, dizziness, GI bleed, back pain, seizure, CVA, palpatations, mental health, musculoskeletal)? @ -Differential GI Bleed: Esophageal varices, aortoenteric fistula, Sheyla-Ackerman, gastritis, peptic ulcer disease, diverticulosis, inflammatory bowel disease, hemorrhoids, fissure, colitis, malignancy, Meckel's diverticulum, this is not meant to be an all- inclusive list. EKG interpreted by me (3pts min.). @ -None X-rays interpreted by me (1pt min.). @ -None done CT interpreted by me (1pt min.). @ -None done U/S interpreted by me (1pt. min.). @ -None done What testing was considered but not performed or refused? (CT, X-rays, U/S, labs)? Why? @ -CT imaging of the abdomen was considered but deferred at this time. Patient is not endorsing symptoms of abdominal pain at this time and abdominal exam is benign. What meds were considered but not given or refused? Why? @ -None Did you discuss the management of the patient with other professionals (professionals i.e. , PA, FIRST CALENDER WORKER, lab, RT, psych nurse, social media developer, criminal justice lawyer, teacher, soil science technical officer, caseworker intake)? Give summary @ -No Was smoking cessation discussed for >3mins.? @ -No Was critical care preformed (if so, how long)? @ -No Were there social determinants of health that impacted care today? How? (Homelessness, low income, unemployed, alcoholism, drug addiction, transportation, low edu. Level, literacy, decrease access to med. care, residential, rehab)? @ -No Was there de-escalation of care discussed even if they declined (Discuss DNR or withdrawal of care, Hospice)? DNR status @ -No What co-morbidities impacted this encounter? (DM, HTN, Smoking, COPD, CAD, Cancer, CVA, ARF, Chemo, Hep., AIDS, mental health diagnosis, sleep apnea, morbid obesity)? @ -None Was patient admitted / discharged? Hospital course, mention meds given and route, prescriptions, significant lab abnormalities, going to OR and other pertinent info. @ -73-year-old female with dark and tarry stools. On examination patient has no abdominal tenderness to palpation, bowel sounds are equal throughout all quadr ants. Vitals are within normal limits and she is in no signs of acute distress. CBC unremarkable, coagulation profile within normal limits, lactic acid elevated at 3.0, urinalysis no signs of infection. On alert of patient's lactate she is provided with a 1 L fluid bolus. CMP reveals a hypokalemia of 3.3 and magnesium 1.4 patient is ordered oral repletion of both electrolytes. Repeat lactic acid 2.8, however patient received approximately 1/5 of liter fluid bolus that was ordered. Patient to receive full liter bolus and is stable for discharge. Recommend that patient follows up with her primary care provider within the next week for further evaluation of dark and tarry stools. Emergency department evaluation fecal occult test was negative for blood. All questions answered at bedside strict return parameters discussed with the patient and she has verbalized understanding. Case discussed with Dr. Malone Undiagnosed new problem with uncertain prognosis? @ -No Drug Therapy requiring intensive monitoring for toxicity (Heparin, Nitro, Insulin, Cardizem)? @ -No Were any procedures done? @ -No Diagnosis/symptom? @ -Dark and tarry stools Acute, or Chronic, or Acute on Chronic? @ -Acute Uncomplicated (without systemic symptoms) or Complicated (systemic symptoms)? @ -Uncomplicated Side effects of treatment? @ -No Exacerbation, Progression, or Severe Exacerbation? @ -No Poses a threat to life or bodily function? How? (Chest pain, USA, CT, pneumonia, PE, COPD, DKA, ARF, appy, cholecystitis, CVA, Diverticulitis, Homicidal, Suicidal, threat to staff... and all critical care pts) @ -No - Lab Data Result diagrams: 12/22/23 15:15 12/22/23 15:15 Lab Results 12/22/23 12/22/23 12/22/23 Range/Units 15:15 15:15 15:15 WBC 8.8 (3.8-10.6) k/uL RBC 4.50 (3.80-5.40) m/uL Hgb 13.2 (11.4-16.0) gm/dL Hct 40.4 (34.0-46.0) % MCV 89.6 (80.0-100.0) fL MCH 29.3 (25.0-35.0) pg MCHC 32.7 (31.0-37.0) g/dL RDW 13.8 (11.5-15.5) % Plt Count 219 (150-450) k/uL MPV 7.4 Neutrophils % 63 % Lymphocytes % 29 % Monocytes % 5 % Eosinophils % 2 % Basophils % 1 % Neutrophils # 5.5 (1.3-7.7) k/uL Lymphocytes # 2.5 (1.0-4.8) k/uL Monocytes # 0.4 (0-1.0) k/uL Eosinophils # 0.2 (0-0.7) k/uL Basophils # 0.1 (0-0.2) k/uL PT 11.2 (10.0-12.5) sec INR 1.0 (<1.2) APTT 24.1 (22.0-30.0) sec Sodium (137-145) mmol/L Potassium (3.5-5.1) mmol/L Chloride (98-107) mmol/L Carbon Dioxide (22-30) mmol/L Anion Gap mmol/L BUN (7-17) mg/dL Creatinine (0.52-1.04) mg/dL Est GFR (CKD-EPI)AfAm (>60 ml/min/1.73 sqM) Est GFR (CKD-EPI)NonAf (>60 ml/min/1.73 sqM) Glucose (74-99) mg/dL Lactic Ac Sepsis Rflx Plasma Lactic Acid Baldo (0.7-2.0) mmol/L Calcium (8.4-10.2) mg/dL Magnesium (1.6-2.3) mg/dL Total Bilirubin (0.2-1.3) mg/dL AST (14-36) U/L ALT (4-34) U/L Alkaline Phosphatase (38-126) U/L Total Protein (6.3-8.2) g/dL Albumin (3.5-5.0) g/dL Urine Color Urine Appearance (Clear) Urine pH (5.0-8.0) Ur Specific Dodge (1.001-1.035) Urine Protein (Negative) Urine Glucose (UA) (Negative) Urine Ketones (Negative) Urine Blood (Negative) Urine Nitrite (Negative) Urine Bilirubin (Negative) Urine Urobilinogen (<2.0) mg/dL Ur Leukocyte Esterase (Negative) Stool Occult Blood Negative (Negative) 12/22/23 12/22/23 12/22/23 Range/Units 15:15 15:15 15:15 WBC (3.8-10.6) k/uL RBC (3.80-5.40) m/uL Hgb (11.4-16.0) gm/dL Hct (34.0-46.0) % MCV (80.0-100.0) fL MCH (25.0-35.0) pg MCHC (31.0-37.0) g/dL RDW (11.5-15.5) % Plt Count (150-450) k/uL MPV Neutrophils % % Lymphocytes % % Monocytes % % Eosinophils % % Basophils % % Neutrophils # (1.3-7.7) k/uL Lymphocytes # (1.0-4.8) k/uL Monocytes # (0-1.0) k/uL Eosinophils # (0-0.7) k/uL Basophils # (0-0.2) k/uL PT (10.0-12.5) sec INR (<1.2) APTT (22.0-30.0) sec Sodium 135 L (137-145) mmol/L Potassium 3.3 L (3.5-5.1) mmol/L Chloride 98 (98-107) mmol/L Carbon Dioxide 25 (22-30) mmol/L Anion Gap 12 mmol/L BUN 5 L (7-17) mg/dL Creatinine 0.63 (0.52-1.04) mg/dL Est GFR (CKD-EPI)AfAm >90 (>60 ml/min/1.73 sqM) Est GFR (CKD-EPI)NonAf 89 (>60 ml/min/1.73 sqM) Glucose 164 H (74-99) mg/dL Lactic Ac Sepsis Rflx Plasma Lactic Acid Baldo 3.0 H* (0.7-2.0) mmol/L Calcium 9.7 (8.4-10.2) mg/dL Magnesium 1.4 L (1.6-2.3) mg/dL Total Bilirubin 1.0 (0.2-1.3) mg/dL AST 36 (14-36) U/L ALT 20 (4-34) U/L Alkaline Phosphatase 70 (38-126) U/L Total Protein 8.2 (6.3-8.2) g/dL Albumin 4.7 (3.5-5.0) g/dL Urine Color Colorless Urine Appearance Clear (Clear) Urine pH 6.5 (5.0-8.0) Ur Specific Dodge 1.002 (1.001-1.035) Urine Protein Negative (Negative) Urine Glucose (UA) Negative (Negative) Urine Ketones Negative (Negative) Urine Blood Negative (Negative) Urine Nitrite Negative (Negative) Urine Bilirubin Negative (Negative) Urine Urobilinogen <2.0 (<2.0) mg/dL Ur Leukocyte Esterase Negative (Negative) Stool Occult Blood (Negative) 12/22/23 12/22/23 Range/Units 15:57 18:16 WBC (3.8-10.6) k/uL RBC (3.80-5.40) m/uL Hgb (11.4-16.0) gm/dL Hct (34.0-46.0) % MCV (80.0-100.0) fL MCH (25.0-35.0) pg MCHC (31.0-37.0) g/dL RDW (11.5-15.5) % Plt Count (150-450) k/uL MPV Neutrophils % % Lymphocytes % % Monocytes % % Eosinophils % % Basophils % % Neutrophils # (1.3-7.7) k/uL Lymphocytes # (1.0-4.8) k/uL Monocytes # (0-1.0) k/uL Eosinophils # (0-0.7) k/uL Basophils # (0-0.2) k/uL PT (10.0-12.5) sec INR (<1.2) APTT (22.0-30.0) sec Sodium (137-145) mmol/L Potassium (3.5-5.1) mmol/L Chloride (98-107) mmol/L Carbon Dioxide (22-30) mmol/L Anion Gap mmol/L BUN (7-17) mg/dL Creatinine (0.52-1.04) mg/dL Est GFR (CKD-EPI)AfAm (>60 ml/min/1.73 sqM) Est GFR (CKD-EPI)NonAf (>60 ml/min/1.73 sqM) Glucose (74-99) mg/dL Lactic Ac Sepsis Rflx Y Plasma Lactic Acid Baldo 2.8 H* (0.7-2.0) mmol/L Calcium (8.4-10.2) mg/dL Magnesium (1.6-2.3) mg/dL Total Bilirubin (0.2-1.3) mg/dL AST (14-36) U/L ALT (4-34) U/L Alkaline Phosphatase (38-126) U/L Total Protein (6.3-8.2) g/dL Albumin (3.5-5.0) g/dL Urine Color Urine Appearance (Clear) Urine pH (5.0-8.0) Ur Specific Dodge (1.001-1.035) Urine Protein (Negative) Urine Glucose (UA) (Negative) Urine Ketones (Negative) Urine Blood (Negative) Urine Nitrite (Negative) Urine Bilirubin (Negative) Urine Urobilinogen (<2.0) mg/dL Ur Leukocyte Esterase (Negative) Stool Occult Blood (Negative) Disposition Clinical Impression: Diarrhea, Dark stools Disposition: HOME SELF-CARE Condition: Good Instructions (If sedation given, give patient instructions): Gastrointestinal Bleeding (ED) Additional Instructions: Return to the emergency department for any new or worsening symptoms. Recommend follow-up with her primary care provider in the next week for further eval uation. Is patient prescribed a controlled substance at d/c from ED?: No Referrals: Katherine Walters MD [Primary Care Provider] - 1-2 days Time of Disposition: 19:01
[2023-12-22 15:46] LABS: Appearance,Urine Clear (Clear); Basophils # (A) 0.1 k/uL (0-0.2); Basophils % (A) 1 %; Bilirubin,Urine Negative (Negative); Blood,Urine Negative (Negative); Color,Urine Colorless; Eosinophils # (A) 0.2 k/uL (0-0.7); Eosinophils % (A) 2 %; Glucose,Urine (UA) Negative (Negative); HCT 40.4 % (34.0-46.0); HGB 13.2 gm/dL (11.4-16.0); Ketones,Urine Negative (Negative); Leukocyte Esterase,Urine Negative (Negative); Lymphocytes # (A) 2.5 k/uL (1.0-4.8); Lymphocytes % (A) 29 %; MCH 29.3 pg (25.0-35.0); MCHC 32.7 g/dL (31.0-37.0); MCV 89.6 fL (80.0-100.0); Mean Platelet Volume 7.4; Monocytes # (A) 0.4 k/uL (0-1.0); Monocytes % (A) 5 %; Neutrophils # (A) 5.5 k/uL (1.3-7.7); Neutrophils % (A) 63 %; Nitrite,Urine Negative (Negative); PH, Urine 6.5 (5.0-8.0); Platelet Count 219 k/uL (150-450); Protein,Urine Negative (Negative); RDW 13.8 % (11.5-15.5); Specific Gravity,Urine 1.002 (1.001-1.035); Urobilinogen,Urine <2.0 mg/dL (<2.0); WBC 8.8 k/uL (3.8-10.6)
[2023-12-22 15:52] LABS: Prothrombin Time 11.2 sec (10.0-12.5)
[2023-12-22 15:53] LABS: Partial Thromboplastin Time 24.1 sec (22.0-30.0)
[2023-12-22] MEDS: SODIUM CHLORIDE 0.9% 1,000 ML IV STA (16:08)
[2023-12-22 16:20] LABS: ALT 20 U/L (4-34); AST 36 U/L (14-36); African American GFR (CKD) >90 (>60 ml/min/1.73 sqM); Albumin 4.7 g/dL (3.5-5.0); Alkaline Phosphatase 70 U/L (38-126); Anion Gap 12 mmol/L; Blood Urea Nitrogen 5 mg/dL (7-17); Calcium 9.7 mg/dL (8.4-10.2); Carbon Dioxide 25 mmol/L (22-30); Chloride 98 mmol/L (98-107); Glucose 164 mg/dL (74-99); Magnesium 1.4 mg/dL (1.6-2.3); Non-African American GFR(CKD) 89 (>60 ml/min/1.73 sqM); Potassium 3.3 mmol/L (3.5-5.1); Sodium 135 mmol/L (137-145); Total Protein 8.2 g/dL (6.3-8.2)
[2023-12-22] MEDS: MAGNESIUM OXIDE 400 MG TAB PO STA (16:41)
[2023-12-22] MEDS: POTASSIUM CHLORIDE ER 20 MEQ TAB.ER PO STA (16:41)
[2023-12-22] MEDS ORDERED: SODIUM CHLORIDE 0.9% 1,000 ML IV STA (18:57)
[2023-12-22 20:36] VITALS: BP 168/103; PULSE 100; RESP 17; TEMP 99.1
== END 2023-12-22 20:36 | disposition home or self-care (01) ==
LOC: EC 14:44
CPT/HCPCS: 36415; 80053; 81003; 82272; 83605; 83735; 85025; 85610; 85730; 96360; 96361; 99285

== ENCOUNTER → 2024-03-28 | Outpatient (CLI) | payer MEDICARE ==
--- NOTE | 2024-03-30 23:49 | CTL ---
EXAMINATION TYPE: CT Low Dose Lung DATE OF EXAM: 03/28/2024 9:37 AM COMPARISON: None. CLINICAL INDICATION: Female, 73 years old with history of Z12.2 LUNG CA SCR F17.210 CURRENT SMOKER, C urrent smoker half a pack a day for 50 years, Lung cancer screening, History of tobacco use. TECHNIQUE: Low dose computed tomography scan was performed through the chest at 1 mm thick sections a nd reconstructed images in the coronal plane at 1 mm thick sections. Contrast used: mL of , (none if empty) Oral contrast used: (none if empty) CT DLP: 69 mGycm, Automated exposure control for dose reduction was used. CT CTDI: 2.07 mGy, Automated exposure control for dose reduction was used. SCREENING VISIT: CT DIAGNOSTIC QUALITY: Limited, but interpretable FINDINGS: LUNG NODULES: None. LUNGS: COPD: Severity: None Fibrosis: Severity: None Lymph nodes: None Other findings: None RIGHT PLEURAL SPACE: Effusion: None Calcification: None Thickening: None Pneumothorax: None LEFT PLEURAL SPACE: Effusion: None Calcification: None Thickening: Minimal along the lateral left upper lung field, example image series 4 image 61 Pneumothorax: None HEART: Other: Ascending thoracic aorta at the level the main pulmonary artery measures 4.0 cm. The main pul monary artery at the bifurcation measures3.0 cm. Heart Size: Normal Coronary calcification: Mild Pericardial effusion: None OTHER FINDINGS: Upper abdomen: Normal Bony thorax: Normal Supraclavicular region: Normal IMPRESSION: 1. No suspicious changes for primary or metastatic neoplasm. 2. Ascending thoracic aortic aneurysm 4.[address] CHEST RECOMMENDATION: Follow-up low-dose CT chest one year CT LUNG RAD: Lung-Rad 2 Benign Appearance or Behavior [facility], , 03/30/2024 11:47 PM
--- NOTE | 2024-04-01 00:37 | MM ---
Reason for Exam: Screening (asymptomatic). Last mammogram was performed 3 year(s) and 5 month(s) ago. Patient History: Menarche at age 11. First Full-Term at age 19. Left ovary removed at age 35. Right ovary removed at age 35. Hysterectomy at age 35. Postmenopausal. Patient has history of breast feeding. Patient used Hormonal Contraceptives for 7 years. 1985, Benign Excisional Biopsy on the left side. Mother had breast cancer, age 71. Risk Values: Cinthya 5 year model risk: 4.2%. NCI Lifetime model risk: 10.2%. Prior Study Comparison: 10/23/2020 Bilateral Diagnostic Mammogram, [facility]. Tissue Density: There are scattered areas of fibroglandular density. Findings: Analyzed By CAD. The pattern is symmetrical. Vascular calcification is present bilaterally. Benign round spherical calcifications are present. No suspicious groups of microcalcifications, spiculated or lobular masses, architectural distortion or other secondary signs of malignancy are mammographically apparent. Overall Assessment: Benign, BI-RAD 2 Management: Screening Mammogram of both breasts in 1 year. A negative mammogram report should not preclude additional follow up of suspicious palpable abnormalities. Patient should continue monthly self breast exam. A clinical breast exam by your physician is recommended on an annual basis and results should be correlated with mammographic findings. Note on Cinthya scores and lifetime risk: 1. A Cinthya score greater than 3% is considered moderate risk. If this is the case, consider specialist referral to assess eligibility for a risk reducing agent. 2. If overall lifetime risk for the development of breast cancer is 20% or higher, the patient may qualify for future screening with alternating mammogram and breast MRI. [facility], , 04/01/2024 12:34 AM. Electronically signed and approved by: Darrell Jordan D.O. Radiologis
== END | disposition home or self-care (01) ==
LOC: RADCTMAIN 09:13
PROVIDERS: ATTEND Family Medicine
DX: Z12.31 Encounter for screening mammogram for malignant neoplasm of breast (principal); Z12.2 Encounter for screening for malignant neoplasm of respiratory organs; F17.210 Nicotine dependence, cigarettes, uncomplicated; Z90.722 Acquired absence of ovaries, bilateral; Z78.0 Asymptomatic menopausal state; Z80.3 Family history of malignant neoplasm of breast; R92.323 Mammographic fibroglandular density, bilateral breasts; I71.21 Aneurysm of the ascending aorta, without rupture; R91.8 Other nonspecific abnormal finding of lung field
CPT/HCPCS: 71271; 77063; 77067

== ENCOUNTER → 2024-05-07 | Outpatient (CLI) | payer MEDICARE ==
--- NOTE | 2024-05-07 21:54 | MR ---
INDICATION: Patient age:Female; 73 years old; Reason for study: G31.84; [facility]. COMPARISON: MR brain 03/29/2022. TECHNIQUE: Multi planar, multi sequence imaging was performed through the brain without administratio n of intravenous contrast. FINDINGS: The hernandez-white junctions, ventricular system, basal cisterns appear unremarkable. Age-appropriate cer ebral volume loss. Diffusion-weighted imaging shows no evidence of restricted diffusion to suggest ac southern ute/subacute infarct. Intracranial arterial flow voids are maintained. Midline structures show no abn ormality. Similar scattered foci and of high T2/FLAIR signal intensity are seen within the periventri cular and subcortical white matter. The susceptibility weighted images do not reveal any evidence for micro-hemorrhage. The bone marrow signal is within normal limits. The paranasal sinuses and globes are unremarkable. IMPRESSION: 1. No evidence of intracranial mass or acute/subacute infarct. 2. Similar nonspecific white matter changes, likely related to small vessel ischemic disease. [facility], , 05/07/2024 9:52 PM
== END | disposition home or self-care (01) ==
LOC: EEVIPCON 21:15 → RADMRIMAIN 21:15
PROVIDERS: ATTEND Psychiatry & Neurology Neurology
DX: G31.84 Mild cognitive impairment of uncertain or unknown etiology (principal); R90.82 White matter disease, unspecified
CPT/HCPCS: 70551

== ENCOUNTER 2024-06-13 07:58 | Day surgery (SDC) | payer MEDICARE ==
[2024-06-12 09:33] VITALS: BMI 27.3
[2024-06-13] MEDS: IV FLUID CONTINUATION 1,000 ML IV ONE (08:36)
[2024-06-13 08:46] VITALS: RESP 16; TEMP 99.1
[2024-06-13 08:56] LABS: Glucose,Whole Blood 149 mg/dL (70-110)
[2024-06-13] MEDS: LACTATED RINGERS 1,000 ML IV SCH (08:57)
[2024-06-13] MEDS ORDERED: PROPOFOL 10 MG/ML 20 ML VIAL IV ONE (09:20)
[2024-06-13] MEDS ORDERED: LIDOCAINE 1% INJ 10MG/ML (20 ML MDV) ONE (09:20)
--- NOTE | 2024-06-13 09:45 | P.PCN ---
Date of Procedure: 06/13/24 Procedure(s) Performed: Brief history: Patient is a pleasant 73-year-old white female scheduled for an elective upper endoscopy as well as colonoscopy as a part of evaluation of GERD and change in bowel habits and blood in the stool. Procedure performed: Esophagogastroduodenoscopy with biopsy Colonoscopy with snare polypectomy Preoperative diagnosis: GERD Change in bowel habits and blood in the stool Anesthesia: MAC Procedure: After informed consent was obtained from the patient was brought into the endoscopy unit and IV sedation was administered by anesthesia under continuous monitoring. Initially upper endoscopy was done. The Olympus GF 160 video endoscope was inserted inserted into the mouth and esophagus intubated without any difficulty and was gradually advanced into the stomach and duodenum and carefully examined. The bulb and second part of the duodenum appeared normal. The scope was then withdrawn into the stomach adequately insufflated with air and upon careful examination the antrum and mild erythema consistent with gastritis and biopsies were done from this area. Mucosa of the body, cardia and fundus appeared normal. The scope was then withdrawn into the esophagus. The GE junction was located at 40 cm to the incisors. It appeared regular with no erythema erosions or ulcerations. Rest of the esophagus appeared normal. Patient tolerated the procedure well. At this time the patient continued to remain sedation. Initial digital rectal examination was normal. Olympus CF 160 video colonoscope was then inserted into the rectum and gradually advanced to the cecum without any difficulty. Careful examination was performed as the scope was gradually being withdrawn. The prep was excellent. The cecum, appeared normal. Descending colon there were 3 polyps measuring between mid millimeters to 1 cm in size removed by snare polypectomy. In the descending colon there were 3 polyps measuring 5 mm, 7 mm and 1 cm removed by snare polypectomy. In the sigmoid colon there were 2 polyps measuring 5 mm in size removed by snare polypectomy. Moderate sigmoid di verticulosis seen. Rest of the colon appeared normal and rectum appeared normal. Retroflexion was performed in the rectum and no lesions were noted. Patient tolerated the procedure well. Impression: 1. Upper endoscopy revealed mild antral gastritis but no use of esophagitis or peptic ulcer disease 2. Colonoscopy revealed: 8 mm, 1 cm x 2 ascending colon polyp status post polypectomy 5 mm, 7 mm and 1 cm descending colon polyp status post polypectomy 5 mm x 2 sigmoid colon polyp status post polypectomy Scattered sigmoid diverticulosis Small internal hemorrhoids Recommendations: Findings of this examination were discussed with the patient as well as her family. She was advised to follow-up with the biopsy results. Biopsy reveals adenoma she can have repeat colonoscopy in 3 years.
[2024-06-13 10:16] VITALS: BP 145/87; PULSE 84
[2024-06-13 10:16] LABS: Glucose,Whole Blood 148 mg/dL (70-110)
== END 2024-06-13 10:35 | disposition home or self-care (01) ==
LOC: ORWHC2ENDO 07:58
PROVIDERS: ATTEND Internal Medicine Gastroenterology
DX: D12.2 Benign neoplasm of ascending colon (principal); D12.4 Benign neoplasm of descending colon; D12.5 Benign neoplasm of sigmoid colon; K29.50 Unspecified chronic gastritis without bleeding; K57.30 Diverticulosis of large intestine without perforation or abscess without bleeding; K64.8 Other hemorrhoids; K21.9 Gastro-esophageal reflux disease without esophagitis; J44.9 Chronic obstructive pulmonary disease, unspecified; Z99.81 Dependence on supplemental oxygen; F41.9 Anxiety disorder, unspecified; F32.A Depression, unspecified; E11.9 Type 2 diabetes mellitus without complications; G40.909 Epilepsy, unspecified, not intractable, without status epilepticus; Z90.49 Acquired absence of other specified parts of digestive tract; Z98.890 Other specified postprocedural states; Z88.0 Allergy status to penicillin; Z88.6 Allergy status to analgesic agent
CPT/HCPCS: 88305; 45385; 43239; J2003; J2704

== ENCOUNTER 2024-09-18 17:26 | Observation (INO) | payer MEDICARE ==
[2024-09-18 17:56] LABS: Glucose,Whole Blood 155 mg/dL (70-110)
--- NOTE | 2024-09-18 18:04 | ED ---
Altered Mental Status HPI - General Chief Complaint: Altered Mental Status Stated Complaint: AMS Time Seen by Provider: 09/18/24 17:43 Source: EMS, RN notes reviewed, old records reviewed Mode of arrival: EMS Limitations: altered mental status - History of Present Illness Initial Comments: This is a 74-year-old female who is very confused on arrival to the ER. She was able to respond when asked her name but unable to answer questions. Patient was allegedly found down with a greater downtime than 1 day after she was found in the ground outside of her bathroom. Patient is brought in by EMS for evaluation was found by the neighbor MD Complaint: altered mental status, confusion, decreased responsiveness, weakness -: days(s) (1) Severity: severe Consistency of Symptoms: waxing and waning, getting worse Associated Symptoms: denies other symptoms Treatments Prior to Arrival: IV fluid, oxygen - Related Data Home Medications Medication Instructions Recorded Confirmed FLUoxetine HCL [PROzac] 20 mg PO DAILY 09/18/24 09/18/24 Insulin Aspart Prot/Insuln Asp 5 unit SQ BID 09/18/24 09/18/24 [NovoLOG MIX 70-30 Flexpen] Allergies Allergy/AdvReac Type Severity Reaction Status Date / Time Penicillins Allergy Rash/Hives Verified 09/18/24 19:01 ketorolac [From Toradol] AdvReac Rapid Verified 09/18/24 19:01 Heart Rate Review of Systems ROS Statement: Those systems with pertinent positive or pertinent negative responses have been documented in the HPI. ROS Other: All systems not noted in ROS Statement are negative. Past Medical History Past Medical History: COPD, Diabetes Mellitus, GERD/Reflux, Pneumonia, Seizure Disorder Additional Past Medical History / Comment(s): pne/sepsis,Migraines, last seizure 7 years ago thought d/t ativan withdrawal, gastric ulcer, IBS, incontinent of urine/stool. rents apartmaent from [facility] and she takes care of her. History of Any Multi-Drug Resistant Organisms: VRE Date of last positivie culture/infection: 02/27/17 MDRO Source:: URINE(enterococus faecium) Past Surgical History: Adenoidectomy, Appendectomy, Cholecystectomy, Hystere ctomy, Tonsillectomy Additional Past Surgical History / Comment(s): Pilonidal cyst removal, EGD/colonoscopy. Past Anesthesia/Blood Transfusion Reactions: Previous Problems w/ Anesthesia Additional Past Anesthesia/Blood Transfusion Reaction / Comment(s): Problem with past anesthesia with her muscles-last surgery anesthesia went good. Past Psychological History: Anxiety, Depression Smoking Status: Current every day smoker - Past Family History Mother Family Medical History: Cancer Additional Family Medical History / Comment(s): Mother of breast/ovarian cancer at the age of 71. Father Family Medical History: Musculoskeletal Disorder, Neurologic Disorder Additional Family Medical History / Comment(s): Father of Kamla Gehrig's disease at the age of 53. General Exam Limitations: altered mental status General appearance: alert, in no apparent distress Head exam: Present: atraumatic, normocephalic, normal inspection Eye exam: Present: normal appearance, PERRL, EOMI. Absent: scleral icterus, conjunctival injection, periorbital swelling ENT exam: Present: normal exam, mucous membranes moist Neck exam: Present: normal inspection. Absent: tenderness, meningismus, lymphadenopathy Respiratory exam: Present: normal lung sounds bilaterally. Absent: respiratory distress, wheezes, rales, rhonchi, stridor Cardiovascular Exam: Present: regular rate, normal rhythm, normal heart sounds. Absent: systolic murmur, diastolic murmur, rubs, gallop, clicks GI/Abdominal exam: Present: soft, normal bowel sounds. Absent: distended, tenderness, guarding, rebound, rigid Extremities exam: Present: normal inspection, full ROM, normal capillary refill. Absent: tenderness, pedal edema, joint swelling, calf tenderness Back exam: Present: normal inspection Neurological exam: Present: alert, oriented X3, CN II-XII intact Psychiatric exam: Present: normal affect, normal mood Skin exam: Present: warm, dry, intact, normal color. Absent: rash Course Vital Signs 09/18/24 09/18/24 09/18/24 17:31 18:45 19:53 Temperature 98.9 F 98.4 F Pulse Rate 110 H 100 100 Respiratory 20 18 18 Rate Blood Pressure 140/65 157/97 142/82 O2 Sat by Pulse 95 93 L 92 L Oximetry - Reevaluation(s) Reevaluation #1: 09/18/24 18:36 Medical records reviewed Reevaluation #2: 09/18/24 20:19 Mental status continues to improve throughout ER stay Reevaluation #3: 09/18/24 20:19 Patient informed of results questions answered Reevaluation #4: Was pt. sent in by a medical professional or institution (BLAIR Melendez, SUPPORT TECHNICIAN, urgent care, hospital, or prison...) When possible be specific @ -no Did you speak to anyone other than the patient for history (EMS, parent, family, police, friend...)? What history was obtained from this source @ -no Did you review nursing and triage notes (agree or disagree)? Why? @ -agree Are old charts reviewed (outside hosp., previous admission, EMS record, old EKG, old radiological studies, urgent care reports/EKG's, prison records)? Report findings @ -yes Differential Diagnosis (chest pain, altered mental status, abdominal pain women, abdominal pain men, vaginal bleeding, weakness, fever, dyspnea, syncope, headache, dizziness, GI bleed, back pain, seizure, CVA, palpatations, mental health, musculoskeletal)? @ -prior EKG interpreted by me (3pts min.). @ -yes X-rays interpreted by me (1pt min.). @ -yes negative for acute disease CT interpreted by me (1pt min.). @ -no U/S interpreted by me (1pt. min.). @ -no What testing was considered but not performed or refused? (CT, X-rays, U/S, labs)? Why? @ -none What meds were considered but not given or refused? Why? @ -none Did you discuss the management of the patient with other professionals (pr ofessionals i.e. BLAIR Melendez, SUPPORT TECHNICIAN, lab, RT, psych nurse, psychiatric social worker supervisor, sand hauler, teacher, liaison officer, complex case manager)? Give summary @ -no Was smoking cessation discussed for >3mins.? @ -no Was critical care preformed (if so, how long)? @ -no Were there social determinants of health that impacted care today? How? (Homelessness, low income, unemployed, alcoholism, drug addiction, transportation, low edu. Level, literacy, decrease access to med. care, half-way, rehab)? @ -none Was there de-escalation of care discussed even if they declined (Discuss DNR or withdrawal of care, Hospice)? DNR status @ -no What co-morbidities impacted this encounter? (DM, HTN, Smoking, COPD, CAD, Cancer, CVA, ARF, Chemo, Hep., AIDS, mental health diagnosis, sleep apnea, morbid obesity)? @ -none Was patient admitted / discharged? Hospital course, mention meds given and route, prescriptions, significant lab abnormalities, going to OR and other pertinent info. @ - Undiagnosed new problem with uncertain prognosis? @ -no Drug Therapy requiring intensive monitoring for toxicity (Heparin, Nitro, Insulin, Cardizem)? @ -no Were any procedures done? @ -no Diagnosis/symptom? @ - Acute, or Chronic, or Acute on Chronic? @ -Acute Uncomplicated (without systemic symptoms) or Complicated (systemic symptoms)? @ -Complicated Side effects of treatment? @ -no Exacerbation, Progression, or Severe Exacerbation? @ -exacerbation Poses a threat to life or bodily function? How? (Chest pain, USA, CO, pneumonia, PE, COPD, DKA, ARF, appy, cholecystitis, CVA, Diverticulitis, Homicidal, Suicidal, threat to staff... and all critical care pts) @ -yes Reevaluation #5: Differential Altered Mental Status: Hypoglycemia, DKA, hypercapnia, ETOH, overdose, CO poisoning, trauma, myxedema coma, HTN encephalopathy, infection, encephalitis, psychosis, intercranial hemorrhage, hepatic encephalopathy, meningitis, CVA, this is not meant to be an all-inclusive list - Consultations Consultation #1: Spoke with [facility] who agrees to admit this patient Medical Decision Making - Medical Decision Making 74 female with altered mental status and unresponsiveness. Patient incontinent of stool and urine found to be here in the ER with improved mental status throughout ER stay. Patient will be admitted for observation regarding possible seizure-like activity if symptoms were related to seizure versus syncope versus other cause of altered mental status - Lab Data Result diagrams: 09/18/24 17:52 09/18/24 17:52 Lab Results 09/18/24 09/18/24 09/18/24 Range/Units 17:52 17:52 17:52 WBC 13.43 H (4.50-10.00) 10*3/uL RBC 4.97 (4.10-5.20) 10*6/uL Hgb 14.4 (12.0-15.0) g/dL Hct 43.5 (37.2-46.3) % MCV 87.5 (80.0-97.0) fL MCH 29.0 (27.0-32.0) pg MCHC 33.1 (32.0-37.0) g/dL Plt Count 245 (140-440) 10*3/uL MPV 9.3 L (9.5-12.2) fL Immature Gran % (Auto) 0.4 % Neutrophils % 87.3 % Lymphocytes % 7.9 % Monocytes % 4.3 % Eosinophils % 0.0 % Basophils % 0.1 % Immature Gran # 0.06 H (0.00-0.04) 10*3/uL Neutrophils # 11.72 H (1.80-7.70) 10*3/uL Lymphocytes # 1.06 (0.90-5.00) 10*3/uL Monocytes # 0.58 (0.20-1.00) 10*3/uL Eosinophils # 0.00 L (0.04-0.35) 10*3/uL Basophils # 0.01 (0.00-0.10) 10*3/uL PT 11.0 (10.0-12.5) sec INR 1.0 (<1.2) APTT 21.7 L (22.0-30.0) sec Sodium (137-145) mmol/L Potassium (3.5-5.1) mmol/L Chloride (98-107) mmol/L Carbon Dioxide (22-30) mmol/L Anion Gap mmol/L BUN (7-17) mg/dL Creatinine (0.52-1.04) mg/dL Est GFR (CKD-EPI)AfAm (>60 ml/min/1.73 sqM) Est GFR (CKD-EPI)NonAf (>60 ml/min/1.73 sqM) Glucose (74-99) mg/dL POC Glucose (mg/dL) (70-110) mg/dL POC Glu Seals Engraver ID Calcium (8.4-10.2) mg/dL Total Bilirubin (0.2-1.3) mg/dL AST (14-36) U/L ALT (4-34) U/L Alkaline Phosphatase (38-126) U/L Ammonia (<30) umol/L Creatine Kinase (30-135) U/L Troponin I (0.000-0.034) ng/mL Total Protein (6.3-8.2) g/dL Albumin (3.5-5.0) g/dL Urine Color Urine Appearance (Clear) Urine pH (5.0-8.0) Ur Specific Tre[place] (1.001-1.035) Urine Protein (Negative) Urine Glucose (UA) (Negative) Urine Ketones (Negative) Urine Blood (Negative) Urine Nitrite (Negative) Urine Bilirubin (Negative) Urine Urobilinogen (<2.0) mg/dL Ur Leukocyte Esterase (Negative) Urine RBC (0-5) /hpf Urine Bacteria (None) /hpf Urine Yeast (Budding) (None) /hpf Urine Opiates Screen Not Detected (NotDetected) Ur Oxycodone Screen Not Detected (NotDetected) Urine Methadone Screen Not Detected (NotDetected) Ur Barbiturates Screen Not Detected (NotDetected) U Tricyclic Antidepress Not Detected (NotDetected) Ur Phencyclidine Scrn Not Detected (NotDetected) Ur Amphetamines Screen Not Detected (NotDetected) U Methamphetamines Scrn Not Detected (NotDetected) U Benzodiazepines Scrn Not Detected (NotDetected) Urine Cocaine Screen Not Detected (NotDetected) U Marijuana (THC) Screen Not Detected (NotDetected) Serum Alcohol mg/dL 09/18/24 09/18/24 09/18/24 Range/Units 17:52 17:52 17:52 WBC (4.50-10.00) 10*3/uL RBC (4.10-5.20) 10*6/uL Hgb (12.0-15.0) g/dL Hct (37.2-46.3) % MCV (80.0-97.0) fL MCH (27.0-32.0) pg MCHC (32.0-37.0) g/dL Plt Count (140-440) 10*3/uL MPV (9.5-12.2) fL Immature Gran % (Auto) % Neutrophils % % Lymphocytes % % Monocytes % % Eosinophils % % Basophils % % Immature Gran # (0.00-0.04) 10*3/uL Neutrophils # (1.80-7.70) 10*3/uL Lymphocytes # (0.90-5.00) 10*3/uL Monocytes # (0.20-1.00) 10*3/uL Eosinophils # (0.04-0.35) 10*3/uL Basophils # (0.00-0.10) 10*3/uL PT (10.0-12.5) sec INR (<1.2) APTT (22.0-30.0) sec Sodium 133 L (137-145) mmol/L Potassium 4.5 (3.5-5.1) mmol/L Chloride 98 (98-107) mmol/L Carbon Dioxide 20 L (22-30) mmol/L Anion Gap 15 mmol/L BUN 18 H (7-17) mg/dL Creatinine 0.68 (0.52-1.04) mg/dL Est GFR (CKD-EPI)AfAm >90 (>60 ml/min/1.73 sqM) Est GFR (CKD-EPI)NonAf 86 (>60 ml/min/1.73 sqM) Glucose 141 H (74-99) mg/dL POC Glucose (mg/dL) (70-110) mg/dL POC Glu Seals Engraver ID Calcium 10.0 (8.4-10.2) mg/dL Total Bilirubin 1.3 (0.2-1.3) mg/dL AST 65 H (14-36) U/L ALT 26 (4-34) U/L Alkaline Phosphatase 91 (38-126) U/L Ammonia 14 (<30) umol/L Creatine Kinase 150 H (30-135) U/L Troponin I 0.013 (0.000-0.034) ng/mL Total Protein 9.2 H (6.3-8.2) g/dL Albumin 5.0 (3.5-5.0) g/dL Urine Color Urine Appearance (Clear) Urine pH (5.0-8.0) Ur Specific Tre[place] (1.001-1.035) Urine Protein (Negative) Urine Glucose (UA) (Negative) Urine Ketones (Negative) Urine Blood (Negative) Urine Nitrite (Negative) Urine Bilirubin (Negative) Urine Urobilinogen (<2.0) mg/dL Ur Leukocyte Esterase (Negative) Urine RBC (0-5) /hpf Urine Bacteria (None) /hpf Urine Yeast (Budding) (None) /hpf Urine Opiates Screen (NotDetected) Ur Oxycodone Screen (NotDetected) Urine Methadone Screen (NotDetected) Ur Barbiturates Screen (NotDetected) U Tricyclic Antidepress (NotDetected) Ur Phencyclidine Scrn (NotDetected) Ur Amphetamines Screen (NotDetected) U Methamphetamines Scrn (NotDetected) U Benzodiazepines Scrn (NotDetected) Urine Cocaine Screen (NotDetected) U Marijuana (THC) Screen (NotDetected) Serum Alcohol <10 mg/dL 09/18/24 09/18/24 Range/Units 17:52 17:54 WBC (4.50-10.00) 10*3/uL RBC (4.10-5.20) 10*6/uL Hgb (12.0-15.0) g/dL Hct (37.2-46.3) % MCV (80.0-97.0) fL MCH (27.0-32.0) pg MCHC (32.0-37.0) g/dL Plt Count (140-440) 10*3/uL MPV (9.5-12.2) fL Immature Gran % (Auto) % Neutrophils % % Lymphocytes % % Monocytes % % Eosinophils % % Basophils % % Immature Gran # (0.00-0.04) 10*3/uL Neutrophils # (1.80-7.70) 10*3/uL Lymphocytes # (0.90-5.00) 10*3/uL Monocytes # (0.20-1.00) 10*3/uL Eosinophils # (0.04-0.35) 10*3/uL Basophils # (0.00-0.10) 10*3/uL PT (10.0-12.5) sec INR (<1.2) APTT (22.0-30.0) sec Sodium (137-145) mmol/L Potassium (3.5-5.1) mmol/L Chloride (98-107) mmol/L Carbon Dioxide (22-30) mmol/L Anion Gap mmol/L BUN (7-17) mg/dL Creatinine (0.52-1.04) mg/dL Est GFR (CKD-EPI)AfAm (>60 ml/min/1.73 sqM) Est GFR (CKD-EPI)NonAf (>60 ml/min/1.73 sqM) Glucose (74-99) mg/dL POC Glucose (mg/dL) 155 H (70-110) mg/dL POC Glu Seals Engraver ID [place] Calcium (8.4-10.2) mg/dL Total Bilirubin (0.2-1.3) mg/dL AST (14-36) U/L ALT (4-34) U/L Alkaline Phosphatase (38-126) U/L Ammonia (<30) umol/L Creatine Kinase (30-135) U/L Troponin I (0.000-0.034) ng/mL Total Protein (6.3-8.2) g/dL Albumin (3.5-5.0) g/dL Urine Color Light Yellow Urine Appearance Turbid H (Clear) Urine pH 5.5 (5.0-8.0) Ur Specific [place] 1.015 (1.001-1.035) Urine Protein 1+ H (Negative) Urine Glucose (UA) Negative (Negative) Urine Ketones Trace H (Negative) Urine Blood Small H (Negative) Urine Nitrite Negative (Negative) Urine Bilirubin Negative (Negative) Urine Urobilinogen <2.0 (<2.0) mg/dL Ur Leukocyte Esterase Negative (Negative) Urine RBC 3 (0-5) /hpf Urine Bacteria Occasional H (None) /hpf Urine Yeast (Budding) Many H (None) /hpf Urine Opiates Screen (NotDetected) Ur Oxycodone Screen (NotDetected) Urine Methadone Screen (NotDetected) Ur Barbiturates Screen (NotDetected) U Tricyclic Antidepress (NotDetected) Ur Phencyclidine Scrn (NotDetected) Ur Amphetamines Screen (NotDetected) U Methamphetamines Scrn (NotDetected) U Benzodiazepines Scrn (NotDetected) Urine Cocaine Screen (NotDetected) U Marijuana (THC) Screen (NotDetected) Serum Alcohol mg/dL - EKG Data -: EKG Interpreted by Me (EKG is sinus tachycardia 102 ID 168 QRS 75 QTc 433) - Radiology Data Radiology results: report reviewed (CT brain and chest x-ray negative for acute disease), image reviewed Disposition Clinical Impression: Altered mental status, Occasional tremors Narrative: Concern Seizure Disposition: ADMITTED IP TO THIS HOSP Condition: Fair Is patient prescribed a controlled substance at d/c from ED?: No Referrals: Katherine Walters MD [Primary Care Provider] - 1-2 days Time of Disposition: 20:10
[2024-09-18 18:33] LABS: Amphetamine Screen,Urine Not Detected (NotDetected); Barbiturate Screen,Urine Not Detected (NotDetected); Benzodiazepines Screen,Urine Not Detected (NotDetected); Cocaine Screen,Urine Not Detected (NotDetected); Methadone Screen, Urine Not Detected (NotDetected); Opiate Screen,Urine Not Detected (NotDetected); Oxycodone Screen, Urine Not Detected (NotDetected); Phencyclidine Screen,Urine Not Detected (NotDetected); Tricyclic Antidepressant,Urine Not Detected (NotDetected); Urn Cannabinoid Scrn Not Detected (NotDetected)
--- NOTE | 2024-09-18 18:52 | CT ---
EXAMINATION TYPE: CT brain wo con DATE OF EXAM: 09/18/2024 6:30 PM COMPARISON: None. CLINICAL INDICATION: Female, 74 years old with history of Altered mental status, AMS TECHNIQUE: CT of the brain is performed utilizing 3 mm thick sections through the posterior fossa and 3 mm thick sections through the remaining calvarium. Study is performed within 24 hours of arrival to the hospital. Contrast used: mL of , (none if empty) CT DLP: 1198.3 mGycm, Automated exposure control for dose reduction was used. FINDINGS: No abnormal hyperdensity is present to suggest an acute intracranial hemorrhage. No mass lesion is evident. No acute infarcts are evident. Mild periventricular white matter hypodensity is present, likely on th e basis of chronic white matter ischemic changes. Ventricles and sulci are appropriate for the patient age. Paranasal sinuses and mastoid air cells within the [id number] are clear. IMPRESSION: 1. No acute intracranial process. Follow up MRI can be performed as clinically indicated. 2. Chronic appearing periventricular white matter ischemic changes. [facility], , 09/18/2024 6:50 PM
[2024-09-18 18:59] LABS: Basophils # (A) 0.01 10*3/uL (0.00-0.10); Basophils % (A) 0.1 %; HCT 43.5 % (37.2-46.3); HGB 14.4 g/dL (12.0-15.0); Lymphocytes # (A) 1.06 10*3/uL (0.90-5.00); Lymphocytes % (A) 7.9 %; MCHC 33.1 g/dL (32.0-37.0); MCV 87.5 fL (80.0-97.0); Mean Platelet Volume 9.3 fL (9.5-12.2); Monocytes # (A) 0.58 10*3/uL (0.20-1.00); Monocytes % (A) 4.3 %; Neutrophils # (A) 11.72 10*3/uL (1.80-7.70); Neutrophils % (A) 87.3 %; Platelet Count 245 10*3/uL (140-440); RBC 4.97 10*6/uL (4.10-5.20); WBC 13.43 10*3/uL (4.50-10.00)
[2024-09-18 19:05] LABS: ALT 26 U/L (4-34); AST 65 U/L (14-36); African American GFR (CKD) >90 (>60 ml/min/1.73 sqM); Alcohol <10 mg/dL; Alkaline Phosphatase 91 U/L (38-126); Anion Gap 15 mmol/L; Blood Urea Nitrogen 18 mg/dL (7-17); Carbon Dioxide 20 mmol/L (22-30); Chloride 98 mmol/L (98-107); Creatine Kinase 150 U/L (30-135); Glucose 141 mg/dL (74-99); Non-African American GFR(CKD) 86 (>60 ml/min/1.73 sqM); Potassium 4.5 mmol/L (3.5-5.1); Sodium 133 mmol/L (137-145); Total Bilirubin 1.3 mg/dL (0.2-1.3); Total Protein 9.2 g/dL (6.3-8.2)
[2024-09-18 19:17] LABS: Partial Thromboplastin Time 21.7 sec (22.0-30.0)
--- NOTE | 2024-09-18 19:22 | XR ---
EXAMINATION TYPE: XR pelvis AP view DATE OF EXAM: 09/18/2024 7:00 PM COMPARISON: None. CLINICAL INDICATION: Female, 74 years old with history of ams, pain TECHNIQUE: AP view(s) obtained. FINDINGS: Femoral heads articulating with the acetabulum. Mild diffuse joint space narrowing at the bilateral h ips. Symphysis pubis and sacroiliac joints are. No acute fractures are evident. IMPRESSION: 1. No acute posttraumatic changes AP pelvis [facility], , 09/18/2024 7:20 PM
--- NOTE | 2024-09-18 19:23 | XR ---
EXAMINATION TYPE: XR chest 1V DATE OF EXAM: 09/18/2024 7:00 PM COMPARISON: 09/17/2021 CLINICAL INDICATION: Female, 74 years old with history of ams, found on floor outside bathroom TECHNIQUE: XR chest 1V view(s) obtained. FINDINGS: The heart size is normal. The pulmonary vasculature is normal. The lungs are clear. No pneumothorax is evident. No acute fractures are identified. IMPRESSION: 1. No acute pulmonary process. [facility], , 09/18/2024 7:21 PM
[2024-09-18] MEDS: SODIUM CHLORIDE 0.9% 1,000 ML IV ONE (20:02)
[2024-09-18] MEDS ORDERED: NALOXONE 0.4 MG/ML 1 ML VIAL IV PRN (20:17)
[2024-09-18] MEDS ORDERED: ONDANSETRON 4 MG/2 ML VIAL IVP PRN (20:17)
[2024-09-18 20:18] LABS: Appearance,Urine Turbid (Clear); Bacteria,Urine Occasional /hpf; Bilirubin,Urine Negative (Negative); Blood,Urine Small (Negative); Budding Yeast,Urine Many /hpf; Color,Urine Light Yellow; Glucose,Urine (UA) Negative (Negative); Ketones,Urine Trace (Negative); Leukocyte Esterase,Urine Negative (Negative); Nitrite,Urine Negative (Negative); PH, Urine 5.5 (5.0-8.0); Protein,Urine 1+ (Negative); RBC,Urine 3 /hpf (0-5); Specific Gravity,Urine 1.015 (1.001-1.035); Urobilinogen,Urine <2.0 mg/dL (<2.0)
[2024-09-18] MEDS: SODIUM CHLORIDE 0.9% 1,000 ML IV SCH (22:13)
[2024-09-19 00:23] LABS: Glucose,Whole Blood 128 mg/dL (70-110)
[2024-09-19 01:23] LABS: ALT 21 U/L (4-34); AST 51 U/L (14-36); African American GFR (CKD) >90 (>60 ml/min/1.73 sqM); Albumin 4.1 g/dL (3.5-5.0); Albumin/Globulin Ratio 1.2; Alkaline Phosphatase 82 U/L (38-126); Anion Gap 12 mmol/L; Blood Urea Nitrogen 18 mg/dL (7-17); Calcium 9.5 mg/dL (8.4-10.2); Carbon Dioxide 22 mmol/L (22-30); Chloride 101 mmol/L (98-107); Globulin 3.5 g/dL; Glucose 133 mg/dL (74-99); Non-African American GFR(CKD) 79 (>60 ml/min/1.73 sqM); Potassium 4.4 mmol/L (3.5-5.1); Sodium 135 mmol/L (137-145); Total Bilirubin 1.3 mg/dL (0.2-1.3); Total Protein 7.6 g/dL (6.3-8.2)
[2024-09-19] MEDS ORDERED: MAG HYDROX/AL HYDROX/SIMETH 30 ML CUP PO PRN (10:21)
[2024-09-19] MEDS ORDERED: BENZOCAINE/MENTHOL LOZENG 1 EACH LOZENGE MUCOUS MEM PRN (10:21)
[2024-09-19] MEDS ORDERED: DEXTROSE 50% SYRINGE 50 ML IVP PRN ×2 (10:21)
[2024-09-19] MEDS ORDERED: DOCUSATE 100 MG CAP PO PRN (10:21)
[2024-09-19 10:35] LABS: Basophils # (A) 0.02 X 10*3/uL (0.00-0.10); Basophils % (A) 0.2 %; Eosinophils # (A) 0.01 X 10*3/uL (0.04-0.35); Eosinophils % (A) 0.1 %; HCT 39.8 % (37.2-46.3); HGB 12.8 g/dL (12.0-15.0); Lymphocytes # (A) 1.28 X 10*3/uL (0.90-5.00); Lymphocytes % (A) 11.4 %; MCH 28.7 pg (27.0-32.0); MCHC 32.2 g/dL (32.0-37.0); MCV 89.2 FL (80.0-97.0); Mean Platelet Volume 9.9 FL (9.5-12.2); Monocytes # (A) 0.61 X 10*3/uL (0.20-1.00); Monocytes % (A) 5.4 %; NRBC Per 100 WBC 0 X 10*3/uL (0.00-0.01); Neutrophils # (A) 9.26 X 10*3/uL (1.80-7.70); Neutrophils % (A) 82.3 %; Platelet Count 245 X 10*3/uL (140-440); RBC 4.46 X 10*6/uL (4.10-5.20); RDW 16.1 % (11.5-14.5); WBC 11.25 X 10*3/uL (4.50-10.00)
[2024-09-19 12:00] LABS: Glucose,Whole Blood 157 mg/dL (70-110)
[2024-09-19] MEDS: INSULIN LISPRO (HumaLOG) 100 UNIT/ML 10 mL VL SQ SCH (12:09)
--- NOTE | 2024-09-19 12:56 | P.HPIM ---
History of Present Illness H&P Date: 09/19/24 History of present illness; patient 74-year-old lady with past medical history significant for COPD, diabetes mellitus, seizure disorder who presented to the hospital after found laying on the floor. Patient apparently had been laying on the floor outside her bathroom since 4 in the morning, patient was confused at the time. Patient was incontinent of urine and stool. There was no evidence of any trauma. There was no complaint of any weakness of any extremity. History is limited because of patient being confused. EMS brought the patient to the hospital Initial lab work done in the ER showed (13.43, hemoglobin 14.4, platelet count 245, sodium 133, potassium 4.5, BUN 18, creatinine 0.68, glucose 141, troponin 0.013 UA negative for infection Urine drug screen negative Serum alcohol level10 EKG done in the ER showed heart rate of 102, no ST segment elevation or depression seen, no T-wave inversions seen. Chest x-ray done in the ER showed no acute pulmonary process CT head done showed no acute intracranial process, chronic appearing periventricular white matter change X-ray done showed no posttraumatic changes of the pelvis Patient admitted to internal medicine service REVIEW OF SYSTEMS: CONSTITUTIONAL: No fever, no malaise, no fatigue. HEENT: No recent visual problems or hearing problems. Denied any sore throat. CARDIOVASCULAR: No chest pain, orthopnea, PND, no palpitations, no syncope. PULMONARY: No shortness of breath, no cough, no hemoptysis. GASTROINTESTINAL: No diarrhea, no nausea, no vomiting, no abdominal pain. NEUROLOGICAL: No headaches, no weakness, no numbness. HEMATOLOGICAL: Denies any bleeding or petechiae. GENITOURINARY: Denies any burning micturition, frequency, or urgency. MUSCULOSKELETAL/RHEUMATOLOGICAL: Denies any joint pain, swelling, or any muscle pain. ENDOCRINE: Denies any polyuria or polydipsia. The rest of the 14-point review of systems is negative. PHYSICAL EXAMINATION: GENERAL: The patient is alert and oriented x2, not in any acute distress. Well developed, well nourished. HEENT: Pupils are round and equally reacting to light. EOMI. No scleral icterus. No conjunctival pallor. Normocephalic, atraumatic. No pharyngeal erythema. No thyromegaly. CARDIOVASCULAR: S1 and S2 present. No murmurs, rubs, or gallops. PULMONARY: Chest is clear to auscultation, no wheezing or crackles. ABDOMEN: Soft, nontender, nondistended, normoactive bowel sounds. No palpable organomegaly. MUSCULOSKELETAL: No joint swelling or deformity. EXTREMITIES: No cyanosis, clubbing, or pedal edema. NEUROLOGICAL: Gross neurological examination did not reveal any focal deficits. SKIN: No rashes. Assessment and plan Acute metabolic encephalopathy Ground-level fall Hyponatremia Seizure disorder History of COPD History of diabetes mellitus Monitor vital signs Monitor CBC Monitor CMP Continue telemetry monitoring Neurochecks Ordered IV fluids Ordered EEG Ordered PT and OT evaluation Ordered blood glucose monitoring Consult neurology Labs and medication were reviewed.. Continue same treatment. Continue with sym ptomatic treatment. Resume home medication. Monitor labs and vitals. DVT and GI prophylaxis. Further recommendations as per clinical course of the patient Dictation was produced using [employer] dictation software. please excuse any grammatical, word or spelling errors. Past Medical History Past Medical History: COPD, Diabetes Mellitus, GERD/Reflux, Pneumonia, Seizure Disorder Additional Past Medical History / Comment(s): pne/sepsis,Migraines, last seizure 7 years ago thought d/t ativan withdrawal, gastric ulcer, IBS, incontinent of urine/stool. rents apartmaent from [facility]kinson and she takes care of her. History of Any Multi-Drug Resistant Organisms: VRE Date of last positivie culture/infection: 02/27/17 MDRO Source:: URINE(enterococus faecium) Past Surgical History: Adenoidectomy, Appendectomy, Cholecystectomy, Hyster ectomy, Tonsillectomy Additional Past Surgical History / Comment(s): Pilonidal cyst removal, EGD/colonoscopy. Past Anesthesia/Blood Transfusion Reactions: Previous Problems w/ Anesthesia Additional Past Anesthesia/Blood Transfusion Reaction / Comment(s): Problem with past anesthesia with her muscles-last surgery anesthesia went good. Past Psychological History: Anxiety, Depression Smoking Status: Current every day smoker - Past Family History Mother Family Medical History: Cancer Additional Family Medical History / Comment(s): Mother of breast/ovarian cancer at the age of 71. Father Family Medical History: Musculoskeletal Disorder, Neurologic Disorder Additional Family Medical History / Comment(s): Father of Kamla Gehrig's disease at the age of 53. Medications and Allergies Home Medications Medication Instructions Recorded Confirmed Type FLUoxetine HCL [PROzac] 20 mg PO DAILY 09/18/24 09/18/24 History Insulin Aspart Prot/Insuln Asp 5 unit SQ BID 09/18/24 09/18/24 History [NovoLOG MIX 70-30 Flexpen] Allergies Allergy/AdvReac Type Severity Reaction Status Date / Time Penicillins Allergy Rash/Hives Verified 09/18/24 19:01 ketorolac [From Toradol] AdvReac Rapid Verified 09/18/24 19:01 Heart Rate Physical Exam Vitals: Vital Signs Temp Pulse Resp BP Pulse Ox 09/19/24 06:03 98.5 F 84 18 123/66 96 09/19/24 05:00 86 18 120/67 95 09/19/24 04:00 143/75 09/19/24 03:00 146/88 09/19/24 02:43 90 139/81 09/19/24 01:00 89 144/85 96 09/19/24 00:17 87 16 131/77 96 09/18/24 23:00 149/83 09/18/24 22:20 99 20 149/89 96 09/18/24 21:00 136/73 09/18/24 20:00 137/75 09/18/24 19:53 98.4 F 100 18 142/82 92 L 09/18/24 18:45 100 18 157/97 93 L 09/18/24 17:31 98.9 F 110 H 20 140/65 95 Intake and Output 09/18/24 09/19/24 09/19/24 22:59 06:59 14:59 Other: Weight 72.575 kg Results CBC & Chem 7: 09/19/24 06:02 09/19/24 01:02 Labs: Abnormal Lab Results - Last 24 Hours (Table) 09/18/24 09/18/24 09/18/24 Range/Units 17:52 17:52 17:52 WBC 13.43 H (4.50-10.00) 10*3/uL MPV 9.3 L (9.5-12.2) fL Immature Gran # 0.06 H (0.00-0.04) 10*3/uL Neutrophils # 11.72 H (1.80-7.70) 10*3/uL Eosinophils # 0.00 L (0.04-0.35) 10*3/uL APTT 21.7 L (22.0-30.0) sec Sodium 133 L (137-145) mmol/L Carbon Dioxide 20 L (22-30) mmol/L BUN 18 H (7-17) mg/dL Glucose 141 H (74-99) mg/dL POC Glucose (mg/dL) (70-110) mg/dL AST 65 H (14-36) U/L Creatine Kinase 150 H (30-135) U/L Total Protein 9.2 H (6.3-8.2) g/dL Urine Appearance (Clear) Urine Protein (Negative) Urine Ketones (Negative) Urine Blood (Negative) Urine Bacteria (None) /hpf Urine Yeast (Budding) (None) /hpf 09/18/24 09/18/24 09/19/24 Range/Units 17:52 17:54 00:23 WBC (4.50-10.00) 10*3/uL MPV (9.5-12.2) fL Immature Gran # (0.00-0.04) 10*3/uL Neutrophils # (1.80-7.70) 10*3/uL Eosinophils # (0.04-0.35) 10*3/uL APTT (22.0-30.0) sec Sodium (137-145) mmol/L Carbon Dioxide (22-30) mmol/L BUN (7-17) mg/dL Glucose (74-99) mg/dL POC Glucose (mg/dL) 155 H 128 H (70-110) mg/dL AST (14-36) U/L Creatine Kinase (30-135) U/L Total Protein (6.3-8.2) g/dL Urine Appearance Turbid H (Clear) Urine Protein 1+ H (Negative) Urine Ketones Trace H (Negative) Urine Blood Small H (Negative) Urine Bacteria Occasional H (None) /hpf Urine Yeast (Budding) Many H (None) /hpf 09/19/24 Range/Units 01:02 WBC (4.50-10.00) 10*3/uL MPV (9.5-12.2) fL Immature Gran # (0.00-0.04) 10*3/uL Neutrophils # (1.80-7.70) 10*3/uL Eosinophils # (0.04-0.35) 10*3/uL APTT (22.0-30.0) sec Sodium 135 L (137-145) mmol/L Carbon Dioxide (22-30) mmol/L BUN 18 H (7-17) mg/dL Glucose 133 H (74-99) mg/dL POC Glucose (mg/dL) (70-110) mg/dL AST 51 H (14-36) U/L Creatine Kinase (30-135) U/L Total Protein (6.3-8.2) g/dL Urine Appearance (Clear) Urine Protein (Negative) Urine Ketones (Negative) Urine Blood (Negative) Urine Bacteria (None) /hpf Urine Yeast (Budding) (None) /hpf
--- NOTE | 2024-09-19 15:15 | P.CNNES ---
History of Present Illness Consult date: 09/19/24 Requesting physician: Sanchez Ware Reason for Consult: Altered mental status, possible seizure History of Present Illness: This is a 74-year-old woman who presents emergency department since she was found laying on the floor. Patient is a poor historian. Patient did state that she was on the floor just outside her bathroom and does not know why she was on the floor. It seems she was on the floor for a day and was found on the ground outside the bathroom and was brought via EMS. She was found by her neighbor. She denies any history of seizures. Per the medical record it seems that she has history of seizure. Patient denies of any tongue bite, urinary or bowel incontinence. Per the primary team seems the patient bowel and urine incontinence. Denies any focal weakness, numbness. Denies of any headache. She states that she is on Prozac for years and does not know why she is on it. Her medical history she has history of depression and anxiety. Some of the workup during this hospital visit consisted of: Patient is afebrile White blood cell slightly elevated 13,000 and now at 11,000. Ammonia is 14 CK level is 150 I reviewed the rest of the lab workup CT of the head is reported as no acute intracranial process. Chronic appearing periventricular white matter ischemic changes. I personally reviewed the CT and agree with the report. Review of Systems Limited but as per HPI. Past Medical History Past Medical History: COPD, Diabetes Mellitus, GERD/Reflux, Pneumonia, Seizure Disorder Additional Past Medical History / Comment(s): pne/sepsis,Migraines, last seizure 7 years ago thought d/t ativan withdrawal, gastric ulcer, IBS, incontinent of urine/stool. rents apartmaent from [facility] and she takes care of her. History of Any Multi-Drug Resistant Organisms: VRE Date of last positivie culture/infection: 02/27/17 MDRO Source:: URINE(enterococus faecium) Past Surgical History: Adenoidectomy, Appendectomy, Cholecystectomy, Hysterectomy, Tonsillectomy Additional Past Surgical History / Comment(s): Pilonidal cyst removal, EGD/colonoscopy. Past Anesthesia/Blood Transfusion Reactions: Previous Problems w/ Anesthesia Additional Past Anesthesia/Blood Transfusion Reaction / Comment(s): Problem with past anesthesia with her muscles-last surgery anesthesia went good. Past Psychological History: Anxiety, Depression Smoking Status: Current every day smoker - Past Family History Mother Family Medical History: Cancer Additional Family Medical History / Comment(s): Mother of breast/ovarian c ancer at the age of 71. Father Family Medical History: Musculoskeletal Disorder, Neurologic Disorder Additional Family Medical History / Comment(s): Father of Kamla Gehrig's disease at the age of 53. Medications and Allergies Home Medications Medication Instructions Recorded Confirmed Type FLUoxetine HCL [PROzac] 20 mg PO DAILY 09/18/24 09/18/24 History Insulin Aspart Prot/Insuln Asp 5 unit SQ BID 09/18/24 09/18/24 History [NovoLOG MIX 70-30 Flexpen] Allergies Allergy/AdvReac Type Severity Reaction Status Date / Time Penicillins Allergy Rash/Hives Verified 09/18/24 19:01 ketorolac [From Toradol] AdvReac Rapid Verified 09/18/24 19:01 Heart Rate Physical Examination - Vital Signs Vital Signs: Vital Signs Temp Pulse Resp BP Pulse Ox 09/19/24 11:06 87 16 149/87 99 09/19/24 06:03 98.5 F 84 18 123/66 96 09/19/24 05:00 86 18 120/67 95 09/19/24 04:00 143/75 09/19/24 03:00 146/88 09/19/24 02:43 90 139/81 09/19/24 01:00 89 144/85 96 09/19/24 00:17 87 16 131/77 96 09/18/24 23:00 149/83 09/18/24 22:20 99 20 149/89 96 09/18/24 21:00 136/73 09/18/24 20:00 137/75 09/18/24 19:53 98.4 F 100 18 142/82 92 L 09/18/24 18:45 100 18 157/97 93 L 09/18/24 17:31 98.9 F 110 H 20 140/65 95 GENERAL: The patient is lying in bed and is not in acute distress. NEUROLOGICAL: Higher mental function: The patient is awake, alert, oriented to self, place. She correctly stated the current month but stated the year is 2074. Patient is following commands. No aphasia and no neglect. Cranial nerves: The pupils are round, equal and reactive to light. Visual guaman are full to confrontation throughout. Extraocular movement is intact no nystagmus is noted. Facial sensation is normal to touch throughout. The facial strength is normal throughout. Hearing is normal bilaterally to hand rub. Tongue is midline and moved [id number] without any difficulty. No dysarthria is noted. Shoulder shrug is normal bilaterally. Motor: The strength is 5 over 5 throughout. Normal tone and bulk. Cerebellum: Normal finger to nose bilaterally. Sensation: Sensation is normal to touch throughout. Reflexes (right/left): 2+ throughout. Plantars are downgoing bilaterally. Results - Laboratory Findings CBC and BMP: 09/19/24 06:09/19/24 01:02 Abnormal Lab Findings: Abnormal Labs 09/18/24 09/18/24 09/18/24 17:52 17:52 17:52 WBC 13.43 H RDW MPV 9.3 L Immature Gran # 0.06 H Neutrophils # 11.72 H Eosinophils # 0.00 L APTT 21.7 L Sodium 133 L Carbon Dioxide 20 L BUN 18 H Glucose 141 H POC Glucose (mg/dL) AST 65 H Creatine Kinase 150 H Total Protein 9.2 H Urine Appearance Urine Protein Urine Ketones Urine Blood Urine Bacteria Urine Yeast (Budding) 09/18/24 09/18/24 09/19/24 17:52 17:54 00:23 WBC RDW MPV Immature Gran # Neutrophils # Eosinophils # APTT Sodium Carbon Dioxide BUN Glucose POC Glucose (mg/dL) 155 H 128 H AST Creatine Kinase Total Protein Urine Appearance Turbid H Urine Protein 1+ H Urine Ketones Trace H Urine Blood Small H Urine Bacteria Occasional H Urine Yeast (Budding) Many H 09/19/24 09/19/24 09/19/24 01:02 06:02 11:59 WBC 11.25 H RDW 16.1 H MPV Immature Gran # 0.07 H Neutrophils # 9.26 H Eosinophils # 0.01 L APTT Sodium 135 L Carbon Dioxide BUN 18 H Glucose 133 H POC Glucose (mg/dL) 157 H AST 51 H Creatine Kinase Total Protein Urine Appearance Urine Protein Urine Ketones Urine Blood Urine Bacteria Urine Yeast (Budding) Assessment and Plan Assessment: This is a 74-year-old woman who was found down on the ground outside her bathroom by her neighbor and it seems she was on the floor for a day at she had urine and bowel incontinence. Patient denies any history of seizure but per medical record it seems that she does have underlying history of seizure Episode of altered mental status being found down on the ground is concerning for breakthrough seizure and the patient is not on any antiseizure medication. History of reported seizure per medical record patient denies that history. Underlying history of diabetes mellitus COPD Underlying history of depression and anxiety Plan: I agree with the primary team ordering EEG Consider Depakote or Lamictal since it has both mood and antiseizure benefits Seizure precautions seizure beds Ordered TSH, vitamin B12 I ordered MRI of the brain seizure protocol Will defer the rest of the medical management to primary and other specialist Thank you for the consultation. Time with Patient: Greater than 30
[2024-09-19 17:19] LABS: Glucose,Whole Blood 182 mg/dL (70-110)
[2024-09-19] MEDS: HEPARIN SODIUM,PORCINE 5,000 UNIT/ML 1 ML VIAL SQ SCH (17:23)
[2024-09-19] MEDS: DIVALPROEX 500 MG TABLET.DR PO SCH (17:24)
[2024-09-19] MEDS: LORazepam 1 MG/0.5 ML VIAL IV PRN (18:07)
[2024-09-19 20:20] LABS: Glucose,Whole Blood 167 mg/dL (70-110)
--- NOTE | 2024-09-19 20:42 | EEG ---
ELECTROENCEPHALOGRAM REPORT CLINICAL HISTORY: This is a 74-year-old woman with altered mental status and was found on the ground outside her bathroom. The video EEG is obtained to evaluate for seizure epileptiform activity. RELEVANT MEDICATION: Prozac. EEG TYPE: A routine 21 channel EEG with video using the 10/20 electrode system. DESCRIPTION: Wakefulness is only obtained. During the awake state, the background rhythm consists of [id number] voltage of 9 hertz activity that is well modulated and sustained. There is no physiological stage 2 sleep architecture. There is no focal slowing. There is diffuse mild myogenic artifact. Interictal and ictal is none. ACTIVATION PROCEDURE: Photic stimulation did not evoke a posterior driving response. There is no abnormality during the photic stimulation. Hyperventilation is not performed. CLINICAL INTERPRETATION: This is a normal routine EEG during awake state. There is no focal slowing, epileptiform discharge, or seizure on the EEG. A normal routine EEG does not rule out underlying epilepsy. Clinical correlation is recommended. STEFANIE / VELASQUEZN: [id number] /
[2024-09-20 06:20] LABS: Glucose,Whole Blood 153 mg/dL (70-110)
[2024-09-20] MEDS: FLUoxetine HCL 20 MG CAP PO SCH (09:03)
[2024-09-20 12:29] LABS: Glucose,Whole Blood 121 mg/dL (70-110)
--- NOTE | 2024-09-20 13:17 | P.PN ---
Subjective Progress Note Date: 09/20/24 patient 74-year-old lady with past medical history significant for COPD, diabetes mellitus, seizure disorder who presented to the hospital after found laying on the floor. Patient apparently had been laying on the floor outside her bathroom since 4 in the morning, patient was confused at the time. Patient was incontinent of urine and stool. There was no evidence of any trauma. There was no complaint of any weakness of any extremity. History is limited because of patient being confused. EMS brought the patient to the hospital Initial lab work done in the ER showed (13.43, hemoglobin 14.4, platelet count 245, sodium 133, potassium 4.5, BUN 18, creatinine 0.68, glucose 141, troponin 0.013 UA negative for infection Urine drug screen negative Serum alcohol level10 EKG done in the ER showed heart rate of 102, no ST segment elevation or depression seen, no T-wave inversions seen. Chest x-ray done in the ER showed no acute pulmonary process CT head done showed no acute intracranial process, chronic appearing periventricular white matter change X-ray done showed no posttraumatic changes of the pelvis Patient admitted to internal medicine service 09/20. Patient seen and examined. Patient was evaluated by neurology, they ordered MRI brain and EEG. EEG was negative for any seizure-like activity REVIEW OF SYSTEMS: CONSTITUTIONAL: No fever, no malaise,. CARDIOVASCULAR: No chest pain, no palpitations, no syncope. PULMONARY: No shortness of breath, no cough, GASTROINTESTINAL: No diarrhea, no nausea, no vomiting, no abdominal pain. NEUROLOGICAL: No headaches, no weakness, PHYSICAL EXAMINATION: GENERAL: The patient is alert and oriented x3, not in any acute distress. Well developed, well nourished. HEENT: Pupils are round and equally reacting to light. EOMI. No scleral icterus. No conjunctival pallor. Normocephalic, atraumatic. No pharyngeal erythema. No thyromegaly. CARDIOVASCULAR: S1 and S2 present. No murmurs, rubs, or gallops. PULMONARY: Chest is clear to auscultation, no wheezing or crackles. ABDOMEN: Soft, nontender, nondistended, normoactive bowel sounds. No palpable organomegaly. MUSCULOSKELETAL: No joint swelling or deformity. EXTREMITIES: No cyanosis, clubbing, or pedal edema. NEUROLOGICAL: Gross neurological examination did not reveal any focal deficits. SKIN: No rashes. Assessment and plan Acute metabolic encephalopathy Ground-level fall Break through seizures Hyponatremia Seizure disorder History of COPD History of diabetes mellitus Monitor vital signs Monitor CBC Monitor CMP Continue telemetry monitoring Neurochecks DC fluids EEG negative any seizure-like activity, patient started on Depakote by neurology MRI brain ordered Neurology following Labs and medication were reviewed.. Continue same treatment. Continue with symptomatic treatment. Resume home medication. Monitor labs and vitals. DVT and GI prophylaxis. Further recommendations as per clinical course of the patient Dictation was produced using [employer] dictation software. please excuse any grammatical, word or spelling errors. Objective - Vital Signs Vital signs: Vital Signs Temp 98.1 F 09/20/24 07:35 Pulse 91 09/20/24 07:35 Resp 17 09/20/24 07:35 BP 169/96 09/20/24 07:35 Pulse Ox 95 09/20/24 07:35 FiO2 Intake & Output 09/19/24 09/20/24 09/20/24 18:59 06:59 18:59 Intake Total 118 Balance 118 Weight 72.575 kg Intake: Oral 118 Other: Voiding Method Toilet Toilet Toilet # Voids 16 - Labs CBC & Chem 7: 09/19/24 06:02 09/19/24 01:02 Labs: Abnormal Lab Results - Last 24 Hours (Table) 09/18/24 09/19/24 09/19/24 Range/Units 17:52 06:02 11:59 WBC 11.25 H (4.50-10.00) X 10*3/uL RDW 16.1 H (11.5-14.5) % Immature Gran # 0.07 H (0.00-0.04) X 10*3/uL Neutrophils # 9.26 H (1.80-7.70) X 10*3/uL Eosinophils # 0.01 L (0.04-0.35) X 10*3/uL POC Glucose (mg/dL) 157 H (70-110) mg/dL Hemoglobin A1c 7.2 H (<=6.0) % 09/19/24 09/19/24 09/20/24 Range/Units 17:18 20:18 06:19 WBC (4.50-10.00) X 10*3/uL RDW (11.5-14.5) % Immature Gran # (0.00-0.04) X 10*3/uL Neutrophils # (1.80-7.70) X 10*3/uL Eosinophils # (0.04-0.35) X 10*3/uL POC Glucose (mg/dL) 182 H 167 H 153 H (70-110) mg/dL Hemoglobin A1c (<=6.0) %
--- NOTE | 2024-09-20 15:36 | P.PN ---
Subjective Progress Note Date: 09/20/24 I am following up with the patient and she feels she is doing well. Denies of any neurological issues. Denies of any passing out or any seizure-like activity since being in the hospital. Objective - Vital Signs Vital signs: Vital Signs Temp 98.1 F 09/20/24 07:35 Pulse 91 09/20/24 07:35 Resp 17 09/20/24 07:35 BP 169/96 09/20/24 07:35 Pulse Ox 95 09/20/24 07:35 FiO2 Intake & Output 09/19/24 09/20/24 09/20/24 18:59 06:59 18:59 Intake Total 118 Balance 118 Weight 72.575 kg Intake: Oral 118 Other: Voiding Method Toilet Toilet Toilet # Voids 16 - Exam GENERAL: The patient is sitting in a recliner chair and just completed her lunch and is not in acute distress. NEUROLOGICAL: Higher mental function: The patient is awake, alert, oriented to self, place. She correctly stated the current month but stated the year is 2074. Patient is following commands. No aphasia and no neglect. Cranial nerves: The pupils are round, equal and reactive to light. Visual guaman are full to confrontation throughout. Extraocular movement is intact no nystagmus is noted. Facial sensation is normal to touch throughout. The facial strength is normal throughout. Hearing is normal bilaterally to hand rub. Tongue is midline and moved [id number] without any difficulty. No dysarthria is noted. Shoulder shrug is normal bilaterally. Motor: The strength is 5 over 5 throughout. Normal tone and bulk. Cerebellum: Normal finger to nose bilaterally. Sensation: Sensation is normal to touch throughout. Reflexes (right/left): 2+ throughout. Plantars are downgoing bilaterally. Some of the workup during this hospital visit consisted of: Patient is afebrile White blood cell slightly elevated 13,000 and now at 11,000. Ammonia is 14 CK level is 150 8 and B12 is 333 TSH is 1.590 I reviewed the rest of the lab workup CT of the head is reported as no acute intracranial process. Chronic appearing periventricular white matter ischemic changes. I personally reviewed the CT and agree with the report. Routine EEG is normal. - Labs CBC & Chem 7: 09/19/24 06:02 09/19/24 01:02 Labs: Abnormal Lab Results - Last 24 Hours (Table) 09/18/24 09/19/24 09/19/24 Range/Units 17:52 17:18 20:18 POC Glucose (mg/dL) 182 H 167 H (70-110) mg/dL Hemoglobin A1c 7.2 H (<=6.0) % 09/20/24 09/20/24 Range/Units 06:19 12:27 POC Glucose (mg/dL) 153 H 121 H (70-110) mg/dL Hemoglobin A1c (<=6.0) % Assessment and Plan Assessment: This is a 74-year-old woman who was found down on the ground outside her bathroom by her neighbor and it seems she was on the floor for a day at she had urine and bowel incontinence. Patient denies any history of seizure but per medical record it seems that she does have underlying history of seizure Episode of altered mental status being found down on the ground is concerning for breakthrough seizure and the patient is not on any antiseizure medication. EEG is normal. History of reported seizure per medical record patient denies that history. But today states she does have history of seizure and it has been long time since had seizures. Underlying history of diabetes mellitus COPD Underlying history of depression and anxiety Plan: I started the patient on Depakote 500mg bid since it has both mood and antiseizure benefits Seizure precautions seizure beds Pending MRI of the brain seizure protocol Will defer the rest of the medical management to primary and other specialist Per [facility] because of the seizure, avoid driving for 6-month until seizure-free, avoid swimming unassisted, avoid heavy machinery or heights. Upon discharge recommend the patient to follow-up with a neurologist as an outpatient within 2 to 3 weeks If MRI of the brain is unremarkable and no further seizures or syncopal episode and the patient is cleared from neurological perspective Time with Patient: Less than 30
[2024-09-20 17:46] LABS: Glucose,Whole Blood 123 mg/dL (70-110)
[2024-09-20 20:02] LABS: Glucose,Whole Blood 165 mg/dL (70-110)
[2024-09-20] MEDS: MELATONIN 3 MG TABLET PO PRN (22:02)
[2024-09-21 06:19] LABS: Glucose,Whole Blood 100 mg/dL (70-110)
[2024-09-21 12:05] LABS: Glucose,Whole Blood 193 mg/dL (70-110)
--- NOTE | 2024-09-21 12:37 | P.PN ---
Subjective Progress Note Date: 09/21/24 patient 74-year-old lady with past medical history significant for COPD, diabetes mellitus, seizure disorder who presented to the hospital after found laying on the floor. Patient apparently had been laying on the floor outside her bathroom since 4 in the morning, patient was confused at the time. Patient was incontinent of urine and stool. There was no evidence of any trauma. There was no complaint of any weakness of any extremity. History is limited because of patient being confused. EMS brought the patient to the hospital Initial lab work done in the ER showed (13.43, hemoglobin 14.4, platelet count 245, sodium 133, potassium 4.5, BUN 18, creatinine 0.68, glucose 141, troponin 0.013 UA negative for infection Urine drug screen negative Serum alcohol level10 EKG done in the ER showed heart rate of 102, no ST segment elevation or depression seen, no T-wave inversions seen. Chest x-ray done in the ER showed no acute pulmonary process CT head done showed no acute intracranial process, chronic appearing periventricular white matter change X-ray done showed no posttraumatic changes of the pelvis Patient admitted to internal medicine service 09/20. Patient seen and examined. Patient was evaluated by neurology, they ordered MRI brain and EEG. EEG was negative for any seizure-like activity 09/21. Patient seen examined. MRI brain is still pending. No acute events overnight. REVIEW OF SYSTEMS: CONSTITUTIONAL: No fever, no malaise,. CARDIOVASCULAR: No chest pain, no palpitations, no syncope. PULMONARY: No shortness of breath, no cough, GASTROINTESTINAL: No diarrhea, no nausea, no vomiting, no abdominal pain. NEUROLOGICAL: No headaches, no weakness, PHYSICAL EXAMINATION: GENERAL: The patient is alert and oriented x3, not in any acute distress. Well developed, well nourished. HEENT: Pupils are round and equally reacting to light. EOMI. No scleral icterus. No conjunctival pallor. Normocephalic, atraumatic. No pharyngeal erythema. No thyromegaly. CARDIOVASCULAR: S1 and S2 present. No murmurs, rubs, or gallops. PULMONARY: Chest is clear to auscultation, no wheezing or crackles. ABDOMEN: Soft, nontender, nondistended, normoactive bowel sounds. No palpable organomegaly. MUSCULOSKELETAL: No joint swelling or deformity. EXTREMITIES: No cyanosis, clubbing, or pedal edema. NEUROLOGICAL: Gross neurological examination did not reveal any focal deficits. SKIN: No rashes. Assessment and plan Acute metabolic encephalopathy Ground-level fall Break through seizures Hyponatremia Seizure disorder History of COPD History of diabetes mellitus Monitor vital signs Monitor CBC Monitor CMP Continue telemetry monitoring Neurochecks EEG negative any seizure-like activity, patient started on Depakote by neurology MRI brain ordered Neurology following Labs and medication were reviewed.. Continue same treatment. Continue with symptomatic treatment. Resume home medication. Monitor labs and vitals. DVT and GI prophylaxis. Further recommendations as per clinical course of the patient Dictation was produced using [employer] dictation software. please excuse any grammatical, word or spelling errors. Objective - Vital Signs Vital signs: Vital Signs Temp 98.1 F 09/21/24 07:00 Pulse 68 09/21/24 07:00 Resp 16 09/21/24 07:00 BP 116/69 09/21/24 07:00 Pulse Ox 92 L 09/21/24 07:00 FiO2 Intake & Output 09/20/24 09/21/24 09/21/24 18:59 06:59 18:59 Intake Total 476 Balance 476 Intake: Oral 476 Other: Voiding Method Toilet Toilet # Voids 4 3 - Labs CBC & Chem 7: 09/19/24 06:02 09/19/24 01:02 Labs: Abnormal Lab Results - Last 24 Hours (Table) 09/18/24 09/20/24 09/20/24 Range/Units 17:52 12:27 17:44 POC Glucose (mg/dL) 121 H 123 H (70-110) mg/dL Hemoglobin A1c 7.2 H (<=6.0) % 09/20/24 Range/Units 20:01 POC Glucose (mg/dL) 165 H (70-110) mg/dL Hemoglobin A1c (<=6.0) %
[2024-09-21 17:17] LABS: Glucose,Whole Blood 147 mg/dL (70-110)
[2024-09-21 20:14] LABS: Glucose,Whole Blood 143 mg/dL (70-110)
[2024-09-22 06:35] LABS: Glucose,Whole Blood 117 mg/dL (70-110)
[2024-09-22 12:08] LABS: Glucose,Whole Blood 117 mg/dL (70-110)
--- NOTE | 2024-09-22 12:45 | P.PN ---
Subjective Progress Note Date: 09/22/24 I am following-up with the patient and feels she is doing well. No new neurological issues. Objective - Vital Signs Vital signs: Vital Signs Temp 98.7 F 09/22/24 07:00 Pulse 78 09/22/24 07:00 Resp 16 09/22/24 07:00 BP 150/74 09/22/24 07:00 Pulse Ox 91 L 09/22/24 07:00 FiO2 Intake & Output 09/21/24 09/22/24 09/22/24 18:59 06:59 18:59 Intake Total 442 Balance 442 Intake: Oral 442 Other: Voiding Method Toilet Toilet # Voids 2 5 - Exam GENERAL: The patient is sitting in a recliner chair and just completed her lunch and is not in acute distress. NEUROLOGICAL: Higher mental function: The patient is awake, alert, oriented to self, place. She correctly stated the current month but stated the year is 2074. Patient is following commands. No aphasia and no neglect. Cranial nerves: The pupils are round, equal and reactive to light. Visual guaman are full to confrontation throughout. Extraocular movement is intact no nystagmus is noted. Facial sensation is normal to touch throughout. The facial strength is normal throughout. Hearing is normal bilaterally to hand rub. Tongue is midline and moved [id number] without any difficulty. No dysarthria is noted. Shoulder shrug is normal bilaterally. Motor: The strength is 5 over 5 throughout. Normal tone and bulk. Cerebellum: Normal finger to nose bilaterally. Sensation: Sensation is normal to touch throughout. Reflexes (right/left): 2+ throughout. Plantars are downgoing bilaterally. Some of the workup during this hospital visit consisted of: Patient is afebrile White blood cell slightly elevated 13,000 and now at 11,000. Ammonia is 14 CK level is 150 8 and B12 is 333 TSH is 1.590 I reviewed the rest of the lab workup CT of the head is reported as no acute intracranial process. Chronic appearing periventricular white matter ischemic changes. I personally reviewed the CT and agree with the report. Routine EEG is normal. - Labs CBC & Chem 7: 09/19/24 06:02 09/19/24 01:02 Labs: Abnormal Lab Results - Last 24 Hours (Table) 09/21/24 09/21/24 09/22/24 Range/Units 17:16 20:13 06:34 POC Glucose (mg/dL) 147 H 143 H 117 H (70-110) mg/dL 09/22/24 Range/Units 12:07 POC Glucose (mg/dL) 117 H (70-110) mg/dL Assessment and Plan Assessment: This is a 74-year-old woman who was found down on the ground outside her bathroom by her neighbor and it seems she was on the floor for a day at she had urine and bowel incontinence. Patient denies any history of seizure but per medical record it seems that she does have underlying history of seizure Episode of altered mental status being found down on the ground is concerning for breakthrough seizure and the patient is not on any antiseizure medication. EEG is normal. History of reported seizure per medical record patient denies that history. But today states she does have history of seizure and it has been long time since had seizures. Underlying history of diabetes mellitus COPD Underlying history of depression and anxiety Plan: I started the patient on Depakote 500mg bid since it has both mood and antiseizure benefits Seizure precautions seizure beds Pending MRI of the brain seizure protocol Will defer the rest of the medical management to primary and other specialist Per [facility] because of the seizure, avoid driving for 6-month until seizure-free, avoid swimming unassisted, avoid heavy machinery or heights. Upon discharge recommend the patient to follow-up with a neurologist as an outpatient within 2 to 3 weeks If MRI of the brain is unremarkable and no further seizures or syncopal episode and the patient is cleared from neurological perspective Time with Patient: Less than 30
--- NOTE | 2024-09-22 16:15 | MR ---
EXAMINATION TYPE: MR brain wo/w con DATE OF EXAM: 09/22/2024 4:07 PM COMPARISON: 05/07/2024 CLINICAL INDICATION: Female, 74 years old with history of seizure, seizure TECHNIQUE: Multiplanar, multiecho imaging on a 3.0 Ellie magnet is performed through the brain. Stud y is performed within 24 hours of arrival to the hospital.Multiplanar, multiecho imaging on a 3.0 Delia la magnet is performed through the knee. IV Contrast: 7 mL Gadobutrol (None, if empty) FINDINGS: The craniovertebral junction is normal. The pituitary is normal. Diffusion-weighted imaging is performed. No abnormal hyperintensity is present to suggest an acute i ntracranial infarct or acute ischemic change. Scattered periventricular white matter hyperintensity is present, likely on the basis of chronic whit e matter ischemic changes. Ventricles and sulci are prominent for the patient age. Following contrast, no abnormal enhancement is evident. Examination appears stable from comparison. IMPRESSION: 1. Stable chronic appearing periventricular white matter ischemic-type changes. [facility], , 09/22/2024 4:12 PM
[2024-09-22 17:17] LABS: Glucose,Whole Blood 134 mg/dL (70-110)
--- NOTE | 2024-09-22 19:29 | P.PN ---
Subjective Progress Note Date: 09/22/24 74-year-old lady with past medical history significant for COPD, diabetes mellitus, seizure disorder who presented to the hospital after found laying on the floor. Patient apparently had been laying on the floor outside her bathroom since 4 in the morning, patient was confused at the time. Patient was i ncontinent of urine and stool. There was no evidence of any trauma. There was no complaint of any weakness of any extremity. History is limited because of patient being confused. EMS brought the patient to the hospital Initial lab work done in the ER showed (13.43, hemoglobin 14.4, platelet count 245, sodium 133, potassium 4.5, BUN 18, creatinine 0.68, glucose 141, troponin 0.013 UA negative for infection Urine drug screen negative Serum alcohol level10 EKG done in the ER showed heart rate of 102, no ST segment elevation or depression seen, no T-wave inversions seen. Chest x-ray done in the ER showed no acute pulmonary process CT head done showed no acute intracranial process, chronic appearing periventricular white matter change X-ray done showed no posttraumatic changes of the pelvis Patient admitted to internal medicine service Objective - Vital Signs Vital signs: Vital Signs Temp 98.7 F 09/22/24 07:00 Pulse 78 09/22/24 07:00 Resp 16 09/22/24 07:00 BP 150/74 09/22/24 07:00 Pulse Ox 91 L 09/22/24 07:00 FiO2 Intake & Output 09/21/24 09/22/24 09/22/24 18:59 06:59 18:59 Intake Total 442 Balance 442 Intake: Oral 442 Other: Voiding Method Toilet Toilet # Voids 2 5 - Exam GENERAL: The patient is alert and oriented x3, not in any acute distress. Well developed, well nourished. HEENT: Pupils are round and equally reacting to light. EOMI. No scleral icterus. No conjunctival pallor. Normocephalic, atraumatic. No pharyngeal erythema. No thyromegaly. CARDIOVASCULAR: S1 and S2 present. No murmurs, rubs, or gallops. PULMONARY: Chest is clear to auscultation, no wheezing or crackles. ABDOMEN: Soft, nontender, nondistended, normoactive bowel sounds. No palpable organomegaly. MUSCULOSKELETAL: No joint swelling or deformity. EXTREMITIES: No cyanosis, clubbing, or pedal edema. NEUROLOGICAL: Gross neurological examination did not reveal any focal deficits. SKIN: No rashes. - Labs CBC & Chem 7: 09/19/24 06:02 09/19/24 01:02 Labs: Abnormal Lab Results - Last 24 Hours (Table) 09/21/24 09/21/24 09/22/24 Range/Units 17:16 20:13 06:34 POC Glucose (mg/dL) 147 H 143 H 117 H (70-110) mg/dL 09/22/24 Range/Units 12:07 POC Glucose (mg/dL) 117 H (70-110) mg/dL Assessment and Plan Assessment: Acute metabolic encephalopathy Ground-level fall Break through seizures Hyponatremia Seizure disorder History of COPD History of diabetes mellitus Monitor vital signs Monitor CBC Monitor CMP Continue telemetry monitoring Neurochecks EEG negative any seizure-like activity, patient started on Depakote by neurology MRI brain ordered Neurology following Labs and medication were reviewed.. Continue same treatment. Continue with symptomatic treatment. Resume home medication. Monitor labs and vitals. DVT and GI prophylaxis. Further recommendations as per clinical course of the patient
[2024-09-22 19:51] LABS: Glucose,Whole Blood 163 mg/dL (70-110)
[2024-09-22] MEDS: ACETAMINOPHEN TAB 325 MG TAB PO PRN (20:04)
[2024-09-23 01:01] VITALS: TEMP 98.2
[2024-09-23 06:08] LABS: Glucose,Whole Blood 128 mg/dL (70-110)
[2024-09-23 07:26] VITALS: BP 132/75; PULSE 71; RESP 16
[2024-09-23 09:57] LABS: Basophils # (A) 0.06 X 10*3/uL (0.00-0.10); Basophils % (A) 0.7 %; Eosinophils # (A) 0.16 X 10*3/uL (0.04-0.35); Eosinophils % (A) 1.8 %; HCT 35.3 % (37.2-46.3); HGB 11.4 g/dL (12.0-15.0); Lymphocytes # (A) 2.73 X 10*3/uL (0.90-5.00); Lymphocytes % (A) 31.3 %; MCH 28.6 pg (27.0-32.0); MCHC 32.3 g/dL (32.0-37.0); MCV 88.7 FL (80.0-97.0); Mean Platelet Volume 11.1 FL (9.5-12.2); Monocytes # (A) 0.73 X 10*3/uL (0.20-1.00); Monocytes % (A) 8.4 %; NRBC Per 100 WBC 0 X 10*3/uL (0.00-0.01); Neutrophils % (A) 57.5 %; Platelet Count 194 X 10*3/uL (140-440); RBC 3.98 X 10*6/uL (4.10-5.20); RDW 15.6 % (11.5-14.5); WBC 8.71 X 10*3/uL (4.50-10.00)
[2024-09-23 10:55] LABS: Blood Urea Nitrogen 25.2 mg/dL (9.0-27.0); Calcium 9.1 mg/dL (8.7-10.3); Carbon Dioxide 26.9 mmol/L (21.6-31.8); Chloride 100 mmol/L (96-109); Glucose 111 mg/dL (70-110); Potassium 3.5 mmol/L (3.5-5.5); Sodium 138 mmol/L (135-145)
--- NOTE | 2024-09-23 12:15 | P.PN ---
Subjective Progress Note Date: 09/23/24 I am following-up with the patient and feels is doing well. Denies any new neurological issues. Objective - Vital Signs Vital signs: Vital Signs Temp 98.2 F 09/23/24 07:00 Pulse 71 09/23/24 07:00 Resp 16 09/23/24 07:00 BP 132/75 09/23/24 07:00 Pulse Ox 92 L 09/23/24 09:48 FiO2 21 09/23/24 09:48 Intake & Output 09/22/24 09/23/24 09/23/24 18:59 06:59 18:59 Other: Voiding Method Toilet Toilet Toilet # Voids 5 4 # Bowel Movements 1 - Exam GENERAL: The patient is lying in bed and is not in acute distress. NEUROLOGICAL: Higher mental function: The patient is awake, alert, oriented to self, place. She correctly stated the current month but stated the year is 2074. Patient is following commands. No aphasia and no neglect. Cranial nerves: The pupils are round, equal and reactive to light. Visual guaman are full to confrontation throughout. Extraocular movement is intact no nystagmus is noted. Facial sensation is normal to touch throughout. The facial strength is normal throughout. Hearing is normal bilaterally to hand rub. Tongue is midline and moved [id number] without any difficulty. No dysarthria is noted. Shoulder shrug is normal bilaterally. Motor: The strength is 5 over 5 throughout. Normal tone and bulk. Cerebellum: Normal finger to nose bilaterally. Sensation: Sensation is normal to touch throughout. Some of the workup during this hospital visit consisted of: Patient is afebrile White blood cell slightly elevated 13,000 and now at 11,000. Ammonia is 14 CK level is 150 8 and B12 is 333 TSH is 1.590 I reviewed the rest of the lab workup CT of the head is reported as no acute intracranial process. Chronic appearing periventricular white matter ischemic changes. I personally reviewed the CT and agree with the report. Routine EEG is normal. MRI Brain: Stable chronic appearing periventricular white matter ischemic type changes. - Labs CBC & Chem 7: 09/23/24 05:57 09/23/24 05:57 Labs: Abnormal Lab Results - Last 24 Hours (Table) 09/22/24 09/22/24 09/23/24 Range/Units 17:15 19:51 05:57 RBC 3.98 L (4.10-5.20) X 10*6/uL Hgb 11.4 L (12.0-15.0) g/dL Hct 35.3 L (37.2-46.3) % RDW 15.6 H (11.5-14.5) % BUN/Creatinine Ratio (12.00-20.00) Ratio Glucose (70-110) mg/dL POC Glucose (mg/dL) 134 H 163 H (70-110) mg/dL 09/23/24 09/23/24 Range/Units 05:57 06:07 RBC (4.10-5.20) X 10*6/uL Hgb (12.0-15.0) g/dL Hct (37.2-46.3) % RDW (11.5-14.5) % BUN/Creatinine Ratio 36.00 H (12.00-20.00) Ratio Glucose 111 H (70-110) mg/dL POC Glucose (mg/dL) 128 H (70-110) mg/dL Assessment and Plan Assessment: This is a 74-year-old woman who was found down on the ground outside her bathroom by her neighbor and it seems she was on the floor for a day at she had urine and bowel incontinence. Patient denies any history of seizure but per medical record it seems that she does have underlying history of seizure Episode of altered mental status being found down on the ground is concerning for breakthrough seizure and the patient is not on any antiseizure medication. EEG is normal. MRI brain is negative for acute or subacute process. History of reported seizure per medical record patient denies that history. But today states she does have history of seizure and it has been long time since h ad seizures. Underlying history of diabetes mellitus COPD Underlying history of depression and anxiety Plan: I started the patient on Depakote 500mg bid since it has both mood and antiseizure benefits. So far tolerating medical well. Seizure precautions seizure beds Will defer the rest of the medical management to primary and other specialist Per [facility] because of the seizure, avoid driving for 6-month until seizure-free, avoid swimming unassisted, avoid heavy machinery or heights. Upon discharge recommend the patient to follow-up with a neurologist as an out patient within 2 to 3 weeks Patient is clear from neurological perspective. Will sign off. Please reconsult if needed. Time with Patient: Less than 30
[2024-09-23 12:38] LABS: Glucose,Whole Blood 128 mg/dL (70-110)
== END 2024-09-23 14:48 | disposition home or self-care (01) ==
LOC: EC 17:26 → 6NMEDSUR 20:17
PROVIDERS: ADMIT Hospitalist; ATTEND Hospitalist
DX: G93.41 Metabolic encephalopathy (principal); E11.9 Type 2 diabetes mellitus without complications; J44.9 Chronic obstructive pulmonary disease, unspecified; G40.909 Epilepsy, unspecified, not intractable, without status epilepticus; E87.1 Hypo-osmolality and hyponatremia; R32 Unspecified urinary incontinence; R15.9 Full incontinence of feces; R00.0 Tachycardia, unspecified; D72.829 Elevated white blood cell count, unspecified; F32.A Depression, unspecified; F41.9 Anxiety disorder, unspecified; F17.200 Nicotine dependence, unspecified, uncomplicated; Z79.4 Long term (current) use of insulin; Z79.899 Other long term (current) drug therapy; Z88.0 Allergy status to penicillin; Z88.6 Allergy status to analgesic agent; W18.30XA Fall on same level, unspecified, initial encounter
CPT/HCPCS: 96376 ×4; 96361 ×3; 96372 ×5; 96374; 99285; 36415; 94760 ×2; 95816; 93005; 97161; 97166; 80053 ×2; 80048; 84443; 82607; 82140; 82550; 83735; 84100; 84484 ×2; 85025 ×3; 85610; 85730; 81001; 80306; 83036; 72170; 71045; 70450; 70553; G0378 ×6; G0480; J2060 ×4; J1644 ×5; A9585; 80320